=== PATIENT | female | born 1980 | race Hispanic/Latino ===

== ENCOUNTER 2021-09-05 14:09 | Emergency (ER) | payer OTHER ==
[2021-09-05] MEDS ORDERED: dexAMETHasone 10 MG/ML VIAL ONE (15:22)
[2021-09-05] MEDS ORDERED: METOCLOPRAMIDE 10 MG/2mL INJ ONE (15:22)
[2021-09-05] MEDS ORDERED: MEPERIDINE HCL 25 MG/ML SYR ONE (15:23)
[2021-09-05] MEDS ORDERED: NA CHLORIDE 0.9% 1,000 ML ONE (15:23)
[2021-09-05 15:30] LABS: Absolute Lymphocytes (CBC) 1.7 K/uL (0.7-4.9); Hematocrit 38.1 % (36.0-45.0); MPV 9.4 fL (7.6-11.3); RBC Red Blood Cell Count 4.62 M/uL (3.86-4.86)
[2021-09-05 15:52] LABS: Potassium 4.1 mmol/L (3.5-5.1)
--- NOTE | 2021-09-05 15:54 | RAD REPORT ---
EXAM DESCRIPTION: CT - Head Brain Wo Cont - 09/05/2021 3:45 pm CLINICAL HISTORY: HEADACHE Headache, drowsiness COMPARISON: Head angio dated 09/05/2021 TECHNIQUE: All CT scans are performed using dose optimization technique as appropriate and may inclu de automated exposure control or mA/KV adjustment according to patient size. FINDINGS: No intracranial hemorrhage, hydrocephalus or extra-axial fluid collection.No areas of brai n edema or evidence of midline shift. The paranasal sinuses and mastoids are clear. The calvarium is intact. IMPRESSION: No acute intracranial abnormality.
--- NOTE | 2021-09-05 15:55 | RAD REPORT ---
EXAM DESCRIPTION: CT - Head angio - 09/05/2021 3:45 pm CLINICAL HISTORY: HEADACHE Headache, drowsiness COMPARISON: No comparisons TECHNIQUE: CT angiography of the head was performed with MIPs. All CT scans are performed using dose optimization technique as appropriate and may include automated exposure control or mA/KV adjustment according to patient size. FINDINGS: No evidence of aneurysm is detected. No flow-limiting stenosis or vascular malformation id entified. Antegrade flow is seen in the vertebral arteries. The vertebral arteries are codominant. The visualized dural venous sinuses are patent. IMPRESSION: No significant flow abnormality is detected.
--- NOTE | 2021-09-05 16:35 | ER ---
Nurse's Notes [facility] Name: Ele Mckeon Age: 41 yrs Sex: Female : 1980 Arrival Date: 09/05/2021 Time: 14:11 Bed 15 Private MD: Diagnosis: Migraine, unspecified, not intractable, without status migrainosus;Essential (primary) hypertension Presentation: 09/05 14:15 Chief complaint: Patient states: Last night I began feeling a tight pressure headache. ld1 I took "Advil dual action" went to sleep. Woke up this morning feeling okay, still had a slight headache. I ate lunch and now my head is hurting really bad, intense headache. Coronavirus screen: At this time, the client does not indicate any symptoms associated with coronavirus-19. Ebola Screen: No symptoms or risks identified at this time. Initial Sepsis Screen: Does the patient meet any 2 criteria? No. Patient's initial sepsis screen is negative. Does the patient have a suspected source of infection? No. Patient's initial sepsis screen is negative. Risk Assessment: Do you want to hurt yourself or someone else? Patient reports no desire to harm self or others. Onset of symptoms was September 05, 2021. 14:15 Method Of Arrival: Ambulatory ld1 14:15 Acuity: LETICIA 3 ld1 Triage Assessment: 14:17 Headache History: The patient has had previous headaches and this one is similar to ld1 previous episodes. General: Appears in no apparent distress. comfortable, Behavior is cooperative, appropriate for age, anxious. Pain: Complains of pain in face Pain does not radiate. Pain currently is 8 out of 10 on a pain scale. Pain began gradually, Also complains of no other associated symptoms. Neuro: Level of Consciousness is awake, alert, obeys commands, Oriented to person, place, time, situation, Reports seeing spots. Cardiovascular: Capillary refill < 3 seconds Patient's skin is warm and dry. Respiratory: Airway is patent Respiratory effort is even, unlabored. 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 - Social history:: Smoking status: Patient denies any tobacco usage or history of. Patient/guardian denies using alcohol. - Family history:: not pertinent. - Hospitalizations: : No recent hospitalization is reported. Screenin:58 Abuse screen: Denies threats or abuse. Denies injuries from another. Nutritional cb5 screening: No deficits noted. Tuberculosis screening: No symptoms or risk factors identified. Fall Risk None identified. Assessment: 15:15 General: Appears in no apparent distress. comfortable, Behavior is calm, cooperative, cb5 appropriate for age. Pain: Complains of pain in top of head and face Pain currently is 4 out of 10 on a pain scale. Neuro: No deficits noted. Cardiovascular: Denies. Respiratory: Denies. GI: Patient currently denies. : Denies. EENT: Denies. Derm: Denies. Musculoskeletal: Denies. 15:20 Pain: Denies pain. cb5 16:53 Pain: Aske dpain if she needed more pain medication. patient stated "No, I am good, I cb5 don't have ant pain.". Vital Signs: 14:15 BP 157 / 99; Pulse 97; Resp 18; Temp 97.8(O); Pulse Ox 100% on R/A; Weight 97.98 kg; ld1 Height 4 ft. 11 in. (149.86 cm); Pain 8/10; 18:27 BP 132 / 86; Pulse 79; Resp 18; Pulse Ox 100% ; Pain 3/10; jh6 14:15 Body Mass Index 43.63 (97.98 kg, 149.86 cm) ld1 Esau Coma Score: 16:30 Eye Response: spontaneous(4). Verbal Response: oriented(5). Motor Response: obeys rn commands(6). Total: 15. ED Course: 14:11 Patient arrived in ED. as 14:17 Triage completed. ld1 14:17 Arm band placed on left wrist. ld1 14:38 Star Peres MD is Attending Physician. rn 14:46 Elizabeth Hutchinson RN is Primary Nurse. cb5 15:18 Basic Metabolic Panel Sent. cb5 15:18 CBC with Diff Sent. cb5 15:44 CT Head Brain wo Cont In Process Unspecified. EDMS 15:45 CT Head Angio In Process Unspecified. EDMS 15:58 Patient has correct armband on for positive identification. Call light in reach. Side cb5 rails up X 1. 18:26 IV discontinued, intact, bleeding controlled, No redness/swelling at site. Pressure jh6 dressing applied. 18:26 No provider procedures requiring assistance completed. 6 Administered Medications: 15:22 Drug: Decadron - Dexamethasone 10 mg Route: IVP; Site: left antecubital; cb5 15:22 Drug: Demerol (meperidine) 25 mg Route: IVP; Site: left antecubital; cb5 15:22 Drug: NS 0.9% 1000 ml Route: IV; Rate: 1000 ml; Site: left antecubital; cb5 15:22 Drug: Reglan (metoCLOPramide) 10 mg Route: IVP; Site: left antecubital; cb5 Outcome: 16:34 Discharge ordered by . rn 18:26 Discharged to home ambulatory. [facility] 18:26 Condition: stable 18:26 Discharge instructions given to patient, family, Instructed on discharge instructions, follow up and referral plans. Demonstrated understanding of instructions, follow-up care. 18:27 Patient left the ED. 6 Signatures: Dispatcher [employer] Danielle Mcneal Roman, MD MD rn Dibbern, Lauren RN RN ld1 Stephanie Bhat RN RN jh6 Elizabeth Hutchinson RN RN cb5
--- NOTE | 2021-09-05 16:35 | EDPHYS ---
Physician Documentation [facility] Name: Ele Mckeon Age: 41 yrs Sex: Female : 1980 Arrival Date: 09/05/2021 Time: 14:11 Bed 15 Private MD: ED Physician Star Peres HPI: 09/05 14:56 This 41 yrs old Female presents to ER via Ambulatory with complaints of rn Headache. 14:56 The patient complains of pain to the top of head. The patient describes the headache as rn aching. Onset: The symptoms/episode began/occurred yesterday. Associated signs and symptoms: Pertinent negatives: altered mental status, fever, neck stiffness, rash, vision changes, vision loss, vomiting, weakness, vertigo. Severity of symptoms: At its worst the pain was moderate, "similar to past headaches", in the emergency department the pain is unchanged. The symptoms are alleviated by nothing. the symptoms are aggravated by nothing. The patient has experienced similar episodes in the past. The patient has not recently seen a physician. Patient reports headache that began yesterday, after headache began checked blood pressure and was 180s over 110s. Is noncompliant with her blood pressure medication. Has had complicated migraines in the past that leave her with slurred speech and unilateral weakness. Has seen a neurologist for this with MRIs and multiple imaging studies. No clear etiology other than complicated migraines. states that she has been having slow slurred speech since it began yesterday similar to previous migraines.. 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 - Social history:: Smoking status: Patient denies any tobacco usage or history of. Patient/guardian denies using alcohol. - Family history:: not pertinent. - Hospitalizations: : No recent hospitalization is reported. ROS: 14:56 Constitutional: Negative for fever, chills, and weight loss, Eyes: Negative for injury, rn pain, redness, and discharge, Neck: Negative for injury, pain, and swelling, Cardiovascular: Negative for chest pain, palpitations, and edema, Respiratory: Negative for shortness of breath, cough, wheezing, and pleuritic chest pain, Abdomen/GI: Negative for abdominal pain, nausea, vomiting, diarrhea, and constipation, Back: Negative for injury and pain, : Negative for injury, bleeding, discharge, and swelling, MS/Extremity: Negative for injury and deformity, Skin: Negative for injury, rash, and discoloration, Neuro: Negative for weakness, numbness, tingling, and seizure. Exam: 14:56 Constitutional: This is a well developed, well nourished patient who is awake, alert, rn and in no acute distress. Head/Face: Normocephalic, atraumatic. Eyes: Pupils equal round and reactive to light, extra-ocular motions intact. Periorbital areas with no swelling, redness, or edema. Neck: Trachea midline, no thyromegaly or masses palpated, and no cervical lymphadenopathy. Supple, full range of motion without nuchal rigidity, or vertebral point tenderness. No Meningismus. Cardiovascular: Regular rate and rhythm. No pulse deficits. Respiratory: No increased work of breathing, no retractions or nasal flaring. Abdomen/GI: Soft, non-tender Skin: Warm, dry MS/ Extremity: Pulses equal, no cyanosis. Neurovascular intact. Full, normal range of motion. Equal circumference. Neuro: Awake and alert, GCS 15, oriented to person, place, time, and situation. Cranial nerves II-XII grossly intact. Motor strength 5/5 in all extremities. Sensory grossly intact. Cerebellar exam normal. Normal gait. Slow speech, almost as if she was intoxicated. Vital Signs: 14:15 BP 157 / 99; Pulse 97; Resp 18; Temp 97.8(O); Pulse Ox 100% on R/A; Weight 97.98 kg; ld1 Height 4 ft. 11 in. (149.86 cm); Pain 8/10; 18:27 BP 132 / 86; Pulse 79; Resp 18; Pulse Ox 100% ; Pain 3/10; jh6 14:15 Body Mass Index 43.63 (97.98 kg, 149.86 cm) ld1 Esau Coma Score: 16:30 Eye Response: spontaneous(4). Verbal Response: oriented(5). Motor Response: obeys rn commands(6). Total: 15. MDM: 14:38 Patient medically screened. rn 16:30 Differential diagnosis: hypertensive headache, intracerebral hemorrhage, migraine, rn neoplasm, tension headache, vasomotor headache. Data reviewed: vital signs, nurses notes, lab test result(s), radiologic studies, CT scan, and as a result, I will discharge patient. Counseling: I had a detailed discussion with the patient and/or guardian regarding: the historical points, exam findings, and any diagnostic results supporting the discharge/admit diagnosis, lab results, radiology results, the need for outpatient follow up, to return to the emergency department if symptoms worsen or persist or if there are any questions or concerns that arise at home. Response to treatment: the patient's symptoms have markedly improved after treatment, and as a result, I will discharge patient. Special discussion: I discussed with the patient/guardian in detail that at this point there is no indication for admission to the hospital. It is understood, however, that if the symptoms persist or worsen the patient needs to return immediately for re-evaluation. Based on the history and exam findings, there is no indication for further emergent testing or inpatient evaluation. I discussed with the patient/guardian the need to see the neurologist for further evaluation of the symptoms. 09/05 14:54 Order name: CBC with Diff; Complete Time: 16:04 rn 09/05 14:54 Order name: Basic Metabolic Panel; Complete Time: 16:04 rn 09/05 14:53 Order name: CT Head Brain wo Cont; Complete Time: 16:04 rn 09/05 14:53 Order name: CT Head Angio; Complete Time: 16:04 rn 09/05 14:54 Order name: IV Start; Complete Time: 15:30 rn Administered Medications: 15:22 Drug: Decadron - Dexamethasone 10 mg Route: IVP; Site: left antecubital; cb5 15:22 Drug: Demerol (meperidine) 25 mg Route: IVP; Site: left antecubital; cb5 15:22 Drug: NS 0.9% 1000 ml Route: IV; Rate: 1000 ml; Site: left antecubital; cb5 15:22 Drug: Reglan (metoCLOPramide) 10 mg Route: IVP; Site: left antecubital; cb5 Disposition Summary: 09/05/21 16:34 Discharge Ordered Location: Home rn Problem: new rn Symptoms: have improved rn Condition: Stable rn Diagnosis - Migraine, unspecified, not intractable, without status migrainosus rn - Essential (primary) hypertension rn Followup: rn - With: Private Physician - When: As needed - Reason: Recheck today's complaints, Re-evaluation by your physician Discharge Instructions: - Discharge Summary Sheet rn - Migraine Headache rn - Hypertension, Adult rn Forms: - Medication Reconciliation Form rn - Thank You Letter rn - Antibiotic rn palliative care - Prescription Opioid Use rn Signatures: Dispatcher [employer] EDMS Star Peres MD MD rn Dibbern, Lauren, RN RN ld1 Elizabeth Hutchinson, RN RN cb5
[2021-09-05 18:42] VITALS: TEMP 97.8; O2SAT 100
[2021-09-05 18:44] VITALS: BP 132/86
== END 2021-09-05 18:27 | disposition home or self-care (01) ==
LOC: ER 14:09
DX: G43.909 Migraine, unspecified, not intractable, without status migrainosus (principal); I10 Essential (primary) hypertension
CPT/HCPCS: 85025; 80048; 36415; 70450; 70496; 96375; 96374; 99283; Q9967; J2765; J1100; J2175; J7030

== ENCOUNTER 2022-03-16 08:12 | Emergency (ER) | payer BC, OTHER ==
[2022-03-16] MEDS ORDERED: KETOROLAC 30 MG/ML INJ ONE (08:49)
[2022-03-16 08:55] LABS: Absolute Lymphocytes (CBC) 2.3 K/uL (0.7-4.9); Hematocrit 37.7 % (36.0-45.0); Lymphocytes % 31.9 % (15.3-44.8); MCV 86.3 fL (80-100); MPV 9.5 fL (7.6-11.3); RBC Red Blood Cell Count 4.37 M/uL (3.86-4.86)
[2022-03-16 09:18] LABS: Potassium 3.1 mmol/L (3.5-5.1); Troponin High Sensitivity 4.8 pg/mL (<58.9)
--- NOTE | 2022-03-16 09:27 | RAD REPORT ---
EXAM DESCRIPTION: RAD - Chest Single View - 03/16/2022 9:17 am CLINICAL HISTORY: CHEST PAIN Chest pain. COMPARISON: No comparisons FINDINGS: Portable technique limits examination quality. The lungs are grossly clear. The heart is normal in size. No displaced fractures. IMPRESSION: No acute intrathoracic process suspected.
[2022-03-16] MEDS ORDERED: MORPHINE 4 MG/ML SYR ONE (11:04)
--- NOTE | 2022-03-16 11:53 | EDPHYS ---
Physician Documentation [facility] Name: Ele Mckeon Age: 41 yrs Sex: Female : 1980 Arrival Date: 03/16/2022 Time: 08:15 Bed 4 Private MD: ED Physician Galen Cline HPI: 03/16 11:52 This 41 yrs old Female presents to ER via EMS with complaints of Chest Pain. ms3 11:52 The patient or guardian reports chest pain that is located primarily in the substernal ms3 area. Onset: 1 hour(s) ago. The pain does not radiate. Associated signs and symptoms: Pertinent positives: None. Pertinent negatives: cough, diaphoresis, nausea, vomiting. The chest pain is described as a pressure, sharp. Duration: The patient or guardian reports a single episode, that is still ongoing. Modifying factors: The symptoms are alleviated by nothing. the symptoms are aggravated by breathing, deep breath. Severity of pain: At its worst the pain was severe in the emergency department the pain is unchanged. 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 - Social history:: Smoking status: Patient denies any tobacco usage or history of. ROS: 11:52 Constitutional: Negative for fever, and chills. Neck: Negative for injury, pain, and ms3 swelling, Respiratory: Negative for shortness of breath, cough, wheezing, and pleuritic chest pain, Abdomen/GI: Negative for abdominal pain, nausea, vomiting, diarrhea, and constipation, MS/Extremity: Negative for injury and deformity, Skin: Negative for injury, rash, and discoloration. 11:52 Cardiovascular: Positive for chest pain. 11:52 All other systems are negative. Exam: 08:14 ECG was reviewed by the Attending Physician. ms3 11:52 Constitutional: This is a well developed, well nourished patient who is awake, alert, ms3 and in no acute distress. Neck: Trachea midline, no cervical lymphadenopathy. Supple, full range of motion without nuchal rigidity, or vertebral point tenderness. No Meningismus. Chest/axilla: Normal chest wall appearance and motion. Nontender with no deformity. Cardiovascular: Regular rate and rhythm with a normal S1 and S2. No gallops, murmurs, or rubs. Normal PMI, no JVD. No pulse deficits. Respiratory: Lungs have equal breath sounds bilaterally, clear to auscultation and percussion. No rales, rhonchi or wheezes noted. No increased work of breathing, no retractions or nasal flaring. Abdomen/GI: Soft, non-tender, with normal bowel sounds. No distension or tympany. No guarding or rebound. No evidence of tenderness throughout. Skin: Warm, dry with normal turgor. Normal color with no rashes, no lesions, and no evidence of cellulitis. MS/ Extremity: Pulses equal, no cyanosis. Neurovascular intact. Full, normal range of motion. Psych: Awake, alert, with orientation to person, place and time. Behavior, mood, and affect are within normal limits. Vital Signs: 08:18 BP 126 / 87; Pulse 73; Resp 16; Pulse Ox 100% on R/A; iw 09:38 BP 143 / 81; Pulse 65; Resp 16; Pulse Ox 100% ; bp 11:36 BP 128 / 78; Pulse 74; Resp 13; Pulse Ox 99% on R/A; eh3 12:30 BP 135 / 85; Pulse 76; Resp 18; Pulse Ox 99% on R/A; Pain 5/10; eh3 MDM: 08:22 Patient medically screened. ms3 11:52 HEART Score: History: Slightly Suspicious (0), ECG: Normal (0), Age: < or = 45 years ms3 (0), Risk Factors: 1 or 2 risk factors (1), Troponin: < or = 1 x Normal Limit (0), Total Score = 1. Data reviewed: vital signs, nurses notes, lab test result(s), EKG, radiologic studies, and as a result, I will discharge patient. Counseling: I had a detailed discussion with the patient and/or guardian regarding: the historical points, exam findings, and any diagnostic results supporting the discharge/admit diagnosis, lab results, radiology results, the need for outpatient follow up, to return to the emergency department if symptoms worsen or persist or if there are any questions or concerns that arise at home. Special discussion: I discussed with the patient/guardian in detail that at this point there is no indication for admission to the hospital. It is understood, however, that if the symptoms persist or worsen the patient needs to return immediately for re-evaluation. ED course: Repeat troponin unchanged. PERC score 0.. 03/16 08:27 Order name: Basic Metabolic Panel; Complete Time: 09:36 ms3 03/16 08:27 Order name: CBC with Diff; Complete Time: 09:36 ms3 03/16 08:27 Order name: Troponin HS; Complete Time: 09:36 ms3 03/16 08:27 Order name: XRAY Chest (1 view); Complete Time: 09:36 ms3 03/16 10:20 Order name: Troponin High Sensitivity; Complete Time: 11:41 ms3 03/16 08:27 Order name: EKG; Complete Time: 08:29 ms3 03/16 08:27 Order name: Cardiac monitoring; Complete Time: 08:36 ms3 03/16 08:27 Order name: EKG - Nurse/Tech; Complete Time: 08:35 ms3 03/16 08:27 Order name: IV Saline Lock; Complete Time: 08:36 ms3 03/16 08:27 Order name: Labs collected and sent; Complete Time: 08:36 ms3 03/16 08:27 Order name: O2 Per Protocol; Complete Time: 08:36 ms3 03/16 08:27 Order name: O2 Sat Monitoring; Complete Time: 08:36 ms3 EC:14 Rate is 73 beats/min. Rhythm is regular. QRS [place] is Normal. [place] interval is normal. QRS ms3 interval is normal. Clinical impression: NSR w/ Non-specific ST/T Changes. Interpreted by me. Reviewed by me. Administered Medications: 08:57 Drug: Ketorolac 10 mg Route: IVP; Site: left antecubital; bp 09:39 Follow up: Response: No adverse reaction bp 12:10 Follow up: Response: Marked relief of symptoms eh3 08:58 CANCELLED (Other Intervention Used): Aspirin Chewable Tablet 324 mg PO once; 81 mg bp tablets x 4 11:04 Not Given (Patient Refused): morphine 4 mg IVP once over 4 mins eh3 12:09 Drug: Potassium Chloride 40 mEq Route: PO; eh3 12:09 Follow up: Response: No adverse reaction eh3 12:48 Follow up: Response: No adverse reaction eh3 Disposition Summary: 03/16/22 11:52 Discharge Ordered Location: Home ms3 Condition: Stable ms3 Diagnosis - Chest pain, unspecified ms3 - Hypokalemia ms3 Followup: ms3 - With: Private Physician - When: 1 - 2 days - Reason: Recheck today's complaints Discharge Instructions: - Discharge Summary Sheet ms3 - Nonspecific Chest Pain, Adult ms3 Forms: - Medication Reconciliation Form ms3 - Thank You Letter ms3 - Antibiotic Education ms3 - Prescription Opioid Use ms3 Prescriptions: - Ibuprofen 600 mg Oral Tablet - take 1 tablet by ORAL route every 6 hours As needed take with food; 30 tablet; ms3 Refills: 0, Product Selection Permitted Signatures: Dispatcher [employer] Gilda Martinez RN RN Andrew An RN RN bp Galen Cline DO DO ms3 Janett Rust RN RN 3 Corrections: (The following items were deleted from the chart) 08:58 08:27 Aspirin Chewable Tablet 324 mg PO once; 81 mg tablets x 4 ordered. ms3 bp
--- NOTE | 2022-03-16 11:53 | ER ---
Nurse's Notes [facility] Name: Ele Mckeon Age: 41 yrs Sex: Female : 1980 Arrival Date: 03/16/2022 Time: 08:15 Bed 4 Private MD: Diagnosis: Chest pain, unspecified;Hypokalemia Presentation: 03/16 08:15 Chief complaint: EMS states: pt woke up with midsternal chest pain, sharp pressure, iw hurts more when she takes a deep breath , EMS gave ASA 324 and 1 spray of Nitro. Coronavirus screen: At this time, the client does not indicate any symptoms associated with coronavirus-19. Ebola Screen: Patient negative for fever greater than or equal to 101.5 degrees Fahrenheit, and additional compatible Ebola Virus Disease symptoms Patient denies exposure to infectious person. Patient denies travel to an Ebola-affected area in the 21 days before illness onset. No symptoms or risks identified at this time. Initial Sepsis Screen: Does the patient meet any 2 criteria? No. Patient's initial sepsis screen is negative. Does the patient have a suspected source of infection? No. Patient's initial sepsis screen is negative. Risk Assessment: Do you want to hurt yourself or someone else? Patient reports no desire to harm self or others. Onset of symptoms was March 16, 2022. 08:15 Method Of Arrival: Ambulatory iw 08:15 Method Of Arrival: EMS: [facility] iw 08:15 Acuity: LETICIA 3 iw Triage Assessment: 08:33 General: Appears in no apparent distress. uncomfortable, well groomed, well developed, bp Behavior is calm, cooperative, appropriate for age. Pain: Complains of pain in chest. Neuro: Level of Consciousness is awake, alert, obeys commands, Oriented to person, place, time, situation, Appropriate for age Belt Cleaner are equal bilaterally Speech is normal. Cardiovascular: Reports chest pain. TIP PUNCHER: 12:47 LMP N/A - Hysterectomy eh3 Historical: - Allergies: 08:17 No Known Allergies; iw - PMHx: 08:17 Anxiety; depressive disorder; Hypertensive disorder; iw - PSHx: 08:17 section; Cholecystectomy; hysterectomy; iw - Immunization history:: Adult Immunizations up to date. - Social history:: Smoking status: Patient denies any tobacco usage or history of. Screenin:24 Abuse screen: Denies threats or abuse. Denies injuries from another. Nutritional bp screening: No deficits noted. Tuberculosis screening: No symptoms or risk factors identified. Fall Risk None identified. Assessment: 08:35 Pain: Pain radiates to midsternal chest. bp 09:39 Reassessment: No changes from previously documented assessment. Patient and/or family bp updated on plan of care and expected duration. Pain level reassessed. 11:56 Pain: Pain began suddenly. eh3 Vital Signs: 08:18 BP 126 / 87; Pulse 73; Resp 16; Pulse Ox 100% on R/A; iw 09:38 BP 143 / 81; Pulse 65; Resp 16; Pulse Ox 100% ; bp 11:36 BP 128 / 78; Pulse 74; Resp 13; Pulse Ox 99% on R/A; eh3 12:30 BP 135 / 85; Pulse 76; Resp 18; Pulse Ox 99% on R/A; Pain 5/10; eh3 ED Course: 08:15 Patient arrived in ED. iw 08:15 Galen Cline DO is Attending Physician. ms3 08:17 Triage completed. iw 08:17 Arm band placed on. iw 08:20 Initial lab(s) drawn, by ok, sent to lab. dh3 08:24 Andrew An, RN is Primary Nurse. bp 08:24 Patient has correct armband on for positive identification. Bed in low position. Call bp light in reach. Side rails up X2. Client placed on continuous cardiac and pulse oximetry monitoring. NIBP monitoring applied. belt builder helper on. 08:24 No provider procedures requiring assistance completed. Maintain EMS IV. Dressing bp intact. Good blood return noted. Site clean \T\ dry. Gauge \T\ site: 20g left AC. Patient maintains SpO2 saturation greater than 95% on room air. 09:18 XRAY Chest (1 view) In Process Unspecified. EDMS 09:55 Primary Nurse role handed off by Andrew An, RN jh5 09:55 Subah Emerson, RINA is Primary Nurse. jh5 11:04 Troponin High Sensitivity Sent. eh3 12:48 IV discontinued, intact, bleeding controlled, No redness/swelling at site. Pressure eh3 dressing applied. Administered Medications: 08:57 Drug: Ketorolac 10 mg Route: IVP; Site: left antecubital; bp 09:39 Follow up: Response: No adverse reaction bp 12:10 Follow up: Response: Marked relief of symptoms eh3 08:58 CANCELLED (Other Intervention Used): Aspirin Chewable Tablet 324 mg PO once; 81 mg bp tablets x 4 11:04 Not Given (Patient Refused): morphine 4 mg IVP once over 4 mins eh3 12:09 Drug: Potassium Chloride 40 mEq Route: PO; eh3 12:09 Follow up: Response: No adverse reaction eh3 12:48 Follow up: Response: No adverse reaction eh3 Medication: 11:55 VIS not applicable for this client. eh3 Outcome: 11:52 Discharge ordered by MD. ms3 12:48 Discharged to home ambulatory, with family. eh3 12:48 Condition: stable 12:48 Discharge instructions given to patient, Instructed on discharge instructions, follow up and referral plans. medication usage, Demonstrated understanding of instructions, follow-up care, medications, Prescriptions given X 1. 12:48 Patient left the ED. 3 Signatures: Dispatcher [employer] EDGilda Bennett RN RN iw Herrera, Deanna 3 Andrew An RN RN Galen Garcia DO DO ms3 Subha Emerson RN RN 5 Janett Rust RN RN 3 Corrections: (The following items were deleted from the chart) 09:38 08:35 Pain: Pain began bp bp 11:56 11:56 Pain: Pain began eh3 eh3
[2022-03-16] MEDS ORDERED: POTASSIUM CL SA 10 MEQ TAB PO ONE (12:15)
[2022-03-16 13:29] VITALS: BP 128/78; O2SAT 99
--- NOTE | 2022-03-17 07:55 | EKG ---
Test Date: 2022-03-16 Test Time: 08:14:48 Lockstitch Tunnel Elastic Operator: KENYETTA MEASUREMENT RESULTS: Intervals: Rate: 73 AL: 130 QRSD: 98 QT: 390 QTc: 429 Eclectic: P: 38 AL: 130 QRS: 69 T: 48 INTERPRETIVE STATEMENTS: Normal sinus rhythm Nonspecific T wave abnormality Abnormal ECG No previous ECG available for comparison Electronically Signed On 03-17-22 07:54:33 CDT by Andrea Wu
== END 2022-03-16 12:48 | disposition home or self-care (01) ==
LOC: ER 08:12
DX: R07.89 Other chest pain (principal); E87.6 Hypokalemia; I10 Essential (primary) hypertension
CPT/HCPCS: 36415; 71045; 80048; 84484; 85025; 93005

== ENCOUNTER 2022-12-30 18:50 | Emergency (ER) | payer BC, OTHER ==
--- OUTSIDE RECORDS SUMMARY | 2022-12-30 19:09 | XMS REPORT | Continuity of Care Document ---
:1980 Author Organization [facility] t Address [address] [facility] [address] [place] [address] Care Team Providers Name Role Phone Vadim Billsdeandre Primary Care Physician Unavailable KRISTY BARBOSA Attending Clinician Unavailable MARCI KO Attending Clinician Unavailable CURT JADE Attending Clinician Unavailable CURT JADE Attending Clinician Unavailable Nurse, Damaris Pedmadan Attending Clinician Unavailable Marci Gonzales Attending Clinician PAMELA COX Attending Clinician Unavailable Lab, Ang - Db Attending Clinician Unavailable Draw, Clc-Bls Lab Attending Clinician Unavailable Kristy Barbosa MD Attending Clinician CHIO GARCIA Attending Clinician Unavailable Chio Rosa Attending Clinician [phone] TREVA ACOSTA Attending Clinician Unavailable TREVA ACOSTA Attending Clinician Unavailable Gustavo Jasso MD Attending Clinician GUSTAVO JASSO Attending Clinician Unavailable BRANDEE NANCE Attending Clinician Unavailable Brandee Nance MD Attending Clinician Unknown, Attending Attending Clinician Unavailable Only, Ang Db Test Attending Clinician Unavailable ELIAS WHITMAN Attending Clinician Unavailable DAMARIS SEBASTIAN Attending Clinician Unavailable Damaris Gastelum Attending Clinician Karen COTE, Haley Leigh. Attending Clinician HALEY JONES Attending Clinician Unavailable Doctor Unassigned, [place] Attending Clinician Unavailable Elias Santoro Attending Clinician Delonte COTE, Naresh Attending Clinician NARESH MARTEL Attending Clinician Unavailable Only, Adc Pob2 Test Attending Clinician Unavailable Carlos Eduardo OWEN, Zenia Attending Clinician ZENIA THIBODEAUX Attending Clinician Unavailable Debora Wetzel RN Attending Clinician Unavailable HILARIO CIFUENTES Attending Clinician Unavailable JESSEE BILLS Attending Clinician Unavailable Sanju COTE, Jessee Quintanilla Attending Clinician Karla COTE, Treva Le Attending Clinician MARTIN EDWARD Attending Clinician Unavailable Nurse, Adc Pob Immunization Attending Clinician Unavailable Martin Edward DO Attending Clinician Therapy, Clc Covid Infusion Attending Clinician Unavailable Alan COTE, Gurpreet Pete Attending Clinician GURPREET PHILLIPS Attending Clinician Unavailable Provider, Ang Db Urgent [facility] Attending Clinician Unavailable Nurse, Clc [facility] Ob[facility] Attending Clinician Unavailable Lois FLYNN, Danielle Bond Attending Clinician DAFNE PETERSON Attending Clinician Unavailable Lab, Clc - Attending Clinician Unavailable Kenneth Alberto MD Attending Clinician KENNETH ALBERTO Attending Clinician Unavailable KENNETH ALBERTO Attending Clinician Unavailable Jordan FLYNN, Stacey Atkinson Attending Clinician Unavailable TAMARA LAURA Attending Clinician Unavailable Valentín Lunsford MD Attending Clinician Shola Anthony MD Attending Clinician Tamara Laura MD Attending Clinician Lab, Adc Fam Pob I Attending Clinician Unavailable GHASSAN MARCELINO Attending Clinician Unavailable Provider, [facility] Attending Clinician Unavailable Only, Adc Test Attending Clinician Unavailable Chaim Bolton MD Attending Clinician CHAIM BOLTON Attending Clinician Unavailable Pob, Adc Lab Main Attending Clinician Unavailable Berenice Melgar Attending Clinician Sia Felipe Attending Clinician Unavailable Caio Jeff MD Attending Clinician CAIO JEFF Attending Clinician Unavailable Tech, [facility] Sleep Lab Attending Clinician Unavailable Dafne Peterson PA-C Attending Clinician 2, [facility] Adult Infusion Nurse Attending Clinician Unavailable Only, [facility] Test Attending Clinician Unavailable Yumiko COTE, Russell Chen Attending Clinician Chandu Fry MD Attending Clinician Quinn Norris MD Attending Clinician QUINN NORRIS Attending Clinician Unavailable 2, Adc Lab Attending Clinician Unavailable Annabel Santana RN Attending Clinician Unavailable Pob1, [facility] Attending Clinician Unavailable Brenna Brisoce Attending Clinician Jese Casarez MD Attending Clinician DANN NURSE Attending Clinician Unavailable KRISTY BARBOSA Admitting Clinician Unavailable HALEY JONES Admitting Clinician Unavailable Kristy Barbosa MD Admitting Clinician TAMARA LAURA Admitting Clinician Unavailable Tamara Laura MD Admitting Clinician Chandu Fry MD Admitting Clinician CHANDU FRY Admitting Clinician Unavailable Payers Payer Name Policy Type Policy Number Effective Date Expiration Date [facility] [id number] 2019 PPO 00:00:00 [facility] [id number] 2021 00:00:00 Problems Condition Condition Condition Status Onset Resolution Last Treating Co mments Source Name Details Category Date Date Treatment Clinician Date Nida' Nida' Disease Active 2022-0 U nivers s disease s disease 2-09 ity of 00:00: [place] [facility] Postoperat Postoperat Disease Active 2020-0 U nivers major state major state 7-20 ity of 00:00: [place] [facility] Left sided Left sided Disease Active U nivers numbness numbness 3-26 ity of 00:00: Medical Branch Left-sided Left-sided Disease Active 2020- U nivers weakness weakness 3-25 ity of 00:00: [place] [facility] Abnormal Abnormal Disease Active 2019-07 Overview: Un diony uterine uterine 1-18 Added ity of bleeding bleeding 00:00: automatic [place] as 00 ally from Medical request Branch for surgery [id number] RAD RAD Disease Active 2019-07 Univers (reactive (reactive 0-22 ity of airway airway 00:00: [place] disease) disease) 00 Medica l Branch Migraine Migraine Disease Active Unive rs 8-17 ity of 00:00: [place] [facility] CHARLES CHARLES Disease Active Univers (obstructi (obstructi 7-18 it y of ve sleep ve sleep 00:00: [place] apnea) apnea) 00 Medical Branch Essential Essential Disease Active Uni vers hypertensi hypertensi 6-09 it y of on on 00:00: [place] [facility] Morbid Morbid Disease Active 2019- Univers obesity obesity 6-04 it[place] of with body with body 00:[place] mass [place] mass index 00 Me dical of of Branch 40.0-49.9 40.0-49.9 Morbid Morbid Disease Active 2018- Univers obesity obesity 6-04 [place] of with body with body 00:[place] mass index 00 Me dical of of Branch 40.0-49.9 40.0-49.9 Hemiplegic Hemiplegic Disease Active 2019- U nivers migraine migraine 2-28 ity of 00:00: [place] [facility] Dysarthria Dysarthria Disease Active 2017- M ethodi 11-24 st 00:00: [facility] 00 l Depression Depression Disease Active 2018- U nivers 4-08 ity of 00:00: [place] [facility] Immunizati Immunizati Disease Active 2018- U nivers on on 10-24 ity of counseling counseling 00:[place] [facility] Immunizati Immunizati Disease Active 2018 U nivers on on 10-24 ity of counseling counseling 00:00: [place] [facility] Pain in Pain in Disease Active 2018- Univers both hands both hands 3-27 it y of 00:00: [place] [facility] Chronic Chronic Disease Active 2018- Univers pain of pain of 3-27 ity of both knees both knees 00:00: [place] [facility] Chronic Chronic Disease Active 2018 Univers pain of pain of 3-27 ity of both knees both knees 00:00: [place] [facility] Prediabete Prediabete Disease Active U nivers s s 3-10 ity of 00:00: [place] [facility] ESR raised ESR raised Disease Active U nivers 3-10 ity of 00:00: [place] [facility] Elevated Elevated Disease Active Unive rs C-reactive C-reactive 3-10 it y of protein protein 00:00: [place] (CRP) (CRP) 00 Medical Branch Polyarthra Polyarthra Disease Active U nivers lgia lgia 3-10 ity of 00:00: [place] [facility] Vitamin D Vitamin D Disease Active Uni vers deficiency deficiency 3-10 it y of 00:00: [place] [facility] Cervical Cervical Disease Active 2016-07 Unive rs lymphadeni lymphadeni 1-21 it y of tis tis 00:00: [place] [facility] Iron Iron Disease Active 2015-07 Univers deficiency deficiency 0-24 it y of anemia anemia 00:00: [place] [facility] B12 B12 Disease Active 2015-07 Univers deficiency deficiency 0-24 it y of 00:00: [place] [facility] Allergic Allergic Disease Active 2015-07 Unive rs rhinitis rhinitis 0-14 ity of 00:00: [place] 00 Medical Branch Migraines Migraines Disease Active 2015-07 Uni vers 0-14 ity of 00:00: [place] [facility] Allergies, Adverse Reactions, Alerts Allergy Allergy Status Severity Reaction(s) Onset Inactive Treating Comm ents Source Name Type Date Date Clinician Cinnamon Propensi Active Swelling Angioedem M ethodi ty to 4-[address] adverse 00:00: Hospita reaction 00 l s to drug Cinnamon Propensi Active Swelling Angioedem U nivers ty to 4-27 a ity of adverse 00:00: [place] reaction 00 Medical s Branch CINNAMON DRUG Active High Anaphylaxis 2018-0 Uni vers INGREDI 11-24 ity of 00:00: [place] 00 Medical Branch Social History Social Habit Start Date Stop Date Quantity Comments Source [facility] Exposure to 2022-11-29 2022-12-09 Not sure University of SARS-CoV-2 (event) 00:00:00 16:27:00 [place] [facility] History SDOH 2022-10-24 2022-10-24 2 University o f Alcohol Frequency 00:00:00 00:00:00 [place] M edical [facility] History SDOH 2022-10-24 2022-10-24 1 University o f Alcohol Std Drinks 00:00:00 00:00:00 [place] [facility] History SDOH 2022-10-24 2022-10-24 1 University o f Alcohol Binge 00:00:00 00:00:00 [place] [facility] al [facility] History SDOH 2022-10-24 2022-10-24 5 University o f Social Connections 00:00:00 00:00:00 [place] [facility] Phone Branch History SDOH 2022-10-24 2022-10-24 2 University o f Social Connections 00:00:00 00:00:00 [place] [facility] Get Together Branch History SDOH 2022-10-24 2022-10-24 3 University o f Social Connections 00:00:00 00:00:00 [place] [facility] Restoration Branch History SDOH 2022-10-24 2022-10-24 2 University o f Social Connections 00:00:00 00:00:00 [place] [facility] Membership Branch History SDOH 2022-10-24 2022-10-24 1 University o f Social Connections 00:00:00 00:00:00 [place] [facility] Meetings Branch History SDOH 2022-10-24 2022-10-24 3 University o f Social Connections 00:00:00 00:00:00 [place] [facility] Living [facility] History SDOH 2022-10-24 2022-10-24 5 University o f Physical Activity 00:00:00 00:00:00 [place] [facility] edical DPW Branch History SDOH 2022-10-24 2022-10-24 0 University o f Physical Activity 00:00:00 00:00:00 [place] [facility] edical MPS Branch History SDOH 2022-10-24 2022-10-24 3 University o f Stress 00:00:00 00:00:00 [place] [facility] History SDOH 2022-10-24 2022-10-24 4 University o f Financial 00:00:00 00:00:00 [place] [facility] History SDOH Food 2022-10-24 2022-10-24 1 Univers ity of Worry 00:00:00 00:00:00 [place] [facility] History SDOH Food 2022-10-24 2022-10-24 1 Univers ity of Scarcity 00:00:00 00:00:00 [place] [facility] History SDOH 2022-10-24 2022-10-24 2 University o f Housing Unable to 00:00:00 00:00:00 [place] [facility] Pay Branch History SDOH 2022-10-24 2022-10-24 1 University o f Housing Places 00:00:00 00:00:00 [place] [facility]i artis Lived Branch History SDCO 2022-10-24 2022-10-24 2 University o f Housing Homeless 00:00:00 00:00:00 [facility] dical Last Year Branch Tobacco use and 2022-03-16 2022-03-16 Smokeless tobacco Un iversity of exposure 00:00:00 00:00:00 non-user [place] [facility] Education 2020-10-22 2020-10-22 15 University of 00:00:00 00:00:00 [place] [facility] History SDOH 2020-03-16 2020-03-16 2 University o f Transport Med 00:00:00 00:00:00 [place] [facility] al [facility] History SDCO 2020-03-16 2020-03-16 2 University o f Transport Non-Med 00:00:00 00:00:00 [place] [facility] History of Social 2018-06-17 2018-06-[address] function 00:00:00 00:00:00 Hospital Alcohol intake 2017-11-24 2017-11-24 [facility] Alcohol Comment 2016-05-13 2016-05-13 Occasionally Univers ity of 00:00:00 00:00:00 [place] [facility] Sex Ass[birth year] At [birth year] [facility] 00:[facility] Smoking Status Start Date Stop Date Source Never smoker [facility] Medications Ordered Filled Start Stop Current Ordering Indication Dosage Frequency Signature Comments Components Source Medication Medication Date Date Medication? Clinician (SIG) Name Name mecobalamin 2022-0 Yes Take by Uni vers , vitamin 5-03 mouth. ity of B12, (B12 08:14: [place] ACTIVE) 27 Medical 1,000 mcg Branch Chew mecobalamin 3-0 Yes Take by Uni vers , vitamin 5-03 mouth. ity of B12, (B12 08:14: [place] ACTIVE) 27 Medical 1,000 mcg Branch Chew mecobalamin 3-0 Yes Take by Uni vers , vitamin 5-03 mouth. ity of B12, (B12 08:14: [place] ACTIVE) 27 Medical 1,000 mcg Branch Chew mecobalamin 3-0 Yes Take by Uni vers , vitamin 5-03 mouth. ity of B12, (B12 08:14: [place] ACTIVE) 27 Medical 1,000 mcg Branch Chew SERTraline 2022-0 Yes [id number] 25mg Take 1 Univers (ZOLOFT) 25 5-03 tablet by ity of mg tablet 00:00: [place] 00 the Medical morning. Branch SERTraline 3-0 Yes [id number] 25mg Take 1 Univers (ZOLOFT) 25 5-03 tablet by ity of mg tablet 00:00: [place] the Medical morning. Branch SERTraline 2022-0 Yes [id number] 25mg Take 1 Univers (ZOLOFT) 25 5-03 tablet by ity of mg tablet 00:00: [place] 00 the Medical morning. Branch SERTraline 2022-0 Yes [id number] 25mg Take 1 Univers (ZOLOFT) 25 5-03 tablet by ity of mg tablet 00:00: [place] 00 the Medical morning. Branch telmisartan 3-0 Yes [id number] 40mg Take 1 Univers 40 mg 4-07 tablet by ity of tablet 00:00: mouth in [place] 00 the Medical morning. Branch telmisartan 3-0 Yes [id number] 40mg Take 1 Univers 40 mg 4-07 tablet by ity of tablet 00:00: mouth in [place] 00 the Medical morning. Branch telmisartan 3-0 Yes [id number] 40mg Take 1 Univers 40 mg 4-07 tablet by ity of tablet 00:00: mouth in [place] the Medical morning. Branch telmisartan 0 Yes [id number] 40mg Take 1 Univers 40 mg 4-07 tablet by ity of tablet 00:00: mouth in [place] the morning. Branch telmisartan 2022-0 Yes [id number] 40mg Take 1 Univers 40 mg 4-07 tablet by ity of tablet 00:00: mouth in [place] the morning. Branch telmisartan 2022-0 Yes [id number] 40mg Take 1 Univers 40 mg 4-07 tablet by ity of tablet 00:00: mouth in [place] the morning. Branch telmisartan 2022-0 Yes [id number] 40mg Take 1 Univers 40 mg 4-07 tablet by ity of tablet 00:00: mouth in [place] the morning. Branch SERTraline Yes [id number] Take 1/2 Univers (ZOLOFT) 50 3-29 tab po ity of mg tablet 00:00: daily x 1 Nic as 00 week. Then Medical increase Branch to 1 tab po daily. Avoid abrupt cessation. SERTraline Yes [id number] Take 1/2 Univers (ZOLOFT) 50 3-29 tab po ity of mg tablet 00:00: daily x 1 Nic as 00 week. Then Medical increase Branch to 1 tab po daily. Avoid abrupt cessation. SERTraline Yes [id number] Take 1/2 Univers (ZOLOFT) 50 3-29 tab po ity of mg tablet 00:00: daily x 1 [place] as 00 week. Then Medical increase Branch to 1 tab po daily. Avoid abrupt cessation. SERTraline Yes [id number] Take 1/2 Univers (ZOLOFT) 50 3-29 tab po ity of mg tablet 00:00: daily x 1 [place] as 00 week. Then Medical increase Branch to 1 tab po daily. Avoid abrupt cessation. SERTraline 2022- No [id number] Take 1/2 Univers (ZOLOFT) 50 3-29 05-03 tab po ity o f mg tablet 00:00: 00:00 [place] x 1 [place] :[place] week. Then Medical increase Branch to 1 tab po daily. Avoid abrupt cessation. SERTraline 2022- No [id number] Take 1/2 Univers (ZOLOFT) 50 3- 05-03 tab po ity o f mg tablet 00:00: 00:00 [place] x 1 [place] :[place] week. Then Medical increase Branch to 1 tab po daily. Avoid abrupt cessation. SERTraline 2022- No [id number] Take 1/2 Univers (ZOLOFT) 50 3- 05-03 tab po ity o f mg tablet 00:00: 00:00 [place] x 1 [place] :00 week. Then Medical increase Branch to 1 tab po daily. Avoid abrupt cessation. SERTraline 2022- No [id number] Take 1/2 Univers (ZOLOFT) 50 3- 05-03 tab po ity o f mg tablet 00:00: 00:00 [place] x 1 [place] 00 :00 week. Then Medical increase Branch to 1 tab po daily. Avoid abrupt cessation. levothyroxi 2021-07 Yes [id number] 12.5ug Take 0.5 Univers ne 25 mcg 2-21 tablets by ity of tablet 00:00: mouth [place] 00 every Medical morning. Branch semaglutide 2021-07 Yes [id number] 1mg inject 1 Univers (OZEMPIC) 1 2-21 mg under ity of mg/dose (4 00:00: the skin Nic as mg/3 mL) 00 weekly. Medical PnIj Branch ergocalcife 2021-07 Yes [id number] Take 1 Univers rol, 2-21 capsule by ity of vitamin d2, 00:00: mouth [place] 1,250 mcg 00 weekly. Medical (50,000 Branch unit) capsule levothyroxi 2021-07 Yes [id number] 12.5ug Take 0.5 Univers ne 25 mcg 2-21 tablets by ity of tablet 00:00: mouth [place] 00 every Medical morning. Branch semaglutide 2021-07 Yes [id number] 1mg inject 1 Univers (OZEMPIC) 1 2-21 mg under ity of mg/dose (4 00:00: the skin Nic as mg/3 mL) 00 weekly. Medical PnIj Branch ergocalcife 2021-07 Yes [id number] Take 1 Univers rol, 2-21 capsule by ity of vitamin d2, 00:00: mouth [place] 1,250 mcg 00 weekly. Medical (50,000 Branch unit) capsule levothyroxi 2021-07 Yes [id number] 12.5ug Take 0.5 Univers ne 25 mcg 2-21 tablets by ity of tablet 00:00: mouth [place] 00 every Medical morning. Branch semaglutide 2021-07 Yes [id number] 1mg inject 1 Univers (OZEMPIC) 1 2-21 mg under ity of mg/dose (4 00:00: the skin Nic as mg/3 mL) 00 weekly. Medical PnIj Branch ergocalcife 2021-07 Yes [id number] Take 1 Univers rol, 2-21 capsule by ity of vitamin d2, 00:00: mouth [place] 1,250 mcg 00 weekly. Medical (50,000 Branch unit) capsule levothyroxi 2021-07 Yes [id number] 12.5ug Take 0.5 Univers ne 25 mcg 2-21 tablets by ity of tablet 00:00: mouth [place] 00 every Medical morning. Branch semaglutide 2021-07 Yes [id number] 1mg inject 1 Univers (OZEMPIC) 1 2-21 mg under ity of mg/dose (4 00:00: the skin Nic as mg/3 mL) 00 weekly. Medical PnIj [place] ergocalcife 2021-07 Yes [id number] Take 1 Univers rol, 2-21 capsule by ity of vitamin d2, 00:00: mouth [place] 1,250 mcg 00 weekly. Medical (50,000 Branch unit) capsule levothyroxi 2021-07 Yes [id number] 12.5ug Take 0.5 Univers ne 25 mcg 2-21 tablets by ity of tablet 00:00: mouth [place] 00 every Medical morning. Branch semaglutide 2021-07 Yes [id number] 1mg inject 1 Univers (OZEMPIC) 1 2-21 mg under ity of mg/dose (4 00:00: the skin Nic as mg/3 mL) 00 weekly. Medical PnIj [place] ergocalcife 2021-07 Yes [id number] Take 1 Univers rol, 2-21 capsule by ity of vitamin d2, 00:00: mouth [place] 1,250 mcg 00 weekly. Medical (50,000 Branch unit) capsule levothyroxi 2021-07 Yes [id number] 12.5ug Take 0.5 Univers ne 25 mcg 2-21 tablets by ity of tablet 00:00: mouth [place] 00 every Medical morning. Branch semaglutide 2021-07 Yes [id number] 1mg inject 1 Univers (OZEMPIC) 1 2-21 mg under ity of mg/dose (4 00:00: the skin Nic as mg/3 mL) 00 weekly. Medical PnIj [place] ergocalcife 2021-07 Yes [id number] Take 1 Univers rol, 2-21 capsule by ity of vitamin d2, 00:00: mouth [place] 1,250 mcg 00 weekly. Medical (50,000 Branch unit) capsule levothyroxi 2021-07 Yes [id number] 12.5ug Take 0.5 Univers ne 25 mcg 2-21 tablets by ity of tablet 00:00: mouth [place] 00 every Medical morning. [place] semaglutide 2021-07 Yes [id number] 1mg inject 1 Univers (OZEMPIC) 1 2-21 mg under ity of mg/dose (4 00:00: the skin Nic as mg/3 mL) 00 weekly. Medical PnIj [place] ergocalcife 2021-07 Yes [id number] Take 1 Univers rol, 2-21 capsule by ity of vitamin d2, 00:00: mouth [place] 1,250 mcg 00 weekly. Medical (50,000 Branch unit) capsule levothyroxi 2021-07 Yes [id number] 12.5ug Take 0.5 Univers ne 25 mcg 2-21 tablets by ity of tablet 00:00: mouth [place] 00 every Medical morning. [place] semaglutide 2021-07 Yes [id number] 1mg inject 1 Univers (OZEMPIC) 1 2-21 mg under ity of mg/dose (4 00:00: the skin Nic as mg/3 mL) 00 weekly. Medical PnIj [place] ergocalcife 2021-07 Yes [id number] Take 1 Univers rol, 2-21 capsule by ity of vitamin d2, 00:00: mouth [place] 1,250 mcg 00 weekly. Medical (50,000 Branch unit) capsule levothyroxi 2021-07 Yes [id number] 12.5ug Take 0.5 Univers ne 25 mcg 2-21 tablets by ity of tablet 00:00: mouth [place] 00 every Medical morning. [place] semaglutide 2021-07 Yes [id number] 1mg inject 1 Univers (OZEMPIC) 1 2-21 mg under ity of mg/dose (4 00:00: the skin Nic as mg/3 mL) 00 weekly. [facility] ergocalcife 2021-07 Yes [id number] Take 1 Univers rol, 2-21 capsule by ity of vitamin d2, 00:00: mouth [place] 1,250 mcg 00 weekly. Medical (50,000 Branch unit) capsule levothyroxi 2021-07 Yes [id number] 12.5ug Take 0.5 Univers ne 25 mcg 2-21 tablets by ity of tablet 00:00: mouth [place] 00 every Medical morning. [place] semaglutide 2021-07 Yes [id number] 1mg inject 1 Univers (OZEMPIC) 1 2-21 mg under ity of mg/dose (4 00:00: the skin Nic as mg/3 mL) 00 weekly. [facility] ergocalcife 2021-07 Yes [id number] Take 1 Univers rol, 2-21 capsule by ity of vitamin d2, 00:00: mouth [place] 1,250 mcg 00 weekly. Medical (50,000 Branch unit) capsule levothyroxi 2021-07 Yes [id number] 12.5ug Take 0.5 Univers ne 25 mcg 2-21 tablets by ity of tablet 00:00: mouth [place] 00 every Medical morning. [place] semaglutide 2021-07 Yes [id number] 1mg inject 1 Univers (OZEMPIC) 1 2-21 mg under ity of mg/dose (4 00:00: the skin Nic as mg/3 mL) 00 weekly. [facility] ergocalcife 2021-07 Yes [id number] Take 1 Univers rol, 2-21 capsule by ity of vitamin d2, 00:00: mouth [place] 1,250 mcg 00 weekly. Medical (50,000 Branch unit) capsule levothyroxi 2021-07 Yes [id number] 12.5ug Take 0.5 Univers ne 25 mcg 2-21 tablets by ity of tablet 00:00: mouth [place] 00 every Medical morning. [place] semaglutide 2021-07 Yes [id number] 1mg inject 1 Univers (OZEMPIC) 1 2-21 mg under ity of mg/dose (4 00:00: the skin Nic as mg/3 mL) 00 weekly. [facility] ergocalcife 2021-07 Yes [id number] Take 1 Univers rol, 2-21 capsule by ity of vitamin d2, 00:00: mouth [place] 1,250 mcg 00 weekly. Medical (50,000 Branch unit) capsule levothyroxi 2021-07 Yes [id number] 12.5ug Take 0.5 Univers ne 25 mcg 2-21 tablets by ity of tablet 00:00: mouth [place] 00 every Medical morning. [place] semaglutide 2021-07 Yes [id number] 1mg inject 1 Univers (OZEMPIC) 1 2-21 mg under ity of mg/dose (4 00:00: the skin Nic as mg/3 mL) 00 weekly. [facility] ergocalcife 2021-07 Yes [id number] Take 1 Univers rol, 2-21 capsule by ity of vitamin d2, 00:00: mouth [place] 1,250 mcg 00 weekly. Medical (50,000 Branch unit) capsule levothyroxi 2021-07 Yes [id number] 12.5ug Take 0.5 Univers ne 25 mcg 2-21 tablets by ity of tablet 00:00: mouth [place] 00 every Medical morning. [place] semaglutide 2021-07 Yes [id number] 1mg inject 1 Univers (OZEMPIC) 1 2-21 mg under ity of mg/dose (4 00:00: the skin Nic as mg/3 mL) 00 weekly. [facility] ergocalcife 2021-07 Yes [id number] Take 1 Univers rol, 2-21 capsule by ity of vitamin d2, 00:00: mouth [place] 1,250 mcg 00 weekly. Medical (50,000 Branch unit) capsule levothyroxi 2021-07 Yes [id number] 12.5ug Take 0.5 Univers ne 25 mcg 2-21 tablets by ity of tablet 00:00: mouth [place] 00 every Medical morning. [place] semaglutide 2021-07 Yes [id number] 1mg inject 1 Univers (OZEMPIC) 1 2-21 mg under ity of mg/dose (4 00:00: the skin Nic as mg/3 mL) 00 weekly. [facility] ergocalcife 2021-07 Yes [id number] Take 1 Univers rol, 2-21 capsule by ity of vitamin d2, 00:00: mouth [place] 1,250 mcg 00 weekly. Medical (50,000 Branch unit) capsule levothyroxi 2021-07 Yes [id number] 12.5ug Take 0.5 Univers ne 25 mcg 2-21 tablets by ity of tablet 00:00: mouth [place] 00 every Medical morning. Branch semaglutide 2021-07 Yes [id number] 1mg inject 1 Univers (OZEMPIC) 1 2-21 mg under ity of mg/dose (4 00:00: the skin Nic as mg/3 mL) 00 weekly. Medical PnIj Branch ergocalcife 2021-07 Yes [id number] Take 1 Univers rol, 2-21 capsule by ity of vitamin d2, 00:00: mouth [place] 1,250 mcg 00 weekly. Medical (50,000 Branch unit) capsule levothyroxi 2021-07 Yes [id number] 12.5ug Take 0.5 Univers ne 25 mcg 2-21 tablets by ity of tablet 00:00: mouth [place] 00 every Medical morning. Branch semaglutide 2021-07 Yes [id number] 1mg inject 1 Univers (OZEMPIC) 1 2-21 mg under ity of mg/dose (4 00:00: the skin Nic as mg/3 mL) 00 weekly. Medical PnIj [place] ergocalcife 2021-07 Yes [id number] Take 1 Univers rol, 2-21 capsule by ity of vitamin d2, 00:00: mouth [place] 1,250 mcg 00 weekly. Medical (50,000 Branch unit) capsule levothyroxi 2021-07 Yes [id number] 12.5ug Take 0.5 Univers ne 25 mcg 2-21 tablets by ity of tablet 00:00: mouth [place] 00 every Medical morning. Branch semaglutide 2021-07 Yes [id number] 1mg inject 1 [facility] (OZEMPIC) 1 2-21 mg under ity of mg/dose (4 00:00: the skin [place] mg/3 mL) 00 weekly. Medical PnIj [place] ergocalcife 2021-07 Yes [id number] Take 1 [facility] rol, 2-21 capsule by ity of vitamin d2, 00:00: mouth [place] 1,250 mcg 00 weekly. Medical (50,000 Branch unit) capsule levothyroxi 2021-07 Yes [id number] 12.5ug Take 0.5 [facility] ne 25 mcg 2-21 tablets by ity of tablet 00:00: mouth [place] 00 every Medical morning. Branch semaglutide 2021-07 Yes [id number] 1mg inject 1 [facility] (OZEMPIC) 1 2-21 mg under ity of mg/dose (4 00:00: the skin [place] mg/3 mL) 00 weekly. Medical PnIj Branch ergocalcife 2021-07 Yes [id number] Take 1 [facility] rol, 2-21 capsule by ity of vitamin d2, 00:00: mouth [place] 1,250 mcg 00 weekly. Medical (50,000 Branch unit) capsule cefUROXime 2021-07- No [id number] 250mg Take 1 [facility] 250 mg 2- 12-10 tablet by ity of tablet 00:00: 05:59 mouth in [place] 00 :00 [facility] and 1 tablet in the evening. Do all this for 7 days. cefUROXime 2021-07- No [id number] 250mg Take 1 [facility] 250 mg 2- 12-10 tablet by ity of tablet 00:00: 05:59 mouth in [place] 00 :00 [facility] and 1 tablet in the evening. Do all this for 7 days. cefUROXime 2021-07- No [id number] 250mg Take 1 [facility] 250 mg 2- 12-10 tablet by ity of tablet 00:00: 05:59 mouth in [place] 00 :00 [facility] and 1 tablet in the evening. Do all this for 7 days. cefUROXime 2021-07- No [id number] 250mg Take 1 [facility] 250 mg 2- 12-10 tablet by ity of tablet 00:00: 05:59 mouth in [place] 00 :00 [facility] and 1 tablet in the evening. Do all this for 7 days. cefUROXime 2021-07- No [id number] 250mg Take 1 [facility] 250 mg 2-02 12-10 tablet by ity of tablet 00:00: 05:59 mouth in [place] 00 :00 [facility] and 1 tablet in the evening. Do all this for 7 days. cefUROXime 2021-07- No [id number] 250mg Take 1 [facility] 250 mg 2-02 12-10 tablet by ity of tablet 00:00: 05:59 mouth in [place] 00 :00 the Medical morning Branch and 1 tablet in the evening. Do all this for 7 days. [facility] 2021-07 Yes 10mg Take 10 mg [facility] 10 mg 0-17 by mouth ity of tablet 17:56: daily. [address] 2021-07 Yes 10mg Take 10 mg [facility] 10 mg 0-17 by mouth ity of tablet 17:56: daily. [address] 2021-07 Yes 10mg Take 10 mg [facility] 10 mg 0-17 by mouth ity of tablet 17:56: daily. [address] 2021-07 Yes 10mg Take 10 mg [facility] 10 mg 0-17 by mouth ity of tablet 17:56: daily. [address] 2021-07 Yes 10mg Take 10 mg [facility] 10 mg 0-17 by mouth ity of tablet 17:56: daily. [address] 2021-07 Yes 10mg Take 10 mg [facility] 10 mg 0-17 by mouth ity of tablet 17:56: daily. [address] 2021-07 Yes 10mg Take 10 mg [facility] 10 mg 0-17 by mouth ity of tablet 17:56: daily. [address] 2021-07 Yes 10mg Take 10 mg [facility] 10 mg 0-17 by mouth ity of tablet 17:56: daily. [address] 2021-07 Yes 10mg Take 10 mg [facility] 10 mg 0-17 by mouth ity of tablet 17:56: daily. [address] 2021-07 Yes 10mg Take 10 mg [facility] 10 mg 0-17 by mouth ity of tablet 17:56: daily. [address] 2021-07 Yes 10mg Take 10 mg [facility] 10 mg 0-17 by mouth ity of tablet 17:56: daily. [address] 2021-07 Yes 10mg Take 10 mg [facility] 10 mg 0-17 by mouth ity of tablet 17:56: daily. [address] 2021-07 Yes 10mg Take 10 mg [facility] 10 mg 0-17 by mouth ity of tablet 17:56: daily. [address] 2021-07 Yes 10mg Take 10 mg [facility] 10 mg 0-17 by mouth ity of tablet 17:56: daily. [address] 2021-07 Yes 10mg Take 10 mg [facility] 10 mg 0-17 by mouth ity of tablet 17:56: daily. [address] 2021-07 Yes 10mg Take 10 mg [facility] 10 mg 0-17 by mouth ity of tablet 17:56: daily. [address] 2021-07 Yes 10mg Take 10 mg [facility] 10 mg 0-17 by mouth ity of tablet 17:56: daily. [address] 2021-07 Yes 10mg Take 10 mg [facility] 10 mg 0-17 by mouth ity of tablet 17:56: daily. [address] 2021-07 Yes 10mg Take 10 mg [facility] 10 mg 0-17 by mouth ity of tablet 17:56: daily. [address] 2021-07 Yes 10mg Take 10 mg [facility] 10 mg 0-17 by mouth ity of tablet 17:56: daily. [address] 2021-07 Yes 10mg Take 10 mg [facility] 10 mg 0-17 by mouth ity of tablet 17:56: daily. [address] 2021-07 Yes 10mg Take 10 mg [facility] 10 mg 0-17 by mouth ity of tablet 17:56: daily. [address] 2021-07 Yes 10mg Take 10 mg [facility] 10 mg 0-17 by mouth ity of tablet 17:56: daily. [address] 2021-07 Yes 10mg Take 10 mg [facility] 10 mg 0-17 by mouth ity of tablet 17:56: daily. [address] 2021-07 Yes 10mg Take 10 mg [facility] 10 mg 0-17 by mouth ity of tablet 17:56: daily. [address] 2021-07 Yes 10mg Take 10 mg [facility] 10 mg 0-17 by mouth ity of tablet 17:56: daily. [address] 2021-07 Yes 10mg Take 10 mg [facility] 10 mg 0-17 by mouth ity of tablet 17:56: daily. [address] 2021-07 Yes 10mg Take 10 mg [facility] 10 mg 0-17 by mouth ity of tablet 17:56: daily. [address] 2021-07 Yes 10mg Take 10 mg [facility] 10 mg 0-17 by mouth ity of tablet 17:56: daily. [address] 2021-07 Yes 10mg Take 10 mg [facility] 10 mg 0-17 by mouth ity of tablet 17:56: daily. [address] codeine-gua 2021-07 Yes 5mL Take 5 mL U nivers ifenesin 0-17 by mouth ity of 10-100 mg/5 00:00: every 6 [place] as mL oral 00 (six) Medical solution hours as Branch needed for Cough. Indication s: cough codeine-gua 2021-07 Yes 5mL Take 5 mL U nivers ifenesin 0-17 by mouth ity of 10-100 mg/5 00:00: every 6 [place] mL oral 00 (six) Medical solution hours as Branch needed for Cough. Indication s: cough codeine-gua 2021-07 Yes 5mL Take 5 mL U nivers ifenesin 0-17 by mouth ity of 10-100 mg/5 00:00: every 6 [place] mL oral 00 (six) Medical solution hours as Branch needed for Cough. Indication s: cough codeine-gua 2021-07 No 5mL Take 5 mL [facility] ifenesin 0-17 12-02 by mouth ity of 10-100 mg/5 00:00: 00:00 every 6 [place] mL oral 00 :00 (six) Medical solution hours as Branch needed for Cough. Indication s: cough codeine-gua 2021-07 No 5mL Take 5 mL [facility] ifenesin 0-17 12-02 by mouth ity of 10-100 mg/5 00:00: 00:00 every 6 [place] mL oral 00 :00 (six) Medical solution hours as Branch needed for Cough. Indication s: cough codeine-gua 2021-07- No 5mL Take 5 mL [facility] ifenesin 0-17 12-02 by mouth ity of 10-100 mg/5 00:00: 00:00 every 6 [place] mL oral 00 :00 (six) Medical solution hours as Branch needed for Cough. Indication s: cough semaglutide Yes [id number] 1mg inject [facility] (OZEMPIC) 1 6-20 0.75 mL ity o f mg/dose (4 00:00: under the [place] mg/3 mL) 00 skin Medical PnIj weekly. Branch levothyroxi 0 Yes [id number] 12.5ug Take 0.5 [facility] ne 25 mcg 6-20 tablets by ity of tablet 00:00: mouth [place] 00 every Medical morning. Branch semaglutide Yes [id number] 1mg inject [facility] (OZEMPIC) 1 6-20 0.75 mL ity o f mg/dose (4 00:00: under the [place] mg/3 mL) 00 skin Medical PnIj weekly. Branch levothyroxi Yes [id number] 12.5ug Take 0.5 [facility] ne 25 mcg 6-20 tablets by ity of tablet 00:00: mouth [place] 00 every Medical morning. Branch semaglutide Yes [id number] 1mg inject [facility] (OZEMPIC) 1 6-20 0.75 mL ity o f mg/dose (4 00:00: under the [place] mg/3 mL) 00 skin Medical PnIj weekly. Branch levothyroxi Yes [id number] 12.5ug Take 0.5 [facility] ne 25 mcg 6-20 tablets by ity of tablet 00:00: mouth [place] 00 every Medical morning. Branch semaglutide Yes [id number] 1mg inject [facility] (OZEMPIC) 1 6-20 0.75 mL ity o f mg/dose (4 00:00: under the [place] mg/3 mL) 00 skin Medical PnIj weekly. Branch levothyroxi Yes [id number] 12.5ug Take 0.5 [facility] ne 25 mcg 6-20 tablets by ity of tablet 00:00: mouth [place] 00 every Medical morning. Branch semaglutide Yes [id number] 1mg inject [facility] (OZEMPIC) 1 6-20 0.75 mL ity o f mg/dose (4 00:00: under the [place] mg/3 mL) 00 skin Medical PnIj weekly. Branch levothyroxi 2021-0 Yes [id number] 12.5ug Take 0.5 [facility] ne 25 mcg 6-20 tablets by ity of tablet 00:00: mouth [place] 00 every Medical morning. Branch semaglutide Yes [id number] 1mg inject [facility] (OZEMPIC) 1 6-20 0.75 mL ity o f mg/dose (4 00:00: under the [place] mg/3 mL) 00 skin Medical PnIj weekly. Branch levothyroxi Yes [id number] 12.5ug Take 0.5 [facility] ne 25 mcg 6-20 tablets by ity of tablet 00:00: mouth [place] 00 every Medical morning. Branch semaglutide Yes [id number] 1mg inject [facility] (OZEMPIC) 1 6-20 0.75 mL ity o f mg/dose (4 00:00: under the [place] mg/3 mL) 00 skin Medical PnIj weekly. Branch levothyroxi Yes [id number] 12.5ug Take 0.5 [facility] ne 25 mcg 6-20 tablets by ity of tablet 00:00: mouth [place] 00 every Medical morning. Branch semaglutide Yes [id number] 1mg inject [facility] (OZEMPIC) 1 6-20 0.75 mL ity o f mg/dose (4 00:00: under the [place] mg/3 mL) 00 skin Medical PnIj weekly. Branch levothyroxi 0 Yes [id number] 12.5ug Take 0.5 [facility] ne 25 mcg 6-20 tablets by ity of tablet 00:00: mouth [place] 00 every Medical morning. Branch semaglutide Yes [id number] 1mg inject [facility] (OZEMPIC) 1 6-20 0.75 mL ity o f mg/dose (4 00:00: under the [place] mg/3 mL) 00 skin Medical PnIj weekly. Branch levothyroxi 2021-0 Yes [id number] 12.5ug Take 0.5 [facility] ne 25 mcg 6-20 tablets by ity of tablet 00:00: mouth [place] 00 every Medical morning. Branch semaglutide Yes [id number] 1mg inject [facility] (OZEMPIC) 1 6-20 0.75 mL ity o f mg/dose (4 00:00: under the [place] mg/3 mL) 00 skin Medical PnIj weekly. Branch levothyroxi 2021-0 Yes [id number] 12.5ug Take 0.5 [facility] ne 25 mcg 6-20 tablets by ity of tablet 00:00: mouth [place] 00 every Medical morning. Branch semaglutide 2021-0 Yes [id number] 1mg inject [facility] (OZEMPIC) 1 6-20 0.75 mL ity o f mg/dose (4 00:00: under the [place] mg/3 mL) 00 skin Medical PnIj weekly. Branch levothyroxi 2021-0 Yes [id number] 12.5ug Take 0.5 [facility] ne 25 mcg 6-20 tablets by ity of tablet 00:00: mouth [place] 00 every Medical morning. Branch semaglutide 2021-0 Yes [id number] 1mg inject [facility] (OZEMPIC) 1 6-20 0.75 mL ity o f mg/dose (4 00:00: under the [place] mg/3 mL) 00 skin Medical PnIj weekly. Branch levothyroxi 2021-0 Yes [id number] 12.5ug Take 0.5 [facility] ne 25 mcg 6-20 tablets by ity of tablet 00:00: mouth [place] 00 every Medical morning. Branch semaglutide 2021-0 Yes [id number] 1mg inject [facility] (OZEMPIC) 1 6-20 0.75 mL ity o f mg/dose (4 00:00: under the [place] mg/3 mL) 00 skin Medical PnIj weekly. Branch levothyroxi 2021-0 Yes [id number] 12.5ug Take 0.5 [facility] ne 25 mcg 6-20 tablets by ity of tablet 00:00: mouth [place] 00 every Medical morning. Branch semaglutide 2021-0 Yes [id number] 1mg inject [facility] (OZEMPIC) 1 6-20 0.75 mL ity o f mg/dose (4 00:00: under the [place] mg/3 mL) 00 skin Medical PnIj weekly. Branch levothyroxi 2021-0 Yes [id number] 12.5ug Take 0.5 [facility] ne 25 mcg 6-20 tablets by ity of tablet 00:00: mouth [place] 00 every Medical morning. Branch semaglutide 2021-0 Yes [id number] 1mg inject [facility] (OZEMPIC) 1 6-20 0.75 mL ity o f mg/dose (4 00:00: under the [place] mg/3 mL) 00 skin Medical PnIj weekly. Branch levothyroxi Yes [id number] 12.5ug Take 0.5 [facility] ne 25 mcg 6-20 tablets by ity of tablet 00:00: mouth [place] 00 every Medical morning. Branch semaglutide Yes [id number] 1mg inject [facility] (OZEMPIC) 1 6-20 0.75 mL ity o f mg/dose (4 00:00: under the [place] mg/3 mL) 00 skin Medical PnIj weekly. Branch levothyroxi Yes [id number] 12.5ug Take 0.5 [facility] ne 25 mcg 6-20 tablets by ity of tablet 00:00: mouth [place] 00 every Medical morning. Branch semaglutide 2021- No [id number] 1mg inject [facility] (OZEMPIC) 1 6-20 12-21 0.75 mL ity of mg/dose (4 00:00: 00:00 under the [place] mg/3 mL) 00 :00 skin Medical PnIj weekly. Branch levothyroxi 2021- No [id number] 12.5ug Take 0.5 [facility] ne 25 mcg 6-20 12-21 tablets by ity of tablet 00:00: 00:00 mouth [place] 00 :00 every Medical morning. Branch semaglutide 2021- No [id number] 1mg inject [facility] (OZEMPIC) 1 6-20 12-21 0.75 mL ity of mg/dose (4 00:00: 00:00 under the [place] mg/3 mL) 00 :00 skin Medical PnIj weekly. Branch levothyroxi 2021- No [id number] 12.5ug Take 0.5 [facility] ne 25 mcg 6-20 12-21 tablets by ity of tablet 00:00: 00:00 mouth [place] 00 :00 every Medical morning. Branch fluticasone Yes [id number] 2{spray Use 2 [facility] propionate 6 } Sprays in ity of 50 00:00: each [place] mcg/actuati 00 nostril Medic al on nasal daily. Branch spray fluticasone Yes [id number] 2{spray Use 2 [facility] propionate 6-01 } Sprays in ity of 50 00:00: each [place] mcg/actuati 00 nostril Medic al on nasal daily. Branch spray fluticasone 0 Yes [id number] 2{spray Use 2 [facility] propionate 6-01 } Sprays in ity of 50 00:00: each [place] mcg/actuati 00 nostril Medic al on nasal daily. Branch spray fluticasone 0 Yes [id number] 2{spray Use 2 [facility] propionate 6-01 } Sprays in ity of 50 00:00: each [place] mcg/actuati 00 nostril Medic al on nasal daily. Branch spray fluticasone 0 Yes [id number] 2{spray Use 2 [facility] propionate 6-01 } Sprays in ity of 50 00:00: each [place] mcg/actuati 00 nostril Medic al on nasal daily. Branch spray fluticasone 0 Yes [id number] 2{spray Use 2 [facility] propionate 6-01 } Sprays in ity of 50 00:00: each [place] mcg/actuati 00 nostril Medic al on nasal daily. Branch spray fluticasone 0 Yes [id number] 2{spray Use 2 [facility] propionate 6-01 } Sprays in ity of 50 00:00: each [place] mcg/actuati 00 nostril Medic al on nasal daily. Branch spray fluticasone 0 Yes [id number] 2{spray Use 2 [facility] propionate 6-01 } Sprays in ity of 50 00:00: each [place] mcg/actuati 00 nostril Medic al on nasal daily. Branch spray fluticasone 0 Yes [id number] 2{spray Use 2 [facility] propionate 6-01 } Sprays in ity of 50 00:00: each [place] mcg/actuati 00 nostril Medic al on nasal daily. Branch spray fluticasone 2021-0 Yes [id number] 2{spray Use 2 [facility] propionate 6-01 } Sprays in ity of 50 00:00: each [place] mcg/actuati 00 nostril Medic al on nasal daily. Branch spray fluticasone 2021-0 Yes [id number] 2{spray Use 2 [facility] propionate 6-01 } Sprays in ity of 50 00:00: each [place] mcg/actuati 00 nostril Medic al on nasal daily. Branch spray fluticasone 2021-0 Yes [id number] 2{spray Use 2 [facility] propionate 6-01 } Sprays in ity of 50 00:00: each [place] mcg/actuati 00 nostril Medic al on nasal daily. Branch spray fluticasone 2021-0 Yes [id number] 2{spray Use 2 [facility] propionate 6-01 } Sprays in ity of 50 00:00: each [place] mcg/actuati 00 nostril Medic al on nasal daily. Branch spray fluticasone 2021-0 Yes [id number] 2{spray Use 2 [facility] propionate 6-01 } Sprays in ity of 50 00:00: each [place] mcg/actuati 00 nostril Medic al on nasal daily. Branch spray fluticasone 2021-0 Yes [id number] 2{spray Use 2 [facility] propionate 6-01 } Sprays in ity of 50 00:00: each [place] mcg/actuati 00 nostril Medic al on nasal daily. Branch spray fluticasone 2021-0 Yes [id number] 2{spray Use 2 [facility] propionate 6-01 } Sprays in ity of 50 00:00: each [place] mcg/actuati 00 nostril Medic al on nasal daily. Branch spray fluticasone 2021-0 Yes [id number] 2{spray Use 2 [facility] propionate 6-01 } Sprays in ity of 50 00:00: each [place] mcg/actuati 00 nostril Medic al on nasal daily. Branch spray fluticasone 2021-0 Yes [id number] 2{spray Use 2 [facility] propionate 6-01 } Sprays in ity of 50 00:00: each [place] mcg/actuati 00 nostril Medic al on nasal daily. Branch spray fluticasone 2021-0 Yes [id number] 2{spray Use 2 [facility] propionate 6-01 } Sprays in ity of 50 00:00: each [place] mcg/actuati 00 nostril Medic al on nasal daily. Branch spray fluticasone 2021-0 Yes [id number] 2{spray Use 2 [facility] propionate 6-01 } Sprays in ity of 50 00:00: each [place] mcg/actuati 00 nostril Medic al on nasal daily. Branch spray fluticasone 2022-0 Yes [id number] 2{spray Use 2 [facility] propionate 6-01 } Sprays in ity of 50 00:00: each [place] mcg/actuati 00 nostril Medic al on nasal daily. Branch spray fluticasone Yes [id number] 2{spray Use 2 [facility] propionate 6-01 } Sprays in ity of 50 00:00: each [place] mcg/actuati 00 nostril Medic al on nasal daily. Branch spray fluticasone 0 Yes [id number] 2{spray Use 2 [facility] propionate 6-01 } Sprays in ity of 50 00:00: each [place] mcg/actuati 00 nostril Medic al on nasal daily. Branch spray fluticasone 0 Yes [id number] 2{spray Use 2 [facility] propionate 6-01 } Sprays in ity of 50 00:00: each [place] mcg/actuati 00 nostril Medic al on nasal daily. Branch spray fluticasone 0 Yes [id number] 2{spray Use 2 [facility] propionate 6-01 } Sprays in ity of 50 00:00: each [place] mcg/actuati 00 nostril Medic al on nasal daily. Branch spray fluticasone 0 Yes [id number] 2{spray Use 2 [facility] propionate 6-01 } Sprays in ity of 50 00:00: each [place] mcg/actuati 00 nostril Medic al on nasal daily. Branch spray fluticasone 0 Yes [id number] 2{spray Use 2 [facility] propionate 6-01 } Sprays in ity of 50 00:00: each [place] mcg/actuati 00 nostril Medic al on nasal daily. Branch spray fluticasone 0 Yes [id number] 2{spray Use 2 [facility] propionate 6-01 } Sprays in ity of 50 00:00: each [place] mcg/actuati 00 nostril Medic al on nasal daily. Branch spray fluticasone 2021-0 Yes [id number] 2{spray Use 2 [facility] propionate 6-01 } Sprays in ity of 50 00:00: each [place] mcg/actuati 00 nostril Medic al on nasal daily. Branch spray fluticasone 2021-0 Yes [id number] 2{spray Use 2 [facility] propionate 6-01 } Sprays in ity of 50 00:00: each [place] mcg/actuati 00 nostril Medic al on nasal daily. Branch spray fluticasone 0 Yes [id number] 2{spray Use 2 [facility] propionate 6-01 } Sprays in ity of 50 00:00: each [place] mcg/actuati 00 nostril Medic al on nasal daily. Branch spray fluticasone 0 Yes [id number] 2{spray Use 2 [facility] propionate 6-01 } Sprays in ity of 50 00:00: each [place] mcg/actuati 00 nostril Medic al on nasal daily. Branch spray fluticasone 0 Yes [id number] 2{spray Use 2 [facility] propionate 6-01 } Sprays in ity of 50 00:00: each [place] mcg/actuati 00 nostril Medic al on nasal daily. Branch spray fluticasone 0 Yes [id number] 2{spray Use 2 [facility] propionate 6-01 } Sprays in ity of 50 00:00: each [place] mcg/actuati 00 nostril Medic al on nasal daily. Branch spray fluticasone Yes [id number] 2{spray Use 2 [facility] propionate 6-01 } Sprays in ity of 50 00:00: each [place] mcg/actuati 00 nostril Medic al on nasal daily. Branch spray telmisartan Yes [id number] 40mg Take 1 [facility] 40 mg 3-09 tablet by ity of tablet 00:00: mouth [place] 00 daily. Medical Branch telmisartan 0 Yes [id number] 40mg Take 1 [facility] 40 mg 3-09 tablet by ity of tablet 00:00: mouth [place] 00 daily. Medical Branch telmisartan 0 Yes [id number] 40mg Take 1 [facility] 40 mg 3-09 tablet by ity of tablet 00:00: mouth [place] 00 daily. Medical Branch telmisartan 0 Yes [id number] 40mg Take 1 [facility] 40 mg 3-09 tablet by ity of tablet 00:00: mouth [place] 00 daily. Medical Branch telmisartan 0 Yes [id number] 40mg Take 1 [facility] 40 mg 3-09 tablet by ity of tablet 00:00: mouth [place] 00 daily. Medical Branch telmisartan 2022-0 Yes [id number] 40mg Take 1 [facility] 40 mg 3-09 tablet by ity of tablet 00:00: mouth [place] 00 daily. Medical Branch telmisartan 2021-0 Yes [id number] 40mg Take 1 [facility] 40 mg 3-09 tablet by ity of tablet 00:00: mouth [place] 00 daily. Medical Branch telmisartan 2021-0 Yes [id number] 40mg Take 1 [facility] 40 mg 3-09 tablet by ity of tablet 00:00: mouth [place] 00 daily. Medical Branch telmisartan 2021-0 Yes [id number] 40mg Take 1 [facility] 40 mg 3-09 tablet by ity of tablet 00:00: mouth [place] 00 daily. Medical Branch telmisartan 2021-0 Yes [id number] 40mg Take 1 [facility] 40 mg 3-09 tablet by ity of tablet 00:00: mouth [place] 00 daily. [facility] Branch telmisartan 2021-0 Yes [id number] 40mg Take 1 [facility] 40 mg 3-09 tablet by ity of tablet 00:00: mouth [place] 00 daily. Medical Branch telmisartan 0 Yes [id number] 40mg Take 1 [facility] 40 mg 3-09 tablet by ity of tablet 00:00: mouth [place] 00 daily. Medical Branch telmisartan 2021-0 Yes [id number] 40mg Take 1 [facility] 40 mg 3-09 tablet by ity of tablet 00:00: mouth [place] 00 daily. Medical Branch telmisartan 2021-0 Yes [id number] 40mg Take 1 [facility] 40 mg 3-09 tablet by ity of tablet 00:00: mouth [place] 00 daily. Medical Branch telmisartan 2021-0 Yes [id number] 40mg Take 1 [facility] 40 mg 3-09 tablet by ity of tablet 00:00: mouth [place] 00 daily. Medical Branch telmisartan 2021-0 Yes [id number] 40mg Take 1 [facility] 40 mg 3-09 tablet by ity of tablet 00:00: mouth [place] 00 daily. [facility] Branch telmisartan 2021-0 Yes [id number] 40mg Take 1 [facility] 40 mg 3-09 tablet by ity of tablet 00:00: mouth [place] 00 daily. [facility] Branch telmisartan 2021-0 Yes [id number] 40mg Take 1 [facility] 40 mg 3-09 tablet by ity of tablet 00:00: mouth [place] 00 daily. Medical Branch telmisartan 2021-0 Yes [id number] 40mg Take 1 [facility] 40 mg 3-09 tablet by ity of tablet 00:00: mouth [place] 00 daily. Medical Branch telmisartan 2021-0 Yes [id number] 40mg Take 1 [facility] 40 mg 3-09 tablet by ity of tablet 00:00: mouth [place] 00 daily. Medical Branch telmisartan 2021-0 Yes [id number] 40mg Take 1 [facility] 40 mg 3-09 tablet by ity of tablet 00:00: mouth [place] 00 daily. Medical Branch telmisartan 2021-0 Yes [id number] 40mg Take 1 [facility] 40 mg 3-09 tablet by ity of tablet 00:00: mouth [place] 00 daily. Medical Branch telmisartan 0 Yes [id number] 40mg Take 1 [facility] 40 mg 3-09 tablet by ity of tablet 00:00: mouth [place] 00 daily. Medical Branch telmisartan 2021-0 Yes [id number] 40mg Take 1 [facility] 40 mg 3-09 tablet by ity of tablet 00:00: mouth [place] 00 daily. Medical Branch telmisartan 0 Yes [id number] 40mg Take 1 [facility] 40 mg 3-09 tablet by ity of tablet 00:00: mouth [place] 00 daily. Medical Branch telmisartan 0 Yes [id number] 40mg Take 1 [facility] 40 mg 3-09 tablet by ity of tablet 00:00: mouth [place] 00 daily. Medical Branch telmisartan 2021-0 Yes [id number] 40mg Take 1 [facility] 40 mg 3-09 tablet by ity of tablet 00:00: mouth [place] 00 daily. [facility] Branch telmisartan 0 Yes [id number] 40mg Take 1 [facility] 40 mg 3-09 tablet by ity of tablet 00:00: mouth [place] 00 daily. [facility] Branch telmisartan 2021-0 3- No [id number] 40mg Take 1 [facility] 40 mg 3-09 04-07 tablet by ity of tablet 00:00: 00:00 mouth [place] 00 :00 daily. [facility] Branch montelukast 2021-0 Yes 10mg Take 10 mg Univers (SINGULAIR) 3-02 by mouth ity of 10 mg 13:45: daily. [place] tablet 06 [facility] Branch montelukast 0 Yes 10mg Take 10 mg Univers (SINGULAIR) 3-02 by mouth ity of 10 mg 13:45: daily. [place] tablet 06 Medical Branch montelukast 0 Yes 10mg Take 10 mg Univers (SINGULAIR) 3-02 by mouth ity of 10 mg 13:45: daily. [place] tablet 06 Medical Branch montelukast 0 Yes 10mg Take 10 mg [facility] (SINGULAIR) 3-02 by mouth ity of 10 mg 13:45: daily. [place] tablet 06 [facility] montelukast 0 Yes 10mg Take 10 mg Univers (SINGULAIR) 3-02 by mouth ity of 10 mg 13:45: daily. [place] tablet 06 [facility] Branch nystatin 2020-07 Yes [id number] Apply to U nivers 100,000 0-14 area(s) 2 ity of unit/gram 00:00: (two) [place] powder 00 times Medical daily. Branch nystatin 2020-07 Yes [id number] Apply to U nivers 100,000 0-14 area(s) 2 ity of unit/gram 00:00: (two) [place] powder 00 times Medical daily. Branch nystatin 2020-07 Yes [id number] Apply to U nivers 100,000 0-14 area(s) 2 ity of unit/gram 00:00: (two) [place] powder 00 times Medical daily. Branch nystatin 2020-07 Yes [id number] Apply to U nivers 100,000 0-14 area(s) 2 ity of unit/gram 00:00: (two) [place] powder 00 times Medical daily. Branch nystatin 2020-07 Yes [id number] Apply to U nivers 100,000 0-14 area(s) 2 ity of unit/gram 00:00: (two) [place] powder 00 times Medical daily. Branch nystatin 2020-07 Yes [id number] Apply to U nivers 100,000 0-14 area(s) 2 ity of unit/gram 00:00: (two) [place] powder 00 times Medical daily. Branch nystatin 2020-07 Yes [id number] Apply to U nivers 100,000 0-14 area(s) 2 ity of unit/gram 00:00: (two) [place] powder 00 times Medical daily. Branch nystatin 2020- Yes [id number] Apply to U nivers 100,000 0-14 area(s) 2 ity of unit/gram 00:00: (two) [place] powder 00 times Medical daily. Branch nystatin 2020-07 Yes [id number] Apply to U nivers 100,000 0-14 area(s) 2 ity of unit/gram 00:00: (two) [place] powder 00 times Medical daily. Branch nystatin 2020-07 Yes [id number] Apply to U nivers 100,000 0-14 area(s) 2 ity of unit/gram 00:00: (two) [place] powder 00 times Medical daily. Branch nystatin 2020- Yes [id number] Apply to U nivers 100,000 0-14 area(s) 2 ity of unit/gram 00:00: (two) [place] powder 00 times Medical daily. Branch nystatin 2020-07 Yes [id number] Apply to U nivers 100,000 0-14 area(s) 2 ity of unit/gram 00:00: (two) [place] powder 00 times Medical daily. Branch nystatin 2020-07 Yes [id number] Apply to U nivers 100,000 0-14 area(s) 2 ity of unit/gram 00:00: (two) [place] powder 00 times Medical daily. Branch nystatin 2020-07 Yes [id number] Apply to U nivers 100,000 0-14 area(s) 2 ity of unit/gram 00:00: (two) [place] powder 00 times Medical daily. Branch nystatin 2020-07 Yes [id number] Apply to U nivers 100,000 0-14 area(s) 2 ity of unit/gram 00:00: (two) [place] powder 00 times Medical daily. Branch nystatin 2020-07 Yes [id number] Apply to U nivers 100,000 0-14 area(s) 2 ity of unit/gram 00:00: (two) [place] powder 00 times Medical daily. Branch nystatin 2020-1 Yes [id number] Apply to U nivers 100,000 0-14 area(s) 2 ity of unit/gram 00:00: (two) [place] powder 00 times Medical daily. Branch nystatin 2020- Yes [id number] Apply to U nivers 100,000 0-14 area(s) 2 ity of unit/gram 00:00: (two) [place] powder 00 times Medical daily. Branch nystatin 2020- Yes [id number] Apply to U nivers 100,000 0-14 area(s) 2 ity of unit/gram 00:00: (two) [place] powder 00 times Medical daily. Branch nystatin 2020-1 Yes [id number] Apply to U nivers 100,000 0-14 area(s) 2 ity of unit/gram 00:00: (two) [place] powder 00 times Medical daily. Branch nystatin 2020-1 Yes [id number] Apply to U nivers 100,000 0-14 area(s) 2 ity of unit/gram 00:00: (two) [place] powder 00 times Medical daily. Branch nystatin 2020-1 Yes [id number] Apply to U nivers 100,000 0-14 area(s) 2 ity of unit/gram 00:00: (two) [place] powder 00 times Medical daily. Branch nystatin 2020- Yes [id number] Apply to U nivers 100,000 0-14 area(s) 2 ity of unit/gram 00:00: (two) [place] powder 00 times Medical daily. Branch nystatin 2020-07 Yes [id number] Apply to U nivers 100,000 0-14 area(s) 2 ity of unit/gram 00:00: (two) [place] powder 00 times Medical daily. Branch nystatin 2020- Yes [id number] Apply to [facility] nivers 100,000 0-14 area(s) 2 ity of unit/gram 00:00: (two) [place] powder 00 times Medical daily. Branch nystatin 2020-1 Yes [id number] Apply to U nivers 100,000 0-14 area(s) 2 ity of unit/gram 00:00: (two) [place] powder 00 times Medical daily. Branch nystatin 2020-1 Yes [id number] Apply to U nivers 100,000 0-14 area(s) 2 ity of unit/gram 00:00: (two) [place] powder 00 times Medical daily. Branch nystatin 2020-1 Yes [id number] Apply to U nivers 100,000 0-14 area(s) 2 ity of unit/gram 00:00: (two) [place] powder 00 times Medical daily. Branch nystatin 2020-1 Yes [id number] Apply to U nivers 100,000 0-14 area(s) 2 ity of unit/gram 00:00: (two) [place] powder 00 times Medical daily. Branch nystatin 2020-07 Yes [id number] Apply to U nivers 100,000 0-14 area(s) 2 ity of unit/gram 00:00: (two) [place] powder 00 times Medical daily. Branch nystatin 2020- Yes [id number] Apply to U nivers 100,000 0-14 area(s) 2 ity of unit/gram 00:00: (two) [place] powder 00 times Medical daily. Branch nystatin 2020-07 Yes [id number] Apply to U nivers 100,000 0-14 area(s) 2 ity of unit/gram 00:00: (two) [place] powder 00 times Medical daily. Branch nystatin 2020-07 Yes [id number] Apply to U nivers 100,000 0-14 area(s) 2 ity of unit/gram 00:00: (two) [place] powder 00 times Medical daily. Branch nystatin 2020-07 Yes [id number] Apply to U nivers 100,000 0-14 area(s) 2 ity of unit/gram 00:00: (two) [place] powder 00 times Medical daily. Branch nystatin 2020-07 Yes [id number] Apply to U nivers 100,000 0-14 area(s) 2 ity of unit/gram 00:00: (two) [place] powder 00 times Medical daily. Branch SERTRALINE Yes [id number] TAKE 2 [facility] 50 mg 3-18 TABLETS BY ity of tablet 00:00: MOUTH [place] 00 EVERY DAY Medical Branch benzonatate 2020-0 Yes [id number] 100mg Take 1 Univers (TESSALON 1-21 capsule by ity of PERLES) 100 00:00: mouth 3 [place] as mg capsule 00 (three) Medica l times Branch daily. benzonatate 2020-0 Yes [id number] 100mg Take 1 Univers (TESSALON 1-21 capsule by ity of PERLES) 100 00:00: mouth 3 [place] mg capsule 00 (three) Medica l times Branch daily. benzonatate 2020-0 Yes [id number] 100mg Take 1 Univers (TESSALON 1-21 capsule by ity of PERLES) 100 00:00: mouth 3 [place] mg capsule 00 (three) Medica l times Branch daily. benzonatate 1-0 Yes [id number] 100mg Take 1 Univers (TESSALON 1-21 capsule by ity of PERLES) 100 00:00: mouth 3 [place] mg capsule 00 (three) Medica l times Branch daily. benzonatate 2021-0 Yes [id number] 100mg Take 1 [facility] (TESSALON 1-21 capsule by ity of PERLES) 100 00:00: mouth 3 [place] mg capsule 00 (three) Medica l times Branch daily. benzonatate 2020-0 Yes [id number] 100mg Take 1 Univers (TESSALON 1-21 capsule by ity of PERLES) 100 00:00: mouth 3 [place] mg capsule 00 (three) Medica l times Branch daily. benzonatate 2020-0 Yes [id number] 100mg Take 1 Univers (TESSALON 1-21 capsule by ity of PERLES) 100 00:00: mouth 3 [place] mg capsule 00 (three) Medica l times Branch daily. benzonatate 2020-0 Yes [id number] 100mg Take 1 [facility] (TESSALON 1-21 capsule by ity of PERLES) 100 00:00: mouth 3 [place] mg capsule 00 (three) Medica l times Branch daily. benzonatate 2020-0 Yes [id number] 100mg Take 1 Univers (TESSALON 1-21 capsule by ity of PERLES) 100 00:00: mouth 3 [place] mg capsule 00 (three) Medica l times Branch daily. benzonatate 2020-0 Yes [id number] 100mg Take 1 Univers (TESSALON 1-21 capsule by ity of PERLES) 100 00:00: mouth 3 [place] mg capsule 00 (three) Medica l times Branch daily. montelukast 2019-07 Yes 10mg Take 10 mg Univers (SINGULAIR) 2-28 by mouth ity of 10 mg 19:36: daily. [place] [address] Medical Branch CETIRIZINE 2019-07 Yes Take by [facility] ers HCL (ZYRTEC 2-28 mouth. ity of ORAL) 19:36: [address] Branch montelukast 2019- Yes 10mg Take 10 mg Univers (SINGULAIR) 2-28 by mouth ity of 10 mg 19:36: daily. [place] tablet 18 Medical Branch CETIRIZINE 2019-07 Yes Take by Univ ers HCL (ZYRTEC 2-28 mouth. ity of ORAL) 19:36: [place] [address] Medical [place] montekast 2019-07 Yes 10mg Take 10 mg Univers (SINGULAIR) 2-28 by mouth ity of 10 mg 19:36: daily. [place] tablet 18 Medical [place] CETIRIZINE 2019-07 Yes Take by Univ ers HCL (ZYRTEC 2-28 mouth. ity of ORAL) 19:36: [place] [address] Medical [place] montelukast 2019-07 Yes 10mg Take 10 mg Univers (SINGULAIR) 2-28 by mouth ity of 10 mg 19:36: daily. [place] tablet 18 Medical [place] CETIRIZINE 2019-07 Yes Take by Univ ers HCL (ZYRTEC 2-28 mouth. ity of ORAL) 19:36: [address] 2019-07 Yes 10mg Take 10 mg Univers (SINGULAIR) 2-28 by mouth ity of 10 mg 19:36: daily. [place] tablet 18 Medical [place] CETIRIZINE 2019-07 Yes Take by Univ ers HCL (ZYRTEC 2-28 mouth. ity of ORAL) 19:36: [address] 2019-07 Yes 10mg Take 10 mg Univers (SINGULAIR) 2-28 by mouth ity of 10 mg 19:36: daily. [place] tablet 18 Medical [place] CETIRIZINE 2019-07 Yes Take by Univ ers HCL (ZYRTEC 2-28 mouth. ity of ORAL) 19:36: [address] 2019-07 Yes 10mg Take 10 mg Univers (SINGULAIR) 2-28 by mouth ity of 10 mg 19:36: daily. [place] tablet 18 Medical [place] CETIRIZINE 2019-07 Yes Take by Univ ers HCL (ZYRTEC 2-28 mouth. ity of ORAL) 19:36: [place] [address] Medical [place] montekast 2019-07 Yes 10mg Take 10 mg Univers (SINGULAIR) 2-28 by mouth ity of 10 mg 19:36: daily. [place] [facility] 18 [facility] CETIRIZINE 2019-07 Yes Take by Univ ers HCL (ZYRTEC 2-28 mouth. ity of ORAL) 19:36: [address] 2019-07 Yes 10mg Take 10 mg Univers (SINGULAIR) 2-28 by mouth ity of 10 mg 19:36: daily. [place] tablet 18 Medical [place] CETIRIZINE 2019-07 Yes Take by Univ ers HCL (ZYRTEC 2-28 mouth. ity of ORAL) 19:36: [place] [address] Medical [facility] 2019-07 Yes 10mg Take 10 mg Univers (SINGULAIR) 2-28 by mouth ity of 10 mg 19:36: daily. [place] tablet 18 Medical [place] CETIRIZINE 2019-07 Yes Take by Univ ers HCL (ZYRTEC 2-28 mouth. ity of ORAL) 19:36: [place] [address] Medical [facility] 2019-07 Yes 10mg Take 10 mg Univers (SINGULAIR) 2-28 by mouth ity of 10 mg 19:36: daily. [place] tablet 18 Medical [place] CETIRIZINE 2019-07 Yes Take by Univ ers HCL (ZYRTEC 2-28 mouth. ity of ORAL) 19:36: [address] 2019-07 Yes 10mg Take 10 mg Univers (SINGULAIR) 2-28 by mouth ity of 10 mg 19:36: daily. [place] tablet 18 Medical [place] CETIRIZINE 2019-07 Yes Take by Univ ers HCL (ZYRTEC 2-28 mouth. ity of ORAL) 19:36: [address] 2019-07 Yes 10mg Take 10 mg Univers (SINGULAIR) 2-28 by mouth ity of 10 mg 19:36: daily. [place] tablet 18 Medical [place] CETIRIZINE 2019-07 Yes Take by Univ ers HCL (ZYRTEC 2-28 mouth. ity of ORAL) 19:36: [address] 2019-07 Yes 10mg Take 10 mg Univers (SINGULAIR) 2-28 by mouth ity of 10 mg 19:36: daily. [place] tablet 18 Medical [place] CETIRIZINE 2019-07 Yes Take by Univ ers HCL (ZYRTEC 2-28 mouth. ity of ORAL) 19:36: [address] 2019-07 Yes 10mg Take 10 mg Univers (SINGULAIR) 2-28 by mouth ity of 10 mg 19:36: daily. [place] tablet 18 Medical [place] CETIRIZINE 2019-07 Yes Take by Univ ers HCL (ZYRTEC 2-28 mouth. ity of ORAL) 19:36: [place] 18 Medical Branch montelukast 2019-07 Yes 10mg Take 10 mg Univers (SINGULAIR) 2-22 by mouth ity of 10 mg 23:38: daily. [place] tablet 30 Medical Branch CETIRIZINE 2019-07 Yes Take by Univ ers HCL (ZYRTEC 2-22 mouth. ity of ORAL) 23:38: [place] 30 [facility] montelukast 2019-07 Yes 10mg Take 10 mg Univers (SINGULAIR) 2-22 by mouth ity of 10 mg 23:38: daily. [place] tablet 30 [facility] Branch CETIRIZINE 2019-07 Yes Take by Univ ers HCL (ZYRTEC 2-22 mouth. ity of ORAL) 23:38: [place] 30 [facility] HYDROcodone 2019-07 Yes 1{tbl} 1 tablet, Univers -acetaminop 2-22 Oral, PRN, it y of hen (NORCO) 22:12: 1 dose, [place] 10-325 mg 02 Starting Medica l tablet 1 [facility] Branch tablet 07/21/20 at 1612, Until Discontinu ed, Routine, Pain (scale 7-10), [facility] HYDROcodone 2019-07 Yes 1{tbl} 1 tablet, Univers -acetaminop 2-22 Oral, PRN, it y of hen (NORCO 22:12: 1 [place], [place]) 5-325 mg 02 Starting Medi artis tablet 1 Branch tablet 07/21/20 at 1612, Until Discontinu ed, Routine, Pain (scale 4-6), [facility] ibuprofen 2019-07 Yes 800mg 800 mg, Univ ers (IBU) 2-22 Oral, PRN, ity of tablet 800 22:12: 1 dose, [place] mg 02 Starting Medical Tue Branch 07/21/20 at 1612, Until Discontinu ed, Routine, Pain (scale 1-3), [facility] Recovery lactated 2019-07 Yes 1000mL at 75 Univer s ringers IV 2-22 mL/hr, ity of infusion 22:00: 1,000 mL, [place] 1,000 mL 00 IV Medical Infusion, Branch CONTINUOUS , Starting 07/21/20 at 1600, Until Discontinu ed, Routine, PACU HYDROcodone 2019-07 2020- No 1{tbl} 1 tablet, Univers -acetaminop 2-07-21 Oral, ity of hen (NORCO 22:00: 22:50 ONCE, 1 [place] 5) 5-325 mg 00 :00 dose, Mon Med ical tablet 1 07/21/20 Branch tablet at 1600, Routine, PACU silver 2019-07 Yes PRN, Univers nitrate 2-22 Starting ity of applicator 21:50: 07/21/20 Medical at 1550, Branch Until Discontinu ed, Routine, Intra-op HYDROmorpho 2019-07 Yes .2mg 0.2 mg, Uni vers ne 2-22 Slow IV ity of (DILAUDID) 21:46: Push, [place] injection 44 Q5MIN PRN, Medi artis 0.2 mg 10 doses, Branch Starting Mon07/21/20 at 1546, Until Discontinu ed, Routine, Pain (scale 7-10), PACU
Us e approved by (Faculty): PACU USE -ANESTHESI A SERVICE-HY DROMORPHON E INJECTIONS FENTanyl PF 2019-07 Yes 25ug 25 mcg, Uni vers (SUBLIMAZE 2-22 Slow IV ity of (PF)) 21:46: Push, [place] injection 44 Q5MIN PRN, Medi artis 25 mcg 4 doses, Branch Starting Mon07/21/20 at 1546, Until Discontinu ed, Routine, Pain (scale 4-6), PACU ibuprofen 2019-07 Yes [id number] 600mg Take 1 [facility] 600 mg 2-22 100 tablet by ity of tablet 00:00: mouth [place] 00 every 6 Medical (six) Branch hours as needed for Pain (scale 4-6). ibuprofen 2019-07 Yes [id number] 600mg Take 1 [facility] 600 mg 2-22 100 tablet by ity of tablet 00:00: mouth [place] 00 every 6 Medical (six) Branch hours as needed for Pain (scale 4-6). ibuprofen 2019-07 Yes [id number] 600mg Take 1 [facility] 600 mg 2-22 100 tablet by ity of tablet 00:00: mouth [place] 00 every 6 Medical (six) Branch hours as needed for Pain (scale 4-6). ibuprofen 2019-07 Yes [id number] 600mg Take 1 [facility] 600 mg 2-22 100 tablet by ity of tablet 00:00: mouth [place] 00 every 6 Medical (six) Branch hours as needed for Pain (scale 4-6). ibuprofen 2020-1 Yes [id number] 600mg Take 1 [facility] 600 mg 2-22 100 tablet by ity of tablet 00:00: mouth [place] 00 every 6 Medical (six) Branch hours as needed for Pain (scale 4-6). ibuprofen 2020-1 Yes [id number] 600mg Take 1 [facility] 600 mg 2-22 100 tablet by ity of tablet 00:00: mouth [place] 00 every 6 Medical (six) Branch hours as needed for Pain (scale 4-6). ibuprofen 2020-1 Yes [id number] 600mg Take 1 [facility] 600 mg 2-22 100 tablet by ity of tablet 00:00: mouth [place] 00 every 6 Medical (six) Branch hours as needed for Pain (scale 4-6). ibuprofen 2020-1 Yes [id number] 600mg Take 1 [facility] 600 mg 2-22 100 tablet by ity of tablet 00:00: mouth [place] 00 every 6 Medical (six) Branch hours as needed for Pain (scale 4-6). ibuprofen 2020-1 Yes [id number] 600mg Take 1 [facility] 600 mg 2-22 100 tablet by ity of tablet 00:00: mouth [place] 00 every 6 Medical (six) Branch hours as needed for Pain (scale 4-6). ibuprofen 2020-1 Yes [id number] 600mg Take 1 [facility] 600 mg 2-22 100 tablet by ity of tablet 00:00: mouth [place] 00 every 6 Medical (six) Branch hours as needed for Pain (scale 4-6). ibuprofen 2020-1 Yes [id number] 600mg Take 1 [facility] 600 mg 2-22 100 tablet by ity of tablet 00:00: mouth [place] 00 every 6 Medical (six) Branch hours as needed for Pain (scale 4-6). ibuprofen 2020-1 Yes [id number] 600mg Take 1 [facility] 600 mg 2-22 100 tablet by ity of tablet 00:00: mouth [place] 00 every 6 Medical (six) Branch hours as needed for Pain (scale 4-6). ibuprofen 2020-1 Yes [id number] 600mg Take 1 [facility] 600 mg 2-22 100 tablet by ity of tablet 00:00: mouth [place] 00 every 6 Medical (six) Branch hours as needed for Pain (scale 4-6). ibuprofen 2020-1 Yes [id number] 600mg Take 1 [facility] 600 mg 2-22 100 tablet by ity of tablet 00:00: mouth [place] 00 every 6 Medical (six) Branch hours as needed for Pain (scale 4-6). ibuprofen 2019-1 Yes [id number] 600mg Take 1 [facility] 600 mg 2-22 100 tablet by ity of tablet 00:00: mouth [place] 00 every 6 Medical (six) Branch hours as needed for Pain (scale 4-6). ibuprofen 2019-1 Yes [id number] 600mg Take 1 [facility] 600 mg 2-22 100 tablet by ity of tablet 00:00: mouth [place] 00 every 6 Medical (six) Branch hours as needed for Pain (scale 4-6). ibuprofen 2019-1 Yes [id number] 600mg Take 1 [facility] 600 mg 2-22 100 tablet by ity of tablet 00:00: mouth [place] 00 every 6 Medical (six) Branch hours as needed for Pain (scale 4-6). ZONISAMIDE 2019- Yes [id number] 200mg TAKE 2 [facility] 100 mg 2-17 CAPSULES ity of capsule 00:00: BY MOUTH 2 [place] 00 (TWO) Medical TIMES Branch DAILY. ZONISAMIDE 2019- Yes [id number] 200mg TAKE 2 [facility] 100 mg 2-17 CAPSULES ity of capsule 00:00: [place] MOUTH 2 [place] 00 (TWO) Medical TIMES Branch DAILY. ZONISAMIDE 2019-1 Yes [id number] 200mg TAKE 2 [facility] 100 mg 2-17 CAPSULES ity of capsule 00:00: BY MOUTH 2 [place] 00 (TWO) Medical TIMES Branch DAILY. ZONISAMIDE 2019- Yes [id number] 200mg TAKE 2 [facility] 100 mg 2-17 CAPSULES ity of capsule 00:00: BY MOUTH 2 [place] 00 (TWO) Medical TIMES Branch DAILY. ZONISAMIDE 2019- Yes [id number] 200mg TAKE 2 [facility] 100 mg 2-17 CAPSULES ity of capsule 00:00: BY MOUTH 2 [place] 00 (TWO) Medical TIMES Branch DAILY. ZONISAMIDE 2019-1 Yes [id number] 200mg TAKE 2 [facility] 100 mg 2-17 CAPSULES ity of capsule 00:00: BY MOUTH 2 [place] 00 (TWO) Medical TIMES Branch DAILY. ZONISAMIDE 2019- Yes [id number] 200mg TAKE 2 [facility] 100 mg 2-17 CAPSULES ity of capsule 00:00: BY MOUTH 2 [place] 00 (TWO) Medical TIMES Branch DAILY. ZONISAMIDE 2020-1 Yes [id number] 200mg TAKE 2 [facility] 100 mg 2-17 CAPSULES ity of capsule 00:00: BY MOUTH 2 [place] 00 (TWO) Medical TIMES Branch DAILY. ZONISAMIDE 2020-1 Yes [id number] 200mg TAKE 2 [facility] 100 mg 2-17 CAPSULES ity of capsule 00:00: BY MOUTH 2 [place] 00 (TWO) Medical TIMES Branch DAILY. ZONISAMIDE 2020-1 Yes [id number] 200mg TAKE 2 [facility] 100 mg 2-17 CAPSULES ity of capsule 00:00: BY MOUTH 2 [place] 00 (TWO) Medical TIMES Branch DAILY. ZONISAMIDE 2020-1 Yes [id number] 200mg TAKE 2 [facility] 100 mg 2-17 CAPSULES ity of capsule 00:00: BY MOUTH 2 [place] 00 (TWO) Medical TIMES Branch DAILY. ZONISAMIDE 2020-1 Yes [id number] 200mg TAKE 2 [facility] 100 mg 2-17 CAPSULES ity of capsule 00:00: BY MOUTH 2 [place] 00 (TWO) Medical TIMES Branch DAILY. ZONISAMIDE 2020-1 Yes [id number] 200mg TAKE 2 [facility] 100 mg 2-17 CAPSULES ity of capsule 00:00: BY MOUTH 2 [place] 00 (TWO) Medical TIMES Branch DAILY. ZONISAMIDE 2020-1 Yes [id number] 200mg TAKE 2 [facility] 100 mg 2-17 CAPSULES ity of capsule 00:00: BY MOUTH 2 [place] 00 (TWO) Medical TIMES Branch DAILY. ZONISAMIDE 2020-1 Yes [id number] 200mg TAKE 2 [facility] 100 mg 2-17 CAPSULES ity of capsule 00:00: BY MOUTH 2 [place] 00 (TWO) Medical TIMES Branch DAILY. ZONISAMIDE 2020-1 Yes [id number] 200mg TAKE 2 [facility] 100 mg 2-17 CAPSULES ity of capsule 00:00: BY MOUTH 2 [place] 00 (TWO) Medical TIMES Branch DAILY. ZONISAMIDE 2020-1 Yes [id number] 200mg TAKE 2 [facility] 100 mg 2-17 CAPSULES ity of capsule 00:00: BY MOUTH 2 [place] 00 (TWO) Medical TIMES Branch DAILY. ZONISAMIDE 2020-1 Yes [id number] 200mg TAKE 2 [facility] 100 mg 2-17 CAPSULES ity of capsule 00:00: BY MOUTH 2 [place] 00 (TWO) Medical TIMES Branch DAILY. ZONISAMIDE 2019- Yes [id number] 200mg TAKE 2 [facility] 100 mg 2-17 CAPSULES ity of capsule 00:00: BY MOUTH 2 [place] 00 (TWO) Medical TIMES Branch DAILY. montelukast 2019- Yes 10mg Take 10 mg Univers (SINGULAIR) 2-16 by mouth ity of 10 mg 19:15: daily. [address] CETIRIZINE 2019-07 Yes Take by Univ ers HCL (ZYRTEC 2-16 mouth. ity of ORAL) 19:15: [address] montelukast 2019- Yes 10mg Take 10 mg Univers (SINGULAIR) 2-16 by mouth ity of 10 mg 19:15: daily. [address] CETIRIZINE 2019-07 Yes Take by Univ ers HCL (ZYRTEC 2-16 mouth. ity of ORAL) 19:15: [address] montelukast 2019- Yes 10mg Take 10 mg Univers (SINGULAIR) 2-16 by mouth ity of 10 mg 19:15: daily. [address] CETIRIZINE 2019-07 Yes Take by Univ ers HCL (ZYRTEC 2-16 mouth. ity of ORAL) 19:15: [address] miSOPROStoL 2019- Yes [id number] Take one [facility] 200 mcg 0-23 100 tablet by ity of tablet 00:00: mouth the [place] 00 p.m. Medical before the Branch procedure, and one tablet by mouth the a.m. of the procedure miSOPROStoL 2019- Yes [id number] Take one Univers 200 mcg 0-23 100 tablet by ity of tablet 00:00: mouth the [place] 00 p.m. Medical before the Branch procedure, and one tablet by mouth the a.m. of the procedure miSOPROStoL 2020- Yes [id number] Take one [facility] 200 mcg 0-23 100 tablet by ity of tablet 00:00: mouth the [place] 00 p.m. Medical before the Branch procedure, and one tablet by mouth the a.m. of the procedure miSOPROStoL 2019- Yes [id number] Take one [facility] 200 mcg 0-23 100 tablet by ity of tablet 00:00: mouth the [place] 00 p.m. Medical before the Branch procedure, and one tablet by mouth the a.m. of the procedure miSOPROStoL 2020- Yes [id number] Take one [facility] 200 mcg 0-23 100 tablet by ity of tablet 00:00: mouth the [place] 00 p.m. Medical before the Branch procedure, and one tablet by mouth the a.m. of the procedure miSOPROStoL 2019- Yes [id number] Take one [facility] 200 mcg 0-23 100 tablet by ity of tablet 00:00: mouth the [place] 00 p.m. Medical before the Branch procedure, and one tablet by mouth the a.m. of the procedure miSOPROStoL 2019-07 Yes [id number] Take one [facility] 200 mcg 0-23 100 tablet by ity of tablet 00:00: mouth the [place] 00 p.m. Medical before the Branch procedure, and one tablet by mouth the a.m. of the procedure miSOPROStoL 2019-07 Yes [id number] Take one [facility] 200 mcg 0-23 100 tablet by ity of tablet 00:00: mouth the [place] 00 p.m. Medical before the Branch procedure, and one tablet by mouth the a.m. of the procedure miSOPROStoL 2019-07 Yes [id number] Take one [facility] 200 mcg 0-23 100 tablet by ity of tablet 00:00: mouth the [place] 00 p.m. Medical before the Branch procedure, and one tablet by mouth the a.m. of the procedure miSOPROStoL 2019-07 Yes [id number] Take one [facility] 200 mcg 0-23 100 tablet by ity of tablet 00:00: mouth the [place] 00 p.m. Medical before the Branch procedure, and one tablet by mouth the a.m. of the procedure miSOPROStoL 2019- Yes [id number] Take one [facility] 200 mcg 0-23 100 tablet by ity of tablet 00:00: mouth the [place] 00 p.m. Medical before the Branch procedure, and one tablet by mouth the a.m. of the procedure miSOPROStoL 2019- Yes [id number] Take one [facility] 200 mcg 0-23 100 tablet by ity of tablet 00:00: mouth the [place] 00 p.m. Medical before the Branch procedure, and one tablet by mouth the a.m. of the procedure miSOPROStoL 2020- Yes [id number] Take one [facility] 200 mcg 0-23 100 tablet by ity of tablet 00:00: mouth the [place] 00 p.m. Medical before the Branch procedure, and one tablet by mouth the a.m. of the procedure miSOPROStoL 2019-07 Yes [id number] Take one [facility] 200 mcg 0-23 100 tablet by ity of tablet 00:00: mouth the [place] 00 p.m. Medical before the Branch procedure, and one tablet by mouth the a.m. of the procedure miSOPROStoL 2019-07 Yes [id number] Take one [facility] 200 mcg 0-23 100 tablet by ity of tablet 00:00: mouth the [place] 00 p.m. Medical before the Branch procedure, and one tablet by mouth the a.m. of the procedure miSOPROStoL 2019-07 Yes [id number] Take one [facility] 200 mcg 0-23 100 tablet by ity of tablet 00:00: mouth the [place] 00 p.m. Medical before the Branch procedure, and one tablet by mouth the a.m. of the procedure miSOPROStoL 2019-07 Yes [id number] Take one [facility] 200 mcg 0-23 100 tablet by ity of tablet 00:00: mouth the [place] 00 p.m. Medical before the Branch procedure, and one tablet by mouth the a.m. of the procedure miSOPROStoL 2019-07 Yes [id number] Take one [facility] 200 mcg 0-23 100 tablet by ity of tablet 00:00: mouth the [place] 00 p.m. Medical before the Branch procedure, and one tablet by mouth the a.m. of the procedure miSOPROStoL 2019-07 Yes [id number] Take one [facility] 200 mcg 0-23 100 tablet by ity of tablet 00:00: mouth the [place] 00 p.m. Medical before the Branch procedure, and one tablet by mouth the a.m. of the procedure miSOPROStoL 2019-07 2020- No [id number] Take one [facility] 200 mcg 0-23 12-22 100 tablet by ity of tablet 00:00: 00:00 mouth the [place] 00 :00 p.m. Medical before the Branch procedure, and one tablet by mouth the a.m. of the procedure montelukast 2019-07 Yes 10mg Take 10 mg Univers (SINGULAIR) 0-22 by mouth ity of 10 mg 19:31: daily. [place] tablet 18 Medical Branch CETIRIZINE 2019-07 Yes Take by [facility] ers HCL (ZYRTEC 0-22 mouth. ity of ORAL) 19:31: [place] [address] Medical [place] montekast 2019-07 Yes 10mg Take 10 mg Univers (SINGULAIR) 0-22 by mouth ity of 10 mg 19:31: daily. [place] tablet 18 Medical [place] CETIRIZINE 2019-07 Yes Take by Univ ers HCL (ZYRTEC 0-22 mouth. ity of ORAL) 19:31: [place] [address] Medical [place] montekast 2019-07 Yes 10mg Take 10 mg Univers (SINGULAIR) 0-22 by mouth ity of 10 mg 19:31: daily. [place] tablet 18 Medical [place] CETIRIZINE 2019-07 Yes Take by Univ ers HCL (ZYRTEC 0-22 mouth. ity of ORAL) 19:31: [place] [address] [facility] Take 10 mg Univers (SINGULAIR) 0-22 by mouth ity of 10 mg 19:31: daily. [place] tablet 18 Medical [place] CETIRIZINE 2019-07 Yes Take by Univ ers HCL (ZYRTEC 0-22 mouth. ity of ORAL) 19:31: [address] 2019-07 Yes 10mg Take 10 mg Univers (SINGULAIR) 0-22 by mouth ity of 10 mg 19:31: daily. [place] tablet 18 Medical [place] CETIRIZINE 2019-07 Yes Take by Univ ers HCL (ZYRTEC 0-22 mouth. ity of ORAL) 19:31: [address] 2019-07 Yes 10mg Take 10 mg Univers (SINGULAIR) 0-22 by mouth ity of 10 mg 19:31: daily. [place] tablet 18 Medical [place] CETIRIZINE 2019-07 Yes Take by Univ ers HCL (ZYRTEC 0-22 mouth. ity of ORAL) 19:31: [place] [address] Medical [place] montekast 2019-07 Yes 10mg Take 10 mg Univers (SINGULAIR) 0-22 by mouth ity of 10 mg 19:31: daily. [place] tablet 18 Medical [place] CETIRIZINE 2019-07 Yes Take by Univ ers HCL (ZYRTEC 0-22 mouth. ity of ORAL) 19:31: [address] 2019-07 Yes 10mg Take 10 mg [facility] (SINGULAIR) 0-22 by mouth ity of 10 mg 19:31: daily. [place] tablet 18 [facility] [place] CETIRIZINE 2019-07 Yes Take by Univ ers HCL (ZYRTEC 0-22 mouth. ity of ORAL) 19:31: [place] [address] [facility] [place] montelukast 2019-07 Yes 10mg Take 10 mg [facility] (SINGULAIR) 0-22 by mouth ity of 10 mg 19:31: daily. [place] tablet 18 [facility] CETIRIZINE 2019-07 Yes Take by Univ ers HCL (ZYRTEC 0-22 mouth. ity of ORAL) 19:31: [place] [address] [facility] [place] montelukast 2019-07 Yes 10mg Take 10 mg [facility] (SINGULAIR) 0-22 by mouth ity of 10 mg 19:31: daily. [place] tablet 18 [facility] CETIRIZINE 2019-07 Yes Take by Univ ers HCL (ZYRTEC 0-22 mouth. ity of ORAL) 19:31: [address] montekast 2019-07 Yes 10mg Take 10 mg [facility] (SINGULAIR) 0-22 by mouth ity of 10 mg 19:31: daily. [place] tablet 18 [facility] [place] CETIRIZINE 2019-07 Yes Take by Univ ers HCL (ZYRTEC 0-22 mouth. ity of ORAL) 19:31: [place] [address] [facility] [place] montelukast 2019-07 Yes 10mg Take 10 mg [facility] (SINGULAIR) 0-22 by mouth ity of 10 mg 19:31: daily. [place] tablet 18 [facility] [place] CETIRIZINE 2019-07 Yes Take by Univ ers HCL (ZYRTEC 0-22 mouth. ity of ORAL) 19:31: [address] montelukast 2019-07 Yes 10mg Take 10 mg [facility] (SINGULAIR) 0-22 by mouth ity of 10 mg 19:31: daily. [place] tablet 18 [facility] [place] CETIRIZINE 2019-07 Yes Take by Univ ers HCL (ZYRTEC 0-22 mouth. ity of ORAL) 19:31: [address] montelukast 2019-07 Yes 10mg Take 10 mg [facility] (SINGULAIR) 0-22 by mouth ity of 10 mg 19:31: daily. [place] tablet 18 [facility] [place] CETIRIZINE 2019-07 Yes Take by Univ ers HCL (ZYRTEC 0-22 mouth. ity of ORAL) 19:31: [address] montelukast 2019-07 Yes 10mg Take 10 mg [facility] (SINGULAIR) 0-22 by mouth ity of 10 mg 19:31: daily. [place] tablet 18 [facility] [place] CETIRIZINE 2019-07 Yes Take by Univ ers HCL (ZYRTEC 0-22 mouth. ity of ORAL) 19:31: [place] [address] [facility] [place] montelukast 2019-07 Yes 10mg Take 10 mg [facility] (SINGULAIR) 0-22 by mouth ity of 10 mg 19:31: daily. [place] tablet 18 [facility] [place] CETIRIZINE 2019-07 Yes Take by [facility] ers HCL (ZYRTEC 0-22 mouth. ity of ORAL) 19:31: [place] [address] [facility] [place] montelukast 2019-07 Yes 10mg Take 10 mg [facility] (SINGULAIR) 0-22 by mouth ity of 10 mg 19:31: daily. [place] tablet 18 [facility] [place] CETIRIZINE 2019-07 Yes Take by Univ ers HCL (ZYRTEC 0-22 mouth. ity of ORAL) 19:31: [address] montelukast 2019-07 Yes 10mg Take 10 mg [facility] (SINGULAIR) 0-22 by mouth ity of 10 mg 19:31: daily. [place] tablet 18 [facility] [place] CETIRIZINE 2019-07 Yes Take by Univ ers HCL (ZYRTEC 0-22 mouth. ity of ORAL) 19:31: [address] montelukast 2019-07 Yes 10mg Take 10 mg [facility] (SINGULAIR) 0-22 by mouth ity of 10 mg 19:31: daily. [place] tablet 18 [facility] [place] CETIRIZINE 2019-07 Yes Take by Univ ers HCL (ZYRTEC 0-22 mouth. ity of ORAL) 19:31: [address] montelukast 2019-07 Yes 10mg Take 10 mg [facility] (SINGULAIR) 0-22 by mouth ity of 10 mg 19:31: daily. [place] tablet 18 [facility] [place] CETIRIZINE 2019-07 Yes Take by Univ ers HCL (ZYRTEC 0-22 mouth. ity of ORAL) 19:31: [address] montelukast 2019-07 Yes 10mg Take 10 mg [facility] (SINGULAIR) 0-22 by mouth ity of 10 mg 19:31: daily. [address] CETIRIZINE 2019-07 Yes Take by Univ ers HCL (ZYRTEC 0-22 mouth. ity of ORAL) 19:31: [place] 18 [facility] montelukast 2019-07 Yes 10mg Take 10 mg [facility] (SINGULAIR) 0-09 by mouth ity of 10 mg 20:16: daily. [place] tablet 50 [facility] montelukast 2019-07 Yes 10mg Take 10 mg [facility] (SINGULAIR) 0-09 by mouth ity of 10 mg 20:16: daily. [place] tablet 50 [facility] montelukast 2019-07 Yes 10mg Take 10 mg [facility] (SINGULAIR) 0-09 by mouth ity of 10 mg 20:16: daily. [place] tablet 50 [facility] montelukast 2019-07 Yes 10mg Take 10 mg [facility] (SINGULAIR) 0-09 by mouth ity of 10 mg 20:16: daily. [place] tablet 50 [facility] montelukast 2019-07 Yes 10mg Take 10 mg [facility] (SINGULAIR) 0-09 by mouth ity of 10 mg 20:16: daily. [place] tablet 50 [facility] montelukast 2019-07 Yes 10mg Take 10 mg [facility] (SINGULAIR) 0-09 by mouth ity of 10 mg 20:16: daily. [place] tablet 50 [facility] montelukast 2019-07 Yes 10mg Take 10 mg [facility] (SINGULAIR) 0-07 by mouth ity of 10 mg 14:32: daily. [place] tablet 24 [facility] montelukast 2019-07 Yes 10mg Take 10 mg [facility] (SINGULAIR) 0-07 by mouth ity of 10 mg 14:32: daily. [place] tablet 24 [facility] montelukast 2019-07 Yes 10mg Take 10 mg [facility] (SINGULAIR) 0-07 by mouth ity of 10 mg 14:32: daily. [place] tablet 24 [facility] Branch ERGOCALCIFE 2019-0 Yes [id number] TAKE 1 [facility] ROL, 9-29 CAPSULE BY ity of VITAMIN D2, 00:00: MOUTH [place] 1,250 mcg 00 WEEKLY. Medical (50,000 TAKE WITH Branch unit) FOOD. capsule ERGOCALCIFE 2019-0 Yes [id number] TAKE 1 [facility] ROL, 9-29 CAPSULE BY ity of VITAMIN D2, 00:00: MOUTH [place] 1,250 mcg 00 WEEKLY. Medical (50,000 TAKE WITH Branch unit) FOOD. capsule ERGOCALCIFE 2020-0 Yes [id number] TAKE 1 [facility] ROL, 9-29 CAPSULE BY ity of VITAMIN D2, 00:00: MOUTH [place] 1,250 mcg 00 WEEKLY. Medical (50,000 TAKE WITH Branch unit) FOOD. capsule ERGOCALCIFE 2020-0 Yes [id number] TAKE 1 [facility] ROL, 9-29 CAPSULE BY ity of VITAMIN D2, 00:00: MOUTH [place] 1,250 mcg 00 WEEKLY. Medical (50,000 TAKE WITH Branch unit) FOOD. capsule ERGOCALCIFE 2020-0 Yes [id number] TAKE 1 [facility] ROL, 9-29 CAPSULE BY ity of VITAMIN D2, 00:00: MOUTH [place] 1,250 mcg 00 WEEKLY. Medical (50,000 TAKE WITH Branch unit) FOOD. capsule ERGOCALCIFE 2020-0 Yes [id number] TAKE 1 [facility] ROL, 9-29 CAPSULE BY ity of VITAMIN D2, 00:00: MOUTH [place] 1,250 mcg 00 WEEKLY. Medical (50,000 TAKE WITH Branch unit) FOOD. capsule ERGOCALCIFE 2020-0 Yes [id number] TAKE 1 [facility] ROL, 9-29 CAPSULE BY ity of VITAMIN D2, 00:00: MOUTH [place] 1,250 mcg 00 WEEKLY. Medical (50,000 TAKE WITH Branch unit) FOOD. capsule ERGOCALCIFE 2020-0 Yes [id number] TAKE 1 [facility] ROL, 9-29 CAPSULE BY ity of VITAMIN D2, 00:00: MOUTH [place] 1,250 mcg 00 WEEKLY. Medical (50,000 TAKE WITH Branch unit) FOOD. capsule ERGOCALCIFE 2020-0 Yes [id number] TAKE 1 [facility] ROL, 9-29 CAPSULE BY ity of VITAMIN D2, 00:00: MOUTH [place] 1,250 mcg 00 WEEKLY. Medical (50,000 TAKE WITH Branch unit) FOOD. capsule ERGOCALCIFE 2020-0 Yes [id number] TAKE 1 [facility] ROL, 9-29 CAPSULE BY ity of VITAMIN D2, 00:00: MOUTH [place] 1,250 mcg 00 WEEKLY. Medical (50,000 TAKE WITH Branch unit) FOOD. capsule ERGOCALCIFE 2020-0 Yes [id number] TAKE 1 [facility] ROL, 9-29 CAPSULE BY ity of VITAMIN D2, 00:00: MOUTH [place] 1,250 mcg 00 WEEKLY. Medical (50,000 TAKE WITH Branch unit) FOOD. capsule ERGOCALCIFE 2020-0 Yes [id number] TAKE 1 [facility] ROL, 9-29 CAPSULE BY ity of VITAMIN D2, 00:00: MOUTH [place] 1,250 mcg 00 WEEKLY. Medical (50,000 TAKE WITH Branch unit) FOOD. capsule ERGOCALCIFE 2020-0 Yes [id number] TAKE 1 [facility] ROL, 9-29 CAPSULE BY ity of VITAMIN D2, 00:00: MOUTH [place] 1,250 mcg 00 WEEKLY. Medical (50,000 TAKE WITH Branch unit) FOOD. capsule ERGOCALCIFE 2020-0 Yes [id number] TAKE 1 [facility] ROL, 9-29 CAPSULE BY ity of VITAMIN D2, 00:00: MOUTH [place] 1,250 mcg 00 WEEKLY. Medical (50,000 TAKE WITH Branch unit) FOOD. capsule ERGOCALCIFE 2020-0 Yes [id number] TAKE 1 [facility] ROL, 9-29 CAPSULE BY ity of VITAMIN D2, 00:00: MOUTH [place] 1,250 mcg 00 WEEKLY. Medical (50,000 TAKE WITH Branch unit) FOOD. capsule ERGOCALCIFE 2020-0 Yes [id number] TAKE 1 [facility] ROL, 9-29 CAPSULE BY ity of VITAMIN D2, 00:00: MOUTH [place] 1,250 mcg 00 WEEKLY. Medical (50,000 TAKE WITH Branch unit) FOOD. capsule ERGOCALCIFE 2020-0 Yes [id number] TAKE 1 [facility] ROL, 9-29 CAPSULE BY ity of VITAMIN D2, 00:00: MOUTH [place] 1,250 mcg 00 WEEKLY. Medical (50,000 TAKE WITH Branch unit) FOOD. capsule ERGOCALCIFE 2020-0 Yes [id number] TAKE 1 [facility] ROL, 9-29 CAPSULE BY ity of VITAMIN D2, 00:00: MOUTH [place] 1,250 mcg 00 WEEKLY. Medical (50,000 TAKE WITH Branch unit) FOOD. capsule ERGOCALCIFE 2020-0 Yes [id number] TAKE 1 [facility] ROL, 9-29 CAPSULE BY ity of VITAMIN D2, 00:00: MOUTH [place] 1,250 mcg 00 WEEKLY. Medical (50,000 TAKE WITH Branch unit) FOOD. capsule ERGOCALCIFE 2020-0 Yes [id number] TAKE 1 [facility] ROL, 9-29 CAPSULE BY ity of VITAMIN D2, 00:00: MOUTH [place] 1,250 mcg 00 WEEKLY. Medical (50,000 TAKE WITH Branch unit) FOOD. capsule ERGOCALCIFE 2020-0 Yes [id number] TAKE 1 [facility] ROL, 9-29 CAPSULE BY ity of VITAMIN D2, 00:00: MOUTH [place] 1,250 mcg 00 WEEKLY. Medical (50,000 TAKE WITH Branch unit) FOOD. capsule ERGOCALCIFE 2020-0 Yes [id number] TAKE 1 [facility] ROL, 9-29 CAPSULE BY ity of VITAMIN D2, 00:00: MOUTH [place] 1,250 mcg 00 WEEKLY. Medical (50,000 TAKE WITH Branch unit) FOOD. capsule ERGOCALCIFE 2020-0 Yes [id number] TAKE 1 [facility] ROL, 9-29 CAPSULE BY ity of VITAMIN D2, 00:00: MOUTH [place] 1,250 mcg 00 WEEKLY. Medical (50,000 TAKE WITH Branch unit) FOOD. capsule ERGOCALCIFE 2020-0 Yes [id number] TAKE 1 [facility] ROL, 9-29 CAPSULE BY ity of VITAMIN D2, 00:00: MOUTH [place] 1,250 mcg 00 WEEKLY. Medical (50,000 TAKE WITH Branch unit) FOOD. capsule ERGOCALCIFE 2020-0 Yes [id number] TAKE 1 [facility] ROL, 9-29 CAPSULE BY ity of VITAMIN D2, 00:00: MOUTH [place] 1,250 mcg 00 WEEKLY. Medical (50,000 TAKE WITH Branch unit) FOOD. capsule ERGOCALCIFE 2020-0 Yes [id number] TAKE 1 [facility] ROL, 9-29 CAPSULE BY ity of VITAMIN D2, 00:00: MOUTH [place] 1,250 mcg 00 WEEKLY. Medical (50,000 TAKE WITH Branch unit) FOOD. capsule ERGOCALCIFE 2020-0 Yes [id number] TAKE 1 [facility] ROL, 9-29 CAPSULE BY ity of VITAMIN D2, 00:00: MOUTH [place] 1,250 mcg 00 WEEKLY. Medical (50,000 TAKE WITH Branch unit) FOOD. capsule ERGOCALCIFE 2020-0 Yes [id number] TAKE 1 [facility] ROL, 9-29 CAPSULE BY ity of VITAMIN D2, 00:00: MOUTH [place] 1,250 mcg 00 WEEKLY. Medical (50,000 TAKE WITH Branch unit) FOOD. capsule ERGOCALCIFE 2020-0 Yes [id number] TAKE 1 [facility] ROL, 9-29 CAPSULE BY ity of VITAMIN D2, 00:00: MOUTH [place] 1,250 mcg 00 WEEKLY. Medical (50,000 TAKE WITH Branch unit) FOOD. capsule ERGOCALCIFE 2020-0 Yes [id number] TAKE 1 [facility] ROL, 9-29 CAPSULE BY ity of VITAMIN D2, 00:00: MOUTH [place] 1,250 mcg 00 WEEKLY. Medical (50,000 TAKE WITH Branch unit) FOOD. capsule ERGOCALCIFE 2020-0 Yes [id number] TAKE 1 [facility] ROL, 9-29 CAPSULE BY ity of VITAMIN D2, 00:00: MOUTH [place] 1,250 mcg 00 WEEKLY. Medical (50,000 TAKE WITH Branch unit) FOOD. capsule ERGOCALCIFE 2020-0 Yes [id number] TAKE 1 [facility] ROL, 9-29 CAPSULE BY ity of VITAMIN D2, 00:00: MOUTH [place] 1,250 mcg 00 WEEKLY. Medical (50,000 TAKE WITH Branch unit) FOOD. capsule ERGOCALCIFE 2020-0 Yes [id number] TAKE 1 [facility] ROL, 9-29 CAPSULE BY ity of VITAMIN D2, 00:00: MOUTH [place] 1,250 mcg 00 WEEKLY. Medical (50,000 TAKE WITH Branch unit) FOOD. capsule ERGOCALCIFE 2020-0 Yes [id number] TAKE 1 [facility] ROL, 9-29 CAPSULE BY ity of VITAMIN D2, 00:00: MOUTH [place] 1,250 mcg 00 WEEKLY. Medical (50,000 TAKE WITH Branch unit) FOOD. capsule ERGOCALCIFE 2020-0 Yes [id number] TAKE 1 [facility] ROL, 9-29 CAPSULE BY ity of VITAMIN D2, 00:00: MOUTH [place] 1,250 mcg 00 WEEKLY. Medical (50,000 TAKE WITH Branch unit) FOOD. capsule ERGOCALCIFE 2020-0 Yes [id number] TAKE 1 [facility] ROL, 9-29 CAPSULE BY ity of VITAMIN D2, 00:00: MOUTH [place] 1,250 mcg 00 WEEKLY. Medical (50,000 TAKE WITH Branch unit) FOOD. capsule ERGOCALCIFE 2020-0 Yes [id number] TAKE 1 [facility] ROL, 9-29 CAPSULE BY ity of VITAMIN D2, 00:00: MOUTH [place] 1,250 mcg 00 WEEKLY. Medical (50,000 TAKE WITH Branch unit) FOOD. capsule ERGOCALCIFE 2020-0 Yes [id number] TAKE 1 [facility] ROL, 9-29 CAPSULE BY ity of VITAMIN D2, 00:00: MOUTH [place] 1,250 mcg 00 WEEKLY. Medical (50,000 TAKE WITH Branch unit) FOOD. capsule ERGOCALCIFE 2020-0 Yes [id number] TAKE 1 [facility] ROL, 9-29 CAPSULE BY ity of VITAMIN D2, 00:00: MOUTH [place] 1,250 mcg 00 WEEKLY. Medical (50,000 TAKE WITH Branch unit) FOOD. capsule ERGOCALCIFE 2020-0 Yes [id number] TAKE 1 [facility] ROL, 9-29 CAPSULE BY ity of VITAMIN D2, 00:00: MOUTH [place] 1,250 mcg 00 WEEKLY. Medical (50,000 TAKE WITH Branch unit) FOOD. capsule ERGOCALCIFE 2020-0 Yes [id number] TAKE 1 [facility] ROL, 9-29 CAPSULE BY ity of VITAMIN D2, 00:00: MOUTH [place] 1,250 mcg 00 WEEKLY. Medical (50,000 TAKE WITH Branch unit) FOOD. capsule ERGOCALCIFE 2020-0 Yes [id number] TAKE 1 [facility] ROL, 9-29 CAPSULE BY ity of VITAMIN D2, 00:00: MOUTH [place] 1,250 mcg 00 WEEKLY. Medical (50,000 TAKE WITH Branch unit) FOOD. capsule ERGOCALCIFE 2020-0 Yes [id number] TAKE 1 [facility] ROL, 9-29 CAPSULE BY ity of VITAMIN D2, 00:00: MOUTH [place] 1,250 mcg 00 WEEKLY. Medical (50,000 TAKE WITH Branch unit) FOOD. capsule ERGOCALCIFE 2020-0 Yes [id number] TAKE 1 [facility] ROL, 9-29 CAPSULE BY ity of VITAMIN D2, 00:00: MOUTH [place] 1,250 mcg 00 WEEKLY. Medical (50,000 TAKE WITH Branch unit) FOOD. capsule ERGOCALCIFE 2020-0 Yes [id number] TAKE 1 [facility] ROL, 9-29 CAPSULE BY ity of VITAMIN D2, 00:00: MOUTH [place] 1,250 mcg 00 WEEKLY. Medical (50,000 TAKE WITH Branch unit) FOOD. capsule ERGOCALCIFE 2020-0 Yes [id number] TAKE 1 [facility] ROL, 9-29 CAPSULE BY ity of VITAMIN D2, 00:00: MOUTH [place] 1,250 mcg 00 WEEKLY. Medical (50,000 TAKE WITH Branch unit) FOOD. capsule ERGOCALCIFE 2020-0 Yes [id number] TAKE 1 [facility] ROL, 9-29 CAPSULE BY ity of VITAMIN D2, 00:00: MOUTH [place] 1,250 mcg 00 WEEKLY. Medical (50,000 TAKE WITH Branch unit) FOOD. capsule ERGOCALCIFE 2020-0 Yes [id number] TAKE 1 [facility] ROL, 9-29 CAPSULE BY ity of VITAMIN D2, 00:00: MOUTH [place] 1,250 mcg 00 WEEKLY. Medical (50,000 TAKE WITH Branch unit) FOOD. capsule ERGOCALCIFE 2020-0 Yes [id number] TAKE 1 [facility] ROL, 9-29 CAPSULE BY ity of VITAMIN D2, 00:00: MOUTH [place] 1,250 mcg 00 WEEKLY. Medical (50,000 TAKE WITH Branch unit) FOOD. capsule ERGOCALCIFE 2020-0 Yes [id number] TAKE 1 [facility] ROL, 9-29 CAPSULE BY ity of VITAMIN D2, 00:00: MOUTH [place] 1,250 mcg 00 WEEKLY. Medical (50,000 TAKE WITH Branch unit) FOOD. capsule ERGOCALCIFE 2020-0 Yes [id number] TAKE 1 [facility] ROL, 9-29 CAPSULE BY ity of VITAMIN D2, 00:00: MOUTH [place] 1,250 mcg 00 WEEKLY. Medical (50,000 TAKE WITH Branch unit) FOOD. capsule montelukast 2020-0 Yes 10mg Take 10 mg [facility] (SINGULAIR) 9-25 by mouth ity of 10 mg 15:29: daily. [place] tablet 01 [facility] montelukast 2020-0 Yes 10mg Take 10 mg [facility] (SINGULAIR) 9-25 by mouth ity of 10 mg 15:29: daily. [place] tablet [facility] montelukast 2020-0 Yes 10mg Take 10 mg [facility] (SINGULAIR) 9-25 by mouth ity of 10 mg 15:29: daily. [place] tablet [facility] montelukast 2020-0 Yes 10mg Take 10 mg [facility] (SINGULAIR) 9-25 by mouth ity of 10 mg 15:29: daily. [place] tablet [facility] montelukast 2020-0 Yes 10mg Take 10 mg [facility] (SINGULAIR) 9-25 by mouth ity of 10 mg 15:29: daily. [place] tablet 01 [facility] montelukast 2020-0 Yes 10mg Take 10 mg [facility] (SINGULAIR) 9-25 by mouth ity of 10 mg 15:29: daily. [place] tablet [facility] montelukast 2020-0 Yes 10mg Take 10 mg [facility] (SINGULAIR) 9-25 by mouth ity of 10 mg 15:29: daily. [facility] [place] montelukast 2020-0 Yes 10mg Take 10 mg Univers (SINGULAIR) 9-25 by mouth ity of 10 mg 15:29: daily. [facility] Medical Branch miSOPROStoL 2020-0 Yes [id number] Take one [facility] 200 mcg 9-25 100 by mouth ity of tablet 00:00: the 00 evening Medical before the Branch procedure and one by mouth the a.m. prior to the procedure. miSOPROStoL 2020-0 Yes [id number] Take one [facility] 200 mcg 9-25 100 by mouth ity of tablet 00:00: the 00 evening Medical before the Branch procedure and one by mouth the a.m. prior to the procedure. miSOPROStoL 2020-0 Yes [id number] Take one [facility] 200 mcg 9-25 100 by mouth ity of tablet 00:00: the 00 evening Medical before the Branch procedure and one by mouth the a.m. prior to the procedure. miSOPROStoL 2020-0 Yes [id number] Take one [facility] 200 mcg 9-25 100 by mouth ity of tablet 00:00: the 00 evening Medical before the Branch procedure and one by mouth the a.m. prior to the procedure. miSOPROStoL 2020-0 Yes [id number] Take one [facility] 200 mcg 9-25 100 by mouth ity of tablet 00:00: the 00 evening Medical before the Branch procedure and one by mouth the a.m. prior to the procedure. miSOPROStoL 2020-0 Yes [id number] Take one [facility] 200 mcg 9-25 100 by mouth ity of tablet 00:00: the 00 evening Medical before the Branch procedure and one by mouth the a.m. prior to the procedure. miSOPROStoL 2020-0 Yes [id number] Take one [facility] 200 mcg 9-25 100 by mouth ity of tablet 00:00: the 00 evening Medical before the Branch procedure and one by mouth the a.m. prior to the procedure. miSOPROStoL 2020-0 Yes [id number] Take one [facility] 200 mcg 9-25 100 by mouth ity of tablet 00:00: the 00 evening Medical before the Branch procedure and one by mouth the a.m. prior to the procedure. miSOPROStoL 2020-0 Yes [id number] Take one [facility] 200 mcg 9-25 100 by mouth ity of tablet 00:00: the [place] 00 evening Medical before the Branch procedure and one by mouth the a.m. prior to the procedure. miSOPROStoL 2020-0 Yes [id number] Take one [facility] 200 mcg 9-25 100 by mouth ity of tablet 00:00: the [place] 00 evening Medical before the Branch procedure and one by mouth the a.m. prior to the procedure. miSOPROStoL 2020-0 Yes [id number] Take one [facility] 200 mcg 9-25 100 by mouth ity of tablet 00:00: the [place] 00 evening Medical before the Branch procedure and one by mouth the a.m. prior to the procedure. miSOPROStoL 2020-0 Yes [id number] Take one [facility] 200 mcg 9-25 100 by mouth ity of tablet 00:00: the 00 evening Medical before the Branch procedure and one by mouth the a.m. prior to the procedure. miSOPROStoL 2020-0 Yes [id number] Take one [facility] 200 mcg 9-25 100 by mouth ity of tablet 00:00: the 00 evening Medical before the Branch procedure and one by mouth the a.m. prior to the procedure. miSOPROStoL 2020-0 Yes [id number] Take one [facility] 200 mcg 9-25 100 by mouth ity of tablet 00:00: the 00 evening Medical before the Branch procedure and one by mouth the a.m. prior to the procedure. miSOPROStoL 2020-0 Yes [id number] Take one [facility] 200 mcg 9-25 100 by mouth ity of tablet 00:00: the 00 evening Medical before the Branch procedure and one by mouth the a.m. prior to the procedure. miSOPROStoL 2020-0 Yes [id number] Take one [facility] 200 mcg 9-25 100 by mouth ity of tablet 00:00: the [place] 00 evening Medical before the Branch procedure and one by mouth the a.m. prior to the procedure. miSOPROStoL 2020-0 2020- No [id number] Take one [facility] 200 mcg 9-25 10-23 100 by mouth ity of tablet 00:00: 00:00 the [place] 00 :00 evening Medical before the Branch procedure and one by mouth the a.m. prior to the procedure. miSOPROStoL 2020-0 2020- No [id number] Take one [facility] 200 mcg 9-25 10-23 100 by mouth ity of tablet 00:00: 00:00 the [place] 00 :00 evening Medical before the Branch procedure and one by mouth the a.m. prior to the procedure. miSOPROStoL 2020-0 2020- No [id number] Take one [facility] 200 mcg 9-25 10-23 100 by mouth ity of tablet 00:00: 00:00 [facility] 00 :00 evening Medical before the Branch procedure and one by mouth the a.m. prior to the procedure. miSOPROStoL 2019-0 2020- No [id number] Take one [facility] 200 mcg 9-25 10-23 100 by mouth ity of tablet 00:00: 00:00 [facility] 00 :00 evening Medical before the Branch procedure and one by mouth the a.m. prior to the procedure. cyanocobala 2019-0 2020- No [id number] 1000ug 1,000 mcg, Univers min 04-23 Intramuscu ity of (VITAMIN 16:00: 16:22 [place], [place] B12[place] 00 :00 1 dose, Medical injection [facility] 1,000 mcg 04/23/20 at 1100, Routine iron 2019-0 2020- No [id number] 1000mg 1,000 mg, [facility] dextran 04-23 IV ity of (INFED) 16:00: 17:55 [place] 1[place] mg in 00 :00 ONCE, 1 Medic al NaCl 0.9% dose, Lisa Branc h (NS) 500 mL 04/23/20 at IV infusion 1100, 500 mL CETIRIZINE 2019-0 Yes Take by Univ ers HCL (ZYRTEC 04-20 mouth. ity of ORAL) 14:21: [address] CETIRIZINE 2020-0 Yes Take by Univ ers HCL (ZYRTEC - mouth. ity of ORAL) 14:21: [address] CETIRIZINE 2020-0 Yes Take by Univ ers HCL (ZYRTEC - mouth. ity of ORAL) 14:21: [address] CETIRIZINE 2020-0 Yes Take by Univ ers HCL (ZYRTEC 04-20 mouth. ity of ORAL) 14:21: [address] CETIRIZINE 2020-0 Yes Take by Univ ers HCL (ZYRTEC 04-20 mouth. ity of ORAL) 14:21: [address] CETIRIZINE 2020-0 Yes Take by Univ ers HCL (ZYRTEC 9-21 mouth. ity of ORAL) 14:21: [address] CETIRIZINE 2020-0 Yes Take by Univ ers HCL (ZYRTEC 9-21 mouth. ity of ORAL) 14:21: [address] CETIRIZINE 2019-0 Yes Take by Univ ers HCL (ZYRTEC 9-21 mouth. ity of ORAL) 14:21: [address] CETIRIZINE 2020-0 Yes Take by Univ ers HCL (ZYRTEC 9-21 mouth. ity of ORAL) 14:21: [address] CETIRIZINE 2019-0 Yes Take by Univ ers HCL (ZYRTEC 9-21 mouth. ity of ORAL) 14:21: [address] CETIRIZINE 2020-0 Yes Take by Univ ers HCL (ZYRTEC 9-21 mouth. ity of ORAL) 14:21: [address] CETIRIZINE 2020-0 Yes Take by Univ ers HCL (ZYRTEC 9-21 mouth. ity of ORAL) 14:21: [address] CETIRIZINE 2020-0 Yes Take by Univ ers HCL (ZYRTEC 9-21 mouth. ity of ORAL) 14:21: [address] CETIRIZINE 2020-0 Yes Take by Univ ers HCL (ZYRTEC 9-21 mouth. ity of ORAL) 14:21: [address] CETIRIZINE 2020-0 Yes Take by Univ ers HCL (ZYRTEC 9-21 mouth. ity of ORAL) 14:21: [address] CETIRIZINE 2020-0 Yes Take by Univ ers HCL (ZYRTEC 9-21 mouth. ity of ORAL) 14:21: [address] CETIRIZINE 2020-0 Yes Take by Univ ers HCL (ZYRTEC 9-21 mouth. ity of ORAL) 14:21: [address] CETIRIZINE 2020-0 Yes Take by Univ ers HCL (ZYRTEC 9-21 mouth. ity of ORAL) 14:21: [address] CETIRIZINE 2020-0 Yes Take by Univ ers HCL (ZYRTEC 9-21 mouth. ity of ORAL) 14:21: Medical Branch CETIRIZINE 2020-0 Yes Take by Univ ers HCL (ZYRTEC 9-21 mouth. ity of ORAL) 14:: Medical Branch CETIRIZINE 2020-0 Yes Take by Univ ers HCL (ZYRTEC 9-21 mouth. ity of ORAL) 14:21: Medical Branch CETIRIZINE 2020-0 Yes Take by Univ ers HCL (ZYRTEC 9-21 mouth. ity of ORAL) 14:21: Medical Branch zonisamide 2020-0 Yes [id number] 200mg Take 2 [facility] 100 mg 9-21 capsules ity of capsule 00:00: [place] mouth 2 [place] (two) Medical times Branch daily. SERTraline 2020-0 Yes [id number] 75mg Take 1.5 [facility] 50 mg 9-21 tablets by ity of tablet 00:00: mouth [place] 00 daily. Medical Branch zonisamide 2020-0 Yes [id number] 200mg Take 2 [facility] 100 mg 9-21 capsules ity of capsule 00:00: [place] mouth 2 [place] (two) Medical times Branch daily. SERTraline 2020-0 Yes [id number] 75mg Take 1.5 [facility] 50 mg 9-21 tablets by ity of tablet 00:00: mouth [place] 00 daily. Medical Branch zonisamide 2020-0 Yes [id number] 200mg Take 2 [facility] 100 mg 9-21 capsules [facility] capsule 00:00: [place] (two) [facility] daily. SERTraline 2020-0 Yes [id number] 75mg Take 1.5 [facility] 50 mg 9-21 tablets by [facility] tablet 00:00: mouth [place] 00 daily. [facility] zonisamide 2020-0 Yes [id number] 200mg Take 2 [facility] 100 mg 9-21 capsules [facility] capsule 00:00: [place] mouth [place] (two) [facility] daily. SERTraline 2020-0 Yes [id number] 75mg Take 1.5 [facility] 50 mg 9-21 tablets by [facility] of tablet 00:00: mouth [place] 00 daily. [facility] zonisamide 2020-0 Yes [id number] 200mg Take 2 [facility] 100 mg 9-21 capsules [facility] capsule 00:00: by mouth [place] (two) [facility] daily. SERTraline 2020-0 Yes [id number] 75mg Take 1.5 [facility] 50 mg 9-21 tablets by [facility] of tablet 00:00: mouth [place] 00 daily. [facility] zonisamide 2020-0 Yes [id number] 200mg Take 2 [facility] 100 mg 9-21 capsules [facility] capsule 00:00: by mouth [place] 00 (two) [facility] daily. SERTraline 2020-0 Yes [id number] 75mg Take 1.5 [facility] 50 mg 9-21 tablets by [facility] of tablet 00:00: mouth [place] 00 daily. [facility] zonisamide 2020-0 Yes [id number] 200mg Take 2 [facility] 100 mg 9-21 capsules [facility] capsule 00:00: by mouth [place] 00 (two) [facility] times [facility] daily. SERTraline 2020-0 Yes [id number] 75mg Take 1.5 [facility] 50 mg 9-21 tablets by ity of tablet 00:00: mouth [place] 00 daily. [facility] zonisamide 2020-0 Yes [id number] 200mg Take 2 [facility] 100 mg 9-21 capsules [facility] capsule 00:00: [place] (two) Medical times Branch daily. SERTraline 2020-0 Yes [id number] 75mg Take 1.5 [facility] 50 mg 9-21 tablets by ity of tablet 00:00: mouth [place] 00 daily. [facility] zonisamide 2020-0 Yes [id number] 200mg Take 2 [facility] 100 mg 9-21 capsules [facility] capsule 00:00: [place] mouth [place] (two) Medical times [facility] daily. SERTraline 2020-0 Yes [id number] 75mg Take 1.5 [facility] 50 mg 9-21 tablets by ity of tablet 00:00: mouth [place] 00 daily. [facility] zonisamide 2020-0 Yes [id number] 200mg Take 2 [facility] 100 mg 9-21 capsules [facility] capsule 00:00: [place] mouth [place] (two) Medical times Branch daily. SERTraline 2020-0 Yes [id number] 75mg Take 1.5 [facility] 50 mg 9-21 tablets by ity of tablet 00:00: mouth [place] 00 daily. [facility] zonisamide 2020-0 Yes [id number] 200mg Take 2 [facility] 100 mg 9-21 capsules [facility] of capsule 00:00: [place] mouth [place] (two) Medical times Branch daily. SERTraline 2020-0 Yes [id number] 75mg Take 1.5 [facility] 50 mg 9-21 tablets by ity of tablet 00:00: mouth [place] 00 daily. [facility] zonisamide 2020-0 Yes [id number] 200mg Take 2 [facility] 100 mg 9-21 capsules [facility] of capsule 00:00: [place] mouth [place] (two) Medical times Branch daily. SERTraline 2020-0 Yes [id number] 75mg Take 1.5 [facility] 50 mg 9-21 tablets by ity of tablet 00:00: mouth [place] 00 daily. [facility] zonisamide 2020-0 Yes [id number] 200mg Take 2 [facility] 100 mg 9-21 capsules [facility] of capsule 00:00: [place] mouth [place] (two) Medical times Branch daily. SERTraline 2020-0 Yes [id number] 75mg Take 1.5 [facility] 50 mg 9-21 tablets by ity of tablet 00:00: mouth [place] 00 daily. [facility] zonisamide 2020-0 Yes [id number] 200mg Take 2 [facility] 100 mg 9-21 capsules [facility] of capsule 00:00: by mouth 2 [place] (two) Medical times Branch daily. SERTraline 2020-0 Yes [id number] 75mg Take 1.5 [facility] 50 mg 9-21 tablets by ity of tablet 00:00: mouth [place] 00 daily. [facility] zonisamide 2020-0 Yes [id number] 200mg Take 2 [facility] 100 mg 9-21 capsules [facility] of capsule 00:00: by mouth 2 [place] (two) Medical times Branch daily. SERTraline 2020-0 Yes [id number] 75mg Take 1.5 [facility] 50 mg 9-21 tablets by ity of tablet 00:00: mouth [place] 00 daily. Medical [facility] SERTraline 2020-0 Yes [id number] 75mg Take 1.5 [facility] 50 mg 9-21 tablets by ity of tablet 00:00: mouth [place] 00 daily. Medical [facility] SERTraline 2020-0 Yes [id number] 75mg Take 1.5 [facility] 50 mg 9-21 tablets by ity of tablet 00:00: mouth [place] 00 daily. Medical [facility] SERTraline 2020-0 Yes [id number] 75mg Take 1.5 [facility] 50 mg 9-21 tablets by ity of tablet 00:00: mouth [place] 00 daily. [facility] Branch SERTraline 2020-0 Yes [id number] 75mg Take 1.5 [facility] 50 mg 9-21 tablets by ity of tablet 00:00: mouth [place] 00 daily. [facility] Branch SERTraline 2020-0 Yes [id number] 75mg Take 1.5 [facility] 50 mg 9-21 tablets by ity of tablet 00:00: mouth [place] 00 daily. [facility] Branch SERTraline 2020-0 Yes [id number] 75mg Take 1.5 [facility] 50 mg 9-21 tablets by ity of tablet 00:00: mouth [place] 00 daily. [facility] Branch SERTraline 2020-0 Yes [id number] 75mg Take 1.5 [facility] 50 mg 9-21 tablets by ity of tablet 00:00: mouth [place] 00 daily. [facility] Branch SERTraline 2020-0 Yes [id number] 75mg Take 1.5 [facility] 50 mg 9-21 tablets by ity of tablet 00:00: mouth [place] 00 daily. [facility] Branch SERTraline 2020-0 Yes [id number] 75mg Take 1.5 [facility] 50 mg 9-21 tablets by ity of tablet 00:00: mouth [place] 00 daily. [facility] SERTraline 2020-0 Yes [id number] 75mg Take 1.5 [facility] 50 mg 9-21 tablets by ity of tablet 00:00: mouth [place] 00 daily. [facility] SERTraline 2020-0 Yes [id number] 75mg Take 1.5 [facility] 50 mg 9-21 tablets by ity of tablet 00:00: mouth [place] 00 daily. [facility] Branch SERTraline 2020-0 Yes [id number] 75mg Take 1.5 [facility] 50 mg 9-21 tablets by ity of tablet 00:00: mouth [place] 00 daily. [facility] SERTraline 2020-0 Yes [id number] 75mg Take 1.5 [facility] 50 mg 9-21 tablets by ity of tablet 00:00: mouth [place] 00 daily. [facility] SERTraline 2020-0 Yes [id number] 75mg Take 1.5 [facility] 50 mg 9-21 tablets by ity of tablet 00:00: mouth [place] 00 daily. [facility] SERTraline 2020-0 Yes [id number] 75mg Take 1.5 [facility] 50 mg 9-21 tablets by ity of tablet 00:00: mouth [place] 00 daily. Medical Branch SERTraline 2020-0 Yes [id number] 75mg Take 1.5 [facility] 50 mg 9-21 tablets by ity of tablet 00:00: mouth [place] 00 daily. [facility] SERTraline 2020-0 Yes [id number] 75mg Take 1.5 [facility] 50 mg 9-21 tablets by ity of tablet 00:00: mouth [place] 00 daily. [facility] SERTraline 2020-0 Yes [id number] 75mg Take 1.5 [facility] 50 mg 9-21 tablets by ity of tablet 00:00: mouth [place] 00 daily. [facility] SERTraline 2020-0 Yes [id number] 75mg Take 1.5 [facility] 50 mg 9-21 tablets by ity of tablet 00:00: mouth [place] 00 daily. [facility] zonisamide 2020-0 Yes [id number] 200mg Take 2 [facility] 100 mg 9-21 capsules [facility] of capsule 00:00: by mouth 2 [place] (two) Medical times Branch daily. SERTraline 2020-0 Yes [id number] 75mg Take 1.5 [facility] 50 mg 9-21 tablets by ity of tablet 00:00: mouth [place] 00 daily. [facility] zonisamide 2020-0 Yes [id number] 200mg Take 2 [facility] 100 mg 9-21 capsules [facility] of capsule 00:00: by mouth 2 [place] (two) Medical times Branch daily. SERTraline 2020-0 Yes [id number] 75mg Take 1.5 [facility] 50 mg 9-21 tablets by ity of tablet 00:00: mouth [place] 00 daily. [facility] zonisamide 2020-0 Yes [id number] 200mg Take 2 [facility] 100 mg 9-21 capsules [facility]y of capsule 00:00: by mouth 2 [place] 00 (two) Medical times Branch daily. zonisamide 2020-0 Yes [id number] 200mg Take 2 [facility] 100 mg 9-21 capsules [facility]y of capsule 00:00: by mouth 2 [place] 00 (two) Medical times Branch daily. zonisamide 2020-0 Yes [id number] 200mg Take 2 [facility] 100 mg 9-21 capsules [facility]y of capsule 00:00: by mouth 2 [place] 00 (two) Medical times Branch daily. SERTraline 2020-0 Yes [id number] 75mg Take 1.5 [facility] 50 mg 9-21 tablets by ity of tablet 00:00: mouth [place] 00 daily. [facility] zonisamide 2020-0 Yes [id number] 200mg Take 2 [facility] 100 mg 9-21 capsules ity of capsule 00:00: by mouth 2 [place] 00 (two) Medical times Branch daily. SERTraline 2020-0 Yes [id number] 75mg Take 1.5 [facility] 50 mg 9-21 tablets by ity of tablet 00:00: mouth [place] 00 daily. [facility] zonisamide 2020-0 Yes [id number] 200mg Take 2 [facility] 100 mg 9-21 capsules [facility]y of capsule 00:00: by mouth 2 [place] 00 (two) Medical times Branch daily. SERTraline 2020-0 Yes [id number] 75mg Take 1.5 [facility] 50 mg 9-21 tablets by ity of tablet 00:00: mouth [place] 00 daily. [facility] zonisamide 2020-0 Yes [id number] 200mg Take 2 [facility] 100 mg 9-21 capsules ity of capsule 00:00: by mouth 2 [place] 00 (two) Medical times Branch daily. SERTraline 2020-0 Yes [id number] 75mg Take 1.5 [facility] 50 mg 9-21 tablets by ity of tablet 00:00: mouth [place] 00 daily. [facility] zonisamide 2020-0 Yes [id number] 200mg Take 2 [facility] 100 mg 9-21 capsules ity of capsule 00:00: by mouth 2 [place] 00 (two) Medical times Branch daily. SERTraline 2020-0 Yes [id number] 75mg Take 1.5 [facility] 50 mg 9-21 tablets by ity of tablet 00:00: mouth [place] 00 daily. [facility] zonisamide 2020-0 Yes [id number] 200mg Take 2 [facility] 100 mg 9-21 capsules ity of capsule 00:00: by mouth 2 [place] 00 (two) Medical times Branch daily. SERTraline 2020-0 Yes [id number] 75mg Take 1.5 [facility] 50 mg 9-21 tablets by ity of tablet 00:00: mouth [place] 00 daily. [facility] zonisamide 2020-0 Yes [id number] 200mg Take 2 [facility] 100 mg 9-21 capsules ity of capsule 00:00: by mouth 2 [place] 00 (two) Medical times Branch daily. SERTraline 2020-0 Yes [id number] 75mg Take 1.5 [facility] 50 mg 9-21 tablets by ity of tablet 00:00: mouth [place] 00 daily. [facility] zonisamide 2020-0 Yes [id number] 200mg Take 2 [facility] 100 mg 9-21 capsules ity of capsule 00:00: by mouth 2 [place] 00 (two) Medical times Branch daily. SERTraline 2020-0 Yes [id number] 75mg Take 1.5 [facility] 50 mg 9-21 tablets by ity of tablet 00:00: mouth [place] 00 daily. [facility] zonisamide 2020-0 Yes [id number] 200mg Take 2 [facility] 100 mg 9-21 capsules ity of capsule 00:00: by mouth 2 [place] 00 (two) Medical times Branch daily. SERTraline 2020-0 Yes [id number] 75mg Take 1.5 [facility] 50 mg 9-21 tablets by ity of tablet 00:00: mouth [place] 00 daily. [facility] zonisamide 2020-0 Yes [id number] 200mg Take 2 [facility] 100 mg 9-21 capsules ity of capsule 00:00: by mouth 2 [place] 00 (two) Medical times Branch daily. SERTraline 2020-0 Yes [id number] 75mg Take 1.5 [facility] 50 mg 9-21 tablets by ity of tablet 00:00: mouth [place] 00 daily. [facility] zonisamide 2020-0 Yes [id number] 200mg Take 2 [facility] 100 mg 9-21 capsules ity of capsule 00:00: by mouth 2 [place] 00 (two) Medical times Branch daily. SERTraline 2020-0 Yes [id number] 75mg Take 1.5 [facility] 50 mg 9-21 tablets by ity of tablet 00:00: mouth [place] 00 daily. [facility] zonisamide 2020-0 Yes [id number] 200mg Take 2 [facility] 100 mg 9-21 capsules ity of capsule 00:00: by mouth 2 [place] 00 (two) Medical times Branch daily. SERTraline 2020-0 Yes [id number] 75mg Take 1.5 [facility] 50 mg 9-21 tablets by ity of tablet 00:00: mouth [place] 00 daily. [facility] zonisamide 2020-0 Yes [id number] 200mg Take 2 [facility] 100 mg 9-21 capsules ity of capsule 00:00: by mouth 2 [place] 00 (two) Medical times Branch daily. SERTraline 2020-0 Yes [id number] 75mg Take 1.5 [facility] 50 mg 9-21 tablets by ity of tablet 00:00: mouth [place] 00 daily. [facility] zonisamide 2020-0 Yes [id number] 200mg Take 2 [facility] 100 mg 9-21 capsules ity of capsule 00:00: by mouth 2 [place] 00 (two) Medical times Branch daily. SERTraline 2020-0 Yes [id number] 75mg Take 1.5 [facility] 50 mg 9-21 tablets by ity of tablet 00:00: mouth [place] 00 daily. [facility] zonisamide 2020-0 Yes [id number] 200mg Take 2 [facility] 100 mg 9-21 capsules ity of capsule 00:00: by mouth 2 [place] 00 (two) Medical times Branch daily. SERTraline 2020-0 Yes [id number] 75mg Take 1.5 [facility] 50 mg 9-21 tablets by ity of tablet 00:00: mouth [place] 00 daily. [facility] zonisamide 2020-0 Yes [id number] 200mg Take 2 [facility] 100 mg 9-21 capsules ity of capsule 00:00: by mouth 2 [place] 00 (two) Medical times Branch daily. SERTraline 2020-0 Yes [id number] 75mg Take 1.5 [facility] 50 mg 9-21 tablets by ity of tablet 00:00: mouth [place] 00 daily. [facility] zonisamide 2020-0 Yes [id number] 200mg Take 2 [facility] 100 mg 9-21 capsules ity of capsule 00:00: by mouth 2 [place] 00 (two) Medical times Branch daily. SERTraline 2020-0 Yes [id number] 75mg Take 1.5 [facility] 50 mg 9-21 tablets by ity of tablet 00:00: mouth [place] 00 daily. [facility] zonisamide 2020-0 Yes [id number] 200mg Take 2 [facility] 100 mg 9-21 capsules ity of capsule 00:00: by mouth 2 [place] 00 (two) Medical times Branch daily. SERTraline 2020-0 Yes [id number] 75mg Take 1.5 [facility] 50 mg 9-21 tablets by ity of tablet 00:00: mouth [place] 00 daily. [facility] zonisamide 2020-0 Yes [id number] 200mg Take 2 [facility] 100 mg 9-21 capsules ity of capsule 00:00: by mouth 2 [place] 00 (two) Medical times Branch daily. SERTraline 2020-0 Yes [id number] 75mg Take 1.5 [facility] 50 mg 9-21 tablets by ity of tablet 00:00: mouth [place] 00 daily. [facility] zonisamide 2020-0 Yes [id number] 200mg Take 2 [facility] 100 mg 9-21 capsules ity of capsule 00:00: by mouth 2 [place] 00 (two) Medical times Branch daily. SERTraline 2020-0 Yes [id number] 75mg Take 1.5 [facility] 50 mg 9-21 tablets by ity of tablet 00:00: mouth [place] 00 daily. [facility] zonisamide 2020-0 Yes [id number] 200mg Take 2 [facility] 100 mg 9-21 capsules ity of capsule 00:00: by mouth 2 [place] 00 (two) Medical times Branch daily. SERTraline 2020-0 Yes [id number] 75mg Take 1.5 [facility] 50 mg 9-21 tablets by ity of tablet 00:00: mouth [place] 00 daily. Medical [facility] SERTraline 2019-0 2021- No [id number] 75mg Take 1.5 [facility] 50 mg 9-21 03-18 tablets by ity of tablet 00:00: 00:00 mouth [place] 00 :00 daily. Medical [facility] zonisamide 2019-0 2020- No [id number] 200mg Take 2 [facility] 100 mg 9-21 12-17 capsules ity of capsule 00:00: 00:00 by mouth 2 [place] :00 (two) Medical times Branch daily. zonisamide 2019-0 2020- No [id number] 200mg Take 2 [facility] 100 mg 9-21 12-17 capsules ity of capsule 00:00: 00:00 by mouth 2 [place] 00 :00 (two) Medical times Branch daily. montelukast 2020-0 Yes 10mg Take 10 mg [facility] (SINGULAIR) 9-08 by mouth ity of 10 mg 16:14: daily. [place] tablet 40 [facility] montelukast 2020-0 Yes 10mg Take 10 mg [facility] (SINGULAIR) 9-08 by mouth ity of 10 mg 16:14: daily. [place] tablet 40 [facility] Branch montelukast 2020-0 Yes 10mg Take 10 mg [facility] (SINGULAIR) 9-08 by mouth ity of 10 mg 16:14: daily. [place] tablet 40 [facility] Branch montelukast 2020-0 Yes 10mg Take 10 mg [facility] (SINGULAIR) 9-08 by mouth ity of 10 mg 16:14: daily. [place] tablet 40 Medical [facility] montelukast 2020-0 Yes 10mg Take 10 mg [facility] (SINGULAIR) 9-08 by mouth ity of 10 mg 16:14: daily. [place] tablet 40 [facility] Branch montelukast 2020-0 Yes 10mg Take 10 mg [facility] (SINGULAIR) 8-24 by mouth ity of 10 mg 19:58: daily. [place] tablet 51 [facility] Branch montelukast 2020-0 Yes 10mg Take 10 mg [facility] (SINGULAIR) 8-24 by mouth ity of 10 mg 19:58: daily. [place] tablet 51 [facility] Branch montelukast 2020-0 Yes 10mg Take 10 mg [facility] (SINGULAIR) 8-24 by mouth ity of 10 mg 19:58: daily. [place] tablet 51 [facility] Branch aspirin 325 2020-0 Yes [id number] 325mg Take 1 [facility] mg tablet 8-20 tablet by ity o f 00:00: mouth [place] 00 daily. Medical Branch aspirin 325 2020-0 Yes [id number] 325mg Take 1 [facility] mg tablet 8-20 tablet by ity o f 00:00: mouth [place] 00 daily. [facility] Branch aspirin 325 2020-0 Yes [id number] 325mg Take 1 [facility] mg tablet 8-20 tablet by ity o f 00:00: mouth [place] 00 daily. [facility] Branch aspirin 325 2020-0 Yes [id number] 325mg Take 1 [facility] mg tablet 8-20 tablet by ity o f 00:00: mouth [place] 00 daily. [facility] Branch aspirin 325 2020-0 Yes [id number] 325mg Take 1 [facility] mg tablet 8-20 tablet by ity o f 00:00: mouth [place] 00 daily. [facility] Branch aspirin 325 2020-0 Yes [id number] 325mg Take 1 [facility] mg tablet 8-20 tablet by ity o f 00:00: mouth [place] 00 daily. [facility] Branch aspirin 325 2020-0 Yes [id number] 325mg Take 1 [facility] mg tablet 8-20 tablet by ity o f 00:00: mouth [place] 00 daily. [facility] Branch aspirin 325 2020-0 Yes [id number] 325mg Take 1 [facility] mg tablet 8-20 tablet by ity o f 00:00: mouth [place] 00 daily. Medical Branch aspirin 325 2020-0 Yes [id number] 325mg Take 1 [facility] mg tablet 8-20 tablet by ity o f 00:00: mouth [place] 00 daily. Medical Branch aspirin 325 2020-0 Yes [id number] 325mg Take 1 [facility] mg tablet 8-20 tablet by ity o f 00:00: mouth [place] 00 daily. Medical [facility] aspirin 325 2020-0 Yes [id number] 325mg Take 1 [facility] mg tablet 8-20 tablet by ity o f 00:00: mouth [place] 00 daily. Medical [facility] aspirin 325 2020-0 Yes [id number] 325mg Take 1 [facility] mg tablet 8-20 tablet by ity o f 00:00: mouth [place] 00 daily. Medical [facility] aspirin 325 2020-0 Yes [id number] 325mg Take 1 [facility] mg tablet 8-20 tablet by ity o f 00:00: mouth [place] 00 daily. Medical [facility] aspirin 325 2020-0 Yes [id number] 325mg Take 1 [facility] mg tablet 8-20 tablet by ity o f 00:00: mouth [place] 00 daily. Medical [facility] aspirin 325 2020-0 Yes [id number] 325mg Take 1 [facility] mg tablet 8-20 tablet by ity o f 00:00: mouth [place] 00 daily. Medical [facility] aspirin 325 2020-0 Yes [id number] 325mg Take 1 [facility] mg tablet 8-20 tablet by ity o f 00:00: mouth [place] 00 daily. Medical [facility] aspirin 325 2020-0 Yes [id number] 325mg Take 1 [facility] mg tablet 8-20 tablet by ity o f 00:00: mouth [place] 00 daily. Medical [facility] aspirin 325 2020-0 Yes [id number] 325mg Take 1 [facility] mg tablet 8-20 tablet by ity o f 00:00: mouth [place] 00 daily. Medical [facility] aspirin 325 2020-0 Yes [id number] 325mg Take 1 [facility] mg tablet 8-20 tablet by ity o f 00:00: mouth [place] 00 daily. Medical [facility] aspirin 325 2020-0 Yes [id number] 325mg Take 1 [facility] mg tablet 8-20 tablet by ity o f 00:00: mouth [place] 00 daily. Medical [facility] aspirin 325 2020-0 Yes [id number] 325mg Take 1 [facility] mg tablet 8-20 tablet by ity o f 00:00: mouth [place] 00 daily. Medical [facility] aspirin 325 2020-0 Yes [id number] 325mg Take 1 [facility] mg tablet 8-20 tablet by ity o f 00:00: mouth [place] 00 daily. Medical [facility] aspirin 325 2020-0 Yes [id number] 325mg Take 1 [facility] mg tablet 8-20 tablet by ity o f 00:00: mouth [place] 00 daily. Medical [facility] aspirin 325 2020-0 Yes [id number] 325mg Take 1 [facility] mg tablet 8-20 tablet by ity o f 00:00: mouth [place] 00 daily. Medical [facility] aspirin 325 2020-0 Yes [id number] 325mg Take 1 [facility] mg tablet 8-20 tablet by ity o f 00:00: mouth [place] 00 daily. Medical [facility] aspirin 325 2020-0 Yes [id number] 325mg Take 1 [facility] mg tablet 8-20 tablet by ity o f 00:00: mouth [place] 00 daily. Medical [facility] aspirin 325 2020-0 2020- No [id number] 325mg Take 1 [facility] mg tablet 8-20 10-22 tablet by ity of 00:00: 00:00 mouth [place] 00 :00 daily. Medical Branch aspirin 325 2020-0 2020- No [id number] 325mg Take 1 [facility] mg tablet 8-20 10-22 tablet by ity of 00:00: 00:00 mouth [place] 00 :00 daily. Medical Branch aspirin 325 2020-0 2020- No [id number] 325mg Take 1 [facility] mg tablet 8-20 10-22 tablet by ity of 00:00: 00:00 mouth [place] 00 :00 daily. Medical [facility] aspirin 325 2020-0 2020- No [id number] 325mg Take 1 [facility] mg tablet 8-20 10-22 tablet by ity of 00:00: 00:00 mouth [place] 00 :00 daily. Medical Branch aspirin 325 2020-0 2020- No [id number] 325mg Take 1 [facility] mg tablet 8-20 10-22 tablet by ity of 00:00: 00:00 mouth [place] 00 :00 daily. Medical Branch aspirin 325 2020-0 2020- No [id number] 325mg Take 1 [facility] mg tablet 8-20 10-22 tablet by ity of 00:00: 00:00 mouth [place] 00 :00 daily. Medical Branch montelukast 2019-0 Yes 10mg Take 10 mg [facility] (SINGULAIR) 8-19 by mouth ity of 10 mg 20:37: daily. [place] tablet 46 Medical Branch CETIRIZINE 2019-0 Yes Take by Univ ers HCL (ZYRTEC 8-19 mouth. ity of ORAL) 20:37: [address] CETIRIZINE 2020-0 Yes Take by [facility] ers HCL (ZYRTEC 8-19 mouth. ity of ORAL) 20:37: [address] CETIRIZINE 2020-0 Yes Take by [facility] ers HCL (ZYRTEC 8-19 mouth. ity of ORAL) 20:37: [address] CETIRIZINE 2020-0 Yes Take by [facility] ers HCL (ZYRTEC 8-19 mouth. ity of ORAL) 20:37: [address] LORazepam 2020-0 Yes 1mg 1 mg, Slow Un diony (ATIVAN) 8 IV Push, ity of injection 1 11:21: Q6HPRN, [place] mg 33 Starting Medical [facility] 03/17/20 at 0621, Until Discontinu ed, Routine, Anxiety ondansetron 2019-0 Yes 4mg 4 mg, Slow Univers (ZOFRAN 03-17 IV Push, ity of (PF)) 11:01: Q6HPRN, [place] injection 4 53 Starting Medi artis mg [facility] 03/17/20 at 0601, Until Discontinu ed, Routine, Nausea and Vomiting (N/V) NaCl 0.9% 2020-0 2020- No 1000mL at 50 [facility] ers (NS) IV 03-16 mL/hr, IV ity of infusion 21:15: 03:33 Infusion, [place] 1,000 mL 00 :39 CONTINUOUS Medic al , Starting Branch [facility] 03/16/20 at 1615, Until Mon03/17/20 at 2233, Routine butalbital- 2020-0 Yes 1{tbl} 1 tablet, Univers acetaminoph 03-16 Oral, ity of en-caff 20:23: Q6HPRN, [place] (ESGIC) 45 Starting Medical 50-325-40 Mon Branch mg tablet 1 03/16/20 at tablet 1523, Until Discontinu ed, Routine, headache sulfur 2020-0 2020- No 5mL 5 mL, [facility] hexafluorid 03-16 Intravenou i ty of e microsphr 16:00: 13:30 s, ONCE, 1 [place] (LUMASON) 00 :00 dose, Mon Medic al injection 5 03/16/20 at Br anch mL 1100, Routine
tribal council member approving Restricted medication : DUNG BERKOWITZ valsartan 2020-0 Yes 40mg 40 mg, Univer s (DIOVAN) 8-17 Oral, ity of tablet 40 14:00: DAILY, [place] mg 00 First dose Medical on [facility] 03/16/20 at 0900, Until Discontinu ed SERTraline 2020-0 Yes 100mg 100 mg, Uni vers (ZOLOFT) 8- Oral, ity of tablet 100 14:00: DAILY, [place] mg 00 First dose Medical on [facility] 03/16/20 at 0900, Until Discontinu ed, Routine montelukast 2020-0 Yes 10mg 10 mg, Univ ers (SINGULAIR) 8 Oral, ity of tablet 10 14:00: DAILY, [place] mg 00 First dose Medical on [facility] 03/16/20 at 0900, Until Discontinu ed, Routine ferrous 2020-0 Yes 325mg 325 mg, Univer s sulfate 8 Oral, ity of tablet 325 14:00: DAILY, [place] mg 00 First dose Medical on [facility] 03/16/20 at 0900, Until Discontinu ed cetirizine 2020-0 Yes 10mg 10 mg, Unive rs (ZYRTEC) 8 Oral, ity of tablet 10 14:00: DAILY, [place] mg 00 First dose Medical on [facility] 03/16/20 at 0900, Until Discontinu ed aspirin 2020-0 Yes 325mg 325 mg, Univer s tablet 325 8 Oral, ity of mg 14:00: DAILY, [place] 00 First dose Medical on [facility] 03/16/20 at 0900, Until Discontinu ed, Routine zonisamide 2020-0 Yes 100mg 100 mg, Uni vers (ZONEGRAN) 8 Oral, BID, ity of capsule 100 13:00: First dose [place] mg 00 on [facility] 03/16/20 at Branch 0800, Until Discontinu ed, Routine hydralAZINE 2020-0 Yes 10mg 10 mg, Univ ers (APRESOLINE 8 Intravenou it y of ) injection 05:13: s, Q6HPRN, [place] 10 mg 52 Starting Medical [facility] 03/16/20 at 0013, Until Discontinu ed, Routine, Hypertensi on, SBP > 140 mmHg albuterol 2020-0 Yes 2.5mg 2.5 mg, Univ ers (PROVENTIL) 03-16 Inhalation it y of 2.5 mg /3 04:55: , Q4HPRN, [place] mL (0.083 34 Starting Medica l %) [facility] nebulizer 03/15/20 at solution 2355, 2.5 mg Until Discontinu ed, Routine, Wheezing, Shortness of Breath aspirin 2019-0 2020- No 300mg 300 mg, Unive rs suppository 03-15 Rectal, ity of 300 mg 22:45: 21:39 ONCE, 1 [place] 00 :00 dose, [place] [facility] 03/15/20 at Branch 1745, STEVE ondansetron 2020- No 4mg 4 mg, Slow Univers (ZOFRAN 03-15 IV Push, ity of (PF)) 20:00: 18:59 ONCE, 1 [place] injection 4 00 :00 dose, [place] [facility] mg 03/15/20 at Branch 1500, STEVE dexamethaso 2019- No 10mg 10 mg, IV Univers ne 03-15 Push, ity of (DECADRON 20:00: 19:00 ONCE, 1 [place] PHOSPHATE[place] 00 :00 dose, [place] [facility] artis injection 03/15/20 at Bran ch 10 mg 1500, STAT ketorolac 2019-0 2019- No 30mg 30 mg, Unive rs (TORADOL) 03-15 Slow IV ity of injection 20:00: 18:59 Push, [place] 30 mg 00 :00 ONCE, 1 Medical dose, [facility] 03/15/20 at 1500, STEVE
Fa culty member approving Restricted medication : RUSSELL CALDERON NaCl 0.9% 2020-0 2020- No 1000mL at 999 Uni vers (NS) bolus 03-15 mL/hr, ity of infusion 19:00: 20:02 1,000 mL, [place] 1,000 mL 00 :00 IV Medical Infusion, [place] ONCE, 1 dose, [place] 03/15/20 at 1400, STEVE NaCl 0.9% 2020-0 Yes 5mL 5 mL, Slow Un diony (NS) 03-15 IV Push, ity of injection 5 17:11: PRN - [place] mL 37 [employer] Medical , Branch Starting [place] 03/15/20 at 1211, Until Discontinu ed, 10 mL ergocalcife 2020-0 Yes [id number] Take 1 [facility] rol, 7-09 capsule by ity of vitamin d2, 00:00: mouth [place] 1,250 mcg 00 weekly. Medical (50,000 Take with Branch unit) food. capsule ergocalcife 2020-0 Yes [id number] Take 1 [facility] rol, 7-09 capsule by ity of vitamin d2, 00:00: mouth [place] 1,250 mcg 00 weekly. Medical (50,000 Take with Branch unit) food. capsule ergocalcife 2020-0 Yes [id number] Take 1 [facility] rol, 7-09 capsule by ity of vitamin d2, 00:00: mouth [place] 1,250 mcg 00 weekly. Medical (50,000 Take with Branch unit) food. capsule ergocalcife 2020-0 Yes [id number] Take 1 [facility] rol, 7-09 capsule by ity of vitamin d2, 00:00: mouth [place] 1,250 mcg 00 weekly. Medical (50,000 Take with Branch unit) food. capsule ergocalcife 2020-0 Yes [id number] Take 1 [facility] rol, 7-09 capsule by ity of vitamin d2, 00:00: mouth [place] 1,250 mcg 00 weekly. Medical (50,000 Take with Branch unit) food. capsule ergocalcife 2020-0 Yes [id number] Take 1 [facility], 7-09 capsule by [facility] of vitamin d2, 00:00: mouth [place] 1,250 mcg 00 weekly. Medical (50,000 Take with Branch unit) food. capsule ergocalcife 2020-0 Yes [id number] Take 1 [facility] ro[facility], 7-09 capsule by [facility] of vitamin d2, 00:00: mouth [place] 1,250 mcg 00 weekly. Medical (50,000 Take with Branch unit) food. capsule ergocalcife 2020-0 Yes [id number] Take 1 [facility] rol, 7-09 capsule by [facility] of vitamin d2, 00:00: mouth [place] 1,250 mcg 00 weekly. Medical (50,000 Take with Branch unit) food. capsule ergocalcife 2020-0 Yes [id number] Take 1 [facility] rol, 7-09 capsule by [facility] of vitamin d2, 00:00: mouth [place] 1,250 mcg 00 weekly. Medical (50,000 Take with Branch unit) food. capsule ergocalcife 2020-0 Yes [id number] Take 1 [facility] rol, 7-09 capsule by [facility] of vitamin d2, 00:00: mouth [place] 1,250 mcg 00 weekly. Medical (50,000 Take with Branch unit) food. capsule ergocalcife 2020-0 Yes [id number] Take 1 [facility] rol, 7-09 capsule by [facility] of vitamin d2, 00:00: mouth [place] 1,250 mcg 00 weekly. Medical (50,000 Take with Branch unit) food. capsule ergocalcife 2020-0 Yes [id number] Take 1 [facility] rol, 7-09 capsule by [facility] of vitamin d2, 00:00: mouth [place] 1,250 mcg 00 weekly. Medical (50,000 Take with Branch unit) food. capsule ergocalcife 2020-0 Yes [id number] Take 1 [facility] rol, 7-09 capsule by [facility] of vitamin d2, 00:00: mouth [place] 1,250 mcg 00 weekly. Medical (50,000 Take with Branch unit) food. capsule ergocalcife 2020-0 Yes [id number] Take 1 [facility] rol, 7-09 capsule by [facility] of vitamin d2, 00:00: mouth [place] 1,250 mcg 00 weekly. Medical (50,000 Take with Branch unit) food. capsule ergocalcife 2020-0 Yes [id number] Take 1 [facility] rol, 7-09 capsule by [facility] of vitamin d2, 00:00: mouth [place] 1,250 mcg 00 weekly. Medical (50,000 Take with Branch unit) food. capsule ergocalcife 2020-0 2020- No [id number] Take 1 [facility] rol, 7-09 09-29 capsule by [facility] of vitamin d2, 00:00: 00:[place] 1,250 mcg 00 :00 weekly. Medical (50,000 Take with Branch unit) food. capsule ergocalcife 2020-0 2020- No [id number] Take 1 [facility] rol, 7-09 09-29 capsule by [facility] of vitamin d2, 00:00: 00:[place] 1,250 mcg 00 :00 weekly. [facility] (50,000 Take with [facility] unit) food. capsule ergocalcife 2020-0 2020- No [id number] Take 1 [facility] rol, 02-05 09- capsule by [facility] of vitamin d2, 00:00: 00:00 [facility] [place] 1,250 mcg 00 :00 weekly. Medical (50,000 Take with Branch unit) food. capsule telmisartan 2019-0 Yes [id number] 40mg Take 1 [facility] 40 mg 7-02 tablet by [facility] of tablet 00:00: mouth [place] 00 daily. [facility] Ferrous 2019-0 Yes [id number] 1{tbl} Take 1 [facility] Fumarate 7-02 tablet by [facility] of 324 mg (106 00:00: mouth 2 [facility] mg iron) 00 (two) Medical Tab times Branch daily. telmisartan 2019-0 Yes [id number] 40mg Take 1 [facility] 40 mg 7-02 tablet by [facility] of tablet 00:00: mouth [place] 00 daily. [facility] Ferrous 2019-0 Yes [id number] 1{tbl} Take 1 [facility] Fumarate 7-02 tablet by [facility] of 324 mg (106 00:00: mouth 2 [facility] mg iron) 00 (two) Medical Tab times Branch daily. telmisartan 2019-0 Yes [id number] 40mg Take 1 [facility] 40 mg 7-02 tablet by [facility] of tablet 00:00: mouth [place] 00 daily. [facility] Ferrous 2019-0 Yes [id number] 1{tbl} Take 1 [facility] Fumarate 7-02 tablet by [facility] of 324 mg (106 00:00: mouth 2 [facility] mg iron) 00 (two) Medical Tab times Branch daily. telmisartan 2019-0 Yes [id number] 40mg Take 1 [facility] 40 mg 7-02 tablet by [facility] of tablet 00:00: mouth [place] 00 daily. [facility] Ferrous 2019-0 Yes [id number] 1{tbl} Take 1 [facility] Fumarate 7-02 tablet by [facility] of 324 mg (106 00:00: mouth 2 [facility] mg iron) 00 (two) Medical Tab times Branch daily. telmisartan 2019-0 Yes [id number] 40mg Take 1 [facility] 40 mg 7-02 tablet by [facility] of tablet 00:00: mouth [place] 00 daily. [facility] Ferrous 2019-0 Yes [id number] 1{tbl} Take 1 [facility] Fumarate 7-02 tablet by [facility] of 324 mg (106 00:00: mouth 2 [facility] mg iron) 00 (two) Medical Tab times Branch daily. telmisartan 2020-0 Yes [id number] 40mg Take 1 [facility] 40 mg 7-02 tablet by [facility] of tablet 00:00: mouth [place] 00 daily. [facility] Ferrous 2020-0 Yes [id number] 1{tbl} Take 1 [facility] Fumarate 7-02 tablet by [facility] of 324 mg (106 00:00: mouth 2 [facility] mg iron) 00 (two) Medical Tab times Branch daily. telmisartan 2020-0 Yes [id number] 40mg Take 1 [facility] 40 mg 7-02 tablet by [facility] of tablet 00:00: mouth [place] 00 daily. [facility] Ferrous 2020-0 Yes [id number] 1{tbl} Take 1 [facility] Fumarate 7-02 tablet by [facility] of 324 mg (106 00:00: mouth 2 [facility] mg iron) 00 (two) Medical Tab times Branch daily. telmisartan 2020-0 Yes [id number] 40mg Take 1 [facility] 40 mg 7-02 tablet by [facility] of tablet 00:00: mouth [place] 00 daily. [facility] Ferrous 2020-0 Yes [id number] 1{tbl} Take 1 [facility] Fumarate 7-02 tablet by [facility] of 324 mg (106 00:00: mouth 2 [facility] mg iron) 00 (two) Medical Tab times Branch daily. telmisartan 2020-0 Yes [id number] 40mg Take 1 [facility] 40 mg 7-02 tablet by [facility] of tablet 00:00: mouth [place] 00 daily. [facility] Ferrous 2020-0 Yes [id number] 1{tbl} Take 1 [facility] Fumarate 7-02 tablet by [facility] of 324 mg (106 00:00: mouth 2 [facility] mg iron) 00 (two) Medical Tab times Branch daily. telmisartan 2020-0 Yes [id number] 40mg Take 1 [facility] 40 mg 7-02 tablet by [facility] of tablet 00:00: mouth [place] 00 daily. [facility] Ferrous 2020-0 Yes [id number] 1{tbl} Take 1 [facility] Fumarate 7-02 tablet by [facility] of 324 mg (106 00:00: mouth 2 [facility] mg iron) 00 (two) Medical Tab times Branch daily. telmisartan 2020-0 Yes [id number] 40mg Take 1 [facility] 40 mg 7-02 tablet by [facility] of tablet 00:00: mouth [place] 00 daily. [facility] Ferrous 2020-0 Yes [id number] 1{tbl} Take 1 [facility] Fumarate 7-02 tablet by [facility] of 324 mg (106 00:00: mouth 2 [facility] mg iron) 00 (two) Medical Tab times Branch daily. telmisartan 2020-0 Yes [id number] 40mg Take 1 [facility] 40 mg 7-02 tablet by [facility] of tablet 00:00: mouth [place] 00 daily. [facility] Ferrous 2020-0 Yes [id number] 1{tbl} Take 1 [facility] Fumarate 7-02 tablet by [facility] of 324 mg (106 00:00: mouth 2 [facility] mg iron) 00 (two) Medical Tab times Branch daily. telmisartan 2020-0 Yes [id number] 40mg Take 1 [facility] 40 mg 7-02 tablet by [facility] of tablet 00:00: mouth [place] 00 daily. [facility] Ferrous 2020-0 Yes [id number] 1{tbl} Take 1 [facility] Fumarate 7-02 tablet by [facility] of 324 mg (106 00:00: mouth 2 [facility] mg iron) 00 (two) Medical Tab times Branch daily. telmisartan 2020-0 Yes [id number] 40mg Take 1 [facility] 40 mg 7-02 tablet by [facility] of tablet 00:00: mouth [place] 00 daily. [facility] Ferrous 2020-0 Yes [id number] 1{tbl} Take 1 [facility] Fumarate 7-02 tablet by [facility] of 324 mg (106 00:00: mouth 2 [facility] mg iron) 00 (two) Medical Tab times Branch daily. telmisartan 2020-0 Yes [id number] 40mg Take 1 [facility] 40 mg 7-02 tablet by [facility] of tablet 00:00: mouth [place] 00 daily. [facility] Ferrous 2020-0 Yes [id number] 1{tbl} Take 1 [facility] Fumarate 7-02 tablet by [facility] of 324 mg (106 00:00: mouth 2 [facility] mg iron) 00 (two) Medical Tab times Branch daily. telmisartan 2020-0 Yes [id number] 40mg Take 1 [facility] 40 mg 7-02 tablet by [facility] of tablet 00:00: mouth [place] 00 daily. [facility] Ferrous 2020-0 Yes [id number] 1{tbl} Take 1 [facility] Fumarate 7-02 tablet by [facility] of 324 mg (106 00:00: mouth 2 [facility] mg iron) 00 (two) Medical Tab times Branch daily. telmisartan 2020-0 Yes [id number] 40mg Take 1 [facility] 40 mg 7-02 tablet by [facility] of tablet 00:00: mouth [place] 00 daily. [facility] Ferrous 2020-0 Yes [id number] 1{tbl} Take 1 [facility] Fumarate 7-02 tablet by [facility] of 324 mg (106 00:00: mouth 2 [facility] mg iron) 00 (two) Medical Tab times Branch daily. telmisartan 2020-0 Yes [id number] 40mg Take 1 [facility] 40 mg 7-02 tablet by [facility] of tablet 00:00: mouth [place] 00 daily. [facility] Ferrous 2020-0 Yes [id number] 1{tbl} Take 1 [facility] Fumarate 7-02 tablet by [facility] of 324 mg (106 00:00: mouth 2 [facility] mg iron) 00 (two) Medical Tab times Branch daily. telmisartan 2020-0 Yes [id number] 40mg Take 1 [facility] 40 mg 7-02 tablet by [facility] of tablet 00:00: mouth [place] 00 daily. [facility] Ferrous 2020-0 Yes [id number] 1{tbl} Take 1 [facility] Fumarate 7-02 tablet by [facility] of 324 mg (106 00:00: mouth 2 [facility] mg iron) 00 (two) Medical Tab times Branch daily. telmisartan 2020-0 Yes [id number] 40mg Take 1 [facility] 40 mg 7-02 tablet by [facility] of tablet 00:00: mouth [place] 00 daily. [facility] Ferrous 2020-0 Yes [id number] 1{tbl} Take 1 [facility] Fumarate 7-02 tablet by [facility] of 324 mg (106 00:00: mouth 2 [facility] mg iron) 00 (two) Medical Tab times Branch daily. telmisartan 2020-0 Yes [id number] 40mg Take 1 [facility] 40 mg 7-02 tablet by [facility] of tablet 00:00: mouth [place] 00 daily. [facility] Ferrous 2020-0 Yes [id number] 1{tbl} Take 1 [facility] Fumarate 7-02 tablet by [facility] of 324 mg (106 00:00: mouth 2 [facility] mg iron) 00 (two) Medical Tab times Branch daily. telmisartan 2020-0 Yes [id number] 40mg Take 1 [facility] 40 mg 7-02 tablet by [facility] of tablet 00:00: mouth [place] 00 daily. [facility] Ferrous 2020-0 Yes [id number] 1{tbl} Take 1 [facility] Fumarate 7-02 tablet by [facility] of 324 mg (106 00:00: mouth 2 [facility] mg iron) 00 (two) Medical Tab times Branch daily. telmisartan 2020-0 Yes [id number] 40mg Take 1 [facility] 40 mg 7-02 tablet by [facility] of tablet 00:00: mouth [place] 00 daily. [facility] Ferrous 2020-0 Yes [id number] 1{tbl} Take 1 [facility] Fumarate 7-02 tablet by [facility] of 324 mg (106 00:00: mouth 2 [facility] mg iron) 00 (two) Medical Tab times Branch daily. telmisartan 2020-0 Yes [id number] 40mg Take 1 [facility] 40 mg 7-02 tablet by [facility] of tablet 00:00: mouth [place] 00 daily. [facility] Ferrous 2020-0 Yes [id number] 1{tbl} Take 1 [facility] Fumarate 7-02 tablet by [facility] of 324 mg (106 00:00: mouth 2 [facility] mg iron) 00 (two) Medical Tab times Branch daily. telmisartan 2020-0 Yes [id number] 40mg Take 1 [facility] 40 mg 7-02 tablet by [facility] of tablet 00:00: mouth [place] 00 daily. [facility] Ferrous 2020-0 Yes [id number] 1{tbl} Take 1 [facility] Fumarate 7-02 tablet by [facility] of 324 mg (106 00:00: mouth 2 [facility] mg iron) 00 (two) Medical Tab times Branch daily. telmisartan 2020-0 Yes [id number] 40mg Take 1 [facility] 40 mg 7-02 tablet by [facility] of tablet 00:00: mouth [place] 00 daily. [facility] Ferrous 2020-0 Yes [id number] 1{tbl} Take 1 [facility] Fumarate 7-02 tablet by [facility] of 324 mg (106 00:00: mouth 2 [facility] mg iron) 00 (two) Medical Tab times Branch daily. telmisartan 2020-0 Yes [id number] 40mg Take 1 [facility] 40 mg 7-02 tablet by [facility] of tablet 00:00: mouth [place] 00 daily. [facility] Ferrous 2020-0 Yes [id number] 1{tbl} Take 1 [facility] Fumarate 7-02 tablet by [facility] of 324 mg (106 00:00: mouth 2 [facility] mg iron) 00 (two) Medical Tab times Branch daily. telmisartan 2020-0 Yes [id number] 40mg Take 1 [facility] 40 mg 7-02 tablet by [facility] of tablet 00:00: mouth [place] 00 daily. [facility] Ferrous 2020-0 Yes [id number] 1{tbl} Take 1 [facility] Fumarate 7-02 tablet by [facility] of 324 mg (106 00:00: mouth 2 [facility] mg iron) 00 (two) Medical Tab times Branch daily. telmisartan 2020-0 Yes [id number] 40mg Take 1 [facility] 40 mg 7-02 tablet by [facility] of tablet 00:00: mouth [place] 00 daily. [facility] Ferrous 2020-0 Yes [id number] 1{tbl} Take 1 [facility] Fumarate 7-02 tablet by [facility] of 324 mg (106 00:00: mouth 2 [facility] mg iron) 00 (two) Medical Tab times Branch daily. telmisartan 2020-0 Yes [id number] 40mg Take 1 [facility] 40 mg 7-02 tablet by [facility] of tablet 00:00: mouth [place] 00 daily. [facility] Ferrous 2020-0 Yes [id number] 1{tbl} Take 1 [facility] Fumarate 7-02 tablet by [facility] of 324 mg (106 00:00: mouth 2 [facility] mg iron) 00 (two) Medical Tab times Branch daily. telmisartan 2020-0 Yes [id number] 40mg Take 1 [facility] 40 mg 7-02 tablet by [facility] of tablet 00:00: mouth [place] 00 daily. [facility] Ferrous 2020-0 Yes [id number] 1{tbl} Take 1 [facility] Fumarate 7-02 tablet by [facility] of 324 mg (106 00:00: mouth 2 [facility] mg iron) 00 (two) Medical Tab times Branch daily. telmisartan 2020-0 Yes [id number] 40mg Take 1 [facility] 40 mg 7-02 tablet by [facility] of tablet 00:00: mouth [place] 00 daily. [facility] Ferrous 2020-0 Yes [id number] 1{tbl} Take 1 [facility] Fumarate 7-02 tablet by [facility] of 324 mg (106 00:00: mouth 2 [facility] mg iron) 00 (two) Medical Tab times Branch daily. telmisartan 2020-0 Yes [id number] 40mg Take 1 [facility] 40 mg 7-02 tablet by [facility] of tablet 00:00: mouth [place] 00 daily. [facility] Ferrous 2020-0 Yes [id number] 1{tbl} Take 1 [facility] Fumarate 7-02 tablet by [facility] of 324 mg (106 00:00: mouth 2 [facility] mg iron) 00 (two) Medical Tab times Branch daily. telmisartan 2020-0 Yes [id number] 40mg Take 1 [facility] 40 mg 7-02 tablet by [facility] of tablet 00:00: mouth [place] 00 daily. [facility] Ferrous 2020-0 Yes [id number] 1{tbl} Take 1 [facility] Fumarate 7-02 tablet by [facility] of 324 mg (106 00:00: mouth 2 [facility] mg iron) 00 (two) Medical Tab times Branch daily. telmisartan 2020-0 Yes [id number] 40mg Take 1 [facility] 40 mg 7-02 tablet by [facility] of tablet 00:00: mouth [place] 00 daily. [facility] Ferrous 2020-0 Yes [id number] 1{tbl} Take 1 [facility] Fumarate 7-02 tablet by [facility] of 324 mg (106 00:00: mouth 2 [facility] mg iron) 00 (two) Medical Tab times Branch daily. SERTraline 2020-0 Yes [id number] 100mg Take 2 [facility] 50 mg 7-02 tablets by [facility] of tablet 00:00: mouth [place] 00 daily. [facility] Branch telmisartan 2020-0 Yes [id number] 40mg Take 1 [facility] 40 mg 7-02 tablet by [facility] of tablet 00:00: mouth [place] 00 daily. [facility] Ferrous 2020-0 Yes [id number] 1{tbl} Take 1 [facility] Fumarate 7-02 tablet by [facility] of 324 mg (106 00:00: mouth 2 [facility] mg iron) 00 (two) Medical Tab times Branch daily. SERTraline 2020-0 Yes [id number] 100mg Take 2 [facility] 50 mg 7-02 tablets by [facility] of tablet 00:00: mouth [place] 00 daily. [facility] Branch telmisartan 2020-0 Yes [id number] 40mg Take 1 [facility] 40 mg 7-02 tablet by [facility] of tablet 00:00: mouth [place] 00 daily. [facility] Ferrous 2020-0 Yes [id number] 1{tbl} Take 1 [facility] Fumarate 7-02 tablet by [facility] of 324 mg (106 00:00: mouth 2 [facility] mg iron) 00 (two) Medical Tab times Branch daily. SERTraline 2020-0 Yes [id number] 100mg Take 2 [facility] 50 mg 7-02 tablets by [facility] of tablet 00:00: mouth [place] 00 daily. [facility] Branch telmisartan 2020-0 Yes [id number] 40mg Take 1 [facility] 40 mg 7-02 tablet by [facility] of tablet 00:00: mouth [place] 00 daily. [facility] Ferrous 2020-0 Yes [id number] 1{tbl} Take 1 [facility] Fumarate 7-02 tablet by [facility] of 324 mg (106 00:00: mouth 2 [facility] as mg iron) 00 (two) Medical Tab times Branch daily. SERTraline 2020-0 Yes [id number] 100mg Take 2 [facility] 50 mg 7-02 tablets by [facility] of tablet 00:00: mouth [place] 00 daily. [facility] Branch telmisartan 2020-0 Yes [id number] 40mg Take 1 [facility] 40 mg 7-02 tablet by [facility] of tablet 00:00: mouth [place] 00 daily. [facility] Ferrous 2020-0 Yes [id number] 1{tbl} Take 1 [facility] Fumarate 7-02 tablet by [facility] of 324 mg (106 00:00: mouth 2 [facility] mg iron) 00 (two) Medical Tab times Branch daily. SERTraline 2020-0 Yes [id number] 100mg Take 2 [facility] 50 mg 7-02 tablets by [facility] of tablet 00:00: mouth [place] 00 daily. [facility] telmisartan 2020-0 Yes [id number] 40mg Take 1 [facility] 40 mg 7-02 tablet by [facility] of tablet 00:00: mouth [place] 00 daily. [facility] Ferrous 2020-0 Yes [id number] 1{tbl} Take 1 [facility] Fumarate 7-02 tablet by [facility] of 324 mg (106 00:00: mouth 2 [facility] mg iron) 00 (two) Medical Tab times Branch daily. SERTraline 2020-0 Yes [id number] 100mg Take 2 [facility] 50 mg 7-02 tablets by [facility] of tablet 00:00: mouth [place] 00 daily. [facility] telmisartan 2020-0 Yes [id number] 40mg Take 1 [facility] 40 mg 7-02 tablet by [facility] of tablet 00:00: mouth [place] 00 daily. [facility] Ferrous 2020-0 Yes [id number] 1{tbl} Take 1 [facility] Fumarate 7-02 tablet by [facility] of 324 mg (106 00:00: mouth 2 [facility] mg iron) 00 (two) Medical Tab times Branch daily. SERTraline 2020-0 Yes [id number] 100mg Take 2 [facility] 50 mg 7-02 tablets by [facility] of tablet 00:00: mouth [place] 00 daily. [facility] telmisartan 2020-0 Yes [id number] 40mg Take 1 [facility] 40 mg 7-02 tablet by [facility] of tablet 00:00: mouth [place] 00 daily. [facility] Ferrous 2020-0 Yes [id number] 1{tbl} Take 1 [facility] Fumarate 7-02 tablet by [facility] of 324 mg (106 00:00: mouth 2 [facility] as mg iron) 00 (two) Medical Tab times Branch daily. SERTraline 2020-0 Yes [id number] 100mg Take 2 [facility] 50 mg 7-02 tablets by [facility] of tablet 00:00: mouth [place] 00 daily. [facility] telmisartan 2020-0 Yes [id number] 40mg Take 1 [facility] 40 mg 7-02 tablet by [facility] of tablet 00:00: mouth [place] 00 daily. [facility] Ferrous 2020-0 Yes [id number] 1{tbl} Take 1 [facility] Fumarate 7-02 tablet by [facility] of 324 mg (106 00:00: mouth 2 [facility] as mg iron) 00 (two) Medical Tab times Branch daily. SERTraline 2020-0 Yes [id number] 100mg Take 2 [facility] 50 mg 7-02 tablets by [facility] of tablet 00:00: mouth [place] 00 daily. [facility] telmisartan 2020-0 Yes [id number] 40mg Take 1 [facility] 40 mg 7-02 tablet by [facility] of tablet 00:00: mouth [place] 00 daily. [facility] Ferrous 2020-0 Yes [id number] 1{tbl} Take 1 [facility] Fumarate 7-02 tablet by [facility] of 324 mg (106 00:00: mouth 2 [facility] as mg iron) 00 (two) Medical Tab times Branch daily. telmisartan 2020-0 Yes [id number] 40mg Take 1 [facility] 40 mg 7-02 tablet by [facility] of tablet 00:00: mouth [place] 00 daily. [facility] Ferrous 2020-0 Yes [id number] 1{tbl} Take 1 [facility] Fumarate 7-02 tablet by [facility] of 324 mg (106 00:00: mouth 2 [facility] mg iron) 00 (two) Medical Tab times Branch daily. telmisartan 2020-0 Yes [id number] 40mg Take 1 [facility] 40 mg 7-02 tablet by [facility] of tablet 00:00: mouth [place] 00 daily. [facility] Ferrous 2020-0 Yes [id number] 1{tbl} Take 1 [facility] Fumarate 7-02 tablet by [facility] of 324 mg (106 00:00: mouth 2 [facility] mg iron) 00 (two) Medical Tab times Branch daily. telmisartan 2020-0 Yes [id number] 40mg Take 1 [facility] 40 mg 7-02 tablet by [facility] of tablet 00:00: mouth [place] 00 daily. [facility] Ferrous 2020-0 Yes [id number] 1{tbl} Take 1 [facility] Fumarate 7-02 tablet by [facility] of 324 mg (106 00:00: mouth 2 [facility] mg iron) 00 (two) Medical Tab times Branch daily. telmisartan 2020-0 Yes [id number] 40mg Take 1 [facility] 40 mg 7-02 tablet by [facility] of tablet 00:00: mouth [place] 00 daily. [facility] Ferrous 2020-0 Yes [id number] 1{tbl} Take 1 [facility] Fumarate 7-02 tablet by [facility] of 324 mg (106 00:00: mouth 2 [facility] mg iron) 00 (two) Medical Tab times Branch daily. telmisartan 2020-0 Yes [id number] 40mg Take 1 [facility] 40 mg 7-02 tablet by [facility] of tablet 00:00: mouth [place] 00 daily. [facility] Ferrous 2020-0 Yes [id number] 1{tbl} Take 1 [facility] Fumarate 7-02 tablet by [facility] of 324 mg (106 00:00: mouth 2 [facility] mg iron) 00 (two) Medical Tab times Branch daily. telmisartan 2020-0 Yes [id number] 40mg Take 1 [facility] 40 mg 7-02 tablet by [facility] of tablet 00:00: mouth [place] 00 daily. [facility] Ferrous 2020-0 Yes [id number] 1{tbl} Take 1 [facility] Fumarate 7-02 tablet by [facility] of 324 mg (106 00:00: mouth 2 [facility] mg iron) 00 (two) Medical Tab times Branch daily. telmisartan 2020-0 Yes [id number] 40mg Take 1 [facility] 40 mg 7-02 tablet by [facility] of tablet 00:00: mouth [place] 00 daily. [facility] Ferrous 2020-0 Yes [id number] 1{tbl} Take 1 [facility] Fumarate 7-02 tablet by [facility] of 324 mg (106 00:00: mouth 2 [facility] mg iron) 00 (two) Medical Tab times Branch daily. telmisartan 2020-0 Yes [id number] 40mg Take 1 [facility] 40 mg 7-02 tablet by [facility] of tablet 00:00: mouth [place] 00 daily. [facility] Ferrous 2020-0 Yes [id number] 1{tbl} Take 1 [facility] Fumarate 7-02 tablet by [facility] of 324 mg (106 00:00: mouth 2 [facility] mg iron) 00 (two) Medical Tab times Branch daily. telmisartan 2020-0 Yes [id number] 40mg Take 1 [facility] 40 mg 7-02 tablet by [facility] of tablet 00:00: mouth [place] 00 daily. [facility] Ferrous 2020-0 Yes [id number] 1{tbl} Take 1 [facility] Fumarate 7-02 tablet by [facility] of 324 mg (106 00:00: mouth 2 [facility] mg iron) 00 (two) Medical Tab times Branch daily. telmisartan 2020-0 Yes [id number] 40mg Take 1 [facility] 40 mg 7-02 tablet by [facility] of tablet 00:00: mouth [place] 00 daily. [facility] Ferrous 2020-0 Yes [id number] 1{tbl} Take 1 [facility] Fumarate 7-02 tablet by [facility] of 324 mg (106 00:00: mouth 2 [facility] mg iron) 00 (two) Medical Tab times Branch daily. telmisartan 2020-0 Yes [id number] 40mg Take 1 [facility] 40 mg 7-02 tablet by [facility] of tablet 00:00: mouth [place] 00 daily. [facility] Ferrous 2020-0 Yes [id number] 1{tbl} Take 1 [facility] Fumarate 7-02 tablet by [facility] of 324 mg (106 00:00: mouth 2 [facility] mg iron) 00 (two) Medical Tab times Branch daily. telmisartan 2020-0 Yes [id number] 40mg Take 1 [facility] 40 mg 7-02 tablet by [facility] of tablet 00:00: mouth [place] 00 daily. [facility] Ferrous 2020-0 Yes [id number] 1{tbl} Take 1 [facility] Fumarate 7-02 tablet by [facility] of 324 mg (106 00:00: mouth 2 [facility] mg iron) 00 (two) Medical Tab times Branch daily. telmisartan 2020-0 Yes [id number] 40mg Take 1 [facility] 40 mg 7-02 tablet by [facility] of tablet 00:00: mouth [place] 00 daily. [facility] Ferrous 2020-0 Yes [id number] 1{tbl} Take 1 [facility] Fumarate 7-02 tablet by [facility] of 324 mg (106 00:00: mouth 2 [facility] mg iron) 00 (two) Medical Tab times Branch daily. telmisartan 2020-0 Yes [id number] 40mg Take 1 [facility] 40 mg 7-02 tablet by [facility] of tablet 00:00: mouth [place] 00 daily. [facility] Ferrous 2020-0 Yes [id number] 1{tbl} Take 1 [facility] Fumarate 7-02 tablet by [facility] of 324 mg (106 00:00: mouth 2 [facility] mg iron) 00 (two) Medical Tab times Branch daily. telmisartan 2020-0 Yes [id number] 40mg Take 1 [facility] 40 mg 7-02 tablet by [facility] of tablet 00:00: mouth [place] 00 daily. [facility] Ferrous 2020-0 Yes [id number] 1{tbl} Take 1 [facility] Fumarate 7-02 tablet by [facility] of 324 mg (106 00:00: mouth 2 [facility] mg iron) 00 (two) Medical Tab times Branch daily. telmisartan 2020-0 Yes [id number] 40mg Take 1 [facility] 40 mg 7-02 tablet by [facility] of tablet 00:00: mouth [place] 00 daily. [facility] Ferrous 2020-0 Yes [id number] 1{tbl} Take 1 [facility] Fumarate 7-02 tablet by [facility] of 324 mg (106 00:00: mouth 2 [facility] as mg iron) 00 (two) Medical Tab times Branch daily. telmisartan 2020-0 Yes [id number] 40mg Take 1 [facility] 40 mg 7-02 tablet by [facility] of tablet 00:00: mouth [place] 00 daily. [facility] Ferrous 2020-0 Yes [id number] 1{tbl} Take 1 [facility] Fumarate 7-02 tablet by [facility] of 324 mg (106 00:00: mouth 2 [facility] as mg iron) 00 (two) Medical Tab times Branch daily. telmisartan 2020-0 Yes [id number] 40mg Take 1 [facility] 40 mg 7-02 tablet by [facility] of tablet 00:00: mouth [place] 00 daily. [facility] Ferrous 2020-0 Yes [id number] 1{tbl} Take 1 [facility] Fumarate 7-02 tablet by [facility] of 324 mg (106 00:00: mouth 2 [facility] as mg iron) 00 (two) Medical Tab times Branch daily. telmisartan 2020-0 Yes [id number] 40mg Take 1 [facility] 40 mg 7-02 tablet by [facility] of tablet 00:00: mouth [place] 00 daily. [facility] Ferrous 2020-0 Yes [id number] 1{tbl} Take 1 [facility] Fumarate 7-02 tablet by [facility] of 324 mg (106 00:00: mouth 2 [facility] as mg iron) 00 (two) Medical Tab times Branch daily. telmisartan 2020-0 Yes [id number] 40mg Take 1 [facility] 40 mg 7-02 tablet by [facility] of tablet 00:00: mouth [place] 00 daily. [facility] Ferrous 2020-0 Yes [id number] 1{tbl} Take 1 [facility] Fumarate 7-02 tablet by [facility] of 324 mg (106 00:00: mouth 2 [facility] as mg iron) 00 (two) Medical Tab times Branch daily. telmisartan 2020-0 Yes [id number] 40mg Take 1 [facility] 40 mg 7-02 tablet by [facility] of tablet 00:00: mouth [place] 00 daily. [facility] Ferrous 2020-0 Yes [id number] 1{tbl} Take 1 [facility] Fumarate 7-02 tablet by [facility] of 324 mg (106 00:00: mouth 2 [facility] as mg iron) 00 (two) Medical Tab times Branch daily. telmisartan 2020-0 Yes [id number] 40mg Take 1 [facility] 40 mg 7-02 tablet by [facility] of tablet 00:00: mouth [place] 00 daily. [facility] Ferrous 2020-0 Yes [id number] 1{tbl} Take 1 [facility] Fumarate 7-02 tablet by [facility] of 324 mg (106 00:00: mouth 2 [facility] as mg iron) 00 (two) Medical Tab times Branch daily. telmisartan 2020-0 Yes [id number] 40mg Take 1 [facility] 40 mg 7-02 tablet by [facility] of tablet 00:00: mouth [place] 00 daily. [facility] Ferrous 2020-0 Yes [id number] 1{tbl} Take 1 [facility] Fumarate 7-02 tablet by [facility] of 324 mg (106 00:00: mouth 2 [facility] as mg iron) 00 (two) Medical Tab times Branch daily. telmisartan 2020-0 Yes [id number] 40mg Take 1 [facility] 40 mg 7-02 tablet by [facility] of tablet 00:00: mouth [place] 00 daily. [facility] Ferrous 2020-0 Yes [id number] 1{tbl} Take 1 [facility] Fumarate 7-02 tablet by [facility] of 324 mg (106 00:00: mouth 2 [facility] as mg iron) 00 (two) Medical Tab times Branch daily. telmisartan 2020-0 Yes [id number] 40mg Take 1 [facility] 40 mg 7-02 tablet by ity of tablet 00:00: mouth [place] 00 daily. [facility] Ferrous 2020-0 Yes [id number] 1{tbl} Take 1 [facility] n[facility] Fumarate 7-02 tablet by ity of 324 mg (106 00:00: mouth 2 [facility] as mg iron) 00 (two) Medical Tab times Branch daily. telmisartan 2020-0 Yes [id number] 40mg Take 1 [facility] 40 mg 7-02 tablet by ity of tablet 00:00: mouth [place] 00 daily. Medical [facility] Ferrous 2020-0 Yes [id number] 1{tbl} Take 1 U nivers Fumarate 7-02 tablet by ity of 324 mg (106 00:00: mouth 2 [facility] as mg iron) 00 (two) Medical Tab times Branch daily. telmisartan 2020-0 Yes [id number] 40mg Take 1 [facility] 40 mg 7-02 tablet by ity of tablet 00:00: mouth [place] 00 daily. Medical [facility] Ferrous 2020-0 Yes [id number] 1{tbl} Take 1 U nivers Fumarate 7-02 tablet by ity of 324 mg (106 00:00: mouth 2 [facility] as mg iron) 00 (two) Medical Tab times Branch daily. telmisartan 2020-0 Yes [id number] 40mg Take 1 [facility] 40 mg 7-02 tablet by ity of tablet 00:00: mouth [place] 00 daily. Medical [facility] Ferrous 2020-0 Yes [id number] 1{tbl} Take 1 U nivers Fumarate 7-02 tablet by ity of 324 mg (106 00:00: mouth 2 [facility] as mg iron) 00 (two) Medical Tab times Branch daily. SERTraline 2020-0 2020- No [id number] 100mg Take 2 [facility] 50 mg -09 08-21 tablets by ity of tablet 00:00: 00:00 mouth [place] 00 :00 daily. Medical [facility] SERTraline 2019-0 2020- No [id number] 100mg Take 2 [facility] 50 mg 01-29-21 tablets by ity of tablet 00:00: 00:00 mouth [place] 00 :00 daily. Medical [facility] SERTraline 2019-0 2020- No [id number] 100mg Take 2 [facility] 50 mg 01-29 tablets by ity of tablet 00:00: 00:00 mouth [place] 00 :00 daily. [facility] SERTraline 2019-0 2020- No [id number] 100mg Take 2 [facility] 50 mg 01-29 tablets by ity of tablet 00:00: 00:00 mouth [place] 00 :00 daily. [facility] SERTraline 2019-0 2020- No [id number] 100mg Take 2 [facility] 50 mg 01-29- tablets by ity of tablet 00:00: 00:00 mouth [place] 00 :00 daily. Medical [facility] SERTraline 2019-0 2020- No [id number] 100mg Take 2 [facility] 50 mg 01-29-21 tablets by ity of tablet 00:00: 00:00 mouth [place] 00 :00 daily. Medical Branch montelukast 2020-0 Yes 10mg Take 10 mg [facility] (SINGULAIR) 6-08 by mouth ity of 10 mg 17:02: daily. [facility] 49 Medical Branch CETIRIZINE 2020-0 Yes Take by Univ ers HCL (ZYRTEC 6-08 mouth. ity of ORAL) 17:02: [place] [address] Medical Branch montelukast 2020-0 Yes 10mg Take 10 mg [facility] (SINGULAIR) 6-08 by mouth ity of 10 mg 17:02: daily. [facility] 49 Medical Branch CETIRIZINE 2020-0 Yes Take by Univ ers HCL (ZYRTEC 6-08 mouth. ity of ORAL) 17:02: [place] [address] Medical Branch montelukast 2020-0 Yes 10mg Take 10 mg [facility] (SINGULAIR) 6-08 by mouth ity of 10 mg 17:02: daily. [facility] 49 Medical Branch CETIRIZINE 2020-0 Yes Take by Univ ers HCL (ZYRTEC 6-08 mouth. ity of ORAL) 17:02: [place] [address] Medical Branch montelukast 2020-0 Yes 10mg Take 10 mg [facility] (SINGULAIR) 6-08 by mouth ity of 10 mg 17:02: daily. [place] tablet 49 Medical Branch CETIRIZINE 2020-0 Yes Take by Univ ers HCL (ZYRTEC 6-08 mouth. ity of ORAL) 17:02: [place] [address] Medical Branch montelukast 2020-0 Yes 10mg Take 10 mg [facility] (SINGULAIR) 6-08 by mouth ity of 10 mg 17:02: daily. [place] tablet 49 Medical Branch CETIRIZINE 2019-0 Yes Take by Univ ers HCL (ZYRTEC 6-08 mouth. ity of ORAL) 17:02: [place] [address] Medical Branch montelukast 2020-0 Yes 10mg Take 10 mg [facility] (SINGULAIR) 6-08 by mouth ity of 10 mg 17:02: daily. [place] tablet 49 Medical Branch CETIRIZINE 2019-0 Yes Take by Univ ers HCL (ZYRTEC 6-08 mouth. ity of ORAL) 17:02: [place] [address] Medical Branch montelukast 2019-0 Yes 10mg Take 10 mg [facility] (SINGULAIR) 6-08 by mouth ity of 10 mg 17:02: daily. [place] tablet 49 Medical Branch CETIRIZINE 2019-0 Yes Take by Univ ers HCL (ZYRTEC 6-08 mouth. ity of ORAL) 17:02: [address] albuterol 2018-07 Yes [id number] 2.5mg Inhale 3 [facility] 2.5 mg /3 2-16 mL every 4 ity of mL (0.083 00:00: (four) [place] %) 00 hours as Medical nebulizer needed for Bran ch solution Wheezing or Shortness of Breath. albuterol 2018-07 Yes [id number] 2.5mg Inhale 3 [facility] 2.5 mg /3 2-16 mL every 4 ity of mL (0.083 00:00: (four) [place] %) 00 hours as Medical nebulizer needed for Bran ch solution Wheezing or Shortness of Breath. albuterol 2018-07 Yes [id number] 2.5mg Inhale 3 [facility] 2.5 mg /3 2-16 mL every 4 ity of mL (0.083 00:00: (four) [place] %) 00 hours as Medical nebulizer needed for Bran ch solution Wheezing or Shortness of Breath. albuterol 2018-07 Yes [id number] 2.5mg Inhale 3 [facility] 2.5 mg /3 2-16 mL every 4 ity of mL (0.083 00:00: (four) [place] %) 00 hours as Medical nebulizer needed for Bran ch solution Wheezing or Shortness of Breath. albuterol 2018-07 Yes [id number] 2.5mg Inhale 3 [facility] 2.5 mg /3 2-16 mL every 4 ity of mL (0.083 00:00: (four) [place] %) 00 hours as Medical nebulizer needed for Bran ch solution Wheezing or Shortness of Breath. albuterol 2018-07 Yes [id number] 2.5mg Inhale 3 [facility] 2.5 mg /3 2-16 mL every 4 ity of mL (0.083 00:00: (four) [place] %) 00 hours as Medical nebulizer needed for Bran ch solution Wheezing or Shortness of Breath. albuterol 2018-07 Yes [id number] 2.5mg Inhale 3 [facility] 2.5 mg /3 2-16 mL every 4 ity of mL (0.083 00:00: (four) [place] %) 00 hours as Medical nebulizer needed for Bran ch solution Wheezing or Shortness of Breath. albuterol 2018-07 Yes [id number] 2.5mg Inhale 3 [facility] 2.5 mg /3 2-16 mL every 4 ity of mL (0.083 00:00: (four) [place] %) 00 hours as Medical nebulizer needed for Bran ch solution Wheezing or Shortness of Breath. albuterol 2018-07 Yes [id number] 2.5mg Inhale 3 [facility] 2.5 mg /3 2-16 mL every 4 ity of mL (0.083 00:00: (four) [place] %) 00 hours as Medical nebulizer needed for Bran ch solution Wheezing or Shortness of Breath. albuterol 2018-07 Yes [id number] 2.5mg Inhale 3 Univers 2.5 mg /3 2-16 mL every 4 ity of mL (0.083 00:00: (four) [place] %) 00 hours as Medical nebulizer needed for Bran ch solution Wheezing or Shortness of Breath. albuterol 2018-07 Yes [id number] 2.5mg Inhale 3 [facility] 2.5 mg /3 2-16 mL every 4 ity of mL (0.083 00:00: (four) [place] %) 00 hours as Medical nebulizer needed for Bran ch solution Wheezing or Shortness of Breath. albuterol 2018-07 Yes [id number] 2.5mg Inhale 3 [facility] 2.5 mg /3 2-16 mL every 4 ity of mL (0.083 00:00: (four) [place] %) 00 hours as Medical nebulizer needed for Bran ch solution Wheezing or Shortness of Breath. albuterol 2018-07 Yes [id number] 2.5mg Inhale 3 [facility] 2.5 mg /3 2-16 mL every 4 ity of mL (0.083 00:00: (four) [place] %) 00 hours as Medical nebulizer needed for Bran ch solution Wheezing or Shortness of Breath. albuterol 2018-07 Yes [id number] 2.5mg Inhale 3 [facility] 2.5 mg /3 2-16 mL every 4 ity of mL (0.083 00:00: (four) [place] %) 00 hours as Medical nebulizer needed for Bran ch solution Wheezing or Shortness of Breath. albuterol 2018-07 Yes [id number] 2.5mg Inhale 3 [facility] 2.5 mg /3 2-16 mL every 4 ity of mL (0.083 00:00: (four) [place] %) 00 hours as Medical nebulizer needed for Bran ch solution Wheezing or Shortness of Breath. albuterol 2018-07 Yes [id number] 2.5mg Inhale 3 [facility] 2.5 mg /3 2-16 mL every 4 ity of mL (0.083 00:00: (four) [place] %) 00 hours as Medical nebulizer needed for Bran ch solution Wheezing or Shortness of Breath. albuterol 2018-07 Yes [id number] 2.5mg Inhale 3 [facility] 2.5 mg /3 2-16 mL every 4 ity of mL (0.083 00:00: (four) [place] %) 00 hours as Medical nebulizer needed for Bran ch solution Wheezing or Shortness of Breath. albuterol 2018-07 Yes [id number] 2.5mg Inhale 3 [facility] 2.5 mg /3 2-16 mL every 4 ity of mL (0.083 00:00: (four) [place] %) 00 hours as Medical nebulizer needed for Bran ch solution Wheezing or Shortness of Breath. albuterol 2018-07 Yes [id number] 2.5mg Inhale 3 [facility] 2.5 mg /3 2-16 mL every 4 ity of mL (0.083 00:00: (four) [place] %) 00 hours as Medical nebulizer needed for Bran ch solution Wheezing or Shortness of Breath. albuterol 2018-07 Yes [id number] 2.5mg Inhale 3 [facility] 2.5 mg /3 2-16 mL every 4 ity of mL (0.083 00:00: (four) [place] %) 00 hours as Medical nebulizer needed for Bran ch solution Wheezing or Shortness of Breath. albuterol 2018-07 Yes [id number] 2.5mg Inhale 3 [facility] 2.5 mg /3 2-16 mL every 4 ity of mL (0.083 00:00: (four) [place] %) 00 hours as Medical nebulizer needed for Bran ch solution Wheezing or Shortness of Breath. albuterol 2018-07 Yes [id number] 2.5mg Inhale 3 [facility] 2.5 mg /3 2-16 mL every 4 ity of mL (0.083 00:00: (four) [place] %) 00 hours as Medical nebulizer needed for Bran ch solution Wheezing or Shortness of Breath. albuterol 2018-07 Yes [id number] 2.5mg Inhale 3 [facility] 2.5 mg /3 2-16 mL every 4 ity of mL (0.083 00:00: (four) [place] %) 00 hours as Medical nebulizer needed for Bran ch solution Wheezing or Shortness of Breath. albuterol 2018-07 Yes [id number] 2.5mg Inhale 3 [facility] 2.5 mg /3 2-16 mL every 4 ity of mL (0.083 00:00: (four) [place] %) 00 hours as Medical nebulizer needed for Bran ch solution Wheezing or Shortness of Breath. albuterol 2018-07 Yes [id number] 2.5mg Inhale 3 [facility] 2.5 mg /3 2-16 mL every 4 ity of mL (0.083 00:00: (four) [place] %) 00 hours as Medical nebulizer needed for Bran ch solution Wheezing or Shortness of Breath. albuterol 2018-07 Yes [id number] 2.5mg Inhale 3 [facility] 2.5 mg /3 2-16 mL every 4 ity of mL (0.083 00:00: (four) [place] %) 00 hours as Medical nebulizer needed for Bran ch solution Wheezing or Shortness of Breath. albuterol 2018-07 Yes [id number] 2.5mg Inhale 3 Univers 2.5 mg /3 2-16 mL every 4 ity of mL (0.083 00:00: (four) [place] %) 00 hours as Medical nebulizer needed for Bran ch solution Wheezing or Shortness of Breath. albuterol 2018-07 Yes [id number] 2.5mg Inhale 3 [facility] 2.5 mg /3 2-16 mL every 4 ity of mL (0.083 00:00: (four) [place] %) 00 hours as Medical nebulizer needed for Bran ch solution Wheezing or Shortness of Breath. albuterol 2018-07 Yes [id number] 2.5mg Inhale 3 [facility] 2.5 mg /3 2-16 mL every 4 ity of mL (0.083 00:00: (four) [place] %) 00 hours as Medical nebulizer needed for Bran ch solution Wheezing or Shortness of Breath. albuterol 2018-07 Yes [id number] 2.5mg Inhale 3 [facility] 2.5 mg /3 2-16 mL every 4 ity of mL (0.083 00:00: (four) [place] %) 00 hours as Medical nebulizer needed for Bran ch solution Wheezing or Shortness of Breath. albuterol 2018-07 Yes [id number] 2.5mg Inhale 3 [facility] 2.5 mg /3 2-16 mL every 4 ity of mL (0.083 00:00: (four) [place] %) 00 hours as Medical nebulizer needed for Bran ch solution Wheezing or Shortness of Breath. albuterol 2018-07 Yes [id number] 2.5mg Inhale 3 [facility] 2.5 mg /3 2-16 mL every 4 ity of mL (0.083 00:00: (four) [place] %) 00 hours as Medical nebulizer needed for Bran ch solution Wheezing or Shortness of Breath. albuterol 2018-07 Yes [id number] 2.5mg Inhale 3 [facility] 2.5 mg /3 2-16 mL every 4 ity of mL (0.083 00:00: (four) [place] %) 00 hours as Medical nebulizer needed for Bran ch solution Wheezing or Shortness of Breath. albuterol 2018-07 Yes [id number] 2.5mg Inhale 3 [facility] 2.5 mg /3 2-16 mL every 4 ity of mL (0.083 00:00: (four) [place] %) 00 hours as Medical nebulizer needed for Bran ch solution Wheezing or Shortness of Breath. albuterol 2018-07 Yes [id number] 2.5mg Inhale 3 Univers 2.5 mg /3 2-16 mL every 4 ity of mL (0.083 00:00: (four) [place] %) 00 hours as Medical nebulizer needed for Bran ch solution Wheezing or Shortness of Breath. albuterol 2018-07 Yes [id number] 2.5mg Inhale 3 Univers 2.5 mg /3 2-16 mL every 4 ity of mL (0.083 00:00: (four) [place] %) 00 hours as Medical nebulizer needed for Bran ch solution Wheezing or Shortness of Breath. albuterol 2018-07 Yes [id number] 2.5mg Inhale 3 [facility] 2.5 mg /3 2-16 mL every 4 ity of mL (0.083 00:00: (four) [place] %) 00 hours as Medical nebulizer needed for Bran ch solution Wheezing or Shortness of Breath. albuterol 2018-07 Yes [id number] 2.5mg Inhale 3 Univers 2.5 mg /3 2-16 mL every 4 ity of mL (0.083 00:00: (four) [place] %) 00 hours as Medical nebulizer needed for Bran ch solution Wheezing or Shortness of Breath. albuterol 2018-07 Yes [id number] 2.5mg Inhale 3 Univers 2.5 mg /3 2-16 mL every 4 ity of mL (0.083 00:00: (four) [place] %) 00 hours as Medical nebulizer needed for Bran ch solution Wheezing or Shortness of Breath. albuterol 2018-07 Yes [id number] 2.5mg Inhale 3 Univers 2.5 mg /3 2-16 mL every 4 ity of mL (0.083 00:00: (four) [place] %) 00 hours as Medical nebulizer needed for Bran ch solution Wheezing or Shortness of Breath. albuterol 2018-07 Yes [id number] 2.5mg Inhale 3 [facility] 2.5 mg /3 2-16 mL every 4 ity of mL (0.083 00:00: (four) [place] %) 00 hours as Medical nebulizer needed for Bran ch solution Wheezing or Shortness of Breath. albuterol 2018-07 Yes [id number] 2.5mg Inhale 3 Univers 2.5 mg /3 2-16 mL every 4 ity of mL (0.083 00:00: (four) [place] %) 00 hours as Medical nebulizer needed for Bran ch solution Wheezing or Shortness of Breath. albuterol 2018-07 Yes [id number] 2.5mg Inhale 3 Univers 2.5 mg /3 2-16 mL every 4 ity of mL (0.083 00:00: (four) [place] %) 00 hours as Medical nebulizer needed for Bran ch solution Wheezing or Shortness of Breath. albuterol 2018-07 Yes [id number] 2.5mg Inhale 3 Univers 2.5 mg /3 2-16 mL every 4 ity of mL (0.083 00:00: (four) [place] %) 00 hours as Medical nebulizer needed for Bran ch solution Wheezing or Shortness of Breath. albuterol 2018-07 Yes [id number] 2.5mg Inhale 3 Univers 2.5 mg /3 2-16 mL every 4 ity of mL (0.083 00:00: (four) [place] %) 00 hours as Medical nebulizer needed for Bran ch solution Wheezing or Shortness of Breath. albuterol 2018-07 Yes [id number] 2.5mg Inhale 3 Univers 2.5 mg /3 2-16 mL every 4 ity of mL (0.083 00:00: (four) [place] %) 00 hours as Medical nebulizer needed for Bran ch solution Wheezing or Shortness of Breath. albuterol 2018-07 Yes [id number] 2.5mg Inhale 3 Univers 2.5 mg /3 2-16 mL every 4 ity of mL (0.083 00:00: (four) [place] %) 00 hours as Medical nebulizer needed for Bran ch solution Wheezing or Shortness of Breath. albuterol 2018-07 Yes [id number] 2.5mg Inhale 3 Univers 2.5 mg /3 2-16 mL every 4 ity of mL (0.083 00:00: (four) [place] %) 00 hours as Medical nebulizer needed for Bran ch solution Wheezing or Shortness of Breath. albuterol 2018-07 Yes [id number] 2.5mg Inhale 3 Univers 2.5 mg /3 2-16 mL every 4 ity of mL (0.083 00:00: (four) [place] %) 00 hours as Medical nebulizer needed for Bran ch solution Wheezing or Shortness of Breath. albuterol 2018-07 Yes [id number] 2.5mg Inhale 3 Univers 2.5 mg /3 2-16 mL every 4 ity of mL (0.083 00:00: (four) [place] %) 00 hours as Medical nebulizer needed for Bran ch solution Wheezing or Shortness of Breath. albuterol 2018-07 Yes [id number] 2.5mg Inhale 3 Univers 2.5 mg /3 2-16 mL every 4 ity of mL (0.083 00:00: (four) [place] %) 00 hours as Medical nebulizer needed for Bran ch solution Wheezing or Shortness of Breath. albuterol 2018-07 Yes [id number] 2.5mg Inhale 3 Univers 2.5 mg /3 2-16 mL every 4 ity of mL (0.083 00:00: (four) [place] %) 00 hours as Medical nebulizer needed for Bran ch solution Wheezing or Shortness of Breath. albuterol 2018-07 Yes [id number] 2.5mg Inhale 3 [facility] 2.5 mg /3 2-16 mL every 4 ity of mL (0.083 00:00: (four) [place] %) 00 hours as Medical nebulizer needed for Bran ch solution Wheezing or Shortness of Breath. albuterol 2018-07 Yes [id number] 2.5mg Inhale 3 [facility] 2.5 mg /3 2-16 mL every 4 ity of mL (0.083 00:00: (four) [place] %) 00 hours as Medical nebulizer needed for Bran ch solution Wheezing or Shortness of Breath. albuterol 2018-07 Yes [id number] 2.5mg Inhale 3 Univers 2.5 mg /3 2-16 mL every 4 ity of mL (0.083 00:00: (four) [place] %) 00 hours as Medical nebulizer needed for Bran ch solution Wheezing or Shortness of Breath. albuterol 2018-07 Yes [id number] 2.5mg Inhale 3 [facility] 2.5 mg /3 2-16 mL every 4 ity of mL (0.083 00:00: (four) [place] %) 00 hours as Medical nebulizer needed for Bran ch solution Wheezing or Shortness of Breath. albuterol 2018-07 Yes [id number] 2.5mg Inhale 3 Univers 2.5 mg /3 2-16 mL every 4 ity of mL (0.083 00:00: (four) [place] %) 00 hours as Medical nebulizer needed for Bran ch solution Wheezing or Shortness of Breath. albuterol 2018-07 Yes [id number] 2.5mg Inhale 3 Univers 2.5 mg /3 2-16 mL every 4 ity of mL (0.083 00:00: (four) [place] %) 00 hours as Medical nebulizer needed for Bran ch solution Wheezing or Shortness of Breath. albuterol 2018-07 Yes [id number] 2.5mg Inhale 3 Univers 2.5 mg /3 2-16 mL every 4 ity of mL (0.083 00:00: (four) [place] %) 00 hours as Medical nebulizer needed for Bran ch solution Wheezing or Shortness of Breath. albuterol 2018-07 Yes [id number] 2.5mg Inhale 3 Univers 2.5 mg /3 2-16 mL every 4 ity of mL (0.083 00:00: (four) [place] %) 00 hours as Medical nebulizer needed for Bran ch solution Wheezing or Shortness of Breath. albuterol 2018-07 Yes [id number] 2.5mg Inhale 3 Univers 2.5 mg /3 2-16 mL every 4 ity of mL (0.083 00:00: (four) [place] %) 00 hours as Medical nebulizer needed for Bran ch solution Wheezing or Shortness of Breath. albuterol 2019-1 Yes [id number] 2.5mg Inhale 3 Univers 2.5 mg /3 2-16 mL every 4 ity of mL (0.083 00:00: (four) [place] %) 00 hours as Medical nebulizer needed for Bran ch solution Wheezing or Shortness of Breath. albuterol 2018-07 Yes [id number] 2.5mg Inhale 3 Univers 2.5 mg /3 2-16 mL every 4 ity of mL (0.083 00:00: (four) [place] %) 00 hours as Medical nebulizer needed for Bran ch solution Wheezing or Shortness of Breath. albuterol 2018-07 Yes [id number] 2.5mg Inhale 3 Univers 2.5 mg /3 2-16 mL every 4 ity of mL (0.083 00:00: (four) [place] %) 00 hours as Medical nebulizer needed for Bran ch solution Wheezing or Shortness of Breath. albuterol 2018-07 Yes [id number] 2.5mg Inhale 3 Univers 2.5 mg /3 2-16 mL every 4 ity of mL (0.083 00:00: (four) [place] %) 00 hours as Medical nebulizer needed for Bran ch solution Wheezing or Shortness of Breath. albuterol 2018-07 Yes [id number] 2.5mg Inhale 3 [facility] 2.5 mg /3 2-16 mL every 4 ity of mL (0.083 00:00: (four) [place] %) 00 hours as Medical nebulizer needed for Bran ch solution Wheezing or Shortness of Breath. albuterol 2018-07 Yes [id number] 2.5mg Inhale 3 Univers 2.5 mg /3 2-16 mL every 4 ity of mL (0.083 00:00: (four) [place] %) 00 hours as Medical nebulizer needed for Bran ch solution Wheezing or Shortness of Breath. albuterol 2018-07 Yes [id number] 2.5mg Inhale 3 Univers 2.5 mg /3 2-16 mL every 4 ity of mL (0.083 00:00: (four) [place] %) 00 hours as Medical nebulizer needed for Bran ch solution Wheezing or Shortness of Breath. albuterol 2018-07 Yes [id number] 2.5mg Inhale 3 Univers 2.5 mg /3 2-16 mL every 4 ity of mL (0.083 00:00: (four) [place] %) 00 hours as Medical nebulizer needed for Bran ch solution Wheezing or Shortness of Breath. albuterol 2018-07 Yes [id number] 2.5mg Inhale 3 Univers 2.5 mg /3 2-16 mL every 4 ity of mL (0.083 00:00: (four) [place] %) 00 hours as Medical nebulizer needed for Bran ch solution Wheezing or Shortness of Breath. albuterol 2018-07 Yes [id number] 2.5mg Inhale 3 Univers 2.5 mg /3 2-16 mL every 4 ity of mL (0.083 00:00: (four) [place] %) 00 hours as Medical nebulizer needed for Bran ch solution Wheezing or Shortness of Breath. albuterol 2018-07 Yes [id number] 2.5mg Inhale 3 Univers 2.5 mg /3 2-16 mL every 4 ity of mL (0.083 00:00: (four) [place] %) 00 hours as Medical nebulizer needed for Bran ch solution Wheezing or Shortness of Breath. albuterol 2018-07 Yes [id number] 2.5mg Inhale 3 Univers 2.5 mg /3 2-16 mL every 4 ity of mL (0.083 00:00: (four) [place] %) 00 hours as Medical nebulizer needed for Bran ch solution Wheezing or Shortness of Breath. albuterol 2018-07 Yes [id number] 2.5mg Inhale 3 Univers 2.5 mg /3 2-16 mL every 4 ity of mL (0.083 00:00: (four) [place] %) 00 hours as Medical nebulizer needed for Bran ch solution Wheezing or Shortness of Breath. albuterol 2018-07 Yes [id number] 2.5mg Inhale 3 Univers 2.5 mg /3 2-16 mL every 4 ity of mL (0.083 00:00: (four) [place] %) 00 hours as Medical nebulizer needed for Bran ch solution Wheezing or Shortness of Breath. albuterol 2018-07 Yes [id number] 2.5mg Inhale 3 Univers 2.5 mg /3 2-16 mL every 4 ity of mL (0.083 00:00: (four) [place] %) 00 hours as Medical nebulizer needed for Bran ch solution Wheezing or Shortness of Breath. albuterol 2018-07 Yes [id number] 2.5mg Inhale 3 Univers 2.5 mg /3 2-16 mL every 4 ity of mL (0.083 00:00: (four) [place] %) 00 hours as Medical nebulizer needed for Bran ch solution Wheezing or Shortness of Breath. montelukast 2018-07 Yes 10mg Take 10 mg Univers (SINGULAIR) 1-06 by mouth ity of 10 mg 08:52: daily. [address] Branch CETIRIZINE 2018-07 Yes Take by Univ ers HCL (ZYRTEC 1-06 mouth. ity of ORAL) 08:52: [place] [address] Medical [place] montelukast 2018-07 Yes 10mg Take 10 mg Univers (SINGULAIR) 1-06 by mouth ity of 10 mg 08:52: daily. [place] [address] Medical Branch CETIRIZINE 2018-07 Yes Take by Univ ers HCL (ZYRTEC 1-06 mouth. ity of ORAL) 08:52: [address] montelukast 2018-07 Yes 10mg Take 10 mg Univers (SINGULAIR) 1-06 by mouth ity of 10 mg 08:52: daily. [place] [address] Medical Branch CETIRIZINE 2018-07 Yes Take by Univ ers HCL (ZYRTEC 1-06 mouth. ity of ORAL) 08:52: [address] SERTraline 2018-07 Yes [id number] 100mg Take 2 Univers 50 mg 0-03 tablets by ity of tablet 00:00: mouth [place] 00 daily. Medical Branch telmisartan 2018-07 Yes [id number] 40mg Take 1 [facility] 40 mg 0-03 tablet by ity of tablet 00:00: mouth [place] 00 daily. Medical Branch SERTraline 2018-07 Yes [id number] 100mg Take 2 [facility] 50 mg 0-03 tablets by ity of tablet 00:00: mouth [place] 00 daily. Medical Branch telmisartan 2018-07 Yes [id number] 40mg Take 1 [facility] 40 mg 0-03 tablet by ity of tablet 00:00: mouth [place] 00 daily. Medical Branch SERTraline 2018-07 Yes [id number] 100mg Take 2 [facility] 50 mg 0-03 tablets by ity of tablet 00:00: mouth [place] 00 daily. [facility] Branch telmisartan 2018-07 Yes [id number] 40mg Take 1 Univers 40 mg 0-03 tablet by ity of tablet 00:00: mouth [place] 00 daily. Medical Branch SERTraline 2018-07 Yes [id number] 100mg Take 2 [facility] 50 mg 0-03 tablets by ity of tablet 00:00: mouth [place] 00 daily. [facility] Branch telmisartan 2018-07 Yes [id number] 40mg Take 1 [facility] 40 mg 0-03 tablet by ity of tablet 00:00: mouth [place] 00 daily. [facility] Branch SERTraline 2018-07 Yes [id number] 100mg Take 2 [facility] 50 mg 0-03 tablets by ity of tablet 00:00: mouth [place] 00 daily. [facility] Branch telmisartan 2018-07 Yes [id number] 40mg Take 1 [facility] 40 mg 0-03 tablet by ity of tablet 00:00: mouth [place] 00 daily. [facility] Branch SERTraline 2018-07 2020- No [id number] 100mg Take 2 [facility] 50 mg 0-03 07-02 tablets by ity of tablet 00:00: 00:00 mouth [place] 00 :00 daily. [facility] Branch telmisartan 2018-07 2020- No [id number] 40mg Take 1 [facility] 40 mg 0-03 07-02 tablet by ity of tablet 00:00: 00:00 mouth [place] 00 :00 daily. [facility] Branch SERTraline 2018-07 2020- No [id number] 100mg Take 2 [facility] 50 mg 0-03 07-02 tablets by ity of tablet 00:00: 00:00 mouth [place] 00 :00 daily. [facility] Branch telmisartan 2018-07 2020- No [id number] 40mg Take 1 [facility] 40 mg 0-03 07-02 tablet by ity of tablet 00:00: 00:00 mouth [place] 00 :00 daily. Medical Branch Diclofenac Yes [id number] 50mg Take 50 mg [facility] Potassium 9-30 by mouth ity of (CAMBIA) 50 00:00: as needed [place] mg PwPk 00 for Pain Medical (scale Branch 7-10). Diclofenac Yes [id number] 50mg Take 50 mg [facility] Potassium 9-30 by mouth ity of ([place]) 50 00:00: as needed [place] mg PwPk 00 for Pain Medical (scale Branch 7-10). Diclofenac Yes [id number] 50mg Take 50 mg [facility] Potassium 9-30 by mouth ity of (CAM[place]) 50 00:00: as needed [place] mg PwPk 00 for Pain Medical (scale Branch 7-10). Diclofenac 2019-0 Yes [id number] 50mg Take 50 mg [facility] Potassium 9-30 by mouth ity of (CAM[place]) 50 00:00: as needed [place] mg PwPk 00 for Pain Medical (scale Branch 7-10). Diclofenac 20190 Yes [id number] 50mg Take 50 mg [facility] Potassium 9-30 by mouth ity of (CAMBIA) 50 00:00: as needed [place] mg PwPk 00 for Pain Medical (scale Branch 7-10). Diclofenac 20190 Yes [id number] 50mg Take 50 mg [facility] Potassium 9-30 by mouth ity of (CAMBIA) 50 00:00: as needed [place] mg PwPk 00 for Pain Medical (scale Branch 7-10). Diclofenac 0 Yes [id number] 50mg Take 50 mg [facility] Potassium 9-30 by mouth ity of (CAMBIA) 50 00:00: as needed [place] mg PwPk 00 for Pain Medical (scale Branch 7-10). Diclofenac 2019-0 Yes [id number] 50mg Take 50 mg [facility] Potassium 9-30 by mouth ity of (CAMBIA) 50 00:00: as needed [place] mg PwPk 00 for Pain Medical (scale Branch 7-10). Diclofenac 20190 Yes [id number] 50mg Take 50 mg [facility] Potassium 9-30 by mouth ity of (CAM[place]IA) 50 00:00: as needed [place] mg PwPk 00 for Pain Medical (scale Branch 7-10). Diclofenac 2019-0 Yes [id number] 50mg Take 50 mg [facility] Potassium 9-30 by mouth ity of (CAM[place]IA) 50 00:00: as needed [place] mg PwPk 00 for Pain Medical (scale Branch 7-10). Diclofenac 2019-0 Yes [id number] 50mg Take 50 mg [facility] Potassium 9-30 by mouth ity of (CAMBIA) 50 00:00: as needed [place] mg PwPk 00 for Pain Medical (scale Branch 7-10). Diclofenac 2019 2020- No [id number] 50mg Take 50 mg [facility] Potassium 9-30 08-24 by mouth ity o f (CAMBIA) 50 00:00: 00:00 as needed [place] mg PwPk 00 :00 for Pain Medical (scale Branch 7-10). Diclofenac 2020- No [id number] 50mg Take 50 mg [facility] Potassium 9-30 08-24 by mouth ity o f (CAMBIA) 50 00:00: 00:00 as needed [place] mg PwPk 00 :00 for Pain Medical (scale Branch 7-10). Diclofenac Yes [id number] 50mg Take 50 mg [facility] Potassium 9-20 by mouth ity of (CAMBIA) 50 00:00: as needed [place] mg PwPk 00 for Pain Medical (scale Branch 7-10). SERTRALINE Yes [id number] 50mg TAKE 1 U nivers 50 mg 8-29 TABLET BY ity of tablet 00:00: MOUTH DAILY Medical Branch SERTRALINE Yes [id number] 50mg TAKE 1 U nivers 50 mg 8-29 TABLET BY ity of tablet 00:00: MOUTH DAILY Medical Branch SERTRALINE Yes [id number] 50mg TAKE 1 U nivers 50 mg 8-29 TABLET BY ity of tablet 00:00: MOUTH DAILY Medical Branch montelukast Yes 10mg Take 10 mg Univers (SINGULAIR) 8-08 by mouth ity of 10 mg 16:41: daily. [place] tablet [facility] CETIRIZINE Yes Take by Univ ers HCL (ZYRTEC 8-08 mouth. ity of ORAL) 16:41: [facility] montelukast Yes 10mg Take 10 mg Univers (SINGULAIR) 8-08 by mouth ity of 10 mg 16:41: daily. [place] tablet Medical Branch CETIRIZINE Yes Take by Univ ers HCL (ZYRTEC 8-08 mouth. ity of ORAL) 16:41: [facility] montelukast Yes 10mg Take 10 mg Univers (SINGULAIR) 8-08 by mouth ity of 10 mg 16:41: daily. tablet Medical Branch CETIRIZINE Yes Take by Univ ers HCL (ZYRTEC 8-08 mouth. ity of ORAL) 16:41: [facility] montelukast 2019-0 Yes 10mg Take 10 mg Univers (SINGULAIR) 8-08 by mouth ity of 10 mg 16:41: daily. [place] tablet [facility] Branch CETIRIZINE 0 Yes Take by Univ ers HCL (ZYRTEC 8-08 mouth. ity of ORAL) 16:41: [facility] montelukast 0 Yes 10mg Take 10 mg Univers (SINGULAIR) 8-08 by mouth ity of 10 mg 16:41: daily. [place] tablet [facility] CETIRIZINE Yes Take by Univ ers HCL (ZYRTEC 8-08 mouth. ity of ORAL) 16:41: [facility] montelukast Yes 10mg Take 10 mg Univers (SINGULAIR) 8-08 by mouth ity of 10 mg 16:41: daily. [place] tablet [facility] CETIRIZINE Yes Take by Univ ers HCL (ZYRTEC 8-08 mouth. ity of ORAL) 16:41: [facility] montelukast Yes 10mg Take 10 mg Univers (SINGULAIR) 8-08 by mouth ity of 10 mg 16:41: daily. [place] tablet [facility] CETIRIZINE Yes Take by Univ ers HCL (ZYRTEC 8-08 mouth. ity of ORAL) 16:41: [address] metroNIDAZO 2018-0 2019- No [id number] 500mg Take 1 [facility] LE 500 mg 6-05 08-08 tablet by ity of tablet 00:00: 00:00 mouth [place] 00 :00 every 12 Medical (twelve) Branch hours. metroNIDAZO 2018- 2019- No [id number] 500mg Take 1 [facility] LE 500 mg 6-05 08-08 tablet by ity of tablet 00:00: 00:00 mouth [place] 00 :00 every 12 Medical (twelve) Branch hours. zonisamide 2018- Yes [id number] 100mg Take 1 [facility] 100 mg 6-04 capsule by ity of capsule 00:00: mouth 2 [place] (two) Medical times Branch daily. zonisamide 2018- Yes [id number] 100mg Take 1 [facility] 100 mg 6-04 capsule by ity of capsule 00:00: mouth 2 [place] [address] (two) Medical times Branch daily. zonisamide 2018-0 Yes [id number] 100mg Take 1 [facility] 100 mg 6-04 capsule by ity of capsule 00:00: mouth 2 00 (two) Medical times Branch daily. zonisamide 2018-0 Yes [id number] 100mg Take 1 [facility] 100 mg 6-04 capsule by ity of capsule 00:00: mouth 2 00 (two) Medical times Branch daily. zonisamide 2018-0 Yes [id number] 100mg Take 1 [facility] 100 mg 6-04 capsule by ity of capsule 00:00: mouth 2 00 (two) Medical times Branch daily. zonisamide 2018-0 Yes [id number] 100mg Take 1 [facility] 100 mg 6-04 capsule by ity of capsule 00:00: mouth 2 00 (two) Medical times Branch daily. zonisamide 2018-0 Yes [id number] 100mg Take 1 [facility] 100 mg 6-04 capsule by ity of capsule 00:00: mouth 2 (two) Medical times Branch daily. zonisamide 2018-0 Yes [id number] 100mg Take 1 [facility] 100 mg 6-04 capsule by ity of capsule 00:00: mouth 2 (two) Medical times Branch daily. zonisamide 2018-0 Yes [id number] 100mg Take 1 [facility] 100 mg 6-04 capsule by ity of capsule 00:00: mouth 2 (two) Medical times Branch daily. zonisamide 2018-0 Yes [id number] 100mg Take 1 [facility] 100 mg 6-04 capsule by ity of capsule 00:00: mouth 2 00 (two) Medical times Branch daily. zonisamide 2018-0 Yes [id number] 100mg Take 1 [facility] 100 mg 6-04 capsule by ity of capsule 00:00: mouth 2 00 (two) Medical times Branch daily. zonisamide 2018-0 Yes [id number] 100mg Take 1 [facility] 100 mg 6-04 capsule by ity of capsule 00:00: mouth 2 00 (two) Medical times Branch daily. zonisamide 2018-0 Yes [id number] 100mg Take 1 [facility] 100 mg 6-04 capsule by ity of capsule 00:00: mouth 2 00 (two) Medical times Branch daily. zonisamide 2018-0 Yes [id number] 100mg Take 1 [facility] 100 mg 6-04 capsule by ity of capsule 00:00: mouth 2 [place] 00 (two) Medical times Branch daily. zonisamide 2018-0 Yes [id number] 100mg Take 1 [facility] 100 mg 6-04 capsule by ity of capsule 00:00: mouth 2 [place] 00 (two) Medical times Branch daily. zonisamide 2018-0 Yes [id number] 100mg Take 1 [facility] 100 mg 6-04 capsule by ity of capsule 00:00: mouth 2 [place] 00 (two) Medical times Branch daily. zonisamide 2018-0 Yes [id number] 100mg Take 1 [facility] 100 mg 6-04 capsule by ity of capsule 00:00: mouth 2 [place] 00 (two) Medical times Branch daily. zonisamide 2018-0 Yes [id number] 100mg Take 1 [facility] 100 mg 6-04 capsule by ity of capsule 00:00: mouth 2 [place] 00 (two) Medical times Branch daily. zonisamide 2018- Yes [id number] 100mg Take 1 [facility] 100 mg 6-04 capsule by ity of capsule 00:00: mouth 2 [place] 00 (two) Medical times Branch daily. zonisamide Yes [id number] 100mg Take 1 [facility] 100 mg 6-04 capsule by ity of capsule 00:00: mouth 2 [place] 00 (two) Medical times Branch daily. zonisamide 0 Yes [id number] 100mg Take 1 [facility] 100 mg 6-04 capsule by ity of capsule 00:00: mouth 2 [place] 00 (two) Medical times Branch daily. zonisamide 2020- No [id number] 100mg Take 1 [facility] 100 mg 6-04 09-21 capsule by ity of capsule 00:00: 00:00 mouth 2 [place] 00 :00 (two) Medical times Branch daily. zonisamide 2018- 2020- No [id number] 100mg Take 1 [facility] 100 mg 6-04 09-21 capsule by ity of capsule 00:00: 00:00 mouth 2 [place] 00 :00 (two) Medical times Branch daily. zonisamide 2018-0 2020- No [id number] 100mg Take 1 [facility] 100 mg 6-04 09-21 capsule by ity of capsule 00:00: 00:00 mouth 2 [place] 00 :00 (two) Medical times Branch daily. zonisamide 2020- No [id number] 100mg Take 1 [facility] 100 mg 01-01 capsule by ity of capsule 00:00: 00:00 mouth 2 [place] 00 :00 (two) Medical times Branch daily. telmisartan Yes [id number] 40mg Take 1 [facility] 40 mg 5-31 tablet by ity of tablet 00:00: mouth [place] 00 daily. Medical Branch telmisartan Yes [id number] 40mg Take 1 [facility] 40 mg 5-31 tablet by ity of tablet 00:00: mouth [place] 00 daily. Medical Branch telmisartan Yes [id number] 40mg Take 1 [facility] 40 mg 5-31 tablet by ity of tablet 00:00: mouth [place] 00 daily. Medical Branch telmisartan Yes [id number] 40mg Take 1 [facility] 40 mg 5-31 tablet by ity of tablet 00:00: mouth [place] 00 daily. Medical Branch telmisartan Yes [id number] 40mg Take 1 [facility] 40 mg 5-31 tablet by ity of tablet 00:00: mouth [place] 00 daily. Medical Branch telmisartan Yes [id number] 40mg Take 1 [facility] 40 mg 5-31 tablet by ity of tablet 00:00: mouth [place] 00 daily. Medical Branch telmisartan Yes [id number] 40mg Take 1 [facility] 40 mg 5-31 tablet by ity of tablet 00:00: mouth [place] 00 daily. Medical Branch Ferrous 2018- Yes [id number] 1{tbl} Take 1 U nivers Fumarate 2-28 tablet by ity of 324 mg (106 00:00: mouth 2 [place] mg iron) 00 (two) Medical Tab times Branch daily. Ferrous Yes [id number] 1{tbl} Take 1 U nivers Fumarate 2-28 tablet by ity of 324 mg (106 00:00: mouth 2 [place] mg iron) 00 (two) Medical Tab times Branch daily. Ferrous 2018- Yes [id number] 1{tbl} Take 1 U nivers Fumarate 2-28 tablet by ity of 324 mg (106 00:00: mouth 2 [place] mg iron) 00 (two) Medical Tab times Branch daily. Ferrous 2018- Yes [id number] 1{tbl} Take 1 U nivers Fumarate 2-28 tablet by ity of 324 mg (106 00:00: mouth 2 [place] mg iron) 00 (two) Medical Tab times Branch daily. Ferrous 2018- Yes [id number] 1{tbl} Take 1 U nivers Fumarate 2-28 tablet by ity of 324 mg (106 00:00: mouth 2 [place] mg iron) 00 (two) Medical Tab times Branch daily. Ferrous 2018- Yes [id number] 1{tbl} Take 1 U nivers Fumarate 2-28 tablet by ity of 324 mg (106 00:00: mouth 2 [place] mg iron) 00 (two) Medical Tab times Branch daily. Ferrous Yes [id number] 1{tbl} Take 1 U nivers Fumarate 2-28 tablet by ity of 324 mg (106 00:00: mouth 2 [place] mg iron) 00 (two) Medical Tab times Branch daily. SERTraline 2018- Yes [id number] 50mg Take 1 U nivers 50 mg 2-28 tablet by ity of tablet 00:00: mouth [place] 00 daily. Medical Branch Ferrous Yes [id number] 1{tbl} Take 1 U nivers Fumarate 2-28 tablet by ity of 324 mg (106 00:00: mouth 2 [place] mg iron) 00 (two) Medical Tab times Branch daily. SERTraline 0 Yes [id number] 50mg Take 1 U nivers 50 mg 2-28 tablet by ity of tablet 00:00: mouth [place] 00 daily. Medical Branch Ferrous 2018- Yes [id number] 1{tbl} Take 1 U nivers Fumarate 2-28 tablet by ity of 324 mg (106 00:00: mouth 2 [place] mg iron) 00 (two) Medical Tab times Branch daily. SERTraline 2018-0 Yes [id number] 50mg Take 1 U nivers 50 mg 2-28 tablet by ity of tablet 00:00: mouth [place] 00 daily. Medical Branch Ferrous 2018-0 Yes [id number] 1{tbl} Take 1 U nivers Fumarate 2-28 tablet by ity of 324 mg (106 00:00: mouth 2 [place] mg iron) 00 (two) Medical Tab times Branch daily. Ferrous 2018- Yes [id number] 1{tbl} Take 1 U nivers Fumarate 2-28 tablet by ity of 324 mg (106 00:00: mouth 2 [place] mg iron) 00 (two) Medical Tab times Branch daily. Ferrous Yes [id number] 1{tbl} Take 1 U nivers Fumarate 2-28 tablet by ity of 324 mg (106 00:00: mouth 2 [place] mg iron) 00 (two) Medical Tab times Branch daily. Ferrous 2020- No [id number] 1{tbl} Take 1 [facility] Fumarate 2-28 -02 tablet by ity o f 324 mg (106 00:00: 00:00 mouth 2 [place] mg iron) 00 :00 (two) Medical Tab times Branch daily. Ferrous 2020- No [id number] 1{tbl} Take 1 [facility] Fumarate 2-28 - tablet by ity o f 324 mg (106 00:00: 00:00 mouth 2 [place] mg iron) 00 :00 (two) Medical Tab times Branch daily. SERTraline 2019- No [id number] 50mg Take 1 [facility] 50 mg 2-28 - tablet by ity of tablet 00:00: 00:00 mouth [place] 00 :00 daily. Medical Branch sertraline Yes 25mg QD Take 25 mg M ethodi (ZOLOFT) 25 4-[address] MG tablet 18:55: every [facility] 54 morning. l ergocalcife Yes [id number] Q.5W Take Meth heather rol 4-28 50,[address] (VITAMIN 18:55: Units by Hospi ta D2) 50,000 54 mouth 2 l unit (two) capsule times a week. (Monday & Monday) cyanocobala Yes 1{tbl} QD Take 1 Me thodi min, 4-[address] vitamin 18:55: mouth [facility]osp[facility] B-12, 2,500 54 daily. l mcg tablet ferrous Yes 1{tbl} Q.5D Take 1 Method i fumarate 4-[address] (FERROCITE) 18:55: mouth 2 [facility] 324 mg (106 54 (two) l mg iron) times a tablet day. ferrous Yes 1{tbl} Q.5D Take 1 Method i fumarate 4-[address] (FERROCITE) 18:55: mouth 2 [facility] 324 mg (106 54 (two) l mg iron) times a tablet day. sertraline Yes 25mg QD Take 25 mg M ethodi (ZOLOFT) 25 4-[address] MG tablet 18:55: every Hospita 54 morning. l ergocalcife Yes [id number] Q.5W Take Meth heather rol 4-28 50,000 st (VITAMIN 18:55: Units by Hospi ta D2) 50,000 54 mouth 2 l unit (two) capsule times a week. (Monday & Monday) cyanocobala Yes 1{tbl} QD Take 1 Me thodi min, [address] vitamin 18:55: mouth [facility]osp[facility] B-12, 2,500 54 daily. l mcg tablet Immunizations Ordered Immunization Filled Immunization Date Status Commen ts Source Name Name Hep B, Adol or Pedi 2022-07-13 Completed Unive rsity of Dosage 00:00:00 [facility] Hep B, Adol or Pedi 2022-07-13 Completed Unive rsity of Dosage 00:00:00 [facility] Branch Hep B, Adol or Pedi 2022-07-13 Completed Unive rsity of Dosage 00:00:00 [facility] Branch Hep B, Adol or Pedi 2022-07-13 Completed Unive rsity of Dosage 00:00:00 [facility] Branch Hep B, Adol or Pedi 2022-07-13 Completed Unive rsity of Dosage 00:00:00 [facility] Branch Hep B, Adol or Pedi 2022-07-13 Completed Unive rsity of Dosage 00:00:00 [facility] Branch Hep B, Adol or Pedi 2022-07-13 Completed Unive rsity of Dosage 00:00:00 [facility] Branch Hep B, Adol or Pedi 2022-07-13 Completed Unive rsity of Dosage 00:00:00 [facility] Branch Hep B, Adol or Pedi 2022-07-13 Completed Unive rsity of Dosage 00:00:00 [facility] Branch Hep B, Adol or Pedi 2022-07-13 Completed Unive rsity of Dosage 00:00:00 [facility] Branch Hep B, Adol or Pedi 2022-07-13 Completed Unive rsity of Dosage 00:00:00 [place] [facility] Hep B, Adol or Pedi 2022-07-13 Completed Unive rsity of Dosage 00:00:00 [facility] Branch Hep B, Adol or Pedi 2022-07-13 Completed Unive rsity of Dosage 00:00:00 [place] [facility] Branch Hep B, Adol or Pedi 2022-07-13 Completed Unive rsity of Dosage 00:00:00 [facility] Branch Hep B, Adol or Pedi 2022-07-13 Completed Unive rsity of Dosage 00:00:00 [place] [facility] Hep B, Adol or Pedi 2022-07-13 Completed Unive rsity of Dosage 00:00:00 [facility] Branch Hep B, Adol or Pedi 2022-07-13 Completed Unive rsity of Dosage 00:00:00 [facility] Branch Hep B, Adol or Pedi 2022-07-13 Completed Unive rsity of Dosage 00:00:00 [facility] Branch Hep B, Adol or Pedi 2022-07-13 Completed Unive rsity of Dosage 00:00:00 [facility] Branch Hep B, Adol or Pedi 2022-07-13 Completed Unive rsity of Dosage 00:00:00 [facility] Influenza Virus 2022-05-02 Completed Universit y of Vaccine 00:00:00 [facility] Influenza Virus 2022-05-02 Completed Universit y of Vaccine 00:00:00 [facility] Influenza Virus 2022-05-02 Completed Universit y of Vaccine 00:00:00 [facility] Influenza Virus 2022-05-02 Completed Universit y of Vaccine 00:00:00 [facility] Influenza Virus 2022-05-02 Completed Universit y of Vaccine 00:00:00 [facility] Influenza Virus 2022-05-02 Completed Universit y of Vaccine 00:00:00 [facility] Influenza Virus 2022-05-02 Completed Universit y of Vaccine 00:00:00 [facility] Influenza Virus 2022-05-02 Completed Universit y of Vaccine 00:00:00 [facility] Influenza Virus 2022-05-02 Completed Universit y of Vaccine 00:00:00 [facility] Influenza Virus 2022-05-02 Completed Universit y of Vaccine 00:00:00 [facility] Influenza Virus 2022-05-02 Completed Universit y of Vaccine 00:00:00 [facility] Influenza Virus 2022-05-02 Completed Universit y of Vaccine 00:00:00 [facility] Influenza Virus 2022-05-02 Completed Universit y of Vaccine 00:00:00 [facility] Influenza Virus 2022-05-02 Completed Universit y of Vaccine 00:00:00 [facility] Influenza Virus 2022-05-02 Completed Universit y of Vaccine 00:00:00 [facility] Influenza Virus 2022-05-02 Completed Universit y of Vaccine 00:00:00 [facility] Influenza Virus 2022-05-02 Completed Universit y of Vaccine 00:00:00 [facility] Influenza Virus 2022-05-02 Completed Universit y of Vaccine 00:00:00 [facility] Influenza Virus 2022-05-02 Completed Universit y of Vaccine 00:00:00 [facility] Influenza Virus 2022-05-02 Completed Universit y of Vaccine 00:00:00 [facility] Influenza Virus 2022-05-02 Completed Universit y of Vaccine 00:00:00 [facility] Influenza Virus 2022-05-02 Completed Universit y of Vaccine 00:00:00 [facility] Influenza Virus 2022-05-02 Completed Universit y of Vaccine 00:00:00 [facility] Influenza Virus 2022-05-02 Completed Universit y of Vaccine 00:00:00 [facility] SARS-COV-2 COVID-19 2021-08-05 Completed Unive rsity of MODERNA 0.25ML 00:00:00 [place] Medi artis BOOSTER VACCINE Branch SARS-COV-2 COVID-19 2021-08-05 Completed Unive rsity of MODERNA 0.25ML 00:00:00 [place] Medi artis BOOSTER VACCINE Branch SARS-COV-2 COVID-19 2021-08-05 Completed Unive rsity of MODERNA 0.25ML 00:00:00 [place] Medi artis BOOSTER VACCINE Branch SARS-COV-2 COVID-19 2021-08-05 Completed Unive rsity of MODERNA 0.25ML 00:00:00 [place] Medi artis BOOSTER VACCINE Branch SARS-COV-2 COVID-19 2021-08-05 Completed Unive rsity of MODERNA 0.25ML 00:00:00 [place] Medi artis BOOSTER VACCINE Branch SARS-COV-2 COVID-19 2021-08-05 Completed Unive rsity of MODERNA 0.25ML 00:00:00 [place] Medi artis BOOSTER VACCINE Branch SARS-COV-2 COVID-19 2021-08-05 Completed Unive rsity of MODERNA 0.25ML 00:00:00 [place] Medi artis BOOSTER VACCINE Branch SARS-COV-2 COVID-19 2021-08-05 Completed Unive rsity of MODERNA 0.25ML 00:00:00 [place] Medi artis BOOSTER VACCINE Branch SARS-COV-2 COVID-19 2021-08-05 Completed Unive rsity of MODERNA 0.25ML 00:00:00 [place] Medi artis BOOSTER VACCINE Branch SARS-COV-2 COVID-19 2021-08-05 Completed Unive rsity of MODERNA 0.25ML 00:00:00 [place] Medi artis BOOSTER VACCINE Branch SARS-COV-2 COVID-19 2021-08-05 Completed Unive rsity of MODERNA 0.25ML 00:00:00 [place] Medi artis BOOSTER VACCINE Branch SARS-COV-2 COVID-19 2021-08-05 Completed Unive rsity of MODERNA 0.25ML 00:00:00 [place] Medi artis BOOSTER VACCINE Branch SARS-COV-2 COVID-19 2021-08-05 Completed Unive rsity of MODERNA 0.25ML 00:00:00 [place] Medi artis BOOSTER VACCINE Branch SARS-COV-2 COVID-19 2021-08-05 Completed Unive rsity of MODERNA 0.25ML 00:00:00 [place] Medi artis BOOSTER VACCINE Branch SARS-COV-2 COVID-19 2021-08-05 Completed Unive rsity of MODERNA 0.25ML 00:00:00 [place] Medi artis BOOSTER VACCINE Branch SARS-COV-2 COVID-19 2021-08-05 Completed Unive rsity of MODERNA 0.25ML 00:00:00 [place] Medi artis BOOSTER VACCINE Branch SARS-COV-2 COVID-19 2021-08-05 Completed Unive rsity of MODERNA 0.25ML 00:00:00 [place] Medi artis BOOSTER VACCINE Branch SARS-COV-2 COVID-19 2021-08-05 Completed Unive rsity of MODERNA 0.25ML 00:00:00 [place] Medi artis BOOSTER VACCINE Branch SARS-COV-2 COVID-19 2021-08-05 Completed Unive rsity of MODERNA 0.25ML 00:00:00 [place] Medi artis BOOSTER VACCINE Branch SARS-COV-2 COVID-19 2021-08-05 Completed Unive rsity of MODERNA 0.25ML 00:00:00 [place] Medi artis BOOSTER VACCINE Branch SARS-COV-2 COVID-19 2021-08-05 Completed Unive rsity of MODERNA 0.25ML 00:00:00 [place] Medi artis BOOSTER VACCINE Branch SARS-COV-2 COVID-19 2021-08-05 Completed Unive rsity of MODERNA 0.25ML 00:00:00 [place] Medi artis BOOSTER VACCINE Branch SARS-COV-2 COVID-19 2021-08-05 Completed Unive rsity of MODERNA 0.25ML 00:00:00 [place] Medi artis BOOSTER VACCINE Branch SARS-COV-2 COVID-19 2021-08-05 Completed Unive rsity of MODERNA 0.25ML 00:00:00 [place] Medi artis BOOSTER VACCINE Branch SARS-COV-2 COVID-19 2021-08-05 Completed Unive rsity of MODERNA 0.25ML 00:00:00 [place] Medi artis BOOSTER VACCINE Branch SARS-COV-2 COVID-19 2021-08-05 Completed Unive rsity of MODERNA 0.25ML 00:00:00 [place] Medi artis BOOSTER VACCINE Branch SARS-COV-2 COVID-19 2021-08-05 Completed Unive rsity of MODERNA 0.25ML 00:00:00 [place] Medi artis BOOSTER VACCINE Branch SARS-COV-2 COVID-19 2021-08-05 Completed Unive rsity of MODERNA 0.25ML 00:00:00 [place] Medi artis BOOSTER VACCINE Branch SARS-COV-2 COVID-19 2021-08-05 Completed Unive rsity of MODERNA 0.25ML 00:00:00 [place] Medi artis BOOSTER VACCINE Branch SARS-COV-2 COVID-19 2021-08-05 Completed Unive rsity of MODERNA 0.25ML 00:00:00 [place] Medi artis BOOSTER VACCINE Branch SARS-COV-2 COVID-19 2021-08-05 Completed Unive rsity of MODERNA 0.25ML 00:00:00 [place] Medi artis BOOSTER VACCINE Branch SARS-COV-2 COVID-19 2021-08-05 Completed Unive rsity of MODERNA 0.25ML 00:00:00 [place] Medi artis BOOSTER VACCINE Branch SARS-COV-2 COVID-19 2021-08-05 Completed Unive rsity of MODERNA 0.25ML 00:00:00 [facility] artis BOOSTER VACCINE Branch SARS-COV-2 COVID-19 2021-08-05 Completed Unive rsity of MODERNA 0.25ML 00:00:00 [facility] artis BOOSTER VACCINE Branch SARS-COV-2 COVID-19 2021-08-05 Completed Unive rsity of MODERNA 0.25ML 00:00:00 [facility] artis BOOSTER VACCINE Branch Influenza Virus 2021-07-12 Completed Universit y of Vaccine 00:00:00 [facility] Influenza Virus 2021-07-12 Completed Universit y of Vaccine 00:00:00 [facility] Influenza Virus 2021-07-12 Completed Universit y of Vaccine 00:00:00 [facility] Influenza Virus 2021-07-12 Completed Universit y of Vaccine 00:00:00 [facility] Influenza Virus 2021-07-12 Completed Universit y of Vaccine 00:00:00 [facility] Influenza Virus 2021-07-12 Completed Universit y of Vaccine 00:00:00 [facility] Influenza Virus 2021-07-12 Completed Universit y of Vaccine 00:00:00 [facility] Influenza Virus 2021-07-12 Completed Universit y of Vaccine 00:00:00 [facility] Influenza Virus 2021-07-12 Completed Universit y of Vaccine 00:00:00 [facility] Influenza Virus 2021-07-12 Completed Universit y of Vaccine 00:00:00 [facility] Influenza Virus 2021-07-12 Completed Universit y of Vaccine 00:00:00 [facility] Influenza Virus 2021-07-12 Completed Universit y of Vaccine 00:00:00 [facility] Influenza Virus 2021-07-12 Completed Universit y of Vaccine 00:00:00 [facility] Influenza Virus 2021-07-12 Completed Universit y of Vaccine 00:00:00 [facility] Influenza Virus 2021-07-12 Completed Universit y of Vaccine 00:00:00 [facility] Influenza Virus 2021-07-12 Completed Universit y of Vaccine 00:00:00 [facility] Influenza Virus 2021-07-12 Completed Universit y of Vaccine 00:00:00 [facility] Influenza Virus 2021-07-12 Completed Universit y of Vaccine 00:00:00 [facility] Influenza Virus 2021-07-12 Completed Universit y of Vaccine 00:00:00 [facility] Influenza Virus 2021-07-12 Completed Universit y of Vaccine 00:00:00 [facility] Influenza Virus 2021-07-12 Completed Universit y of Vaccine 00:00:00 [facility] Influenza Virus 2021-07-12 Completed Universit y of Vaccine 00:00:00 [facility] Influenza Virus 2021-07-12 Completed Universit y of Vaccine 00:00:00 [facility] Influenza Virus 2021-07-12 Completed Universit y of Vaccine 00:00:00 [facility] Influenza Virus 2021-07-12 Completed Universit y of Vaccine 00:00:00 [facility] Influenza Virus 2021-07-12 Completed Universit y of Vaccine 00:00:00 [facility] Influenza Virus 2021-07-12 Completed Universit y of Vaccine 00:00:00 [facility] Influenza Virus 2021-07-12 Completed Universit y of Vaccine 00:00:00 [facility] Influenza Virus 2021-07-12 Completed Universit y of Vaccine 00:00:00 [facility] Influenza Virus 2021-07-12 Completed Universit y of Vaccine 00:00:00 [facility] [facility] 2021-07-12 Com[facility] Influenza Virus 2021-07-12 Completed [facility]00 [facility] Influenza Virus 2021-07-12 Completed [facility]00 [facility] Influenza Virus 2021-07-12 Completed [facility] 00:00[facility]00 [facility] Influenza Virus 2021-07-12 Completed [facility]00 [facility] SARS-COV-2 COVID-19 2020-09-02 Completed [facility] MODERNA VACCINE 00:00:00 [facility] SARS-COV-2 COVID-19 2020-09-02 Completed [facility]ERNA VACCINE 00:00:00 [facility] SARS-COV-2 COVID-19 2020-09-02 Completed [facility] MODERNA VACCINE 00:00:00 [facility] SARS-COV-2 COVID-19 2020-09-02 Completed [facility]NA VACCINE 00:00:00 [facility] SARS-COV-2 COVID-19 2020-09-02 Completed [facility]NA VACCINE 00:00:00 [facility] SARS-COV-2 COVID-19 2020-09-02 Completed [facility]NA VACCINE 00:00:00 [facility] SARS-COV-2 COVID-19 2020-09-02 Completed [facility]NA VACCINE 00:00:00 [facility] SARS-COV-2 COVID-19 2020-09-02 Completed [facility] MODERNA VACCINE 00:00:00 [facility] SARS-COV-2 COVID-19 2020-09-02 Completed [facility] MODERNA VACCINE 00:00:00 [facility] SARS-COV-2 COVID-19 2020-09-02 Completed [facility] MODERNA VACCINE 00:00:00 [facility] SARS-COV-2 COVID-19 2020-09-02 Completed [facility] MODERNA 12+ YRS 00:00:00 [facility] SARS-COV-2 COVID-19 2020-09-02 Completed [facility]ERNA 12+ YRS 00:00:00 [facility] SARS-COV-2 COVID-19 2020-09-02 Completed [facility]ERNA 12+ YRS 00:00:00 [facility] SARS-COV-2 COVID-19 2020-09-02 Completed [facility] MODERNA 12+ YRS 00:00:00 [facility] SARS-COV-2 COVID-19 2020-09-02 Completed [facility] MODERNA 12+ YRS 00:00:00 [facility] SARS-COV-2 COVID-19 2020-09-02 Completed [facility] MODERNA 12+ YRS 00:00:00 [facility] SARS-COV-2 COVID-19 2020-09-02 Completed [facility] MODERNA 12+ YRS 00:00:00 [facility] SARS-COV-2 COVID-19 2020-09-02 Completed [facility] MODERNA 12+ YRS 00:00:00 [facility] SARS-COV-2 COVID-19 2020-09-02 Completed [facility] MODERNA 12+ YRS 00:00:00 [facility] SARS-COV-2 COVID-19 2020-09-02 Completed [facility] MODERNA 12+ YRS 00:00:00 [facility] SARS-COV-2 COVID-19 2020-09-02 Completed [facility] MODERNA 12+ YRS 00:00:00 [facility] SARS-COV-2 COVID-19 2020-09-02 Completed [facility] MODERNA 12+ YRS 00:00:00 [facility] SARS-COV-2 COVID-19 2020-09-02 Completed [facility] MODERNA 12+ YRS 00:00:00 [facility] SARS-COV-2 COVID-19 2020-09-02 Completed [facility] MODERNA 12+ YRS 00:00:00 [facility] SARS-COV-2 COVID-19 2020-09-02 Completed [facility] MODERNA 12+ YRS 00:00:00 [facility] SARS-COV-2 COVID-19 2020-09-02 Completed [facility] MODERNA 12+ YRS 00:00:00 [facility] SARS-COV-2 COVID-19 2020-09-02 Completed [facility] MODERNA 12+ YRS 00:00:00 [facility] SARS-COV-2 COVID-19 2020-09-02 Completed [facility] MODERNA 12+ YRS 00:00:00 [facility] SARS-COV-2 COVID-19 2020-09-02 Completed [facility] MODERNA 12+ YRS 00:00:00 [facility] SARS-COV-2 COVID-19 2020-09-02 Completed [facility] MODERNA 12+ YRS 00:00:00 [facility] SARS-COV-2 COVID-19 2020-09-02 Completed [facility] MODERNA 12+ YRS 00:00:00 [facility] SARS-COV-2 COVID-19 2020-09-02 Completed [facility] MODERNA 12+ YRS 00:00:00 [facility] SARS-COV-2 COVID-19 2020-09-02 Completed [facility] MODERNA 12+ YRS 00:00:00 [facility] SARS-COV-2 COVID-19 2020-09-02 Completed [facility] MODERNA 12+ YRS 00:00:00 [facility] SARS-COV-2 COVID-19 2020-09-02 Completed [facility] MODERNA 12+ YRS 00:00:00 [facility] SARS-COV-2 COVID-19 2020-09-02 Completed [facility] MODERNA 12+ YRS 00:00:00 [facility] SARS-COV-2 COVID-19 2020-09-02 Completed [facility] MODERNA 12+ YRS 00:00:00 [facility] SARS-COV-2 COVID-19 2020-09-02 Completed [facility] MODERNA 12+ YRS 00:00:00 [facility] SARS-COV-2 COVID-19 2020-09-02 Completed [facility] MODERNA 12+ YRS 00:00:00 [facility] SARS-COV-2 COVID-19 2020-09-02 Completed [facility] MODERNA 12+ YRS 00:00:00 [facility] SARS-COV-2 COVID-19 2020-09-02 Completed [facility] MODERNA 12+ YRS 00:00:00 [facility] SARS-COV-2 COVID-19 2020-09-02 Completed [facility] MODERNA 12+ YRS 00:00:00 [facility] SARS-COV-2 COVID-19 2020-09-02 Completed [facility] MODERNA 12+ YRS 00:00:00 [facility] SARS-COV-2 COVID-19 2020-08-05 Completed [facility] MODERNA 12+ YRS 00:00:00 [facility] SARS-COV-2 COVID-19 2020-08-05 Completed [facility] MODERNA 12+ YRS 00:00:00 [facility] SARS-COV-2 COVID-19 2020-08-05 Completed [facility] MODERNA 12+ YRS 00:00:00 [facility] SARS-COV-2 COVID-19 2020-08-05 Completed [facility] MODERNA 12+ YRS 00:00:00 [facility] SARS-COV-2 COVID-19 2020-08-05 Completed [facility] MODERNA 12+ YRS 00:00:00 [facility] SARS-COV-2 COVID-19 2020-08-05 Completed [facility] MODERNA 12+ YRS 00:00:00 [facility] SARS-COV-2 COVID-19 2020-08-05 Completed [facility] MODERNA 12+ YRS 00:00:00 [facility] SARS-COV-2 COVID-19 2020-08-05 Completed [facility] MODERNA 12+ YRS 00:00:00 [facility] SARS-COV-2 COVID-19 2020-08-05 Completed [facility] MODERNA 12+ YRS 00:00:00 [facility] SARS-COV-2 COVID-19 2020-08-05 Completed [facility] MODERNA 12+ YRS 00:00:00 [facility] SARS-COV-2 COVID-19 2020-08-05 Completed [facility] MODERNA 12+ YRS 00:00:00 [facility] SARS-COV-2 COVID-19 2020-08-05 Completed [facility] MODERNA 12+ YRS 00:00:00 [facility] SARS-COV-2 COVID-19 2020-08-05 Completed [facility] MODERNA 12+ YRS 00:00:00 [facility] SARS-COV-2 COVID-19 2020-08-05 Completed [facility] MODERNA 12+ YRS 00:00:00 [facility] SARS-COV-2 COVID-19 2020-08-05 Completed [facility] MODERNA 12+ YRS 00:00:00 [facility] SARS-COV-2 COVID-19 2020-08-05 Completed [facility] MODERNA 12+ YRS 00:00:00 [facility] SARS-COV-2 COVID-19 2020-08-05 Completed [facility] MODERNA VACCINE 00:00:00 [facility] SARS-COV-2 COVID-19 2020-08-05 Completed [facility] MODERNA VACCINE 00:00:00 [facility] SARS-COV-2 COVID-19 2020-08-05 Completed [facility] MODERNA VACCINE 00:00:00 [facility] SARS-COV-2 COVID-19 2020-08-05 Completed [facility] MODERNA VACCINE 00:00:00 [facility] SARS-COV-2 COVID-19 2020-08-05 Completed [facility] MODERNA VACCINE 00:00:00 [facility] SARS-COV-2 COVID-19 2020-08-05 Completed [facility] MODERNA VACCINE 00:00:00 [facility] SARS-COV-2 COVID-19 2020-08-05 Completed [facility] MODERNA VACCINE 00:00:00 [facility] SARS-COV-2 COVID-19 2020-08-05 Completed [facility] MODERNA VACCINE 00:00:00 [facility] SARS-COV-2 COVID-19 2020-08-05 Completed [facility] MODERNA VACCINE 00:00:00 [facility] SARS-COV-2 COVID-19 2020-08-05 Completed [facility] MODERNA VACCINE 00:00:00 [facility] SARS-COV-2 COVID-19 2020-08-05 Completed [facility] MODERNA 12+ YRS 00:00:00 [facility] SARS-COV-2 COVID-19 2020-08-05 Completed [facility] MODERNA 12+ YRS 00:00:00 [facility] SARS-COV-2 COVID-19 2020-08-05 Completed [facility] MODERNA 12+ YRS 00:00:00 [facility] SARS-COV-2 COVID-19 2020-08-05 Completed [facility] MODERNA 12+ YRS 00:00:00 [facility] SARS-COV-2 COVID-19 2020-08-05 Completed [facility] MODERNA 12+ YRS 00:00:00 [facility] SARS-COV-2 COVID-19 2020-08-05 Completed [facility] MODERNA 12+ YRS 00:00:00 [facility] SARS-COV-2 COVID-19 2020-08-05 Completed [facility] MODERNA 12+ YRS 00:00:00 [facility] SARS-COV-2 COVID-19 2020-08-05 Completed [facility] MODERNA 12+ YRS 00:00:00 [facility] SARS-COV-2 COVID-19 2020-08-05 Completed [facility] MODERNA 12+ YRS 00:00:00 [facility] SARS-COV-2 COVID-19 2020-08-05 Completed [facility] MODERNA 12+ YRS 00:00:00 [facility] SARS-COV-2 COVID-19 2020-08-05 Completed [facility] MODERNA 12+ YRS 00:00:00 [facility] SARS-COV-2 COVID-19 2020-08-05 Completed [facility] MODERNA 12+ YRS 00:00:00 [facility] SARS-COV-2 COVID-19 2020-08-05 Completed [facility] MODERNA 12+ YRS 00:00:00 [facility] SARS-COV-2 COVID-19 2020-08-05 Completed [facility] MODERNA 12+ YRS 00:00:00 [facility] SARS-COV-2 COVID-19 2020-08-05 Completed [facility] MODERNA 12+ YRS 00:00:00 [facility] SARS-COV-2 COVID-19 2020-08-05 Completed [facility] MODERNA 12+ YRS 00:00:00 [facility] SARS-COV-2 COVID-19 2020-08-05 Completed [facility] MODERNA 12+ YRS 00:00:00 [facility] Pneumococcal 2020-05-21 Completed [facility] Polysaccharide, 00:00:00 [facility] PPSV23 (PNEUMOVAX) [facility] Pneumococcal 2020-05-21 Completed [facility] Polysaccharide, 00:00:00 [facility] PPSV23 (PNEUMOVAX) [facility] Pneumococcal 2020-05-21 Completed [facility] Polysaccharide, 00:00:00 [facility] PPSV23 (PNEUMOVAX) [facility] Pneumococcal 2020-05-21 Completed [facility] Polysaccharide, 00:00:00 [facility] PPSV23 (PNEUMOVAX) [facility] Pneumococcal 2020-05-21 Completed [facility] Polysaccharide, 00:00:00 [place] [facility] PPSV23 (PNEUMOVAX) [facility] Pneumococcal 2020-05-21 Completed [facility] Polysaccharide, 00:00:00 [place] [facility] PPSV23 (PNEUMOVAX) [facility] Pneumococcal 2020-05-21 Completed [facility] Polysaccharide, 00:00:00 [place] [facility] PPSV23 (PNEUMOVAX) [facility] Pneumococcal 2020-05-21 Completed [facility] Polysaccharide, 00:00:00 [place] [facility] PPSV23 (PNEUMOVAX) [facility] Pneumococcal 2020-05-21 Completed [facility] Polysaccharide, 00:00:00 [place] [facility] PPSV23 (PNEUMOVAX) [facility] Pneumococcal 2020-05-21 Completed [facility] Polysaccharide, 00:00:00 [place] [facility] PPSV23 (PNEUMOVAX) [facility] Pneumococcal 2020-05-21 Completed [facility] Polysaccharide, 00:00:00 [place] [facility] PPSV23 (PNEUMOVAX) [facility] Pneumococcal 2020-05-21 Completed [facility] Polysaccharide, 00:00:00 [place] [facility] PPSV23 (PNEUMOVAX) [facility] Pneumococcal 2020-05-21 Completed [facility] Polysaccharide, 00:00:00 [facility] PPSV23 (PNEUMOVAX) [facility] Pneumococcal 2020-05-21 Completed [facility] Polysaccharide, 00:00:00 [place] [facility] PPSV23 (PNEUMOVAX) [facility] Pneumococcal 2020-05-21 Completed [facility] Polysaccharide, 00:00:00 [place] [facility] PPSV23 (PNEUMOVAX) [facility] Pneumococcal 2020-05-21 Completed [facility] Polysaccharide, 00:00:00 [place] [facility] PPSV23 (PNEUMOVAX) [facility] Pneumococcal 2020-05-21 Completed [facility] Polysaccharide, 00:00:00 [place] [facility] PPSV23 (PNEUMOVAX) [facility] Pneumococcal 2020-05-21 Completed [facility] Polysaccharide, 00:00:00 [place] [facility] PPSV23 (PNEUMOVAX) [facility] Pneumococcal 2020-05-21 Completed [facility] Polysaccharide, 00:00:00 [place] [facility] PPSV23 (PNEUMOVAX) [facility] Pneumococcal 2020-05-21 Completed [facility] Polysaccharide, 00:00:00 [place] [facility] PPSV23 (PNEUMOVAX) [facility] Pneumococcal 2020-05-21 Completed [facility] Polysaccharide, 00:00:00 [place] [facility] PPSV23 (PNEUMOVAX) [facility] Pneumococcal 2020-05-21 Completed [facility] Polysaccharide, 00:00:00 [place] [facility] PPSV23 (PNEUMOVAX) [facility] Pneumococcal 2020-05-21 Completed [facility] Polysaccharide, 00:00:00 [place] [facility] PPSV23 (PNEUMOVAX) [facility] Pneumococcal 2020-05-21 Completed [facility] Polysaccharide, 00:00:00 [place] [facility] PPSV23 (PNEUMOVAX) [facility] Pneumococcal 2020-05-21 Completed [facility] Polysaccharide, 00:00:00 [place] [facility] PPSV23 (PNEUMOVAX) [facility] Pneumococcal 2020-05-21 Completed [facility] Polysaccharide, 00:00:00 [place] [facility] PPSV23 (PNEUMOVAX) Branch Pneumococcal 2020-05-21 Completed [facility] Polysaccharide, 00:00:00 [place] [facility] PPSV23 (PNEUMOVAX) Branch Pneumococcal 2020-05-21 Completed [facility] Polysaccharide, 00:00:00 [place] [facility] PPSV23 (PNEUMOVAX) Branch Pneumococcal 2020-05-21 Completed [facility] Polysaccharide, 00:00:00 [place] [facility] PPSV23 (PNEUMOVAX) Branch Pneumococcal 2020-05-21 Completed [facility] Polysaccharide, 00:00:00 [place] [facility] PPSV23 (PNEUMOVAX) Branch Pneumococcal 2020-05-21 Completed [facility] Polysaccharide, 00:00:00 [place] [facility] PPSV23 (PNEUMOVAX) Branch Pneumococcal 2020-05-21 Completed [facility] Polysaccharide, 00:00:00 [place] [facility] PPSV23 (PNEUMOVAX) Branch Pneumococcal 2020-05-21 Completed [facility] Polysaccharide, 00:00:00 [place] [facility] PPSV23 (PNEUMOVAX) Branch Pneumococcal 2020-05-21 Completed [facility] Polysaccharide, 00:00:00 [place] [facility] PPSV23 (PNEUMOVAX) Branch Pneumococcal 2020-05-21 Completed [facility] Polysaccharide, 00:00:00 [place] [facility] PPSV23 (PNEUMOVAX) Branch Pneumococcal 2020-05-21 Completed [facility] Polysaccharide, 00:00:00 [place] [facility] PPSV23 (PNEUMOVAX) Branch Pneumococcal 2020-05-21 Completed [facility] Polysaccharide, 00:00:00 [place] [facility] PPSV23 (PNEUMOVAX) Branch Pneumococcal 2020-05-21 Completed [facility] Polysaccharide, 00:00:00 [place] [facility] PPSV23 (PNEUMOVAX) Branch Pneumococcal 2020-05-21 Completed [facility] Polysaccharide, 00:00:00 [place] [facility] PPSV23 (PNEUMOVAX) Branch Pneumococcal 2020-05-21 Completed [facility] Polysaccharide, 00:00:00 [place] [facility] PPSV23 (PNEUMOVAX) Branch Pneumococcal 2020-05-21 Completed [facility] Polysaccharide, 00:00:00 [place] [facility] PPSV23 (PNEUMOVAX) Branch Pneumococcal 2020-05-21 Completed [facility] Polysaccharide, 00:00:00 [place] [facility] PPSV23 (PNEUMOVAX) Branch Pneumococcal 2020-05-21 Completed [facility] Polysaccharide, 00:00:00 [place] [facility] PPSV23 (PNEUMOVAX) Branch Pneumococcal 2020-05-21 Completed [facility] Polysaccharide, 00:00:00 [place] [facility] PPSV23 (PNEUMOVAX) Branch Pneumococcal 2020-05-21 Completed [facility] Polysaccharide, 00:00:00 [place] [facility] PPSV23 (PNEUMOVAX) Branch Pneumococcal 2020-05-21 Completed [facility] Polysaccharide, 00:00:00 [place] [facility] PPSV23 (PNEUMOVAX) Branch Pneumococcal 2020-05-21 Completed [facility] Polysaccharide, 00:00:00 [place] [facility] PPSV23 (PNEUMOVAX) Branch Pneumococcal 2020-05-21 Completed [facility] Polysaccharide, 00:00:00 [place] [facility] PPSV23 (PNEUMOVAX) Branch Pneumococcal 2020-05-21 Completed [facility] Polysaccharide, 00:00:00 [place] [facility] PPSV23 (PNEUMOVAX) Branch Pneumococcal 2020-05-21 Completed [facility] Polysaccharide, 00:00:00 [place] [facility] PPSV23 (PNEUMOVAX) Branch Pneumococcal 2020-05-21 Completed [facility] Polysaccharide, 00:00:00 [place] [facility] PPSV23 (PNEUMOVAX) Branch Pneumococcal 2020-05-21 Completed [facility] Polysaccharide, 00:00:00 [place] [facility] PPSV23 (PNEUMOVAX) Branch Pneumococcal 2020-05-21 Completed [facility] Polysaccharide, 00:00:00 [place] [facility] PPSV23 (PNEUMOVAX) Branch Pneumococcal 2020-05-21 Completed [facility] Polysaccharide, 00:00:00 [place] [facility] PPSV23 (PNEUMOVAX) Branch Pneumococcal 2020-05-21 Completed [facility] Polysaccharide, 00:00:00 [place] [facility] PPSV23 (PNEUMOVAX) Branch Pneumococcal 2020-05-21 Completed [facility] Polysaccharide, 00:00:00 [place] [facility] PPSV23 (PNEUMOVAX) Branch Pneumococcal 2020-05-21 Completed [facility] Polysaccharide, 00:00:00 [place] [facility] PPSV23 (PNEUMOVAX) Branch Pneumococcal 2020-05-21 Completed [facility] Polysaccharide, 00:00:00 [place] [facility] PPSV23 (PNEUMOVAX) Branch Pneumococcal 2020-05-21 Completed [facility] Polysaccharide, 00:00:00 [place] [facility] PPSV23 (PNEUMOVAX) Branch Pneumococcal 2020-05-21 Completed [facility] Polysaccharide, 00:00:00 [place] [facility] PPSV23 (PNEUMOVAX) Branch Pneumococcal 2020-05-21 Completed [facility] Polysaccharide, 00:00:00 [place] [facility] PPSV23 (PNEUMOVAX) Branch Pneumococcal 2020-05-21 Completed [facility] Polysaccharide, 00:00:00 [place] [facility] PPSV23 (PNEUMOVAX) Branch Pneumococcal 2020-05-21 Completed [facility] Polysaccharide, 00:00:00 [place] [facility] PPSV23 (PNEUMOVAX) Branch Pneumococcal 2020-05-21 Completed [facility] Polysaccharide, 00:00:00 [place] [facility] PPSV23 (PNEUMOVAX) Branch Pneumococcal 2020-05-21 Completed [facility] Polysaccharide, 00:00:00 [place] [facility] PPSV23 (PNEUMOVAX) Branch Pneumococcal 2020-05-21 Completed [facility] Polysaccharide, 00:00:00 [place] [facility] PPSV23 (PNEUMOVAX) Branch Pneumococcal 2020-05-21 Completed [facility] Polysaccharide, 00:00:00 [place] [facility] PPSV23 (PNEUMOVAX) Branch Pneumococcal 2020-05-21 Completed [facility] Polysaccharide, 00:00:00 [place] [facility] PPSV23 (PNEUMOVAX) Branch Pneumococcal 2020-05-21 Completed [facility] Polysaccharide, 00:00:00 [place] [facility] PPSV23 (PNEUMOVAX) Branch Pneumococcal 2020-05-21 Completed [facility] Polysaccharide, 00:00:00 [place] [facility] PPSV23 (PNEUMOVAX) Branch Pneumococcal 2020-05-21 Completed [facility] Polysaccharide, 00:00:00 [place] [facility] PPSV23 (PNEUMOVAX) Branch Pneumococcal 2020-05-21 Completed [facility] Polysaccharide, 00:00:00 [place] [facility] PPSV23 (PNEUMOVAX) Branch Pneumococcal 2020-05-21 Completed [facility] Polysaccharide, 00:00:00 [place] [facility] PPSV23 (PNEUMOVAX) [facility] Influenza Virus 2020-04-29 Completed [facility]00 [facility] Influenza Virus 2020-04-29 Completed [facility] Vaccine 00:00:00 [facility] Influenza Virus 2020-04-29 Completed [facility] Vaccine 00:00:00 [facility] Influenza Virus 2020-04-29 Completed [facility] Vaccine 00:00:00 [facility] Influenza Virus 2020-04-29 Completed [facility] Vaccine 00:00:00 [facility] Influenza Virus 2020-04-29 Completed [facility] Vaccine 00:00:00 [facility] Influenza Virus 2020-04-29 Completed [facility] Vaccine 00:00:00 [facility] Influenza Virus 2020-04-29 Completed [facility] Vaccine 00:00:00 [facility] Influenza Virus 2020-04-29 Completed [facility] Vaccine 00:00:00 [facility] Influenza Virus 2020-04-29 Completed [facility] Vaccine 00:00:00 [facility] Influenza Virus 2020-04-29 Completed [facility] Vaccine 00:00:00 [facility] Influenza Virus 2020-04-29 Completed [facility] Vaccine 00:00:00 [facility] Influenza Virus 2020-04-29 Completed [facility]ine 00:00:00 [facility] Influenza Virus 2020-04-29 Completed [facility] Vaccine 00:00:00 [facility] Influenza Virus 2020-04-29 Completed [facility] Vaccine 00:00:00 [facility] Influenza Virus 2020-04-29 Completed [facility]ine 00:00:00 [facility] Influenza Virus 2020-04-29 Completed [facility] Vaccine 00:00:00 [facility] Influenza Virus 2020-04-29 Completed [facility] Vaccine 00:00:00 [facility] Influenza Virus 2020-04-29 Completed [facility] Vaccine 00:00:00 [facility] Influenza Virus 2020-04-29 Completed [facility] Vaccine 00:00:00 [facility] Influenza Virus 2020-04-29 Completed [facility] Vaccine 00:00:00 [facility] Influenza Virus 2020-04-29 Completed [facility] Vaccine 00:00:00 [facility] Influenza Virus 2020-04-29 Completed [facility] Vaccine 00:00:00 [facility] Influenza Virus 2020-04-29 Completed [facility]ine 00:00:00 [facility] Influenza Virus 2020-04-29 Completed [facility] Vaccine 00:00:00 [facility] Influenza Virus 2020-04-29 Completed [facility] Vaccine 00:00:00 [facility] Influenza Virus 2020-04-29 Completed [facility] Vaccine 00:00:00 [facility] Influenza Virus 2020-04-29 Completed [facility] Vaccine 00:00:00 [facility] Influenza Virus 2020-04-29 Completed [facility] Vaccine 00:00:00 [facility] Influenza Virus 2020-04-29 Completed [facility] Vaccine 00:00:00 [facility] Influenza Virus 2020-04-29 Completed [facility] Vaccine 00:00:00 [facility] Influenza Virus 2020-04-29 Completed [facility] Vaccine 00:00:00 [facility] Influenza Virus 2020-04-29 Completed [facility] Vaccine 00:00:00 [facility] Influenza Virus 2020-04-29 Completed [facility] Vaccine 00:00:00 [facility] Influenza Virus 2020-04-29 Completed [facility] Vaccine 00:00:00 [facility] Influenza Virus 2020-04-29 Completed [facility]ine 00:00:00 [facility] Influenza Virus 2020-04-29 Completed [facility]ine 00:00:00 [facility] Influenza Virus 2020-04-29 Completed [facility]ine 00:00:00 [facility] Influenza Virus 2020-04-29 Completed [facility]ine 00:00:00 [facility] Influenza Virus 2020-04-29 Completed [facility]ine 00:00:00 [facility] Influenza Virus 2020-04-29 Completed [facility]ine 00:00:00 [facility] Influenza Virus 2020-04-29 Completed [facility]ine 00:00:00 [facility] Influenza Virus 2020-04-29 Completed [facility]ine 00:00:00 [facility] Influenza Virus 2020-04-29 Completed [facility]ine 00:00:00 [facility] Influenza Virus 2020-04-29 Completed [facility]ine 00:00:00 [facility] Influenza Virus 2020-04-29 Completed [facility]ine 00:00:00 [facility] Influenza Virus 2020-04-29 Completed [facility]ine 00:00:00 [facility] Influenza Virus 2020-04-29 Completed [facility]ine 00:00:00 [facility] Influenza Virus 2020-04-29 Completed [facility]ine 00:00:00 [facility] Influenza Virus 2020-04-29 Completed [facility]ine 00:00:00 [facility] Influenza Virus 2020-04-29 Completed [facility]ine 00:00:00 [facility] Influenza Virus 2020-04-29 Completed [facility]ine 00:00:00 [facility] Influenza Virus 2020-04-29 Completed [facility]ine 00:00:00 [facility] Influenza Virus 2020-04-29 Completed [facility]ine 00:00:00 [facility] Influenza Virus 2020-04-29 Completed [facility]ine 00:00:00 [facility] Influenza Virus 2020-04-29 Completed [facility]ine 00:00:00 [facility] Influenza Virus 2020-04-29 Completed [facility]ine 00:00:00 [facility] Influenza Virus 2020-04-29 Completed [facility]ine 00:00:00 [facility] Influenza Virus 2020-04-29 Completed [facility] 00:00:00 [facility] Influenza Virus 2020-04-29 Completed [facility] 00:00:00 [facility] Influenza Virus 2020-04-29 [facility] Influenza Virus 2020-04-29 Completed [facility]00[facility]00 [facility] Influenza Virus 2020-04-29 Completed [facility] 00[facility]00:00 [facility] Influenza Virus 2020-04-29 Completed [facility] 00:00:00 [facility] Influenza Virus 2020-04-29 Completed [facility] 00:00:00 [facility] Influenza Virus 2020-04-29 Completed [facility] 00:00:00 [facility] Influenza Virus 2020-04-29 Completed [facility] 00:00:00 [facility] Influenza Virus 2020-04-29 Completed [facility] 00:00:00 [facility] Influenza Virus 2020-04-29 Completed [facility] 00[facility]00:00 [facility] Influenza Virus 2020-04-29 Completed [facility] 00:00:00 [facility] Influenza Virus 2019-04-30 Completed [facility] Vaccine Quad .5 mL 00:00:00 [facility] 6[facility] Influenza Virus 2019-04-30 Completed [facility] Vaccine Quad .5 mL 00:00:00 [facility] IM 6+ [facility] Influenza Virus 2019-04-30 Completed [facility] Vaccine Quad .5 mL 00:00:00 [facility] IM 6+ [facility] Influenza Virus 2019-04-30 Completed [facility] Vaccine Quad .5 mL 00:00:00 [facility] IM 6+ [facility] Influenza Virus 2019-04-30 Completed [facility] Vaccine Quad .5 mL 00:00:00 [facility] [place] 6+ MO [facility] Influenza Virus 2019-04-30 Completed [facility] Vaccine Quad .5 mL 00:00:00 [facility] Influenza Virus 2019-04-30 Completed [facility] Vaccine Quad .5 mL 00:00:00 [facility] Influenza Virus 2019-04-30 Completed [facility] Vaccine Quad .5 mL 00:00:00 [facility] Influenza Virus 2019-04-30 Completed [facility] Vaccine Quad .5 mL 00:00:00 [facility] Influenza Virus 2019-04-30 Completed [facility] Vaccine Quad .5 mL 00:00:00 [facility] Influenza Virus 2019-04-30 Completed [facility] Vaccine Quad .5 mL 00:00:00 [facility] Influenza Virus 2019-04-30 Completed [facility] Quad .5 mL 00:00:00 [facility] Influenza Virus 2019-04-30 Completed [facility] Vaccine Quad .5 mL 00:00:00 [facility] Influenza Virus 2019-04-30 Completed [facility] Vaccine Quad .5 mL 00:00:00 [facility] Influenza Virus 2019-04-30 Completed [facility] Quad .5 mL 00:00:00 [facility] Influenza Virus 2019-04-30 Completed [facility] Vaccine Quad .5 mL 00:00:00 [facility] Influenza Virus 2019-04-30 Completed [facility] Quad .5 mL 00:00:00 [facility] Influenza Virus 2019-04-30 Completed [facility] Quad .5 mL 00:00:00 [facility] Influenza Virus 2019-04-30 Completed [facility]ine Quad .5 mL 00:00:00 [facility] Influenza Virus 2019-04-30 Completed [facility] Vaccine Quad .5 mL 00:00:00 [facility] Influenza Virus 2019-04-30 Completed [facility]ine Quad .5 mL 00:00:00 [facility] Influenza Virus 2019-04-30 Completed [facility] Vaccine Quad .5 mL 00:00:00 [facility] Influenza Virus 2019-04-30 Completed [facility] Vaccine Quad .5 mL 00:00:00 [facility] Influenza Virus 2019-04-30 Completed [facility] Vaccine Quad .5 mL 00:00:00 [facility] Influenza Virus 2019-04-30 Completed [facility] Vaccine Quad .5 mL 00:00:00 [facility] Influenza Virus 2019-04-30 Completed [facility] Vacc[facility] Quad .5 mL 00:00:00 [facility] Influenza Virus 2019-04-30 Completed [facility]ine Quad .5 mL 00:00:00 [facility] Influenza Virus 2019-04-30 Completed [facility] Vaccine Quad .5 mL 00:00:00 [facility] Influenza Virus 2019-04-30 Completed [facility]ine Quad .5 mL 00:00:00 [facility] Influenza Virus 2019-04-30 Completed [facility]ine Quad .5 mL 00:00:00 [facility] Influenza Virus 2019-04-30 Completed [facility] Vaccine Quad .5 mL 00:00:00 [facility] Influenza Virus 2019-04-30 Completed [facility] Vaccine Quad .5 mL 00:00:00 [facility] Influenza Virus 2019-04-30 Completed [facility]ine Quad .5 mL 00:00:00 [facility] Influenza Virus 2019-04-30 Completed [facility]ine Quad .5 mL 00:00:00 [facility] Influenza Virus 2019-04-30 Completed [facility] Vaccine Quad .5 mL 00:00:00 [facility] 6[facility] Influenza Virus 2019-04-30 Completed [facility] Vaccine Quad .5 mL 00:00:00 [facility] 6[facility] Influenza Virus 2019-04-30 Completed [facility] Vaccine Quad .5 mL 00:00:00 [facility] 6[facility] Influenza Virus 2019-04-30 Completed [facility] Vaccine Quad .5 mL 00:00:00 [facility] Influenza Virus 2019-04-30 Completed [facility] Vaccine Quad .5 mL 00:00:00 [facility] 6[facility] Influenza Virus 2019-04-30 Completed [facility] Vaccine Quad .5 mL 00:00:00 [facility] Influenza Virus 2019-04-30 Completed [facility] Vaccine Quad .5 mL 00:00:00 [facility] Influenza Virus 2019-04-30 Completed [facility] Vaccine Quad .5 mL 00:00:00 [facility] Influenza Virus 2019-04-30 Completed [facility] Vaccine Quad .5 mL 00:00:00 [facility] Influenza Virus 2019-04-30 Completed [facility] Vaccine Quad .5 mL 00:00:00 [facility] 6[facility] Influenza Virus 2019-04-30 Completed [facility] Vaccine Quad .5 mL 00:00:00 [facility] Influenza Virus 2019-04-30 Completed [facility] Vaccine Quad .5 mL 00:00:00 [facility] Influenza Virus 2019-04-30 Completed [facility] Vaccine Quad .5 mL 00:00:00 [facility] Influenza Virus 2019-04-30 Completed [facility] Vaccine Quad .5 mL 00:00:00 [facility] Influenza Virus 2019-04-30 Completed [facility]ine Quad .5 mL 00:00:00 [facility] Influenza Virus 2019-04-30 Completed [facility]ine Quad .5 mL 00:00:00 [facility] Influenza Virus 2019-04-30 Completed [facility] Vaccine Quad .5 mL 00:00:00 [facility] Influenza Virus 2019-04-30 Completed [facility] Vaccine Quad .5 mL 00:00:00 [facility] Influenza Virus 2019-04-30 Completed [facility] Vaccine Quad .5 mL 00:00:00 [facility] Influenza Virus 2019-04-30 Completed [facility] Vaccine Quad .5 mL 00:00:00 [facility] Influenza Virus 2019-04-30 Completed [facility] Vaccine Quad .5 mL 00:00:00 [facility] Influenza Virus 2019-04-30 Completed [facility] Vaccine Quad .5 mL 00:00:00 [facility] Influenza Virus 2019-04-30 Completed [facility] Vaccine Quad .5 mL 00:00:00 [facility] Influenza Virus 2019-04-30 Completed [facility] Vaccine Quad .5 mL 00:00:00 [facility] Influenza Virus 2019-04-30 Completed [facility] Vaccine Quad .5 mL 00:00:00 [facility] Influenza Virus 2019-04-30 Completed [facility] Vaccine Quad .5 mL 00:00:00 [facility] Influenza Virus 2019-04-30 Completed [facility] Vaccine Quad .5 mL 00:00:00 [facility] Influenza Virus 2019-04-30 Completed [facility] Vaccine Quad .5 mL 00:00:00 [facility] Influenza Virus 2019-04-30 Completed [facility] Vaccine Quad .5 mL 00:00:00 [facility] Influenza Virus 2019-04-30 Completed [facility] Vaccine Quad .5 mL 00:00:00 [facility] Influenza Virus 2019-04-30 Completed [facility] Vaccine Quad .5 mL 00:00:00 [facility] Influenza Virus 2019-04-30 Completed [facility] Vaccine Quad .5 mL 00:00:00 [facility] Influenza Virus 2019-04-30 Completed [facility] Vaccine Quad .5 mL 00:00:00 [facility] Influenza Virus 2019-04-30 Completed [facility] Vaccine Quad .5 mL 00:00:00 [facility] Influenza Virus 2019-04-30 Completed [facility]ine Quad .5 mL 00:00:00 [facility] Influenza Virus 2019-04-30 Completed [facility]ine Quad .5 mL 00:00:00 [facility] Influenza Virus 2019-04-30 Completed [facility] Vaccine Quad .5 mL 00:00:00 [facility] Influenza Virus 2019-04-30 Completed [facility] Vaccine Quad .5 mL 00:00:00 [facility] Influenza Virus 2019-04-30 Completed [facility] Vaccine Quad .5 mL 00:00:00 [facility] Influenza Virus 2019-04-30 Completed [facility] Vaccine Quad .5 mL 00:00:00 [facility] Influenza Virus 2019-04-30 Completed [facility] Vaccine Quad .5 mL 00:00:00 [facility] Influenza Virus 2019-04-30 Completed [facility] Vaccine Quad .5 mL 00:00:00 [facility] Influenza Virus 2019-04-30 Completed [facility] Vaccine Quad .5 mL 00:00:00 [facility] Influenza Virus 2019-04-30 Completed [facility] Vaccine Quad .5 mL 00:00:00 [facility] Influenza Virus 2019-04-30 Completed [facility] Vaccine Quad .5 mL 00:00:00 [facility] Influenza Virus 2019-04-30 Completed [facility] Vaccine Quad .5 mL 00:00:00 [facility] Influenza Virus 2019-04-30 Completed [facility] Vaccine Quad .5 mL 00:00:00 [facility] Influenza Virus 2019-04-30 Completed [facility] Vaccine Quad .5 mL 00:00:00 [facility] Influenza Virus 2019-04-30 Completed [facility] Vaccine Quad .5 mL 00:00:00 [facility] Influenza Virus 2019-04-30 Completed [facility] Vaccine Quad .5 mL 00:00:00 [facility] Influenza Virus 2019-04-30 Completed [facility] Vaccine Quad .5 mL 00:00:00 [facility] Influenza Virus 2019-04-30 Completed [facility] Vaccine Quad .5 mL 00:00:00 [facility] Influenza Virus 2019-04-30 Completed [facility] Vaccine Quad .5 mL 00:00:00 [facility] Influenza Virus 2019-04-30 Completed [facility] Vaccine Quad .5 mL 00:00:00 [facility] Influenza Virus 2019-04-30 Completed [facility] Vaccine Quad .5 mL 00:00:00 [facility] Influenza Virus 2019-04-30 Completed [facility] Vaccine Quad .5 mL 00:00:00 [facility] Influenza Virus 2019-04-30 Completed [facility] Vaccine Quad .5 mL 00:00:00 [facility] Influenza Virus 2019-04-30 Completed [facility] Vaccine Quad .5 mL 00:00:00 [facility] Influenza Virus 2019-04-30 Completed [facility] Vaccine Quad .5 mL 00:00:00 [facility] Influenza Virus 2019-04-30 Completed [facility] Vaccine Quad .5 mL 00:00:00 [facility] Influenza Virus 2019-04-30 Completed [facility] Vaccine Quad .5 mL 00:00:00 [facility] Influenza Virus 2019-04-30 Completed [facility] Vaccine Quad .5 mL 00:00:00 [facility] Influenza Virus 2019-04-30 Completed [facility] Vaccine Quad .5 mL 00:00:00 [facility] Influenza Virus 2019-04-30 Completed [facility] Vaccine Quad .5 mL 00:00:00 [facility] Influenza Virus 2019-04-30 Completed [facility] Vaccine Quad .5 mL 00:00:00 [facility] Influenza Virus 2019-04-30 Completed [facility] Vaccine Quad .5 mL 00:00:00 [facility] Influenza Virus 2019-04-30 Completed [facility] Quad .5 mL 00:00:00 [facility] Influenza Virus 2019-04-30 Completed [facility]ine Quad .5 mL 00:00:00 [facility] Influenza Virus 2019-04-30 Completed [facility] Vaccine Quad .5 mL 00:00:00 [facility] 6[facility] Influenza Virus 2019-04-30 Completed [facility] Quad .5 mL 00:00:00 [facility] 6[facility] MO [facility] Influenza Virus 2019-04-30 Completed [facility] Vaccine Quad .5 mL 00:00:00 [facility] 6[facility] MO [facility] Influenza Virus 2019-04-30 Completed [facility] Vaccine Quad .5 mL 00:00:00 [facility] 6+ [facility] Influenza Virus 2019-04-30 Completed [facility] Vaccine Quad .5 mL 00:00:00 [facility] 6[facility] Influenza Virus 2019-04-30 Completed [facility] Vacc[facility] Quad .5 mL 00:00:00 [facility] 6[facility] Influenza Virus 2019-04-30 Completed [facility] Quad .5 mL 00:00:00 [facility] 6+ MO [facility] Influenza Virus 2019-04-30 Completed [facility] Vaccine Quad .5 mL 00:00:00 [facility] 6[facility] MO [facility] Influenza Virus 2019-04-30 Completed [facility] Vaccine Quad .5 mL 00:00:00 [facility] 6[facility] Influenza Virus 2019-04-30 Completed [facility] Vaccine Quad .5 mL 00:00:00 [facility] 6+ MO [facility] Influenza Virus 2018-07-20 Completed [facility] 00:00:00 [facility] Influenza Virus 2018-07-20 Completed [facility] 00:00:00 [facility] Influenza Virus 2018-07-20 Completed [facility] 00:00:00 [facility] Influenza Virus 2018-07-20 Completed [facility] 00:00:00 [facility] Influenza Virus 2018-07-20 Completed [facility] 00:00:00 [facility] Influenza Virus 2018-07-20 Completed [facility] 00:00:00 [facility] Influenza Virus 2018-07-20 Completed [facility] 00:00:00 [facility] Influenza Virus 2018-07-20 Completed [facility] 00:00:00 [facility] Influenza Virus 2018-07-20 Completed [facility] 00:00:00 [facility] Influenza Virus 2018-07-20 Completed [facility] 00:00:00 [facility] Influenza Virus 2018-07-20 Completed [facility] 00:00:00 [facility] Influenza Virus 2018-07-20 Completed [facility] 00:00:00 [facility] Influenza Virus 2018-07-20 Completed [facility] 00:00:00 [facility] Influenza Virus 2018-07-20 Completed [facility] 00:00:00 [facility] Influenza Virus 2018-07-20 Completed [facility] 00:00:00 [facility] Influenza Virus 2018-07-20 Completed [facility] 00:00:00 [facility] Influenza Virus 2018-07-20 Completed [facility] 00:00:00 [facility] Influenza Virus 2018-07-20 Completed [facility] 00:00:00 [facility] Influenza Virus 2018-07-20 Completed [facility] 00:00:00 [facility] Influenza Virus 2018-07-20 Completed [facility] 00:00:00 [facility] Influenza Virus 2018-07-20 Completed [facility] 00:00:00 [facility] Influenza Virus 2018-07-20 Completed [facility] 00:00:00 [facility] Influenza Virus 2018-07-20 Completed [facility] 00:00:00 [facility] Influenza Virus 2018-07-20 Completed [facility] 00:00:00 [facility] Influenza Virus 2018-07-20 Completed [facility] 00:00:00 [facility] Influenza Virus 2018-07-20 Completed [facility] 00:00:00 [facility] Influenza Virus 2018-07-20 Completed [facility] 00:00:00 [facility] Influenza Virus 2018-07-20 Completed [facility] 00:00:00 [facility] Influenza Virus 2018-07-20 Completed [facility] 00:00:00 [facility] Influenza Virus 2018-07-20 Completed [facility] 00:00:00 [facility] Influenza Virus 2018-07-20 Completed [facility] 00:00:00 [facility] Influenza Virus 2018-07-20 Completed [facility] 00:00:00 [facility] Influenza Virus 2018-07-20 Completed [facility] 00:00:00 [facility] Influenza Virus 2018-07-20 Completed [facility] 00:00:00 [facility] Influenza Virus 2018-07-20 Completed [facility] 00:00:00 [facility] Influenza Virus 2018-07-20 Completed [facility] 00:00:00 [facility] Influenza Virus 2018-07-20 Completed [facility] 00:00:00 [facility] Influenza Virus 2018-07-20 Completed [facility] 00:00:00 [facility] Influenza Virus 2018-07-20 Completed [facility] 00:00:00 [facility] Influenza Virus 2018-07-20 Completed [facility] 00:00:00 [facility] Influenza Virus 2018-07-20 Completed [facility] 00:00:00 [facility] Influenza Virus 2018-07-20 Completed [facility] 00:00:00 [facility] Influenza Virus 2018-07-20 Completed [facility] 00:00:00 [facility] Influenza Virus 2018-07-20 Completed [facility] 00:00:00 [facility] Influenza Virus 2018-07-20 Completed [facility] 00:00:00 [facility] Influenza Virus 2018-07-20 Completed [facility] 00:00:00 [facility] Influenza Virus 2018-07-20 Completed [facility] 00:00:00 [facility] Influenza Virus 2018-07-20 Completed [facility] 00:00:00 [facility] Influenza Virus 2018-07-20 Completed [facility] 00:00:00 [facility] Influenza Virus 2018-07-20 Completed [facility] 00:00:00 [facility] Influenza Virus 2018-07-20 Completed [facility] 00:00:00 [facility] Influenza Virus 2018-07-20 Completed [facility] 00:00:00 [facility] Influenza Virus 2018-07-20 Completed [facility] 00:00:00 [facility] Influenza Virus 2018-07-20 Completed [facility] 00:00:00 [facility] Influenza Virus 2018-07-20 Completed [facility] 00:00:00 [facility] Influenza Virus 2018-07-20 Completed [facility] 00:00:00 [facility] Influenza Virus 2018-07-20 Completed [facility] 00:00:00 [facility] Influenza Virus 2018-07-20 Completed [facility] 00:00:00 [facility] Influenza Virus 2018-07-20 Completed [facility] 00:00:00 [facility] Influenza Virus 2018-07-20 Completed [facility] 00:00:00 [facility] Influenza Virus 2018-07-20 Completed [facility] 00:00:00 [facility] Influenza Virus 2018-07-20 Completed [facility] 00:00:00 [facility] Influenza Virus 2018-07-20 Completed [facility] 00:00:00 [facility] Influenza Virus 2018-07-20 Completed [facility] 00:00:00 [facility] Influenza Virus 2018-07-20 Completed [facility] 00:00:00 [facility] Influenza Virus 2018-07-20 Completed [facility] 00:00:00 [facility] Influenza Virus 2018-07-20 Completed [facility] 00:00:00 [facility] Influenza Virus 2018-07-20 Completed [facility] 00:00:00 [facility] Influenza Virus 2018-07-20 Completed [facility] 00:00:00 [facility] Influenza Virus 2018-07-20 Completed [facility] 00:00:00 [facility] Fluzone Quadrivalent 2018-04-25 Completed [facility] 0.5 ML Intramuscular 09:10:00 [facility] Influenza Virus 2017-03-31 Completed [facility] 00:00:00 [facility] Influenza Virus 2017-03-31 Completed [facility] 00:00:00 [facility] Influenza Virus 2017-03-31 Completed [facility] 00:00:00 [facility] Influenza Virus 2017-03-31 Completed [facility] 00:00:00 [facility] Influenza Virus 2017-03-31 Completed [facility] 00:00:00 [facility] Influenza Virus 2017-03-31 Completed [facility] 00:00:00 [facility] Influenza Virus 2017-03-31 Completed [facility] 00:00:00 [facility] Influenza Virus 2017-03-31 Completed [facility] 00:00:00 [facility] Influenza Virus 2017-03-31 Completed [facility] 00:00:00 [facility] Influenza Virus 2017-03-31 Completed [facility] 00:00:00 [facility] Influenza Virus 2017-03-31 Completed [facility] 00:00:00 [facility] Influenza Virus 2017-03-31 Completed [facility] 00:00:00 [facility] Influenza Virus 2017-03-31 Completed [facility] 00:00:00 [facility] Influenza Virus 2017-03-31 Completed [facility] 00:00:00 [facility] Influenza Virus 2017-03-31 Completed [facility] 00:00:00 [facility] Influenza Virus 2017-03-31 Completed [facility] 00:00:00 [facility] Influenza Virus 2017-03-31 Completed [facility] 00:00:00 [facility] Influenza Virus 2017-03-31 Completed [facility] 00:00:00 [facility] Influenza Virus 2017-03-31 Completed [facility] 00:00:00 [facility] Influenza Virus 2017-03-31 Completed [facility] 00:00:00 [facility] Influenza Virus 2017-03-31 Completed [facility] 00:00:00 [facility] Influenza Virus 2017-03-31 Completed [facility] 00:00:00 [facility] Influenza Virus 2017-03-31 Completed [facility] 00:00:00 [facility] Influenza Virus 2017-03-31 Completed [facility] 00:00:00 [facility] Influenza Virus 2017-03-31 Completed [facility] 00:00:00 [facility] Influenza Virus 2017-03-31 Completed [facility] 00:00:00 [facility] Influenza Virus 2017-03-31 Completed [facility] 00:00:00 [facility] Influenza Virus 2017-03-31 Completed [facility] 00:00:00 [facility] Influenza Virus 2017-03-31 Completed [facility] 00:00:00 [facility] Influenza Virus 2017-03-31 Completed [facility] 00:00:00 [facility] Influenza Virus 2017-03-31 Completed [facility] 00:00:00 [facility] Influenza Virus 2017-03-31 Completed [facility] 00:00:00 [facility] Influenza Virus 2017-03-31 Completed [facility] 00:00:00 [facility] Influenza Virus 2017-03-31 Completed [facility] 00:00:00 [facility] Influenza Virus 2017-03-31 Completed [facility] 00:00:00 [facility] Influenza Virus 2017-03-31 Completed [facility] 00:00:00 [facility] Influenza Virus 2017-03-31 Completed [facility] 00:00:00 [facility] Influenza Virus 2017-03-31 Completed [facility] 00:00:00 [facility] Influenza Virus 2017-03-31 Completed [facility] 00:00:00 [facility] Influenza Virus 2017-03-31 Completed [facility] 00:00:00 [facility] Influenza Virus 2017-03-31 Completed [facility] 00:[facility]00 [facility] Influenza Virus 2017-03-31 Completed [facility] 00[facility]00[facility]00 [facility] Influenza Virus 2017-03-31 Completed [facility] 00:00:00 [facility] Influenza Virus 2017-03-31 Completed [facility] 00:00:00 [facility] Influenza Virus 2017-03-31 Completed [facility]ine 00:00:00 [facility] Influenza Virus 2017-03-31 Completed [facility] Vaccine 00:00:00 [facility] Influenza Virus 2017-03-31 Completed [facility] Vaccine 00:00:00 [facility] Influenza Virus 2017-03-31 Completed [facility] Vaccine 00:00:00 [facility] Influenza Virus 2017-03-31 Completed [facility]ine 00:00:00 [facility] Influenza Virus 2017-03-31 Completed [facility]ine 00:00:00 [facility] Influenza Virus 2017-03-31 Completed [facility] Vaccine 00:00:00 [facility] Influenza Virus 2017-03-31 Completed [facility]ine 00:00:00 [facility] Influenza Virus 2017-03-31 Completed [facility]ine 00:00:00 [facility] Influenza Virus 2017-03-31 Completed [facility]ine 00:00:00 [facility] Influenza Virus 2017-03-31 Completed [facility]ine 00:00:00 [facility] Influenza Virus 2017-03-31 Completed [facility] Vaccine 00:00:00 [facility] Influenza Virus 2017-03-31 Completed [facility] Vaccine 00:00:00 [facility] Influenza Virus 2017-03-31 Completed [facility]ine 00:00:00 [facility] Influenza Virus 2017-03-31 Completed [facility]ine 00:00:00 [facility] Influenza Virus 2017-03-31 Completed [facility]ine 00:00:00 [facility] Influenza Virus 2017-03-31 Completed [facility] Vaccine 00:00:00 [facility] Influenza Virus 2017-03-31 Completed [facility] Vaccine 00:00:00 [facility] Influenza Virus 2017-03-31 Completed [facility] Vaccine 00:00:00 [facility] Influenza Virus 2017-03-31 Completed [facility] Vaccine 00:00:00 [facility] Influenza Virus 2017-03-31 Completed [facility] Vaccine 00:00:00 [facility] Influenza Virus 2017-03-31 Completed [facility] Vaccine 00:00:00 [facility] Influenza Virus 2017-03-31 Completed [facility] Vaccine 00:00:00 [facility] Influenza Virus 2017-03-31 Completed [facility] Vaccine 00:00:00 [facility] Influenza Virus 2017-03-31 Completed [facility] Vaccine 00:00:00 [facility] Influenza Virus 2017-03-31 Completed [facility]ine 00:00:00 [facility] Influenza Virus 2017-03-31 Completed [facility] Vaccine 00:00:00 [facility] Influenza Virus 2017-03-31 Completed [facility] Vaccine 00:00:00 [facility] Influenza Virus 2017-03-31 Completed [facility]ine 00:00:00 [facility] Influenza Virus 2017-03-31 Completed [facility]ine 00:00:00 [facility] Influenza Virus 2017-03-31 Completed [facility]ine 00:00:00 [facility] Influenza Virus 2017-03-31 Completed [facility] Vaccine 00:00:00 [facility] Influenza Virus 2017-03-31 Completed [facility] Vaccine 00:00:00 [facility] Influenza Virus 2017-03-31 Completed [facility] Vaccine 00:00:00 [facility] Influenza Virus 2017-03-31 Completed [facility] Vaccine 00:00:00 [facility] Influenza Virus 2017-03-31 Completed [facility] Vaccine 00:00:00 [facility] Influenza Virus 2017-03-31 Completed [facility] Vaccine 00:00:00 [facility] Influenza Virus 2017-03-31 Completed [facility] Vaccine 00:00:00 [facility] Influenza Virus 2017-03-31 Completed [facility] Vaccine 00:00:00 [facility] Influenza Virus 2017-03-31 Completed [facility] Vaccine 00:00:00 [facility] Influenza Virus 2017-03-31 Completed [facility] Vaccine 00:00:00 [facility] Influenza Virus 2017-03-31 Completed [facility] Vaccine 00:00:00 [facility] Influenza Virus 2017-03-31 Completed [facility] Vaccine 00:00:00 [facility] Influenza Virus 2017-03-31 Completed [facility] Vaccine 00:00:00 [facility] Influenza Virus 2017-03-31 Completed [facility] Vaccine 00:00:00 [facility] Influenza Virus 2017-03-31 Completed [facility] Vaccine 00:00:00 [facility] Influenza Virus 2017-03-31 Completed [facility] Vaccine 00:00:00 [facility] Influenza Virus 2017-03-31 Completed [facility] Vaccine 00:00:00 [facility] Influenza Virus 2017-03-31 Completed [facility] Vaccine 00:00:00 [facility] Influenza Virus 2017-03-31 Completed [facility] Vaccine 00:00:00 [facility] Influenza Virus 2017-03-31 Completed [facility] Vaccine 00:00:00 [facility] Influenza Virus 2017-03-31 Completed [facility] Vaccine 00:00:00 [facility] Influenza Virus 2017-03-31 Completed [facility] Vaccine 00:00:00 [facility] Influenza Virus 2017-03-31 Completed [facility] Vaccine 00:00:00 [facility] Influenza Virus 2017-03-31 Completed [facility] Vaccine 00:00:00 [facility] Influenza Virus 2017-03-31 Completed [facility] Vaccine 00:00:00 [facility] Influenza Virus 2017-03-31 Completed [facility] Vaccine 00:00:00 [facility] Influenza Virus 2017-03-31 Completed [facility] Vaccine 00:00:00 [facility] Influenza Virus 2017-03-31 Completed [facility] Vaccine 00:00:00 [facility] Influenza Virus 2017-03-31 Completed [facility] Vaccine 00:00:00 [facility] Influenza Virus 2017-03-31 Completed [facility]ine 00:00:00 [facility] Influenza Virus 2017-03-31 Completed [facility] Vaccine 00:00:00 [facility] Influenza Virus 2017-03-31 Completed [facility] Vaccine 00:00:00 [facility] Influenza Virus 2017-03-31 Completed [facility] Vaccine 00:00:00 [facility] Influenza Virus 2017-03-31 Completed [facility] Vaccine 00:00:00 [facility] Influenza Virus 2017-03-31 Completed [facility] Vaccine 00:00:00 [facility] Influenza Virus 2017-03-31 Completed [facility] Vaccine 00:00:00 [facility] Influenza Virus 2017-03-31 Completed [facility] Vaccine 00:00:00 [facility] Influenza Virus 2017-03-31 Completed [facility] Vaccine 00:00:00 [facility] Influenza Virus 2017-03-31 Completed [facility] Vaccine 00:00:00 [facility] Influenza Virus 2017-03-31 Completed [facility] Vaccine 00:00:00 [facility] Influenza Virus 2017-03-31 Completed [facility] Vaccine 00:00:00 [facility] Influenza Virus 2017-03-31 Completed [facility] Vaccine 00:00:00 [facility] Influenza Virus 2017-03-31 Completed [facility] Vaccine 00:00:00 [facility] Influenza Virus 2017-03-31 Completed [facility] Vaccine 00:00:00 [facility] TDAP 2012-07-31 Completed [facility] 00:00:00 [facility] TDAP 2012-07-31 Completed [facility] 00:00:00 [facility] TDAP 2012-07-31 Completed [facility] 00:00:00 [facility] TDAP 2012-07-31 Completed [facility] 00:00:00 [facility] TDAP 2012-07-31 Completed [facility] 00:00:00 [facility] TDAP 2012-07-31 Completed [facility] 00:00:00 [facility] TDAP 2012-07-31 Completed [facility] 00:00:00 [facility] TDAP 2012-07-31 Completed [facility] 00:00:00 [facility] TDAP 2012-07-31 Completed [facility] 00:00:00 [facility] TDAP 2012-07-31 Completed [facility] 00:00:00 [facility] TDAP 2012-07-31 Completed [facility] 00:00:00 [facility] TDAP 2012-07-31 Completed [facility] 00:00:00 [facility] TDAP 2012-07-31 Completed [facility] 00:00:00 [facility] TDAP 2012-07-31 Completed [facility] 00:00:00 [facility] TDAP 2012-07-31 Completed [facility] 00:00:00 [facility] TDAP 2012-07-31 Completed [facility] 00:00:00 [facility] TDAP 2012-07-31 Completed [facility] 00:00:00 [facility] TDAP 2012-07-31 Completed [facility] 00:00:00 [facility] TDAP 2012-07-31 Completed [facility] 00:00:00 [facility] TDAP 2012-07-31 Completed [facility] 00:00:00 [facility] TDAP 2012-07-31 Completed [facility] 00:00:00 [facility] TDAP 2012-07-31 Completed [facility] 00:00:00 [facility] TDAP 2012-07-31 Completed [facility] 00:00:00 [facility] TDAP 2012-07-31 Completed [facility] 00:00:00 [facility] TDAP 2012-07-31 Completed [facility] 00:00:00 [facility] TDAP 2012-07-31 Completed [facility] 00:00:00 [facility] TDAP 2012-07-31 Completed [facility] 00:00:00 [facility] TDAP 2012-07-31 Completed [facility] 00:00:00 [facility] TDAP 2012-07-31 Completed [facility] 00:00:00 [facility] TDAP 2012-07-31 Completed [facility] 00:00:00 [facility] TDAP 2012-07-31 Completed [facility] 00:00:00 [facility] TDAP 2012-07-31 Completed [facility] 00:00:00 [facility] TDAP 2012-07-31 Completed [facility] 00:00:00 [facility] TDAP 2012-07-31 Completed [facility] 00:00:00 [facility] TDAP 2012-07-31 Completed [facility] 00:00:00 [facility] Tdap 2012-07-31 Completed [facility] 00:00:00 [facility] TDAP 2012-07-31 Completed [facility] 00:00:00 [facility] TDAP 2012-07-31 Completed [facility] 00:00:00 [facility] TDAP 2012-07-31 Completed [facility] 00:00:00 [facility] TDAP 2012-07-31 Completed [facility] 00:00:00 [facility] TDAP 2012-07-31 Completed [facility] 00:00:00 [facility] TDAP 2012-07-31 Completed [facility] 00:00:00 [facility] Tdap 2012-07-31 Completed [facility] 00:00:00 [facility] TDAP 2012-07-31 Completed [facility] 00:00:00 [facility] TDAP 2012-07-31 Completed [facility] 00:00:00 [facility] TDAP 2012-07-31 Completed [facility] 00:00:00 [facility] TDAP 2012-07-31 Completed [facility] 00:00:00 [facility] TDAP 2012-07-31 Completed [facility] 00:00:00 [facility] TDAP 2012-07-31 Completed [facility] 00:00:00 [facility] Tdap 2012-07-31 Completed [facility] 00:00:00 [facility] TDAP 2012-07-31 Completed [facility] 00:00:00 [facility] TDAP 2012-07-31 Completed [facility] 00:00:00 [facility] TDAP 2012-07-31 Completed [facility] 00:00:00 [facility] TDAP 2012-07-31 Completed [facility] 00:00:00 [facility] TDAP 2012-07-31 Completed [facility] 00:00:00 [facility] TDAP 2012-07-31 Completed [facility] 00:00:00 [facility] TDAP 2012-07-31 Completed [facility] 00:00:00 [facility] Tdap 2012-07-31 Completed [facility] 00:00:00 [facility] TDAP 2012-07-31 Completed [facility] 00:00:00 [facility] TDAP 2012-07-31 Completed [facility] 00:00:00 [facility] TDAP 2012-07-31 Completed [facility] 00:00:00 [facility] TDAP 2012-07-31 Completed [facility] 00:00:00 [facility] TDAP 2012-07-31 Completed [facility] 00:00:00 [facility] Tdap 2012-07-31 Completed [facility] 00:00:00 [facility] TDAP 2012-07-31 Completed [facility] 00:00:00 [facility] TDAP 2012-07-31 Completed [facility] 00:00:00 [facility] TDAP 2012-07-31 Completed [facility] 00:00:00 [facility] TDAP 2012-07-31 Completed [facility] 00:00:00 [facility] TDAP 2012-07-31 Completed [facility] 00:00:00 [facility] TDAP 2012-07-31 Completed [facility] 00:00:00 [facility] TDAP 2012-07-31 Completed [facility] 00:00:00 [facility] TDAP 2012-07-31 Completed [facility] 00:00:00 [facility] TDAP 2012-07-31 Completed [facility] 00:00:00 [facility] TDAP 2012-07-31 Completed [facility] 00:00:00 [facility] Tdap 2012-07-31 Completed [facility] 00:00:00 [facility] TDAP 2012-07-31 Completed [facility] 00:00:00 [facility] TDAP 2012-07-31 Completed [facility] 00:00:00 [facility] Tdap 2012-07-31 Completed [facility] 00:00:00 [facility] Tdap 2012-07-31 Completed [facility] 00:00:00 [facility] TDAP 2012-07-31 Completed [facility] 00:00:00 [facility] TDAP 2012-07-31 Completed [facility] 00:00:00 [facility] TDAP 2012-07-31 Completed [facility] 00:00:00 [facility] TDAP 2012-07-31 Completed [facility] 00:00:00 [facility] TDAP 2012-07-31 Completed [facility] 00:00:00 [facility] TDAP 2012-07-31 Completed [facility] 00:00:00 [facility] TDAP 2012-07-31 Completed [facility] 00:00:00 [facility] TDAP 2012-07-31 Completed [facility] 00:00:00 [facility] TDAP 2012-07-31 Completed [facility] 00:00:00 [facility] TDAP 2012-07-31 Completed [facility] 00:00:00 [facility] Tdap 2012-07-31 Completed [facility] 00:00:00 [facility] TDAP 2012-07-31 Completed [facility] 00:00:00 [facility] TDAP 2012-07-31 Completed [facility] 00:00:00 [facility] TDAP 2012-07-31 Completed [facility] 00:00:00 [facility] TDAP 2012-07-31 Completed [facility] 00:00:00 [facility] TDAP 2012-07-31 Completed [facility] 00:00:00 [facility] TDAP 2012-07-31 Completed [facility] 00:00:00 [facility] TDAP 2012-07-31 Completed [facility] 00:00:00 [facility] TDAP 2012-07-31 Completed [facility] 00:00:00 [facility] TDAP 2012-07-31 Completed [facility] 00:00:00 [facility] Tdap 2012-07-31 Completed [facility] 00:00:00 [facility] TDAP 2012-07-31 Completed [facility] 00:00:00 [facility] TDAP 2012-07-31 Completed [facility] 00:00:00 [facility] TDAP 2012-07-31 Completed [facility] 00:00:00 [facility] TDAP 2012-07-31 Completed [facility] 00:00:00 [facility] TDAP 2012-07-31 Completed [facility] 00:00:00 [facility] TDAP 2012-07-31 Completed [facility] 00:00:00 [facility] Tdap 2012-07-31 Completed [facility] 00:00:00 [facility] TDAP 2012-07-31 Completed [facility] 00:00:00 [facility] TDAP 2012-07-31 Completed [facility] 00:00:00 [facility] TDAP 2012-07-31 Completed [facility] 00:00:00 [facility] TDAP 2012-07-31 Completed [facility] 00:00:00 [facility] TDAP 2012-07-31 Completed [facility] 00:00:00 [facility] TDAP 2012-07-31 Completed [facility] 00:00:00 [facility] TDAP 2012-07-31 Completed [facility] 00:00:00 [facility] Tdap 2012-07-31 Completed [facility] 00:00:00 [facility] TDAP 2012-07-31 Completed [facility] 00:00:00 [facility] TDAP 2012-07-31 Completed [facility] 00:00:00 [facility] TDAP 2012-07-31 Completed [facility] 00:00:00 [facility] TDAP 2012-07-31 Completed [facility] 00:00:00 [facility] Vital Signs Vital Name Observation Time Observation Value Comments Source Systolic blood 2022-11-30 12:32:00 123 mm[Hg] [facility] Diastolic blood 2022-11-30 12:32:00 78 mm[Hg] [facility] pressure [facility] Heart rate 2022-11-30 12:32:00 73 /min [facility] Body height 2022-11-30 12:32:00 149.9 cm [facility] Body weight 2022-11-30 12:32:00 84.324 kg [facility] BMI 2022-11-30 12:32:00 37.55 kg/m2 [facility] Oxygen saturation in 2022-11-30 12:32:00 99 /min [facility] Arterial blood by [facility] Pulse oximetry Branch Systolic blood 2022-11-16 13:48:00 121 mm[Hg] [facility] pressure [facility] Diastolic blood 2022-11-16 13:48:00 83 mm[Hg] [facility] pressure [facility] Heart rate 2022-11-16 13:48:00 72 /min [facility] Body height 2022-11-16 13:48:00 149.9 cm [facility] Body weight 2022-11-16 13:48:00 83.915 kg [facility] BMI 2022-11-16 13:48:00 37.37 kg/m2 [facility] Oxygen saturation in 2022-11-16 13:48:00 99 /min [facility] Arterial blood by [facility] Pulse oximetry [facility] Systolic blood 2022-10-26 12:26:00 129 mm[Hg] [facility] pressure [facility] Diastolic blood 2022-10-26 12:26:00 86 mm[Hg] [facility] pressure [facility] Heart rate 2022-10-26 12:25:00 76 /min [facility] Body height 2022-10-26 12:25:00 149.9 cm [facility] Body weight 2022-10-26 12:25:00 85.276 kg [facility] BMI 2022-10-26 12:25:00 37.97 kg/m2 [facility] Oxygen saturation in 2022-10-26 12:25:00 98 /min [facility] Arterial blood by [place] [facility] [facility] P[facility] oxim[facility] Systolic blood 2022-10-13 18:25:00 139 mm[Hg] [facility] pressure [facility] Diastolic blood 2022-10-13 18:25:00 85 mm[Hg] [facility] pressure [facility] Heart rate 2022-10-13 18:25:00 79 /min [facility] Body height 2022-10-13 18:25:00 149.9 cm [facility] Body weight 2022-10-13 18:25:00 85.276 kg [facility] BMI 2022-10-13 18:25:00 37.97 kg/m2 [facility] Systolic blood 2022-07-20 14:25:00 123 mm[Hg] [facility] Diastolic blood 2022-07-20 14:25:00 71 mm[Hg] [facility] pressure [facility] Heart rate 2022-07-20 14:25:00 79 /min [facility] Body height 2022-07-20 14:25:00 149.9 cm [facility] Body weight 2022-07-20 14:25:00 88.905 kg [facility] BMI 2022-07-20 14:25:00 39.59 kg/m2 [facility] Oxygen saturation in 2022-07-20 14:25:00 99 /min [facility] Arterial blood by [facility] Pulse oximetry [facility] Systolic blood 2022-07-08 20:30:00 127 mm[Hg] [facility] pressure [facility] Diastolic blood 2022-07-08 20:30:00 87 mm[Hg] [facility] pressure [facility] Heart rate 2022-07-08 20:30:00 73 /min [facility] Body height 2022-07-08 20:30:00 149.9 cm [facility] Body weight 2022-07-08 20:30:00 88.315 kg [facility] BMI 2022-07-08 20:30:00 39.32 kg/m2 [facility] Oxygen saturation in 2022-07-08 20:30:00 100 /min [facility] blood by [facility] art[facility] Pulse oximetry [facility] Systolic blood 2022-07-01 13:38:00 110 mm[Hg] [facility] pressure [facility] Diastolic blood 2022-07-01 13:38:00 74 mm[Hg] [facility] pressure [facility] Heart rate 2022-07-01 13:38:00 89 /min [facility] Body temperature 2022-07-01 13:38:00 36.83 [facility] Body height 2022-07-01 13:38:00 149.9 cm [facility] Body weight 2022-07-01 13:38:00 88.361 kg [facility] BMI 2022-07-01 13:38:00 39.34 kg/m2 [facility] Oxygen saturation in 2022-07-01 13:38:00 98 /min [facility] Arterial blood by [facility] Pulse oximetry Branch Systolic blood 2022-05-16 22:56:00 137 mm[Hg] [facility] pressure [facility] Diastolic blood 2022-05-16 22:56:00 83 mm[Hg] [facility] pressure [facility] Heart rate 2022-05-16 22:56:00 87 /min [facility] Body temperature 2022-05-16 22:56:00 37.06 [facility] Body height 2022-05-16 22:56:00 149.9 cm [facility] Body weight 2022-05-16 22:56:00 88.497 kg [facility] BMI 2022-05-16 22:56:00 39.41 kg/m2 [facility] Oxygen saturation in 2022-05-16 22:56:00 98 /min [facility] blood by [facility] artis Pulse oximetry [facility] Systolic blood 2020-09-11 14:22:00 119 mm[Hg] [facility] pressure [facility] Diastolic blood 2020-09-11 14:22:00 81 mm[Hg] [facility] pressure [facility] Heart rate 2020-09-11 14:22:00 76 /min [facility] Body temperature 2020-09-11 14:22:00 36.56 [facility] Body height 2020-09-11 14:22:00 149.9 cm [facility] Body weight 2020-09-11 14:22:00 102.059 kg [facility] BMI 2020-09-11 14:22:00 45.44 kg/m2 [facility] Systolic blood 2020-08-20 16:17:00 113 mm[Hg] [facility] pressure [facility] Diastolic blood 2020-08-20 16:17:00 64 mm[Hg] [facility] pressure [facility] Heart rate 2020-08-20 16:17:00 70 /min [facility] [place] [facility] Body temperature 2020-08-20 16:17:00 37 Clarisa [facility] Respiratory rate 2020-08-20 16:17:00 16 /min [facility] Body height 2020-08-20 16:17:00 149.9 cm [facility] Body weight 2020-08-20 16:17:00 97.523 kg [facility] BMI 2020-08-20 16:17:00 43.42 kg/m2 [facility] Oxygen saturation in 2020-08-20 16:17:00 96 /min [facility] Arterial blood by [facility] Pulse oximetry Branch Systolic blood 2020-08-06 19:05:00 128 mm[Hg] [facility] Diastolic blood 2020-08-06 19:05:00 71 mm[Hg] [facility] Heart rate 2020-08-06 19:05:00 74 /min [facility] Body weight 2020-08-06 19:05:00 99.156 kg [facility] BMI 2020-08-06 19:05:00 44.15 kg/m2 [facility] Systolic blood 2020-07-27 19:34:00 120 mm[Hg] [facility] Diastolic blood 2020-07-27 19:34:00 75 mm[Hg] [facility] Heart rate 2020-07-27 19:34:00 94 /min [facility] Body height 2020-07-27 19:34:00 149.9 cm [facility] Body weight 2020-07-27 19:34:00 98.385 kg [facility] BMI 2020-07-27 19:34:00 43.81 kg/m2 [facility] Oxygen saturation in 2020-07-27 19:34:00 98 /min [facility]ial blood by [facility] Pulse oximetry Branch Systolic blood 2020-07-21 22:45:00 126 mm[Hg] [facility] Diastolic blood 2020-07-21 22:45:00 38 mm[Hg] [facility] Heart rate 2020-07-21 22:45:00 72 /min [facility] Respiratory rate 2020-07-21 22:45:00 11 /min [facility] Oxygen saturation in 2020-07-21 22:45:00 100 /min [facility] Arterial blood by [facility] Pulse oximetry Branch Body temperature 2020-07-21 22:07:00 36.72 Clarisa [facility] Body height 2020-07-21 19:47:00 149.9 cm [facility] Body weight 2020-07-21 19:47:00 97.7 kg [facility] BMI 2020-07-21 19:47:00 43.50 kg/m2 [facility] Systolic blood 2020-07-07 17:05:00 130 mm[Hg] [facility] Diastolic blood 2020-07-07 17:05:00 80 mm[Hg] [facility] Heart rate 2020-07-07 17:05:00 82 /min [facility] Body temperature 2020-07-07 17:05:00 35.72 Clarisa [facility] Respiratory rate 2020-07-07 17:05:00 17 /min [facility] Body height 2020-07-07 17:05:00 149.9 cm [facility] Body weight 2020-07-07 17:05:00 98.249 kg [facility] BMI 2020-07-07 17:05:00 43.75 kg/m2 [facility] Oxygen saturation in 2020-07-07 17:05:00 97 /min [facility]ial blood by [facility] Pulse oximetry Branch Systolic blood 2020-05-21 19:11:00 110 mm[Hg] [facility] Diastolic blood 2020-05-21 19:11:00 70 mm[Hg] [facility] Heart rate 2020-05-21 19:11:00 77 /min [facility] Body temperature 2020-05-21 19:11:00 36.72 Clarisa [facility] Body height 2020-05-21 19:11:00 149.9 cm [facility] Body weight 2020-05-21 19:11:00 95.709 kg [facility] BMI 2020-05-21 19:11:00 42.62 kg/m2 [facility] Systolic blood 2020-05-21 16:05:00 131 mm[Hg] [facility] Diastolic blood 2020-05-21 16:05:00 87 mm[Hg] [facility] Heart rate 2020-05-21 16:05:00 78 /min [facility] Body height 2020-05-21 16:05:00 149.9 cm [facility] Body weight 2020-05-21 16:05:00 96.208 kg [facility] BMI 2020-05-21 16:05:00 42.84 kg/m2 [facility] Systolic blood 2020-05-20 18:21:00 119 mm[Hg] [facility] Diastolic blood 2020-05-20 18:21:00 75 mm[Hg] [facility] Body temperature 2020-05-20 18:21:00 37.06 Clarisa [facility] Body weight 2020-05-20 18:21:00 96.707 kg [facility] BMI 2020-05-20 18:21:00 43.06 kg/m2 [facility] Systolic blood 2020-05-08 20:15:00 110 mm[Hg] [facility] Diastolic blood 2020-05-08 20:15:00 80 mm[Hg] [facility] Heart rate 2020-05-08 20:15:00 91 /min [facility] Respiratory rate 2020-05-08 20:15:00 20 /min [facility] Body height 2020-05-08 20:15:00 149.9 cm [facility] Body weight 2020-05-08 20:15:00 95.437 kg [facility] BMI 2020-05-08 20:15:00 42.50 kg/m2 [facility] Systolic blood 2020-05-06 14:38:00 118 mm[Hg] [facility] Diastolic blood 2020-05-06 14:38:00 81 mm[Hg] [facility] Heart rate 2020-05-06 14:38:00 75 /min [facility] Respiratory rate 2020-05-06 14:38:00 19 /min [facility] Body height 2020-05-06 14:38:00 149.9 cm [facility] Body weight 2020-05-06 14:38:00 94.303 kg [facility] BMI 2020-05-06 14:38:00 41.99 kg/m2 [facility] Oxygen saturation in 2020-05-06 14:38:00 100 /min [facility]ial blood by [facility] Pulse oximetry Branch Systolic blood 2020-04-24 15:27:00 128 mm[Hg] [facility] Diastolic blood 2020-04-24 15:27:00 87 mm[Hg] [facility] Heart rate 2020-04-24 15:27:00 71 /min [facility] Body height 2020-04-24 15:27:00 149.9 cm [facility] Body weight 2020-04-24 15:27:00 94.892 kg [facility] BMI 2020-04-24 15:27:00 42.25 kg/m2 [facility] Systolic blood 2020-04-23 15:46:00 131 mm[Hg] [facility] Diastolic blood 2020-04-23 15:46:00 84 mm[Hg] [facility] Heart rate 2020-04-23 15:46:00 78 /min [facility] Body temperature 2020-04-23 15:46:00 36.5 Clarisa [facility] Respiratory rate 2020-04-23 15:46:00 16 /min [facility] Body weight 2020-04-23 15:46:00 95.6 kg [facility] BMI 2020-04-23 15:46:00 42.57 kg/m2 [facility] Oxygen saturation in 2020-04-23 15:46:00 98 /min [facility] blood by [facility] Pulse oximetry Branch Systolic blood 2020-04-20 18:20:00 112 mm[Hg] [facility] Diastolic blood 2020-04-20 18:20:00 68 mm[Hg] [facility] Heart rate 2020-04-20 18:20:00 94 /min [facility] Body temperature 2020-04-20 18:20:00 36.44 Clarisa [facility] Body height 2020-04-20 18:20:00 149.9 cm [facility] Body weight 2020-04-20 18:20:00 95.255 kg [facility] BMI 2020-04-20 18:20:00 42.41 kg/m2 [facility] Systolic blood 2020-04-20 14:16:00 117 mm[Hg] [facility] Diastolic blood 2020-04-20 14:16:00 75 mm[Hg] [facility] Heart rate 2020-04-20 14:16:00 76 /min [facility] Body temperature 2020-04-20 14:16:00 36.89 Clarisa [facility] Respiratory rate 2020-04-20 14:16:00 18 /min [facility] Body height 2020-04-20 14:16:00 149.9 cm [facility] Body weight 2020-04-20 14:16:00 94.802 kg [facility] BMI 2020-04-20 14:16:00 42.21 kg/m2 [facility] Oxygen saturation in 2020-04-20 14:16:00 98 /min [facility] [place] [facility] [facility] Pulse oximetry Branch Systolic blood 2020-04-07 16:13:00 132 mm[Hg] [facility] Diastolic blood 2020-04-07 16:13:00 88 mm[Hg] [facility] Heart rate 2020-04-07 16:13:00 82 /min [facility] Body temperature 2020-04-07 16:13:00 36.17 Clarisa [facility] Respiratory rate 2020-04-07 16:13:00 16 /min [facility] Body height 2020-04-07 16:13:00 149.9 cm [facility] Body weight 2020-04-07 16:13:00 96.752 kg [facility] BMI 2020-04-07 16:13:00 43.08 kg/m2 [facility] Oxygen saturation in 2020-04-07 16:13:00 98 /min [facility] by [facility] artis Pulse oximetry Branch Systolic blood 2020-03-23 19:59:00 118 mm[Hg] [facility] Diastolic blood 2020-03-23 19:59:00 81 mm[Hg] [facility] Heart rate 2020-03-23 19:59:00 90 /min [facility] Respiratory rate 2020-03-23 19:59:00 19 /min [facility] Body height 2020-03-23 19:59:00 149.9 cm [facility] Body weight 2020-03-23 19:59:00 94.62 kg [facility] BMI 2020-03-23 19:59:00 42.13 kg/m2 [facility] Oxygen saturation in 2020-03-23 19:59:00 98 /min [facility] blood by [facility] Pulse oximetry Branch Systolic blood 2020-03-18 16:22:00 125 mm[Hg] [facility] Diastolic blood 2020-03-18 16:22:00 75 mm[Hg] [facility] Heart rate 2020-03-18 16:22:00 77 /min [facility] Body temperature 2020-03-18 16:22:00 36.44 Clarisa [facility] Respiratory rate 2020-03-18 16:22:00 18 /min [facility] Oxygen saturation in 2020-03-18 16:22:00 95 /min [facility] blood by [facility] Pulse oximetry Branch Body height 2020-03-16 01:17:00 150 cm [facility] Body weight 2020-03-16 01:17:00 96.163 kg [facility] BMI 2020-03-16 01:17:00 42.74 kg/m2 [facility] Systolic blood 2020-01-30 19:41:00 137 mm[Hg] [facility] Diastolic blood 2020-01-30 19:41:00 84 mm[Hg] [facility] Heart rate 2020-01-30 19:41:00 62 /min [facility] Body height 2020-01-30 19:41:00 149.9 cm [facility] Body weight 2020-01-30 19:41:00 96.163 kg [facility] BMI 2020-01-30 19:41:00 42.82 kg/m2 [facility] Systolic blood 2020-01-06 17:04:00 147 mm[Hg] [facility] Diastolic blood 2020-01-06 17:04:00 93 mm[Hg] [facility] Heart rate 2020-01-06 16:59:00 84 /min [facility] [place] [facility] [place] Body temperature 2020-01-06 16:59:00 37.33 Clarisa [facility] Respiratory rate 2020-01-06 16:59:00 17 /min [facility] Body height 2020-01-06 16:59:00 149.9 cm [facility] [place] Body weight 2020-01-06 16:59:00 97.523 kg [facility] BMI 2020-01-06 16:59:00 43.42 kg/m2 [facility] Oxygen saturation in 2020-01-06 16:59:00 99 /min [facility]ial blood by [facility] Pulse oximetry Branch Systolic blood 2020-01-02 14:50:00 138 mm[Hg] [facility] [place] [facility] [place] Diastolic blood 2020-01-02 14:50:00 90 mm[Hg] [facility] Heart rate 2020-01-02 14:50:00 79 /min [facility] Body temperature 2020-01-02 14:50:00 36.72 Clarisa [facility] Respiratory rate 2020-01-02 14:50:00 18 /min [facility] Body height 2020-01-02 14:50:00 149.9 cm [facility] [place] [facility] [place] Body weight 2020-01-02 14:50:00 97.523 kg [facility] BMI 2020-01-02 14:50:00 43.42 kg/m2 [facility] Systolic blood 2019-03-07 16:43:00 107 mm[Hg] [facility] Diastolic blood 2019-03-07 16:43:00 74 mm[Hg] [facility] Heart rate 2019-03-07 16:43:00 92 /min [facility] Respiratory rate 2019-03-07 16:43:00 20 /min [facility] Body height 2019-03-07 16:43:00 149.9 cm [facility] [place] Body weight 2019-03-07 16:43:00 96.072 kg [facility] BMI 2019-03-07 16:43:00 42.78 kg/m2 [facility] Procedures Procedure Date / Time Performing Clinician Source Performed PATIENT FINANCIAL 2022-10-13 05:01:00 Doctor Meza [facility] RESPONSIBILITY - ALL [place] [facility] FORMS HEP B VACCINE,PED/ADOL,IM 2022-07-13 16:34:53 Tabitha Garcia [facility] POCT URINALYSIS 2022-07-01 13:59:[address] [facility] XR CHEST 2 VW 2022-05-16 23:20:00 Goyo [facility] POCT SARS-COV-2 ANTIGEN 2022-05-13 14:32:00 Goyo [facility] (BINAX NOW) [facility] POCT GRP A STREP 2020-08-20 16:35:00 Marci Ko [facility] (MOLECULAR) [facility] DME/SUPPLY JUSTIFICATION 2020-08-19 06:01:00 Doctor Meza [facility] [place] [facility] [place] CONSENT/REFUSAL FOR 2020-07-27 19:17:32 Doctor Meza [facility] DIAGNOSIS AND TREATMENT [facility] COMP. METABOLIC PANEL 2020-07-21 19:40:00 [facility] ([id number]) [facility] CBC WITH DIFF 2020-07-21 19:40:00 [facility] HB ABO GROUPING 2020-07-21 19:35:00 [facility] ASSIGNMENT OF BENEFITS 2020-07-17 20:46:51 Doctor Derrick, [facility] Name [facility] [place] CBC WITH DIFF 2020-07-07 14:17:00 Hoang brandon [facility] PROTHROMBIN TIME / INR 2020-07-07 14:17:00 Hoang [facility] RETICULOCYTES AUTOMATED 2020-07-07 14:17:00 Hoang [facility] DISCLOSURE AND CONSENT, 2020-06-17 06:01:00 Doctor Meza [facility] MEDICAL AND SURGICAL [place] [facility] PROCEDURES DME/SUPPLY JUSTIFICATION 2020-06-15 06:01:00 Doctor Derrick, [facility] [place] [facility] DME/SUPPLY JUSTIFICATION 2020-05-27 05:01:00 Doctor Derrick, [facility] [place] [facility] PNEUMOCOCCAL VACCINE, 2020-05-21 19:34:21 Jessee Bills [facility] 23-VALENT (PNEUMOVAX) Medical Br anch DSU PRE-OP 2020-05-21 05:01:00 Doctor Derrick, [facility] [place] [facility] COVID-19 (ID NOW RAPID 2020-05-08 13:47:00 Dafne Peterson [facility] TESTING) [facility] AUTHORIZATION FOR RELEASE 2020-05-07 05:01:00 Doctor Derrick, [facility] [place] [facility] US PELVIS COMPLETE WITH 2020-04-30 22:43:07 Kristy Barbosa [facility] TRANSVAGINAL [facility] DISCLOSURE AND CONSENT, 2020-04-24 05:01:00 Doctor Derrick, [facility] MEDICAL AND SURGICAL [place] [facility] PROCEDURES POCT TEST 2020-04-24 00:00:00 Kristy Barbosa [facility] PATIENT QUESTIONNAIRE 2020-04-07 05:01:[address] [facility] Name [facility] [place] BASIC METABOLIC PANEL 2020-03-18 14:13:00 [facility] (NA, K, CL, CO2, GLUCOSE, Medica l Branch BUN, CREATININE, CA) CBC WITH DIFF 2020-03-18 14:13:00 Javier Ruma [facility] [place] MODIFIED BARIUM 2020-03-17 19:42:38 [facility] SWALLOW [facility] [place] ECHO ROUTINE W/DOPPLER 2020-03-16 13:29:47 Nicolette Diego [facility] COLOR [facility] ACTIVATED PARTIAL 2020-03-16 07:56:00 Nicolette Diego [facility] THRMPLAS WOO [facility] TROPONIN I 2020-03-16 07:55[facility]00 [facility] 2020-03-16 07:55:00 Nicolette Diego [facility] HORMONE Medical Branch LIPID PANEL ([id number])(TOTAL 2020-03-16 07:55:00 Nicolette Diego [facility] CHOLESTEROL, [facility] TRIGLYCERIDES, HDL) EXTRA TUBE LAV 2020-03-16 07:55:00 Ang [facility] EXTRA TUBE LT. GREEN 2020-03-16 07:55:00 Ang Chandu [facility] MAGNESIUM 2020-03-16 03:43:00 Johnathon [facility] BASIC METABOLIC PANEL 2020-03-16 03:43:00 [facility] (NA, K, CL, CO2, GLUCOSE, Medica l Branch BUN, CREATININE, CA) CBC WITH DIFF 2020-03-16 03:43:00 Johnathon [facility] PROTHROMBIN TIME / INR 2020-03-16 03:43:00 Nicolette Diego [facility] CT HEAD WO CONTRAST 2020-03-16 03:30:57 [facility] 2020-03-16 02:57:21 Doctor Unassigned, [facility] [place] [facility] CT STROKE ANGIOGRAM HEAD 2020-03-15 17:53:21 Russell Calderon [facility] CT STROKE ANGIOGRAM NECK 2020-03-15 17:53:21 Russell Calderon [facility] COVID-19 (ID NOW RAPID 2020-03-15 17:48:00 Russell Calderon [facility] TESTING) [facility] CT STROKE HEAD WO 2020-03-15 17:39:11 Russell Calderon [facility] SALICYLATE 2020-03-15 17:20:[address] [facility] ETHANOL 2020-03-15 17:20:[address] [facility] URINALYSIS 2020-03-15 17:20:[address] [facility] ADC / LCC - DRUG SCREEN 2020-03-15 17:20:00 Russell Calderon [facility] POCT TEST 2020-03-15 17:19:00 Russell Calderon [facility] TROPONIN I 2020-03-15 17:17:[address] [facility] BASIC METABOLIC PANEL 2020-03-15 17:17:00 Russell Calderon [facility] (NA, K, CL, CO2, GLUCOSE, Medica l Branch BUN, CREATININE, CA) CBC WITHOUT DIFF 2020-03-15 17:17:00 Russell Calderon [facility] PROTHROMBIN TIME / INR 2020-03-15 17:17:00 Russell Calderon [facility]IV[facility] PARTIAL 2020-03-15 17:17:00 Russell Calderon [facility] POCT GLUCOSE (AUTOMATED) 2020-03-15 17:17:00 Russell Calderon [facility] EKG-12 LEAD 2020-03-15 17:13:[address] [facility] EKG-12 LEAD 2020-03-15 17:12:[address] [facility] EMERGENCY DEPARTMENT 2020-03-15 05:01:00 Doctor Unassigned, [facility] DOCUMENTS [facility] [facility] EXTERNAL PROVIDER - ADC 2019-03-07 05:01:00 Doctor Unassigned, [facility] CARDIOLOGY [place] [facility] Plan of Care Planned Activity Planned Date Details Comments Source Future Scheduled 2022-12-30 [facility]:15:23 (#1) [code = COVID-19 VACCINE (#1)] Future Scheduled 2022-12-30 Screening for [facility] Test 18:15:23 malignant neoplasm of cervix (procedure) [code = 332511430] Future Scheduled 2022-12-30 BREAST CANCER [facility] Test 18:15:23 SCREENING [code = BREAST CANCER SCREENING] Future Scheduled 2022-12-30 INFLUENZA VACCINE [facility] 18:15:23 [code = INFLUENZA VACCINE] Future Scheduled 2021-08-30 COVID-19 VACCINE [facility] Test 06:49:31 (1) [code = COVID-19 VACCINE (1)] Future Scheduled 2021-08-30 Screening for [facility] Test 06:49:31 malignant neoplasm of cervix (procedure) [code = 215269934] Future Scheduled 2021-08-30 INFLUENZA VACCINE [facility] 06:49:31 [code = INFLUENZA VACCINE] Encounters Start End Encounter Admission Attending Care Care Encounter Source Date/Time Date/Time Type Type Clinicians Facility Department ID 2021-05-31 Inpatient [facility] 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 [id number] Univers 04:31:43 KRISTY beasley [facility] 2021-05-29 Outpatient FAMILIA [facility] [id number] Univers 07:41:49 KRISTY beasley [facility] 2021-05-28 Emergency [facility] [id number] Univers 12:42:26 ity [facility] 2023-06-02 2023-06-02 Outpatient R MAIKEL [facility] [id number] Univers 07:30:00 07:30:00 MARCI beasley [facility] 2023-04-19 2023-04-19 Outpatient R KALIECURT [facility] [id number] Univers 08:30:00 08:30:00 [facility] 2022-12-09 2022-12-09 Outpatient R MAIKEL [facility] [id number] Univers 16:20:00 16:50:24 MARCI beasley [facility] 2022-12-09 2022-12-09 Nurse Nurse, Damaris Kaufman [facility] [id number]. [id number] Univers 16:20:00 16:40:00 Visit Marci Ko [id number] [facility] [id number] [facility] [id number] [facility] 225 Branch 2022-12-09 2022-12-09 Patient KalieCurt paniagua [facility] [id number] Univers 00:00:00 00:00:00 Secure Msg PRIMARY [id number] ity of CARE [id number] Severino GALLARDO [id number] [place] 220 Branch 2022-11-30 2022-11-30 Outpatient R MAIKEL [facility] [id number] Univers 07:30:00 08:19:09 MARCI beasley [facility] 2022-11-30 2022-11-30 Office Maikel [facility] [id number] Univers 07:30:00 08:19:09 Visit Marci Quintanilla HEALTH [id number] i ty of [place] [id number] Nic as RAFAEL?BLEA [id number] [facility] 044 [facility] OFFICE [facility] 2022-11-18 2022-11-18 [facility] [id number] Univers 08:30:00 08:30:00 MARCI beasley [facility] 2022-11-16 2022-11-16 Outpatient R CURT JADE [facility] [id number] Univers 08:30:00 09:04:57 KALIECURT P[place]agua [facility] 2022-11-16 2022-11-16 Office Kalie [facility] [id number] Univers 08:30:00 09:04:57 Visit HEALTH [id number] it y of [place] [id number] Nic as RAFAEL?BLEA [id number] [facility] 220 [facility] OFFICE [facility] 2022-11-15 2022-11-15 Outpatient R KENNY [facility] [id number] Univers 12:00:00 12:00:00 WENTSTEVEN nery [facility] 2022-11-04 2022-11-04 [facility] [id number] Univers 00:00:00 00:00:00 Marci Quintanilla HEALTH 350.1.13.10 i ty of [place] 4.2.7.2.686 Nic as RAFAEL?BLEA [id number] [address] OFFICE [facility] 2022-10-26 2022-10-26 [facility] [id number] Univers 08:00:00 08:01:45 MARCI beasley Formerly [facility] 2022-10-26 2022-10-26 Nursing Education Specialist Lab, Ang - [facility] 1.2.840.1 14 [id number] Univers 08:00:00 08:01:45 Visit Marci Ko HEALTH 350.1.13.10 ity of [place] 4.2.7.2.686 Nic as RAFAEL?BLEA [id number] [facility] 353 [facility] OFFICE BUILDING 2022-10-26 2022-10-26 Office [facility] 1.2.840.114 [id number] Univers 07:30:00 07:56:39 Visit Marci Quintanilla HEALTH 350.1.13.10 i ty of [place] 4.2.7.2.686 Nic as RAFAEL?BLEA [id number] [facility] 044 [facility] OFFICE BUILDING 2022-10-21 2022-10-21 [facility] 1.2.840.114 [id number] Univers 00:00:00 00:00:00 Secure Msg Marci Quintanilla HEALTH 350.1.13.10 ity of [place] 4.2.7.2.686 Nic as RAFAEL?BLEA [id number] [address] OFFICE [facility] 2022-10-13 2022-10-13 Nursing Education Specialist Draw, Clc-Bls Lab [facility] 1.2.8 40.114 [id number] Univers 14:30:00 14:45:00 Visit BarbosaKristy [facility] 350.1.13.10 ity of [place] [phone] [address] OFFICE BUILDING 2022-10-13 2022-10-13 Outpatient R [facility] [id number] Univers 14:30:00 14:30:00 KRISTY ity Formerly [facility] 2022-10-13 2022-10-13 Office [facility] 1.2.840.114 [id number] Univers 13:40:00 14:20:00 Visit [facility] 350.1.13.10 it y of [place] [id number] [facility] [place] [address] OFFICE BUILDING 2022-10-11 2022-10-11 Out[facility] [id number] Univers 07:50:00 23:59:00 wally TERRELL [facility] 2022-10-11 2022-10-11 [facility] 1.2.840.114 [id number] Univers 07:50:00 23:59:00 Encounter nidhi, PRIMARY 350.1.13.10 ity of [facility] 4.2.7.2.686 [place] [id number] [address] 2022-09-07 2022-09-07 Out[facility] [id number] Univers 13:00:00 13:00:00 [facility] 2022-09-07 2022-09-07 Outpatient R KARLA [facility] [id number] Univers 10:00:00 10:00:00 [facility] 2022-09-07 2022-09-07 Outpatient R ROYCECHAD [facility] [id number] Univers 10:00:00 10:00:00 [facility] 2022-09-07 2022-09-07 Outpatient R KARLA [facility] [id number] Univers 10:00:00 10:00:00 [facility] 2022-09-07 2022-09-07 Outpatient R KARLA [facility] [id number] Univers 10:00:00 10:00:00 [facility] 2022-07-20 2022-07-20 Outpatient R CURT JADE [facility] [id number] Univers 08:30:00 09:28:15 CURT JADE [facility] 2022-07-20 2022-07-20 Office Curt Jade [facility] 1.2.840.114 [id number] Univers 08:30:00 09:28:15 Visit HEALTH 350.1.13.10 it y of [place] 4.2.7.2.686 Nic as RAFAEL?BLEA [id number] [address] MEDICAL OFFICE BUILDING 2022-07-13 2022-07-13 Nurse Nurse, Damaris Kaufman [facility] 1.2.840. 114 [id number] Univers 13:40:00 14:00:00 Visit Gustavo Jasso 350.1.13.10 ity of PEDIATRIC 4.2.7.2.686 Te s [facility] [id number] [address] 2022-07-13 2022-07-13 Outpatient R GUSTAVO JASSO [facility] [id number] Univers 13:40:00 13:40:00 ity of [facility] 2022-07-12 2022-07-12 Outpatient [facility] [id number] Univers 11:45:00 23:59:00 NIDHI, ity of [facility] 2022-07-12 2022-07-12 [facility] 1.2.840.114 [id number] Univers 11:45:00 23:59:00 Encounter nidhi [facility] 350.1.13.10 ity of [facility] 4.2.7.2.686 [place] [facility] [id number] Ny regine [address] 2022-07-08 2022-07-08 Nursing Education Specialist Lab, Ang - [facility] 1.2.840.1 14 [id number] Univers 15:00:00 15:15:00 Visit Marci Ko HEALTH 350.1.13.10 ity of [place] 4.2.7.2.686 Nic as RAFAEL?BLEA [id number] Ny regine [facility] [address] MEDICAL OFFICE BUILDING 2022-07-08 2022-07-08 Out[facility] [id number] Univers 14:30:00 14:46:50 MARCI ity of [facility] 2022-07-08 2022-07-08 Office [facility] 1.2.840.114 [id number] Univers 14:30:00 14:46:50 Visit Marci Quintanilla HEALTH 350.1.13.10 i ty of [place] 4.2.7.2.686 Nic as RAFAEL?BLEA [phone] Ny regine DORMAN [address] MEDICAL OFFICE BUILDING 2022-07-01 2022-07-01 [facility] [id number] Univers 07:30:00 08:12:29 MARCI beasley of [facility] 2022-07-01 2022-07-01 Office [facility] 1.2.840.114 [id number] Univers 07:30:00 08:12:29 Visit Marci Quintanilla [facility] 350.1.13.10 i ty of [place] 4.2.7.2.686 Nic as RAFAEL?BLEA [id number] Ny dicayaz CASTRO [address] MEDICAL OFFICE [facility] 2022-05-25 2022-05-25 Outpatient [facility] [id number] Univers 08:18:58 23:59:00 KRISTY itnery Formerly [facility] 2022-05-25 2022-05-25 [facility] 1.2.840.114 [id number] Univers 08:18:58 23:59:00 Encounter Kristy [facility] 350.1.13.10 ity of [place] 4.2.7.2.686 [place] [facility] [id number] [address] 2022-05-16 2022-05-16 [facility] [id number] Univers 18:10:25 23:59:00 BRANDEE itnery Formerly [facility] 2022-05-16 2022-05-16 [facility] 1.2.840.114 [id number] Univers 18:10:25 23:59:00 Encounter Brandee HEALTH 350.1.13.10 ity of [place] 4.2.7.2.686 Nic as RAFAEL?BLEA [id number] Ny dicayaz CASTRO [address] MEDICAL OFFICE [facility] 2022-05-16 2022-05-16 Urgent Brandee Nance [facility] 1.2.840.114 [id number] Univers 18:20:00 18:20:00 Care Unknown, Attending HEALTH 350.1.13.10 ity of [place] 4.2.7.2.686 Nic as RAFAEL?BLEA [id number] Ny dical GLORIA [address] MEDICAL OFFICE [facility] 2022-05-13 2022-05-13 Nursing Education Specialist Only, Ang Db Test [facility] 1.2.8 40.114 [id number] Univers 09:30:00 09:45:00 Visit Unknown, Attending HEALTH 350.1.13.10 ity [facility] 4.2.7.2.686 Nic as RAFAEL?BLEA [id number] [address] OFFICE [facility] 2022-05-13 2022-05-13 Outpatient R ANTONETTE [facility] [id number] Univers 09:30:00 09:38:43 ELIAS [facility] 2022-05-11 2022-05-11 Outpatient R ROMULO [facility] [id number] Univers 09:15:00 10:00:08 DAMARIS [facility] 2022-05-11 2022-05-11 Nursing Education Specialist Only, Ang Db Test [facility] 1.2.8 40.114 [id number] Univers 09:15:00 09:30:00 Visit Unknown, Attending HEALTH 350.1.13.10 ity Damaris Evans 4.2.7.2.686 [place] RAFAEL?BLEA [id number] [address] 2022-05-03 2022-05-03 K[facility] 1.2.170.110 [id number] Univers 00:00:00 00:00:00 Sendbrie HURD 350.1.13.10 ity [facility] [place].2.7.2.[place] [id number] [facility] 059 [facility] 2022-04-05 2022-04-05 [facility] [id number] Univers 11:00:00 11:00:00 SENDIL itnery Formerly [facility] 2022-04-05 2022-04-05 [facility] [id number] Univers 11:00:00 11:00:00 SENDIL itnery Formerly [facility] 2022-04-04 2022-04-04 [facility] [id number] Univers 13:20:00 13:20:00 ELIAS [facility] 2022-03-31 2022-03-31 Outpatient [facility] [id number] Univers 09:45:59 23:59:00 SENDIL ity Formerly [facility] 2022-03-31 2022-03-31 Outpatient R KAREN [facility] [id number] Univers 10:00:00 10:00:00 SENDIL ity Formerly [facility] 2022-03-29 2022-03-29 Outpatient R KAREN [facility] [id number] Univers 10:00:00 10:00:00 SENDIL ity Formerly [facility] 2022-03-28 2022-03-28 Outpatient R GUSTAVO JASSO [facility] [id number] Univers 15:00:00 15:38:39 ity of [facility] 2022-03-28 2022-03-28 Nurse Nurse, Jean-Claudej Shae [facility] 1.2.840. 114 [id number] Univers 15:00:00 15:20:00 Visit Gustavo Jasso 350.1.13.10 it[place] of [place] [facility] [id number] [address] 2022-03-23 2022-03-23 Nursing Education Specialist Lab, Ang - Db [facility] 1.2.840.1 14 [id number] Univers 09:30:00 09:45:00 Visit Marci Ko [facility] 350.1.13.10 ity of [place] 4.2.7.2.686 Nic as RAFAEL?BLEA [id number] Ny regine CASTRO [address] [place] [address] MEDICAL OFFICE BUILDING 2022-03-23 2022-03-23 [facility] [id number] Univers 09:30:00 09:30:00 MARCI ity Formerly [facility] 2022-03-16 2022-03-16 Outpatient [facility] [id number] Univers 14:30:00 16:11:01 SENDIL ity Formerly [facility] 2022-03-16 2022-03-16 Office [facility] 1.2.840.114 [id number] Univers 14:30:00 16:11:01 Visit Haley HURD 350.1.13.10 ity of [place].2.7.2.[place] [phone] Ny dical NAL 059 [facility] 2022-03-16 2022-03-16 Outpatient [facility] [id number] Univers 13:30:00 15:08:26 MARCI ity of [facility] 2022-03-16 2022-03-16 Office [facility] 1.2.840.114 [id number] Univers 13:30:00 15:08:26 Visit Marci A HEALTH 350.1.13.10 i ty of [place] 4.2.7.2.686 Nic as RAFAEL?BLEA [id number] Ny dicayaz CASTRO [address] MEDICAL OFFICE [facility] 2022-03-16 2022-03-16 Orders Doctor MARCY 1.2.840.114 [id number] Univers 00:00:00 00:00:00 Only Unassigned, VASQUEZ 350.1.13.10 ity of [place] [facility] 4.2.7.2.686 Nic as [phone] [facility] [address] 2022-02-02 2022-02-02 Outpatient R GUSTAVO JASSO [facility] [id number] Univers 16:00:00 16:22:12 ity of [facility] 2022-02-02 2022-02-02 Nurse Nurse, Lkj Shae [facility] 1.2.840. 114 [id number] Univers 16:00:00 16:20:00 Visit Gustavo Jasso 350.1.13.10 it[place] [id number] [facility] [address] 2022-01-20 2022-01-20 Refnegrita Whitman [facility] 1.2.840.114 [id number] Univers 00:00:00 00:00:00 Elias HEALTH 350.1.13.10 i ty of [place] 4.2.7.2.686 Nic as RAFAEL?BLEA [id number] Ny dical GLORIA [address] MEDICAL OFFICE [facility] 2022-01-17 2022-01-17 Office [facility] 1.2.840.114 [id number] Univers 10:00:00 10:31:08 Visit Naresh HEALTH 350.1.13.10 it y of [place] 4.2.7.2.686 Nic as RAFAEL?BLEA [phone] Ny regine [facility] [address] [facility] OFFICE [facility] 2022-01-17 2022-01-17 Outpatient R DELONTE [facility] [id number] Univers 10:00:00 10:31:08 [facility] 2022-01-17 2022-01-17 Outpatient R DELONTE [facility] [id number] Univers 10:00:00 10:00:00 [facility] [place] [facility] 2022-01-17 2022-01-17 Telephone [facility] 1.2.840.114 [id number] Univers 00:00:00 00:00:00 Naresh HEALTH 350.1.13.10 it y of [place] 4.2.7.2.686 Nic as RAFAEL?BLEA [phone] [address] OFFICE [facility] 2022-01-14 2022-01-14 Telephone [facility] 1.2.840.114 [id number] Univers 00:00:00 00:00:00 [facility] MULTISPEC 350.1.13.10 ity of [facility] 4.2.7.2.686 [facility] [id number] [address] DIABETES CLINIC 2022-01-10 2022-01-10 Outpatient R MAIKEL [facility] [id number] Univers 08:15:00 08:59:03 MARCI beasley Formerly [facility] 2022-01-10 2022-01-10 Nursing Education Specialist Lab, Ang - Amado [facility] 1.2.840.1 14 [id number] Univers 08:15:00 08:30:00 Visit [facility] 350.1.13.10 ity of [place] 4.2.7.2.686 Nic as RAFAEL?BLEA [phone] Ny regine [facility] [address] MEDICAL OFFICE BUILDING 2021-12-29 2021-12-29 Urgent Antonette [facility] 1.2.840.114 [id number] Univers 09:20:00 09:40:00 Care Elias HEALTH 350.1.13.10 i ty of [place] 4.2.7.2.686 Nic as RAFAEL?BLEA [id number] Ny dicayaz [facility] [address] MEDICAL OFFICE BUILDING 2021-12-29 2021-12-29 Outpatient R ANTONETTE [facility] [id number] Univers 09:20:00 09:20:00 ELIAS tavareznery o f [facility] 2021-12-29 2021-12-29 Db Whitman [facility] 1.2.840.114 [id number] Univers 00:00:00 00:00:00 (Out) [facility] 350.1.13.10 i ty of [place] 4.2.7.2.686 Nic as RAFAEL?BLEA [id number] [facility] [address] MEDICAL OFFICE BUILDING 2021-12-28 2021-12-28 Laboratory Only, Adc Pob2 Test [facility] 1.2 .840.114 [id number] Univers 15:00:00 15:15:00 Only Zenia hTibodeaux [place] 350.1.13.10 ity of [place]2.7.2.686 [place] [facility] [phone] Ny dicayaz [facility] 225 [facility] 2021-12-28 2021-12-28 Outpatient R CARLOS EDUARDO [facility] [id number] Univers 15:00:00 15:00:00 ZENIA ity [facility] 2021-12-28 2021-12-28 Telephone MARCY Wetzel 1.2.911.402 [id number] Univers 00:00:00 00:00:00 Debora ALFREDO 350.1.13.10 i ty of HOSPITAL 4.2.7.2.686 Nic as [phone] [facility] [address] 2021-11-22 2021-11-22 Refill Delonte [facility] 1.2.840.114 [id number] Univers 00:00:00 00:00:00 Naresh DAVIS 350.1.13.10 ity of [facility] 4.2.7.2.686 [place] [id number] [facility] AND HARO [address] DIABETES CLINIC 2021-10-28 2021-10-28 Patient Delonte [facility] 1.2.840.114 [id number] Univers 00:00:00 00:00:00 Secure Msg Naresh MULTISPEC 350.1.13.10 ity [facility] 4.2.7.2.686 [place] [id number] [facility] [place] [address] DIABETES CLINIC 2021-10-14 2021-10-14 Outpatient R VANE [facility] [id number] Univers 09:00:00 09:00:00 HILARIO ity of [facility] 2021-10-06 2021-10-06 Outpatient R SANJU [facility] [id number] Univers 10:25:00 23:59:00 WONDIFUL ity o f [facility] 2021-10-06 2021-10-06 Outpatient R SANJU [facility] [id number] Univers 10:15:00 10:15:00 WONDIFUL ity o f [facility] 2021-09-29 2021-09-29 Outpatient Tay JONES [facility] [id number] Univers 13:30:00 13:53:29 SENDIL ity [facility]ly [facility] 2021-09-29 2021-09-29 Office [facility] 1.2.840.114 [id number] Univers 13:30:00 13:53:29 Visit Haley HURD 350.1.13.10 ity [facility] 4.2.7.2.686 [facility] [id number] [place] 214399 [facility] 2021-09-29 2021-09-29 Outpatient Tay JONES [facility] [id number] Univers 13:30:00 13:53:29 SENDIL ity [facility] 2021-09-29 2021-09-29 Outpatient Tay JONES [facility] [id number] Univers 13:30:00 13:53:29 SENDIL ity [facility] 2021-09-29 2021-09-29 Outpatient Tay JONES [facility] [id number] Univers 13:30:00 13:30:00 SENDIL ity [facility] 2021-09-23 2021-09-23 Patient Delonte [facility] 1.2.840.114 [id number] Univers 00:00:00 00:00:00 Secure Msg Naresh MULTISPEC 350.1.13.10 ity of IALTY 4.2.7.2.686 [facility] [place] [id number] [address] DIABETES CLINIC 2021-09-23 2021-09-23 Telephone Delonte [facility] 1.2.840.114 [id number] Univers 00:00:00 00:00:00 Naresh MULTISPEC 350.1.13.10 ity of IALTY 4.2.7.2.686 [facility] [place] [id number] [address] DIABETES CLINIC 2021-09-20 2021-09-20 Orders Doctor MARCY 1.2.840.114 [id number] Univers 00:00:00 00:00:00 Only Unassigned, VASQUEZ 350.1.13.10 ity of [place] [facility] 4.2.7.2.686 Nic [id number] [address] 2021-09-16 2021-09-16 Patient Delonte [facility] 1.2.840.114 [id number] Univers 00:00:00 00:00:00 Secure Msg Naresh MULTISPEC 350.1.13.10 ity of IAL[place] 4.2.7.2.686 [facility] [place] [id number] [address] DIABETES CLINIC 2021-09-15 2021-09-15 [facility] [id number] Univers 08:15:00 09:00:42 NARESH ity of [facility] 2021-09-15 2021-09-15 Office [facility] 1.2.840.114 [id number] Univers 08:15:00 09:00:42 Visit Naresh MULTISPEC 350.1.13.10 ity of IAL[place] 4.2.7.2.686 [facility] [place] [phone] [address] DIABETES CLINIC 2021-09-15 2021-09-15 Patient Sanju FLCASSIA 1.2.840.114 [id number] Univers 00:00:00 00:00:00 Secure Msg Wondiful A HEALTH 350.1.13.10 ity of [place] 4.2.7.2.686 Nic as RAFAEL?BLEA [id number] Ny regine CASTRO 044 [facility] OFFICE [facility] 2021-09-10 2021-09-10 Case Sanju [facility] 1.2.840.114 [id number] Univers 00:00:00 00:00:00 Management Wondiful A HEALTH 350.1.13.10 ity of [place] 4.2.7.2.686 Nic as RAFAEL?BLEA [phone] Ny regine CASTRO 044 [facility] OFFICE [facility] 2021-09-09 2021-09-09 Nursing Education Specialist Lab, Ang - Db [facility] 1.2.840.1 14 [id number] Univers 08:00:00 08:15:00 Visit Jessee Bills HEALTH 350.1.13.1 0 ity of [place] 4.2.7.2.686 Nic as RAFAEL?BLEA [phone] Ny regine CASTRO 353 [facility] OFFICE [facility] 2021-09-09 2021-09-09 Outpatient R SANJU [facility] [id number] Univers 08:00:00 08:00:00 WONDIFUL ity o f [facility] 2021-09-08 2021-09-08 Office Karla [facility] 1.2.998.432 [id number] Univers 15:00:00 15:20:00 Visit Treva Rey [place] 350.1.13.10 ity of [place] 4.2.7.2.686 [place] [id number] Ny regine [facility] 085 [facility] 2021-09-08 2021-09-08 Outpatient R TREVA ACOSTA [facility] [id number] Univers 15:00:00 15:00:00 TREVA ACOSTA [facility] 2021-09-08 2021-09-08 Outpatient R PRISCILA ACOSTAGADemetrio [facility] [id number] Univers 15:00:00 15:00:00 ATALEXY LITTLEJOHNL itnery [facility] 2021-09-08 2021-09-08 Nursing Education Specialist Lab, Ang - Db [facility] 1.2.840.1 14 [id number] Univers 09:45:00 10:00:00 Visit Treva Acosta HEALTH 350.1.13.1 0 ity of [place] 4.2.7.2.686 Nic as RAFAEL?BLEA [phone] [facility] [address] MEDICAL OFFICE [facility] 2021-09-08 2021-09-08 [facility] [id number] Univers 09:15:00 09:41:16 WONDIFUL ity o f [facility] 2021-09-08 2021-09-08 Office [facility] 1.2.840.114 [id number] Univers 09:15:00 09:41:16 Visit Wondiful A HEALTH 350.1.13.10 ity of [place] 4.2.7.2.686 Nic as RAFAEL?BLEA [id number] [facility] 044 [facility] OFFICE [facility] 2021-09-08 2021-09-08 [facility] [id number] Univers 09:15:00 09:41:16 WONDIFUL ity o f [facility] 2021-09-08 2021-09-08 Case [facility] 1.2.840.114 [id number] Univers 00:00:00 00:00:00 Management Wondiful A HEALTH 350.1.13.10 ity of [place] 4.2.7.2.686 Nic as RAFAEL?BLEA [id number] [facility] 044 [facility] OFFICE [facility] 2021-09-08 2021-09-08 Orders Doctor MARCY 1.2.840.114 [id number] Univers 00:00:00 00:00:00 Only Unassigned, VASQUEZ 350.1.13.10 ity of [place] HOSPITAL 4.2.7.2.686 Nic as [id number] [address] 2021-08-20 2021-08-20 Patient Sanju [facility] 1.2.840.114 [id number] Univers 00:00:00 00:00:00 Secure Msg Wondiful A HEALTH 350.1.13.10 ity of [place] 4.2.7.2.686 Nic as RAFAEL?BLEA [id number] Ny dicayaz KNEY 044 [facility] OFFICE [facility] 2021-08-06 2021-08-06 Outpatient R ALLEN [facility] [id number] Univers 15:30:00 15:30:00 MARTIN ity [facility]ly [facility] 2021-08-05 2021-08-05 Outpatient Tay EDWARD [facility] [id number] Univers 16:00:00 16:00:00 MARTIN beasley [facility] 2021-08-05 2021-08-05 Outpatient Tay EDWARD [facility] [id number] Univers 13:40:00 13:40:00 MARTIN nery [facility] 2021-08-05 2021-08-05 Imm/Inj Nurse, Adc Pob Immunization [facility] 1.2.840.114 [id number] Univers 13:40:00 13:40:00 Visit Martin Edward 350.1.13 .10 ity of [place].2.7.2.[place] [phone] Ny dicayaz BENITES 421 [facility] 2021-06-23 2021-06-23 [facility] 1.2.840.114 [id number] Univers 00:00:00 00:00:00 Wondiful [facility] [id number] ity of [place] [id number] Nic as RAFAEL?BLEA [phone] Ny dicayaz DORMANEY 044 [facility] OFFICE [facility] 2021-05-19 2021-05-19 [facility]if [facility] 1.2.840.114 [id number] Univers 00:00:00 00:00:00 Management Wondiful [facility] [id number] ity of [place] [id number] Nic as Rafael?Blea [phone] Ny dical kney 044 [facility] Office [facility] 2021-05-13 2021-05-13 [facility] 1.2.840.114 [id number] Univers 11:13:23 23:59:00 Encounter Kristy [facility] [id number] [place] [phone] [facility] [address] 2021-05-13 2021-05-13 Office Familia [facility] 1.2.840.114 [id number] Univers 11:31:02 13:00:12 Visit Kristy [facility] [id number] [place] [phone] [facility] [address] 2021-05-13 2021-05-13 Outpatient R FAMILIA [facility] [id number] Univers 11:40:00 11:40:00 KRISTY ity of [facility] 2021-05-13 2021-05-13 Nursing Education Specialist Lab, Ang - Db [facility] 1.2.840.1 [id number] Univers 08:25:35 08:40:35 Visit ManateeVadim ricodeandre [facility] 350.1.13.1 0 ity of [place] [id number] Nic as Rafael?Blea [phone] Ny shawayaz castro [address] [facility] 2021-05-05 2021-05-05 Urgent Brandee Nance [facility] 1.2.840.114 [id number] Univers 11:02:27 11:23:33 Care Antonette Elias [facility] [id number] ity of [place] [id number] Nic as Rafael?Blea [phone] Ny regine sara [address] [facility] Office Building 2021-05-05 2021-05-05 Outpatient Tay WHITMAN [facility] [id number] Univers 11:00:00 11:00:00 ELIAS corbyy o f [facility] 2021-04-30 2021-04-30 Outpatient [facility] [id number] Univers 00:00:00 00:00:00 ity of [facility] 2021-04-29 2021-04-29 Nurse Therapy, Clc Covid Infusion [facility] 1.2.840.114 [id number] Univers 11:02:28 12:02:28 Visit Gurpreet [facility] 350.1.13.10 [id number] [phone] [facility] [address] Office Building 2021-04-29 2021-04-29 Outpatient R ALAN [facility] [id number] Univers 11:30:00 11:30:00 GURPREET ramos [facility] 2021-04-29 2021-04-29 [facility] [id number] Univers 09:20:00 09:20:00 KRISTY beasley [facility] 2021-04-29 2021-04-29 Orders Doctor MARCY 1.2.840.114 [id number] Univers 00:00:00 00:00:00 Only Unassigned, VASQUEZ 350.1.13.10 ity of [place] [facility] 4.2.7.2.686 Nic as [phone] [address] 2021-04-28 2021-04-28 Case [facility] 1.2.840.114 [id number] Univers 00:00:00 00:00:00 Management Wondiful A Health 350.1.13.10 ity of [place] 4.2.7.2.686 Nic as Rafael?Blea [phone] Ny shawayaz dandysara [address] [facility] 2021-04-27 2021-04-27 Outpatient R ROMULO [facility] [id number] Univers 20:40:00 20:40:00 DAMARIS brambila [facility] 2021-04-27 2021-04-27 Urgent Provider, Jamey [facility] 1.2.840.114 [id number] Univers 13:40:41 13:51:41 Care Damaris [facility] 350.1.13.10 ity of [place] 4.2.7.2.686 Nic as Rafael?Blea [phone] Ny regine dormansara [address] [facility] [address] 2021-04-27 2021-04-27 Case [facility] 1.2.840.114 [id number] Univers 00:00:00 00:00:00 Management Kristy Health 350.1.13.10 [place] [phone] [facility] [address] 2021-04-27 2021-04-27 Patient Sanju [facility] 1.2.840.114 [id number] Univers 00:00:00 00:00:00 Secure Msg Wondiful A Health 350.1.13.10 ity of [place] 4.2.7.2.686 Nic as Rafael?Blea [phone] Ny regine castro [address] [facility] [facility] [address] 2021-04-21 2021-04-21 Nursing Education Specialist Lab, Ang - Db [facility] 1.2.840.1 [id number] Univers 08:00:17 08:15:17 Visit Jessee Bills Health 350.1.13.1 0 ity of [place] 4.2.7.2.686 Nic as Rafael?Blea [phone] Ny regine castro [address] [facility] Office Building 2021-04-21 2021-04-21 Outpatient R [facility] [id number] Univers 08:00:00 08:00:00 ity of [facility] 2021-04-21 2021-04-21 Orders Manatee MARCY 1.2.840.114 [id number] Univers 00:00:00 00:00:00 Only Wondiful A VASQUEZ 350.1.13.10 ity of HOSPITAL 4.2.7.2.686 Nic as [phone] [address] 2021-04-08 2021-04-08 Office [facility] 1.2.840.114 [id number] Univers 08:48:37 09:50:24 Visit Kristy Health 350.1.13.10 it y [place] [phone] [place] [address] [facility] [address] 2021-04-08 2021-04-08 Outpatient R [facility] [id number] Univers 09:00:00 09:00:00 KRISTY ity [facility] 2021-04-07 2021-04-07 Case Sanju [facility] 1.2.840.114 [id number] Univers 00:00:00 00:00:00 Management Wondiful A Health 350.1.13.10 ity of [place] 4.2.7.2.686 Nic as Rafael?Blea [phone] Ny regine dorman[address] Office [facility] 2021-03-30 2021-03-30 Office [facility] 1.2.840.114 [id number] Univers 09:11:36 09:40:16 Visit Wondiful A Health 350.1.13.10 ity of [place] 4.2.7.2.686 Nic as Rafael?Blea [phone] [address] Office [facility] 2021-03-30 2021-03-30 Out[facility] [id number] Univers 09:30:00 09:30:00 WONDIFUL ity o f [facility] 2021-03-30 2021-03-30 Orders MARCY Bills 1.2.840.114 [id number] Univers 00:00:00 00:00:00 Only Wondiful A VASQUEZ 350.1.13.10 ity of HOSPITAL 4.2.7.2.686 Nic as [phone] [address] 2021-03-30 2021-03-30 Orders MARCY Bills 1.2.840.114 [id number] Univers 00:00:00 00:00:00 Only Wondiful A VASQUEZ 350.1.13.10 ity of [facility] 4.2.7.2.686 Nic as [phone] [address] 2021-03-12 2021-03-12 Outpatient [facility] [id number] Univers 08:00:00 08:00:00 WONDIFUL ity o f [facility] 2021-03-11 2021-03-11 Office Barbosa, [facility] 1.2.840.114 [id number] Univers 08:06:50 08:46:52 Visit Kristy Health 350.1.13.10 it y of [place] 4.2.7.2.686 [place] [phone] [place] 8[address] [facility] 2021-03-11 2021-03-11 Outpatient [facility] [id number] Univers 08:00:00 08:00:00 KRISTY ity of [facility] 2021-02-23 2021-02-23 Nurse Nurse, Clc Bl[facility] Obgyn [facility] 1 .2.840.114 [id number] Univers 13:02:41 13:22:41 Visit Kristy Barbosa 350.1.13.10 [place] [phone] [address] Office Building 2021-02-23 2021-02-23 Outpatient R FAMILIA [facility] [id number] Univers 13:00:00 13:00:00 KRISTY ity of [facility] 2021-02-19 2021-02-19 Patient [facility] 1.2.840.114 [id number] Univers 00:00:00 00:00:00 Secure Msg Kristy Health 350.1.13.10 [place] [phone] [address] Office [facility] 2021-02-19 2021-02-19 Transition Marie Abreu 1.2.840.114 [id number] Univers 00:00:00 00:00:00 of Care Danielle Wills 350.1.13.10 i ty of [place].2.7.2.[place] [phone] [facility] [address] 2021-02-16 2021-02-18 Hospital Jenifer Barbosa 1.2.840.114 [id number] Univers 05:05:00 15:31:00 Encounter Kristy Alfredo 350.1.13.10 ity of [facility] 4.2.7.2.686 Nic as [phone] [facility] [address] 2021-02-16 2021-02-16 Surgery Jenifer Barbosa 1.2.840.114 [id number] Univers 07:15:00 11:55:00 Kristynery Romoy 350.1.13.10 it y of [facility] 4.2.7.2.686 Nic as [phone] [facility] [address] 2021-02-16 2021-02-16 Orders Doctor VIDAL 1.2.840.114 [id number] Univers 00:00:00 00:00:00 Only Unassigned, VASQUEZ 350.1.13.10 ity of [place] [facility]PITAL 4.2.7.2.686 Nic as [phone] [place] [address] [address] 2021-01-13 2021-01-13 Prep For [place], [facility] 1.2.840.114 [id number] Univers 00:00:00 00:00:00 Surgery Kristy Y HEALTH 350.1.13.10 i ty of CL[place] [phone] [address] 2021-01-13 2021-01-13 Telephone [facility] 1.2.840.11 [id number] Univers 00:00:00 00:00:00 Kristy Y HEALTH 350.1.13.10 i ty of [place] [phone] [address] 2021-01-12 2021-01-12 Telephone [facility] 1.2.840.11 [id number] Univers 00:00:00 00:00:00 Kristy Y HEALTH 350.1.13.10 i ty of CLIN[place] [phone] [address] 2021-01-07 2021-01-07 Office [facility] 1.2.840.114 [id number] Univers 14:40:16 16:38:30 Visit [facility] 350.1.13.10 it [place] [phone] [address] Office Building 2021-01-07 2021-01-07 Outpatient R [facility] [id number] Univers 15:40:00 15:40:00 KRISTY [facility] 2021-01-07 2021-01-07 Outpatient R [facility] [id number] Univers 09:00:00 09:00:00 KRISTY ity [facility] 2021-01-07 2021-01-07 Orders Doctor VIDAL 1.2.840.114 [id number] Univers 00:00:00 00:00:00 Only Unassigned, VASQUEZ 350.1.13.10 ity of [place] [facility] 4.2.7.2.686 Nic as [phone] [facility] [address] 2021-01-01 2021-01-01 Outpatient Tay PETERSON [facility] [id number] Univers 09:00:00 09:00:00 DAFNE beasley [facility] 2020-12-21 2020-12-21 Telephone Barbosa [facility] 1.2.840.11 [id number] Univers 00:00:00 00:00:00 Kristy Ovalle HEALTH 350.1.13.10 i ty of CL[place] [phone] [address] 2020-12-17 2020-12-17 Nursing Education Specialist Lab, [facility] 1.2.840.114 [id number] Univers 17:09:45 17:24:45 Visit Kristy Barbosa [facility] 350.1.13.10 ity [place] [phone] [place] [address] [address] ([facility]) 2020-12-17 2020-12-17 Office [facility] 1.2.840.114 [id number] Univers 15:52:48 16:55:56 Visit Kristy [facility] 350.1.13.10 it y of [place].2.[place] [phone] [address] Office Building 2020-12-17 2020-12-17 Outpatient Tay BARBOSA [facility] [id number] Univers 16:20:00 16:20:00 KRISTY beasley [facility] 2020-11-09 2020-11-09 Office Remy [facility] 1.2.840.114 [id number] [facility] Univers 10:44:16 11:26:58 Visit Kenneth Hurd 350.1.13.10 ity of [place].2.7.2.686 [place] Profess[place] [phone] [place] [address] Branch Building 2020-11-09 2020-11-09 Outpatient KENNETH DODD [facility] [id number] Univers 10:40:00 10:40:00 REMY[facility] 2020-11-09 2020-11-09 Letter Remy [facility] 1.2.840.114 [id number] Univers 00:00:00 00:00:00 (Out) Kenneth Hurd 350.1.13.10 ity of [place]2.[place].2.[place] Profess[place] [phone] [facility] [address] [facility] 2020-11-06 2020-11-06 Office [facility] 1.2.840.114 [id number] Univers 13:08:30 14:06:09 Visit Marci A Health 350.1.13.10 i ty of [place] 4.2.7.2.686 Nic as Professio [phone] [facility] [address] [facility] 2020-11-06 2020-11-06 [facility] [id number] Univers 13:30:00 13:30:00 MARCI [facility] 2020-11-03 2020-11-03 Telephone [facility] 1.2.840.114 [id number] Univers 00:00:00 00:00:00 Wondiful A Health 350.1.13.10 ity of [place] 4.2.7.2.686 Nic as Professio [phone] [facility] [address]44 [facility] 2020-10-26 2020-10-26 Transition Marie Ortega 1.2.840.114 [id number] Univers 00:00:00 00:00:00 of Care Stacey Chauhany 350.1.13.10 i ty [place].2.[place] [phone] [address] 2020-10-22 2020-10-23 Outpatient U KEYA [facility] CRYSTAL [id number] Univers 12:51:00 17:15:00 TAMARA [facility] 2020-10-22 2020-10-23 Hospital Valentín [place] 1.2.840.1 [id number] Univers 12:51:00 17:15:00 Encounter Shola Anthony 350.1.13.10 ity of [facility] 4.2.7.2.686 [place] [phone] [facility] [address] 2020-10-15 2020-10-15 Refill Sanju [facility] 1.2.840.114 [id number] Univers 00:00:00 00:00:00 Wondiful A [place] 350.1.13.10 ity of [place].2.[place] Profess[place] [phone] [address] 2020-09-23 2020-09-23 Outpatient R SANJU [facility] [id number] Univers 10:00:00 10:00:00 WONDIFUL ity o f [facility] 2020-09-23 2020-09-23 Nursing Education Specialist Lab, Adc Fam Pob I [facility] 1.2. 840.114 [id number] Univers 08:05:55 09:41:12 Visit Jessee Bills A Health 350.1.13.1 0 ity of [place] 4.2.7.2.686 Nic as Professio [phone] [address] Office [facility] One 2020-09-21 2020-09-21 Telephone Sanju [facility] 1.2.840.114 [id number] Univers 00:00:00 00:00:00 Wondiful A Health 350.1.13.10 ity of [place] 4.2.7.2.686 Nic as Professio [phone] [address] Office Building One 2020-09-17 2020-09-17 Outpatient R CHARI [facility] [id number] Univers 09:00:00 09:00:00 GHASSAN ity of [facility] 2020-09-15 2020-09-15 Case [facility] 1.2.840.114 [id number] Univers 00:00:00 00:00:00 Management Wondiful A Health 350.1.13.10 ity of [place] 4.2.7.2.686 Nic as Professio [phone] [address] Office Building One 2020-09-11 2020-09-11 Nursing Education Specialist Lab, Adc Fam Pob I [facility] 1.2. 840.114 [id number] Univers 08:48:58 09:08:58 Visit Jessee Bills Health 350.1.13.1 0 ity of [place] 4.2.7.2.686 Nic as Professio [phone] [address] One 2020-09-11 2020-09-11 Office [facility] 1.2.840.114 [id number] Univers 08:00:47 08:51:11 Visit Jessee A Health 350.1.13.10 ity of [place] 4.2.7.2.686 Nic as Professio [phone] [address] One 2020-09-11 2020-09-11 Outpatient R SANJU [facility] [id number] Univers 08:15:00 08:15:00 WONDIFUL ity o f [facility] 2020-09-11 2020-09-11 Letter Sanju [facility] 1.2.840.114 [id number] Univers 00:00:00 00:00:00 (Out) Wondiful A Health 350.1.13.10 ity of [place] 4.2.7.2.686 Nic as Professio [phone] [address] One 2020-09-02 2020-09-02 Outpatient R TREVA ACOSTA [facility] [id number] Univers 15:30:00 15:30:00 TREVA ACOSTA ity of [facility] 2020-09-02 2020-09-02 Telemedici Karla [facility] 1.2.840.114 [id number] Univers 07:37:10 08:07:10 ne Visit Treva T [place] 350.1.13.10 ity of [place].2.[place].2.[place] [phone] [facility] [address] [facility] 2020-08-21 2020-08-21 Outpatient [facility] [id number] Univers 08:15:00 08:15:00 WONDIFUL ity o f [facility] 2020-08-20 2020-08-20 Urgent Provider, [facility] 1.2.840.114 [id number] Univers 10:10:58 10:42:10 Care Marci Ko [facility] 350.1.13.10 ity of [place] 4.2.7.2.686 Nic as Professio [phone] Ny regine nal [address] One 2020-08-20 2020-08-20 Outpatient [facility] [id number] Univers 10:20:00 10:20:00 MARCI beasley [facility] 2020-08-19 2020-08-19 Orders Doctor MARCY 1.2.840.114 [id number] Univers 00:00:00 00:00:00 Only Unassigned, VASQUEZ 350.1.13.10 ity of [place] [facility] 4.2.7.2.686 Nic as [phone] [facility] [address] 2020-08-06 2020-08-06 Office [facility] 1.2.840.114 [id number] Univers 12:57:26 13:49:50 Visit Kristy [facility] 350.1.13.10 it y [place].2.[place] [phone] [facility] [address] 2020-08-06 2020-08-06 [facility] [id number] Univers 13:20:00 13:20:00 KRISTY beasley [facility] 2020-07-27 2020-07-27 Office [facility] 1.2.840.114 [id number] Univers 13:17:36 13:53:45 Visit Haley Hurd 350.1.13.10 ity of [place].7.2.[place] [phone] Ny regine benites [address] [facility] 2020-07-27 2020-07-27 Out[facility] [id number] Univers 13:30:00 13:30:00 HALEY beasley [facility] 2020-07-27 2020-07-27 Orders Doctor VIDAL 1.2.840.114 [id number] Univers 00:00:00 00:00:00 Only Unassigned, VASQUEZ 350.1.13.10 ity of [place] [facility]PITAL 4.2.7.2.686 Nic as [phone] [facility] [address] 2020-07-21 2020-07-21 [facility] Jenifer Barbosa 1.2.840.114 [id number] Univers 12:45:00 17:38:00 Encounter Kristy Alfredo 350.1.13.10 ity of [facility] 4.2.7.2.686 Nic as [phone] [facility] [address] 2020-07-21 2020-07-21 Outpatient R [facility] 811 [id number] Univers 12:45:00 17:38:00 KRISTY ity of [facility] 2020-07-17 2020-07-17 Outpatient R [facility] [id number] Univers 15:15:00 15:15:00 ity of [facility] 2020-07-17 2020-07-17 Laboratory Only, Adc Test [facility] 1.2.840. 114 [id number] Univers 14:50:03 15:05:03 Only Kristy Barbosa 350.1.13.10 ity of [place].2.[place] [phone] [facility] [address] 2020-07-17 2020-07-17 Orders Doctor MARCY 1.2.840.114 [id number] Univers 00:00:00 00:00:00 Only Unassigned, VASQUEZ 350.1.13.10 ity of [place] [facility]PITAL 4.2.7.2.686 Nic as [phone] [facility] [address] 2020-07-16 2020-07-16 [facility] 1.2.840.114 [id number] Univers 00:00:00 00:00:00 Kenneth Hurd 350.1.13.10 ity of [place] 4.2.7.2.[place] [facility] [phone] [facility] [address] [facility] 2020-07-07 2020-07-07 Office ABDELRAHMAN [place] 1.2.840.114 [id number] Univers 10:44:00 11:04:00 Visit Chaim 350.1.13.10 it y of BUILDING 4.2.7.2.686 Nic as [phone] [facility] [address] 2020-07-07 2020-07-07 Outpatient R HOANG [facility] [id number] Univers 11:00:00 11:00:00 TEJO ity of [facility] 2020-07-07 2020-07-07 Nursing Education Specialist Behzad, Adc Lab Main [facility] 1.2.8 40.114 [id number] Univers 08:05:13 08:20:13 Visit Chaim [place] 350.1.13.10 ity of [place] 4.2.7.2.[place] [phone] Ny dical nal [address] [facility] 2020-06-19 2020-06-19 Laboratory Lab, Adc Fam Pob I [facility] 1.2. 840.114 [id number] Univers 09:22:04 09:42:04 Only Willie, Berenice [employer] 350.1.13.10 ity of [place] 4.2.7.2.686 Nic as Professio [phone] Ny dical nal [address] One 2020-06-19 2020-06-19 Outpatient R [facility] [id number] Univers 09:20:00 09:20:00 ity of [facility] 2020-06-19 2020-06-19 Letter Willie [facility] 1.2.840.114 [id number] Univers 00:00:00 00:00:00 (Out) Berenice Health 350.1.13.10 it y of [place] 4.2.7.2.686 Nic as Professio [phone] Ny dical nal [address] One 2020-06-17 2020-06-17 Prep For ALBERT Barbosa 1.2.840.114 [id number] Univers 00:00:00 00:00:00 Surgery Kristy Y HEALTH 350.1.13.10 i ty of [facility] 4.2.7.2.686 [place] [phone] [facility] [address] 2020-06-16 2020-06-16 Telephone Familia [facility] 1.2.840.114 [id number] Univers 00:00:00 00:00:00 Kristy [place] 350.1.13.10 i ty of [place] 4.2.7.2.[place] [phone] [facility] nal [address] [facility] 2020-06-16 2020-06-16 Patient Familia, [facility] 1.2.840.114 [id number] Univers 00:00:00 00:00:00 Secure Msg Kristy Health 350.1.13.10 ity of [place].2.[place] [phone] [facility] 0[facility] 2020-06-10 2020-06-10 Patient Sanju [facility] 1.2.840.114 [id number] Univers 00:00:00 00:00:00 Secure Msg Wondiful A Health 350.1.13.10 ity of [place] 4.2.7.2.686 Nic as Professio [phone] [facility] One 2020-06-03 2020-06-03 Telephone Karla [facility] 1.2.840.114 [id number] Univers 00:00:00 00:00:00 Treva Hurd 350.1.13.10 ity of [place] 4.[place].2.[place] [phone] [facility] [address] [facility] 2020-05-27 2020-05-27 Outpatient R TREVA ACOSTA [facility] [id number] Univers 16:30:00 16:30:00 TREVA ACOSTA ity [facility] 2020-05-27 2020-05-27 Telemedici Karla [facility] 1.2.840.114 [id number] Univers 08:08:12 08:38:12 ne Visit Treva Hurd 350.1.13.10 ity of [place] 4.2.7.2.[place] [phone] [facility] [address] [facility] 2020-05-27 2020-05-27 Orders Doctor VIDAL 1.2.840.114 [id number] Univers 00:00:00 00:00:00 Only Unassigned, VASQUEZ 350.1.13.10 ity of [place] [facility] 4.2.7.2.686 Nic as [phone] [address] 2020-05-21 2020-05-21 Office Sanju [facility] 1.2.840.114 [id number] Univers 13:47:21 14:45:40 Visit Wonisabelful A Health 350.1.13.10 ity of [place] 4.2.7.2.686 Nic as Professio [phone] Ny dical nal [address] Building One 2020-05-21 2020-05-21 Office Barbosa, [facility] 1.2.840.114 [id number] Univers 10:44:02 11:52:54 Visit Kristy Health 350.1.13.10 it y of [place]2.[place].2.[place] [phone] [facility] [address] 2020-05-21 2020-05-21 Outpatient R BARBOSA, [facility] [id number] Univers 11:00:00 11:00:00 KRISTY ity of [facility] 2020-05-21 2020-05-21 Orders Doctor MARCY 1.2.840.114 [id number] Univers 00:00:00 00:00:00 Only Unassigned, VASQUEZ 350.1.13.10 ity of [place] [facility] 4.2.7.2.686 Nic as [phone] [address] 2020-05-20 2020-05-20 Office Sia Felipe [facility] 1.2.840. 114 [id number] Univers 13:10:53 14:10:53 Visit Caio Jeff W PRIMARY 350.1.13.10 ity of C[place]2.[place].2.[place] [facility] [phone] Ny dical [address] 2020-05-20 2020-05-20 Outpatient R CAIO JEFF [facility] [id number] Univers 13:00:00 13:00:00 ity of [facility] 2020-05-12 2020-05-12 Nursing Education Specialist [place] [facility] 1.2 .840.114 [id number] Univers 12:06:53 12:21:53 Visit Roycechad Treva Hurd 350.1.13. 10 ity of [place].2.[place] [phone] [facility] [address] 2020-05-12 2020-05-12 Outpatient R TREVA ACOSTA [facility] [id number] Univers 12:00:00 12:00:00 TREVA ACOSTA ity of [facility] 2020-05-08 2020-05-08 [facility] [id number] Univers 08:00:18 23:59:00 DAFNE ity of [facility] 2020-05-08 2020-05-08 [facility] 1.2.840.114 [id number] Univers 08:00:00 23:59:00 Encounter Dafne Vickey 350.1.13.10 ity of [place] 4.2.7.2.686 [facility] [phone] [facility] [address] 2020-05-08 2020-05-08 Office Barbosa, [facility] 1.2.840.114 [id number] Univers 14:53:09 16:52:52 [facility] 350.1.13.10 i ty of CLINICS 4.2.7.2.[place] [phone] [facility] [address] 2020-05-08 2020-05-08 Outpatient R [facility] [id number] Univers 10:45:00 10:45:00 ity of [facility] 2020-05-08 2020-05-08 Laboratory Only, Adc Test [facility] 1.2.840. 114 [id number] Univers 08:02:19 08:17:19 Only Dafne Peterson 350.1.13.10 ity of [place] 4[place].2.[place] [phone] [facility] [address] 2020-05-07 2020-05-07 Orders Doctor MARCY 1.2.840.114 [id number] Univers 00:00:00 00:00:00 Only Unassigned, VASQUEZ 350.1.13.10 ity of [place] [facility] 4.2.7.2.686 Nic as [phone] [facility] [address] 2020-05-06 2020-05-06 Office [facility] 1.2.042.474 [id number] Univers 09:25:26 09:55:26 Visit Treva Hurd 350.1.13.10 [place] [phone] [place] dical nal 085 [facility] 2020-05-06 2020-05-06 Outpatient R [facility] [id number] Univers 09:30:00 09:30:00 TREVA ACOSTA ity [facility] 2020-04-30 2020-04-30 Outpatient R [facility] [id number] Univers 16:53:19 23:59:00 KRISTY ity [facility] 2020-04-30 2020-04-30 [facility] 1.2.840.114 [id number] Univers 16:45:00 23:59:00 Encounter Kristy Hurd 350.1.13.10 [place] [phone] [facility] [address] [place] 2020-04-30 2020-04-30 Outpatient R [facility] [id number] Univers 00:00:00 00:00:00 KRISTY ity [facility] 2020-04-25 2020-04-25 [facility] 1.2.840.114 [id number] Univers 00:00:00 00:00:00 Kenneth Hurd 350.1.13.10 [place] [phone] [place]ical nal 092 [facility] 2020-04-24 2020-04-24 [facility] 1.2.840.114 [id number] Univers 10:13:44 11:21:12 Visit Kristy Ovalle [facility] 350.1.13.10 i ty of [facility] 4[place]2.7.2.[place] [phone] [facility] [address] [place] 2020-04-24 2020-04-24 [facility] [id number] Univers 10:15:00 10:15:00 KRISTY ity of [facility] 2020-04-24 2020-04-24 Refill Sanju [facility] 1.2.840.114 [id number] Univers 00:00:00 00:00:00 Wondiful Dwight [place] 350.1.13.10 [place] [phone] Ny dical nal 044 [facility] 2020-04-24 2020-04-24 Orders Doctor MARCY 1.2.840.114 [id number] Univers 00:00:00 00:00:00 Only Unassigned, VASQUEZ 350.1.13.10 ity of [place] [facility] 4.2.7.2.686 Nic as [phone] [facility] [address] [place] 2020-04-23 2020-04-23 Nurse 2, [facility] Adult Infusion Nurse DEACON WILLARD 1.2.840.114 [id number] Univers 10:43:00 13:13:00 Visit Chaim Bolton Y HEALTH 350.1.13.10 it[place] of [place] [phone] [facility] [address] 2020-04-23 2020-04-23 Outpatient R HOANG [facility] [id number] Univers 11:00:00 11:00:00 TEJO ity of [facility] 2020-04-20 2020-04-20 Office Sanju [facility] 1.2.840.114 [id number] Univers 13:11:16 13:52:56 Visit Jessee [facility] 350.1.13.10 ity of [place] 4.2.7.2.686 Nic as Professio [phone] Ny dicnd nal [address] One 2020-04-20 2020-04-20 Outpatient R SANJU [facility] [id number] Univers 13:15:00 13:15:00 WONDIFUL ity o f [facility] 2020-04-20 2020-04-20 Office Remy [facility] 1.2.840.114 [id number] Univers 09:07:37 09:50:09 Visit Kenneth Hurd 350.1.13.10 ity of [place] [phone] Ny dical nal 0[address] [facility] 2020-04-07 2020-04-07 Office ABDELRAHMAN Bolton 1.2.840.114 [id number] Univers 10:45:46 12:08:43 Visit Tejo H 350.1.13.10 it y of [facility] 4.2.7.2.686 Nic as [phone] [facility] [address] 2020-04-07 2020-04-07 Outpatient R HOANG [facility] [id number] Univers 11:00:00 11:00:00 TEJO ity of [facility] 2020-04-07 2020-04-07 Laboratory Only, [facility] Test UNIVERSIT 1.2.84 0.114 [id number] Univers 08:10:45 08:25:45 Only Chaim Bolton Y [facility] 350.1.13.10 ity [place] [phone] [facility] [address] 2020-04-07 2020-04-07 Orders Doctor MARCY 1.2.840.114 [id number] Univers 00:00:00 00:00:00 Only Unassigned, VASQUEZ 350.1.13.10 ity of [place] [facility] 4.2.7.2.686 Nic as [phone] [facility] [address] 2020-03-26 2020-03-26 [facility] [id number] Univers 16:00:00 16:00:00 WONDIFUL ity o f [facility] 2020-03-23 2020-03-23 Office [facility] 1.2.840.114 [id number] Univers 14:41:42 15:12:58 Visit Haley Hurd 350.1.13.10 ity of [place] [phone] Ny dical nal 059 [facility] 2020-03-23 2020-03-23 Outpatient [facility] [id number] Univers 15:00:00 15:00:00 SENDIL ity of [facility] 2020-03-20 2020-03-20 Outpatient R FAMILIA [facility] [id number] Univers 14:00:00 14:00:00 KRISTY ity Formerly [facility] 2020-03-15 2020-03-18 Emergency Russell Calderon [facility] 1.2.84 0.114 [id number] Univers 12:21:00 15:15:00 [facility] 350.1.13.10 ity of [place] 4.2.7.2.686 [facility] [phone] [place] [address] [address] ([facility]) 2020-03-15 2020-03-18 Outpatient X URSULA [facility] [id number] Univers 12:21:00 15:15:00 QUINN ity [facility]ly [facility] 2020-03-13 2020-03-13 Outpatient [facility] [id number] Univers 09:30:00 09:30:00 SENDIL ramos [facility] 2020-02-06 2020-02-06 Case [facility] 1.2.840.114 [id number] Univers 00:00:00 00:00:00 Management Wondiful A [place] 350.1.13.10 ity of [place] Profess[place] [phone] Ny dical nal [address] [place] [address] 2020-02-06 2020-02-06 Case [facility] 1.2.840.114 [id number] Univers 00:00:00 00:00:00 Management Wondiful A [place] 350.1.13.10 ity of [place] Profess[place] [phone] Ny dical nal [address] [place] [address] 2020-01-31 2020-01-31 Outpatient [facility] [id number] Univers 08:00:00 08:00:00 WONDIFUL ity o f [facility] 2020-01-30 2020-01-30 Office [facility] 1.2.840.114 [id number] Univers 14:26:45 16:28:35 Visit Wondiful A [place] 350.1.13.10 ity of [place]2.[place] Profess[place] [phone] Ny dical nal 044 [facility] 2020-01-30 2020-01-30 Nursing Education Specialist 2, Adc Lab [facility] 1.2.840.114 [id number] Univers 15:39:37 15:54:37 Visit ManateeVadim ricodeandre Hurd 350.1.13. 10 ity of [place] Profess[place] [phone] [facility] [address] [facility] 2020-01-30 2020-01-30 Outpatient R SANJU, [facility] [id number] Univers 14:30:00 14:30:00 WONDIFUL ity o f [facility] 2020-01-08 2020-01-08 Telephone Annabel Santana 1..840.114 7 [id number] Univers 00:00:00 00:00:00 VASQUEZ 350.1.13.10 it y of [facility] 4.2.7.2.686 Nic as [phone] [address] 2020-01-06 2020-01-06 Urgent Pob1, Acute Care Clinic [facility] 1. .840.114 [id number] Univers 11:43:34 13:30:33 Care Unknown, Attending Health 350.1.13.10 ity of Brenna Qu[place] 4.2.7.2.686 [place] Profbelaio [phone] [facility] [address] Office [facility] One 2020-01-06 2020-01-06 Outpatient R [facility] [id number] Univers 11:40:00 11:40:00 ity of [facility] 2020-01-02 2020-01-02 Office Nicholas [facility] 1..743.779 [id number] Univers 09:38:26 10:14:09 Visit Dafne Hurd 350.1.13.10 i ty of [place] Profess[place] [phone] [facility] [address] [facility] 2020-01-02 2020-01-02 Outpatient R NICHOLAS [facility] [id number] Univers 09:30:00 09:30:00 DAFNE ity of [facility] 2020-01-02 2020-01-02 Letter Nicholas [facility] 1.2.291.523 [id number] Univers 00:00:00 00:00:00 (Out) Dafne Vickey 350.1.13.10 i ty of [place] Profess[place] [phone] Ny dical nal 134 [facility] 2019-04-19 2019-04-19 Telephone [facility] 1.2.840.114 [id number] Univers 00:00:00 00:00:00 Kenneth Hurd 350.1.13.10 ity of [place] Profess[place] [phone] Ny dicnd nal 092 [facility] 2019-04-19 2019-04-19 Letter [facility] 1.2.840.114 [id number] Univers 00:00:00 00:00:00 (Out) Kenneht Hurd 350.1.13.10 ity of [place] [phone] Ny dical nal 0[address] [facility] 2019-03-27 2019-03-27 Refnegrita BillsPRESBYTER[facility] 1.2.840.114 [id number] Univers 00:00:00 00:00:00 Wondiful A Health 350.1.13.10 ity of [place] 4.2.7.2.686 Nic as Professio [phone] [facility] nal [address] [place] Office [facility] One 2019-03-07 2019-03-07 Office [facility] 1.2.840.114 [id number] Univers 11:39:34 12:07:05 Visit Haley Hurd 350.1.13.10 ity of [place] [phone] Ny dical nal 059 [facility] 2019-03-07 2019-03-07 Orders Doctor MARCY 1.2.840.114 [id number] Univers 00:00:00 00:00:00 Only Unassigned, VASQUEZ 350.1.13.10 ity of [place] [facility] 4.2.7.2.686 Nic as [phone] [address] 2019-03-05 2019-03-05 Patient Hermelindo [facility] 1.2.840.114 [id number] Univers 00:00:00 00:00:00 Secure [facility] 350.1.13.10 [facility] 4.2.7.2.686 Nic as Tanja [phone] Ny dical nal [address] Building One 2019-01-01 2019-01-01 [facility] [id number] Univers 15:00:00 16:16:34 DAFNE [facility] 2018-04-25 2018-04-25 Appointmen CHLOE QUIGLEY [id number] [place] 10:00:00 10:00:00 t; NURSE Tim QUIGLEY [facility] sici NURSE [facility] Results Test Description Test Time Test Comments Results Result Comments Source POCT URINALYSIS W SPECIFIC GRAVITY 2022-07-01 14:01:00 Test Item Value Reference Range Interpretation Comme nts POCT U SP GRAV (test code = 3255) 1.005 mg/dl 1.005-1.025 POCT PH U (test code = 3254) 9 mg/dl 5-8 A POCT U LEUK EST (test code = 3263) + Negative - Negative A POCT U NIT (test code = 3262) negative Negative - Negative POCT U PROT (test code = 3259) trace Negative - Negative A POCT U GLU (test code = 3256) normal Negative - Negative POCT U KETONE (test code = 3258) negative Negative - Negative POCT U UROBILI (test code = 3260) normal 0.2-1 POCT U BILI (test code = 3261) negative Negative - Negative POCT U BLD (test code = 3257) negative Negative - Negative POCT U COLOR (test code = 3266) dark yellow POCT U APPEAR (test code = 3267) cloudy Lab Interpretation (test code = 35639-9) Abnormal [facility] SPECIFIC [id number] 14:01:00 Test Item Value Reference Range Interpretation Comments POCT U SP GRAV (test code = 1.005 mg/dl 1.005-1.025 3255) POCT PH U (test code = 3254) 9 mg/dl 5-8 A POCT U LEUK EST (test code = + Negative - Negative A 3263) POCT U NIT (test code = 3262) negative Negative - Negative POCT U PROT (test code = trace Negative - Negative A 3259) POCT U GLU (test code = 3256) normal Negative - Negative POCT U KETONE (test code = negative Negative - Negative 3258) POCT U UROBILI (test code = normal 0.2-1 3260) POCT U BILI (test code = negative Negative - Negative 3261) POCT U BLD (test code = 3257) negative Negative - Negative POCT U COLOR (test code = dark yellow 3266) POCT U APPEAR (test code = cloudy 3267) Lab Interpretation (test code Abnormal = 80097-7) [facility] URINALYSIS W SPECIFIC [id number] 14:01:00 Test Item Value Reference Range Interpretation Comments POCT U SP GRAV (test code = 1.005 mg/dl 1.005-1.025 3255) POCT PH U (test code = 3254) 9 mg/dl 5-8 A POCT U LEUK EST (test code = + Negative - Negative A 3263) POCT U NIT (test code = 3262) negative Negative - Negative POCT U PROT (test code = trace Negative - Negative A 3259) POCT U GLU (test code = 3256) normal Negative - Negative POCT U KETONE (test code = negative Negative - Negative 3258) POCT U UROBILI (test code = normal 0.2-1 3260) POCT U BILI (test code = negative Negative - Negative 3261) POCT U BLD (test code = 3257) negative Negative - Negative POCT U COLOR (test code = dark yellow 3266) POCT U APPEAR (test code = cloudy 3267) Lab Interpretation (test code Abnormal = 71280-5) [facility] SARS-COV-2 ANTIGEN (BINAX NOW)2022-05-13 14:32:00 Test Item Value Reference Range Interpretation Comments POCT SARS-COV-2 ANTIGEN (test code = Positive Not Detected A 84392-9) On board controls acceptable with C Yes Line (test code = 3574) Lab Interpretation (test code = Abnormal 58126-1) [facility] GRP A STREP (MOLECULAR)2020-08-20 16:35:00 Test Item Value Reference Range Interpretation Comments POCT GP A STREP (test code = Negative Negative - Negative 63093-1) Lab Interpretation (test code = Normal 47955-2) [facility] and Screen - ONCE [id number] 20:22:23 Test Item Value Reference Range Interpretation Comments ABO & RH (test code O POSITIVE Performe d at [facility] = 20) Laboratory Serv [facility] Blood Bank3 [facility] s [id number] Free: [phone] A No. [id number] IAT (test code = Negative Performed a t [facility] 1185) Laboratory Serv [facility] Blood Bank3 [facility] s [address]Dmuf Free: [phone] A No. [id number] [facility]COMP. METABOLIC PANEL (22409)2020-07-21 20:16:00 Test Item Value Reference Range Interpretation Comments NA (test code = 138 mmol/L 135-145 9010871377) K (test code = 3.8 mmol/L 3.5-5 1708121119) CL (test code = 103 mmol/L 98-108 7126323830) CO2 TOTAL (test code = 28 mmol/L 23-31 1599173995) AGAP (test code = 2-16 9982929701) BUN (test code = 8 mg/dL 7-23 5560600917) GLUCOSE (test code = 77 mg/dL 70-110 0233683672) CREATININE (test code 0.51 mg/dL 0.5-1.04 = 9187418266) TOTAL BILI (test code 0.8 mg/dL 0.1-1.1 = 4663006618) CALCIUM (test code = 8.9 mg/dL 8.6-10.6 2949091102) T PROTEIN (test code = 7.3 g/dL 6.3-8.2 8845712373) ALBUMIN (test code = 4.0 g/dL 3.5-5 0530998431) ALK PHOS (test code = 104 U/L 34-122 3840440840) ALTv (test code = 27 U/L 5-35 1742-6) AST(SGOT) (test code = 40 U/L 13-40 1906392420) eGFR Calculation mL/min/1.73m2 (Non-) (test code = 5704046257) eGFR Calculation mL/min/1.73m2 () (test code = 0625616573) ZULY (test code = ZULY) Association of Glomerular Filtration Rate (GFR) and Staging of Kidney Disease* + -+ + ---+| GFR (mL/min/1.73 m2) ?| With Kidney Damage ?| ?Without Kidney Damage+ -------+ ------+ ---------+| ?>90 ?| ?Stage one ?| ? Normal ?+ --+ -+ ----+| ?60-89 ?| ?Stage two ?| ? Decreased GFR ? + -+ + ---+| ?30-59 ?| ?Stage three ?| ? Stage three ? + -+ + ---+| ?15-29 ?| ?Stage four ? | ? Stage four ?+ --+ -+ ----+| ?<15 (or dialysis) ? ?| ?Stage five ? | ? Stage five ?+ --+ -+ ----+ *Each stage assumes the associated GFR level has been in effect for at least three months. ?Stages 1 to 5, with or without kidney disease, indicate chronic kidney disease. Notes: Determination of stages one and two (with eGFR >59mL/min/1.73 m2) requires estimation of kidney damage for at least three months as defined by structural or functional abnormalities of the kidney, manifested by either:Pathological abnormalities or Markers of kidney damage (including abnormalities in the composition of the blood or urine or abnormalities in imaging tests). [facility] WITH [id number] 20:02:00 Test Item Value Reference Range Interpretation Comments WBC (test code = See_Comment [Automated message] 6690-2) The system FIZZA generated this result transmitted ref erence range: 4.30 - 1 1.10 10*3/?L. The re ference range was not u sed to interpret this result as normal/abnor mal. RBC (test code = See_Comment [Automated message] 789-8) The system whic h generated this result transmitted ref erence range: 3.93 - 5 .25 10*6/?L. The re ference range was not u sed to interpret this result as normal/abnor mal. HGB (test code = 13.2 g/dL 11.6-15 718-7) HCT (test code = 40.0 % 35.7-45.2 4544-3) MCV (test code = 92.0 fL 80.6-95.5 787-2) MCH (test code = 30.3 pg 25.9-32.8 785-6) MCHC (test code = 33.0 g/dL 31.6-35.1 786-4) RDW-SD (test code 44.5 fL 39-49.9 = 53458-5) RDW-CV (test code 13.1 % 12-15.5 = 788-0) PLT (test code = See_Comment [Automated message] 777-3) The system FIZZA generated this result transmitted ref erence range: 166 - 35 8 10*3/?L. The re ference range was not u sed to interpret this result as normal/abnor mal. MPV (test code = 11.3 fL 9.5-12.9 28568-0) NRBC/100 WBC (test See_Comment [Automat ed message] code = 0935241116) The syste m which generated this result transmitted ref erence range: 0.0 - 10 .0 /100 WBCs. The refer ence range was not u sed to interpret this result as normal/abnor mal. NRBC x10^3 (test <0.01 See_Comment [Automated message] code = 0893983970) The syste m which generated this result transmitted ref erence range: 10*3/?L. The reference range was not used to interpr et this result as normal/abnormal . GRAN MAT (NEUT) % 63.8 % (test code = 770-8) IMM GRAN % (test 0.30 % code = 6587195761) LYMPH % (test code 26.9 % = 736-9) MONO % (test code 6.3 % = 5905-5) EOS % (test code = 2.4 % 713-8) BASO % (test code 0.3 % = 706-2) GRAN MAT 4.43 10*3/uL 1.88-7.09 x10^3(ANC) (test code = 2695778976) IMM GRAN x10^3 <0.03 0-0.06 (test code = 6188679169) LYMPH x10^3 (test 1.87 10*3/uL 1.32-3.29 code = 731-0) MONO x10^3 (test 0.44 10*3/uL 0.33-0.92 code = 742-7) EOS x10^3 (test 0.17 10*3/uL 0.03-0.39 code = 711-2) BASO x10^3 (test <0.03 0.01-0.07 code = 704-7) [facility]kinPROTHROMBIN TIME / [id number] 14:29:00 Test Item Value Reference Range Interpretation Comments PROTIME PATIENT (test See_Comment [Auto mated message] code = 5964-2) The system wh ich generated this result transmitted ref erence range: 12.0 - 1 4.7 Seconds. The re ference range was not u sed to interpret this result as normal/abnor mal. INR (test code = 6301-6) Nor mal INR <1.1; Warfarin Therap eutic range 2.0 to 3. 0 or 2.5 to 3.5, dep ending upon the indica tions. Lab Interpretation (test Normal code = 45659-8) [facility] WITH [id number] 14:23:00 Test Item Value Reference Range Interpretation Comments WBC (test code = See_Comment [Automated 7790-2) message] The sy stem which generated this result transmitted reference range : 4.30 - 11.10 10*3/?L. The reference range was not used to interpret this result as normal/abnormal . RBC (test code = See_Comment [Automated 509-8) message] The sy stem which generated this result transmitted reference range : 3.93 - 5.25 10*6/?L. The reference range was not used to interpret this result as normal/abnormal . HGB (test code = 13.4 g/dL 11.6-15 718-7) HCT (test code = 40.8 % 35.7-45.2 4544-3) MCV (test code = 91.5 fL 80.6-95.5 787-2) MCH (test code = 30.0 pg 25.9-32.8 785-6) MCHC (test code = 32.8 g/dL 31.6-35.1 786-4) RDW-SD (test code = 46.8 fL 39-49.9 72790-4) RDW-CV (test code = 13.7 % 12-15.5 788-0) PLT (test code = See_Comment [Automated 777-3) message] The sy stem which generated this result transmitted reference range : 166 - 358 10*3/ ?L. The reference r sharmaine was not used to interpret this result as normal/abnormal . MPV (test code = 11.4 fL 9.5-12.9 88478-6) NRBC/100 WBC (test See_Comment [Automat ed code = 9337394608) message] The system which generated this result transmitted reference range : 0.0 - 10.0 /100 WBCs. The refer ence range was not u sed to interpret th is result as normal/abnormal . NRBC x10^3 (test code <0.01 See_Comment [Auto mated = 8366882274) message] The s ystem which generated this result transmitted reference range : 10*3/?L. The reference range was not used to interpret this result as normal/abnormal . GRAN MAT (NEUT) % 71.0 % (test code = 770-8) IMM GRAN % (test code 0.30 % = 7248728357) LYMPH % (test code = 21.6 % 736-9) MONO % (test code = 4.5 % 5905-5) EOS % (test code = 2.3 % 713-8) BASO % (test code = 0.3 % 706-2) GRAN MAT x10^3(ANC) 4.84 10*3/uL 1.88-7.09 (test code = 4086134847) IMM GRAN x10^3 (test <0.03 0-0.06 code = 7252023358) LYMPH x10^3 (test code 1.47 10*3/uL 1.32-3.29 = 731-0) MONO x10^3 (test code 0.31 10*3/uL 0.33-0.92 L = 742-7) EOS x10^3 (test code = 0.16 10*3/uL 0.03-0.39 711-2) BASO x10^3 (test code <0.03 0.01-0.07 = 704-7) Lab Interpretation Abnormal (test code = 11084-0) [facility]kinRETICULOCYTES [id number] 14:23:00 Test Item Value Reference Range Interpretation Comments RETIC Count Automated 1.85 % 0.51-1.9 (test code = 3711943261) RETIC Absolute Count See_Comment [Autom ated message] (test code = 0043679564) The system which generated this result transmitted ref erence range: 0.0230 - 0.0950 10*6/?L. The reference range was not used to int erpret this result as normal/abnormal . IRF % (test code = 7.30 % 2.1-12.6 8307604064) RETIC-HE (test code = 36.1 pg 28.1-35.8 H 6257826014) Lab Interpretation (test Abnormal code = 55384-0) [facility]OVID-[facility] (ID NOW RAPID TESTING)2020-05-08 14:15:00 Test Item Value Reference Range Interpretation Comments SARS-CoV-2 Rapid ID NOW Not Detected Not Detected (test code = 34282-1) ZULY (test code = ZULY) ID NOW COVID-19 Assay is an isothermal nucleic acid amplification test intended for the qualitative detection of nucleic acid from SARS-CoV-2 viral RNA in nasopharyngeal (CLIENT SERVICE ADMINISTRATOR) specimens. It is used under Emergency Use Authorization (EUA) by FDA. The limit of detection (LOD) of the assay is 125 Genome Equivalents/mL. A positive result is indicative of the presence of SARS-CoV-2 RNA. ?Clinical correlation with patient history and other diagnostic information is necessary to determine patient infection status. A negative (Not Detected) result does not preclude SARS-CoV-2 infection. In patients with clinical symptoms and other tests that are consistent with SARS-CoV-2 infection, negative results should be treated as presumptive negative and a new specimen should be tested with alternative PCR molecular test. Invalid: Please collect a new specimen for repeat patient testing if clinically indicated. Lab Interpretation Normal (test code = 35492-1) [facility] PELVIS COMPLETE WITH [id number] 23:12:19 1. ?Cystic changes are seen in the endometrium with the largest cystmeasuring 2 cm. This may be related to drug effect (tamoxifen) or cysticendometrial hyperplasia. 2. ?Nonvisualization of the ovaries. Preliminary Report Dictated by Resident: Deo Johnson MD., have reviewedthis study and agree with theabove report.EXAM: PELVIC ULTRASOUND, TRANSABDOMINAL AND TRANSVAGINAL HISTORY: 39-year-old female, LMP 04/27/2020, presenting with "abnormaluterine bleeding" TECHNIQUE: Survey transabdominal and transvaginal ultrasound imaging of thepelvis was performed including color Doppler evaluation with representativeimages obtained. COMPARISON: None FINDINGS: UTERUS: The uterus measures 7.9 x 3.3 x 5.2 cm. The endometrium isheterogeneously thickened with multicystic spaces, measuring yteazonsavhpq10 mm in thickness (best appreciated on cine clip #61). Limitedvisualization ofthe uterine fundus noted from shadowing of thickenedendometrium. A circumscribed, thin-walled, anechoic structure without colorDoppler flow in the lower uterine segment superiorly is seen, measuringapproximately 2 x 1.7 x 2.3 cm. OVARIES: The ovaries were not identified on transabdominal or transvaginalimaging. No ?free fluid. [facility], Radiant Results Inft User - 04/30/2020 6:13 PM CDTEXAM: PELVIC ULTRASOUND, TRANSABDOMINAL AND TRANSVAGINALHISTORY: 39-year-old female, LMP 04/27/2020, presenting with "abnormaluterine bleeding"TECHNIQUE: Survey transabdominal and transvaginal ultrasound imaging of thepelvis was performed including color Doppler evaluation with representativeimages obtained.COMPARIS ON: NoneFINDINGS: UTERUS: The uterus measures 7.9 x 3.3 x 5.2 cm. The endometrium isheterogeneously thickened with multicystic spaces, measuring vyemiruugnefg50 mm in thickness (best appreciated on cine clip #61). Limitedvisualization of the uterine fundus noted from shadowing of thickenedendometrium.A circumscribed, thin-walled, anechoic structure without colorDoppler flow in the lower uterine segment superiorly is seen, measuringapproximately 2 x 1.7 x 2.3 cm.OVARIES: The ovaries were not identified on transabdominal or transvaginalimaging.No free fluid.IMPRESSION1. Cystic changes are seen in the endometrium with the largest cystmeasuring 2 cm. This may be related to drug effect (tamoxifen) or cysticendometrial hyperplasia.2. Nonvisualization of the ovaries.Preliminary Report Dictated by Resident: Deo Vicente MD., have reviewed this study and agree with theabove report.[facility] [id number] 15:40:00 Test Item Value Reference Range Interpretation Comments POCT PREG (test code = 1605) Negative On board controls acceptable with C Yes Line (test code = 3574) POCT PREG LOT # (test code = 3575) POCT PREG TEST DATE (test code = 3576) [facility] [id number] 15:40:00 Test Item Value Reference Range Interpretation Comments POCT PREG (test code = 1605) Negative On board controls acceptable with C Yes Line (test code = 3574) POCT PREG LOT # (test code = 3575) POCT PREG TEST DATE (test code = 3576) [facility] [id number] 15:40:00 Test Item Value Reference Range Interpretation Comments POCT PREG (test code = 1605) Negative On board controls acceptable with C Yes Line (test code = 3574) POCT PREG LOT # (test code = 3575) POCT PREG TEST DATE (test code = 3576) [facility] WITH [id number] 14:59:00 Test Item Value Reference Range Interpretation Comments WBC (test code = See_Comment [Automated 6590-2) message] The sy stem which generated this result transmitted reference range : 4.30 - 11.10 10*3/?L. The reference range was not used to interpret this result as normal/abnormal . RBC (test code = See_Comment [Automated 169-8) message] The sy stem which generated this result transmitted reference range : 3.93 - 5.25 10*6/?L. The reference range was not used to interpret this result as normal/abnormal . HGB (test code = 11.4 g/dL 11.6-15 L 718-7) HCT (test code = 37.0 % 35.7-45.2 4544-3) MCV (test code = 80.1 fL 80.6-95.5 L 787-2) MCH (test code = 24.7 pg 25.9-32.8 L 785-6) MCHC (test code = 30.8 g/dL 31.6-35.1 L 786-4) RDW-SD (test code = Not Naomi ured 67333-2) RDW-CV (test code = Not Naomi ured 788-0) PLT (test code = See_Comment [Automated 777-3) message] The sy stem which generated this result transmitted reference range : 166 - 358 10*3/ ?L. The reference r sharmaine was not used to interpret this result as normal/abnormal . MPV (test code = 11.2 fL 9.5-12.9 46738-1) IPF % (test code = 8.1 % 1.3-7.7 H Platelet count 7152107291) measured by fluorescence method. NRBC/100 WBC (test See_Comment [Automat ed code = 2348754096) message] The system which generated this result transmitted reference range : 0.0 - 10.0 /100 WBCs. The refer ence range was not u sed to interpret th is result as normal/abnormal . NRBC x10^3 (test code <0.01 See_Comment [Auto mated = 7521344632) message] The s ystem which generated this result transmitted reference range : 10*3/?L. The reference range was not used to interpret this result as normal/abnormal . GRAN MAT (NEUT) % 69.0 % (test code = 770-8) IMM GRAN % (test code 0.30 % = 6981622076) LYMPH % (test code = 22.6 % 736-9) MONO % (test code = 6.6 % 5905-5) EOS % (test code = 1.4 % 713-8) BASO % (test code = 0.1 % 706-2) GRAN MAT x10^3(ANC) 5.00 10*3/uL 1.88-7.09 (test code = 0936185237) IMM GRAN x10^3 (test <0.03 0-0.06 code = 9943255088) LYMPH x10^3 (test code 1.64 10*3/uL 1.32-3.29 = 731-0) MONO x10^3 (test code 0.48 10*3/uL 0.33-0.92 = 742-7) EOS x10^3 (test code = 0.10 10*3/uL 0.03-0.39 711-2) BASO x10^3 (test code <0.03 0.01-0.07 = 704-7) ELLIPTO/OVAL (test 2+ See_Comment A [Automat ed code = 00316-3) message] The system which generated this result transmitted reference range : (none). The reference range was not used to interpret this result as normal/abnormal . Lab Interpretation Abnormal (test code = 17439-3) [facility] METABOLIC PANEL (NA, K, CL, CO2, GLUCOSE, BUN, CREATININE, CA)2020-03-18 14:46:00 Test Item Value Reference Range Interpretation Comments NA (test code = 138 mmol/L 135-145 2317378849) K (test code = 3.5 mmol/L 3.5-5 7183399007) CL (test code = 104 mmol/L 98-108 7484536250) CO2 TOTAL (test code = 24 mmol/L 23-31 3732229505) AGAP (test code = 2-16 3386374957) BUN (test code = 9 mg/dL 7-23 1043317458) GLUCOSE (test code = 89 mg/dL 70-110 9123835477) CREATININE (test code 0.58 mg/dL 0.5-1.04 = 9847200454) CALCIUM (test code = 8.9 mg/dL 8.6-10.6 3273052488) eGFR Calculation mL/min/1.73m2 (Non-) (test code = 7923327716) eGFR Calculation mL/min/1.73m2 () (test code = 4193412141) ZULY (test code = ZULY) Association of Glomerular Filtration Rate (GFR) and Staging of Kidney Disease* + -+ + ---+| GFR (mL/min/1.73 m2) ?| With Kidney Damage ?| ?Without Kidney Damage+ -------+ ------+ ---------+| ?>90 ?| ?Stage one ?| ? Normal ?+ --+ -+ ----+| ?60-89 ?| ?Stage two ?| ? Decreased GFR ? + -+ + ---+| ?30-59 ?| ?Stage three ?| ? Stage three ? + -+ + ---+| ?15-29 ?| ?Stage four ? | ? Stage four ?+ --+ -+ ----+| ?<15 (or dialysis) ? ?| ?Stage five ? | ? Stage five ?+ --+ -+ ----+ *Each stage assumes the associated GFR level has been in effect for at least three months. ?Stages 1 to 5, with or without kidney disease, indicate chronic kidney disease. Notes: Determination of stages one and two (with eGFR >59mL/min/1.73 m2) requires estimation of kidney damage for at least three months as defined by structural or functional abnormalities of the kidney, manifested by either:Pathological abnormalities or Markers of kidney damage (including abnormalities in the composition of the blood or urine or abnormalities in imaging tests). [facility], (EVELIN)2020-03-17 20:00:301. No evidence of laryngeal penetration or tracheal aspiration2. For other details please see reportfrom speech pathologist EXAM: Modified barium swallow HISTORY: Dysphagia TECHNIQUE:Video fluoroscopic evaluation of the swallowing mechanism iscarried out in the presence of speech pathologist. Patientwas given toswallow thin barium, nectar thick barium, barium pudding and cracker coatedwith barium. FINDINGS:The oral and pharyngeal phase of the swallowing is normal. Thereis no evidence of laryngeal penetration or aspiration with any consistencyof tested food during the examination. [facility], Radiant Results Inft User - 03/17/2020 3:01 PM CDTEXAM: Modified barium swallowHISTORY: DysphagiaTECHNIQUE:Video fluoroscopic evaluation of the swallowing mechanism iscarried out in the presence of speech pathologist. Patient was given toswallow thin barium, nectar thick barium, barium pudding and cracker coatedwith barium.FINDINGS:The oral and pharyngeal phase of the swallowing is normal. Thereis no evidence of laryngeal penetration or aspiration with any consistencyof tested food during the examination.IMPRESSION1. No evidence of laryngeal penetration or tracheal aspiration2. For other details please see rep ort from speech pathologistUnBaylor University Medical CenterTHYROID STIMULATING [id number] 08:50:00 Test Item Value Reference Range Interpretation Comments TSH (test code = See_Comment [Automated message] 2990454507) The system FIZZA generated this result transmitted ref erence range: 0.45 - 4 .70 mIU/L. The refe rence range was not u sed to interpret this result as normal/abnor mal. Lab Interpretation (test Normal code = 58798-2) [facility]kinTROPONIN [id number] 08:31:00 Test Item Value Reference Range Interpretation Comments TROPONIN I (test 0.002 ng/mL See_Comment [Automated code = 7253025502) message] The system which generated this result transmitted reference range : <=0.034. The reference range was not used to interpret this result as normal/abnormal . ZULY (test code = Equal or Less than ZULY) 0.034 ng/ml---Normal ?Note: Cardiac troponin begins to rise 3-4 hours after the onset of ischemia. Repeat in 4-6 hours if the sample was drawn within 3-4 hours of the onset of the symptom and found normal. Between 0.035 and 0.120 ng/mL--- Borderline. Questionable myocardial injury or necrosis ? ?Note: Serial measurement may be necessary to confirm or exclude the diagnosis of myocardial injury or necrosis; Clinical correlation (symptoms, EKGs, imaging studies, and others) required; Repeat in 4-6 hours if clinically indicated. ? Equal or Higher than 0.121 ng/mL---Abnormal. Myocardial Injury or Necrosis Likely ? Biotin has been reported to cause a negative bias, interpret results relative to patient's use of biotin. ? Lab Interpretation Normal (test code = 17455-6) [facility]kinLIPID PANEL (10283)(TOTAL CHOLESTEROL, TRIGLYCERIDES, HDL)2020-03-16 08:19:00 Test Item Value Reference Range Interpretation Comments CHOL (test code = 171 mg/dL 120-200 2493308019) HDL (test code = 56 mg/dL >50 2414200226) HDLC RATIO (test code = See_Comment [Au tomated message] 0752950229) The system FIZZA generated this result transmit alla reference range : <=4.5. The refe rence range was not u sed to interpret th is result as normal/abnormal . TRIG (test code = 39 mg/dL 30-170 2690370026) LDL CHOL (test code = 107 mg/dL See_Comment [Auto mated message] 79220-1) The system FIZZA generated this result transmit alla reference range : <=160. The refe rence range was not u sed to interpret th is result as normal/abnormal . VLDL (test code = 8 mg/dL 5-60 5695889901) Lab Interpretation (test Normal code = 10193-0) [facility] LufkinaPTT2020-08-17 08:17:00 Test Item Value Reference Range Interpretation Comments APTT Patient (test code = See_Comment [ Automated message] 3173-2) The system FIZZA generated this result transmitted ref erence range: 26 - 36 Seconds. The re ference range was not u sed to interpret this result as normal/abnor mal. Lab Interpretation (test Normal code = 54210-3) [facility]ufkinCB WITH [id number] 04:10:00 Test Item Value Reference Range Interpretation Comments WBC (test code = See_Comment [Automated 2990-2) message] The sy stem which generated this result transmitted reference range : 4.30 - 11.10 10*3/?L. The reference range was not used to interpret this result as normal/abnormal . RBC (test code = See_Comment [Automated 379-8) message] The sy stem which generated this result transmitted reference range : 3.93 - 5.25 10*6/?L. The reference range was not used to interpret this result as normal/abnormal . HGB (test code = 12.1 g/dL 11.6-15 718-7) HCT (test code = 39.0 % 35.7-45.2 4544-3) MCV (test code = 77.7 fL 80.6-95.5 L 787-2) MCH (test code = 24.1 pg 25.9-32.8 L 785-6) MCHC (test code = 31.0 g/dL 31.6-35.1 L 786-4) RDW-SD (test code = Not Naomi ured 77135-0) RDW-CV (test code = Not Naomi ured 788-0) PLT (test code = See_Comment [Automated 777-3) message] The sy stem which generated this result transmitted reference range : 166 - 358 10*3/ ?L. The reference r sharmaine was not used to interpret this result as normal/abnormal . MPV (test code = 10.7 fL 9.5-12.9 50477-0) IPF % (test code = 8.7 % 1.3-7.7 H Platelet count 3114662459) measured by fluorescence method. NRBC/100 WBC (test See_Comment [Automat ed code = 9022927622) message] The system which generated this result transmitted reference range : 0.0 - 10.0 /100 WBCs. The refer ence range was not u sed to interpret th is result as normal/abnormal . NRBC x10^3 (test code <0.01 See_Comment [Auto mated = 1267941032) message] The s ystem which generated this result transmitted reference range : 10*3/?L. The reference range was not used to interpret this result as normal/abnormal . GRAN MAT (NEUT) % 89.7 % (test code = 770-8) IMM GRAN % (test code 0.30 % = 8277440621) LYMPH % (test code = 9.6 % 736-9) MONO % (test code = 0.3 % 5905-5) EOS % (test code = 0.0 % 713-8) BASO % (test code = 0.1 % 706-2) GRAN MAT x10^3(ANC) 6.01 10*3/uL 1.88-7.09 (test code = 8158557046) IMM GRAN x10^3 (test <0.03 0-0.06 code = 9736903555) LYMPH x10^3 (test code 0.64 10*3/uL 1.32-3.29 L = 731-0) MONO x10^3 (test code <0.03 0.33-0.92 L = 742-7) EOS x10^3 (test code = <0.03 0.03-0.39 L 711-2) BASO x10^3 (test code <0.03 0.01-0.07 = 704-7) ELLIPTO/OVAL (test 2+ See_Comment A [Automat ed code = 41368-7) message] The system which generated this result transmitted reference range : (none). The reference range was not used to interpret this result as normal/abnormal . Lab Interpretation Abnormal (test code = 81328-3) [facility] METABOLIC PANEL (NA, K, CL, CO2, GLUCOSE, BUN, CREATININE, CA)2020-03-16 04:01:00 Test Item Value Reference Range Interpretation Comments NA (test code = 138 mmol/L 135-145 8366237609) K (test code = 4.0 mmol/L 3.5-5 7445729744) CL (test code = 107 mmol/L 98-108 6294121163) CO2 TOTAL (test code = 23 mmol/L 23-31 5738008370) AGAP (test code = 2-16 6648358986) BUN (test code = 7 mg/dL 7-23 7138366687) GLUCOSE (test code = 161 mg/dL 70-110 H 0969689637) CREATININE (test code = 0.47 mg/dL 0.5-1.04 L 8424752879) CALCIUM (test code = 8.9 mg/dL 8.6-10.6 8250184133) eGFR Calculation mL/min/1.73m2 (Non-) (test code = 4562462312) eGFR Calculation mL/min/1.73m2 () (test code = 4770736597) ZULY (test code = ZULY) Association of Glomerular Filtration Rate (GFR) and Staging of Kidney Disease* + --+ --+ ------+| GFR (mL/min/1.73 m2) ?| With Kidney Damage ?| ?Without Kidney Damage+ --------+ --------+ +| ?>90 ?| ?Stage one ?| ? Normal ?+ ---+ ---+ -------+| ?60-89 ?| ?Stage two ?| ? Decreased GFR ? + --+ --+ ------+| ?30-59 ?| ?Stage three ?| ? Stage three ? + --+ --+ ------+| ?15-29 ?| ?Stage four ? | ? Stage four ?+ ---+ ---+ -------+| ?<15 (or dialysis) ? ?| ?Stage five ? | ? Stage five ?+ ---+ ---+ -------+ *Each stage assumes the associated GFR level has been in effect for at least three months. ?Stages 1 to 5, with or without kidney disease, indicate chronic kidney disease. Notes: Determination of stages one and two (with eGFR >59mL/min/1.73 m2) requires estimation of kidney damage for at least three months as defined by structural or functional abnormalities of the kidney, manifested by either:Pathological abnormalities or Markers of kidney damage (including abnormalities in the composition of the blood or urine or abnormalities in imaging tests). Lab Interpretation Abnormal (test code = 64867-6) [facility]kinMAGNESIUM2020-08-17 04:01:00 Test Item Value Reference Range Interpretation Comments MAGNESIUM (test code = 3040702158) 1.9 mg/dL 1.7-2.4 Lab Interpretation (test code = Normal 14767-4) [facility]kinCT HEAD WO [id number] 04:00:12 Impression:No intracranial hemorrhage or midline shift. RL: 2824AFC: 69212 End of Report Exam: CT Head Without Contrast, 03/15/2020 10:15 PM.Ordering Physician: NICOLETTE DIEGO. History: Altered level of awareness. Slurred speech. Technique: CThead was obtained without intravenous contrast. ?CT wasperformed according to ALARA (As Low As Reasonably Achievable). Comparison: None. Findings:There is no parenchymal hemorrhage, mass effect, or midline shift. Thereare no extra-axial fluid collections. Verdin-white matter differentiation ispreserved.There is no acute major vascular territory infarct. Ventricles, basal cisterns, and cortical sulci are normal in caliber. Osseous structures are unremarkable. Visualized orbits, paranasal sinuses,and mastoid complexes are normal. [facility], Radiant Results Inft User - 03/15/2020 11:01 PM CDTExam: CT Head Without Contrast, 03/15/2020 10:15 PM.Ordering Physician: NICOLETTE DIEGO.History: Altered level of awareness. Slurred speech.Technique: CT head was obtained without intravenous contrast. CT wasperformed according to ALARA (As Low As Reasonably Achievable).Comparison: None.Findings:There is no parenchymal hemorrhage, mass effect, or midline shift. Thereare no extra-axial fluid collections. Verdin-white matter differentiation ispreserved. There is no acute major vascular territory infarct.Ventricles, basal cisterns, and cortical sulci are normal in caliber.Osseous structures are unremarkable. Visualized orbits, paranasal sinuses,and mastoid complexes are normal. IMPRESSIONImpression:No intracranial hemorrhage or midline shift. RL: 2824AFC: 49250Mdn of Report [facility] PROTHROMBIN TIME / [id number] 03:57:00 Test Item Value Reference Range Interpretation Comments PROTIME PATIENT (test See_Comment [Auto mated message] code = 5964-2) The system Wami generated this result transmitted ref erence range: 10.1 - 1 2.6 Seconds. The re ference range was not u sed to interpret this result as normal/abnor mal. INR (test code = 6301-6) Nor mal INR <1.1; Warfarin Therap eutic range 2.0 to 3. 0 or 2.5 to 3.5, dep ending upon the indica tions. Lab Interpretation (test Normal code = 21520-3) [facility]CT STROKE ANGIOGRAM [id number] 19:02:37 No intracranial proximal large vessel occlusion. No significant extracranial stenosis. EXAMINATION:?CT STROKE ANGIOGRAM HEAD, CT STROKE ANGIOGRAM NECK HISTORY: Acute Stroke Rad: please obtain POCT creatinine prior to CTAhead/neck TECHNIQUE: CT angiography of the brain was performed and reviewed in multiple planes.Two dimensional multiplanar reformatted images were generated and submittedto PACS. ?CT angiography of the neck was performed using 1 mm thick axial slices andreviewed in multiple planes.Two dimensional multiplanar reformatted imageswere generated and submitted to PACS.A total of 105 mL Omnipaque ?was injected intravenously. ? COMPARISON: 12/01/18. FINDINGS: CTA of the [place] reveals no intracranial proximal large vesselocclusion or significant stenosis. Hypoplastic versus aplastic right A1. NoCT-identifiable aneurysm is present. ?Conventional angiography is moresensitive forthe detection of small aneurysms. CTA of the neck demonstrates that the origins of the great vesselsarewidely ?patent. Common origin of the brachiocephalic and left commoncarotid arteries, anatomic variant. ?There is no significant extracranialstenosis. ?0% stenosis of the cervical internal carotid arteries by NASCETcriteria. ?No aneurysm is seen. Mildly dominant left vertebral artery. [facility], RadiantResults Inft User - 03/15/2020 2:03 PM CDTEXAMINATION: CT STROKE ANGIOGRAM HEAD, CT STROKE ANGIOGRAMNECKHISTORY: Acute Stroke Rad: please obtain POCT creatinine prior to CTAhead/neckTECHNIQUE:CT angiography of the brain was performed and reviewed in multiple planes.Two dimensional multiplanar reformat alla images were generated and submittedto PACS. CT angiography of the neck was performed using 1 mm thick axial slices andreviewed in multiple planes. Two dimensional multiplanar reformatted imagesweregenerated and submitted to PACS.A total of 105 mL Omnipaque was injected intravenously. COMPARISON: .FINDINGS: CTA of the [place] reveals no intracranial proximal large vesselocclusion or significant stenosis. Hypoplastic versus aplastic right A1. NoCT-identifiable aneurysm is present. Conventional angiography is moresensitive for the detection of small aneurysms.CTA of the neck demonstrates that the origins of the great vessels arewidely patent. Common origin of the brachiocephalic and left commoncarotid arteries, anatomic variant. There is no significant extracranialstenosis. 0% stenosis of the cervical internal carotid arteries by NASCETcriteria. No aneurysm is seen. Mildly dominant left vertebral artery.IMPRESSIONNo intracranial proximal large vessel occlusion.No significant extracranial stenosis.[facility]CT [facility]KE [facility] NECK 2020-03-15 19:02:37 No intracranial proximal large vessel occlusion. No significant extracranial stenosis. EXAMINATION:?CT STROKE ANGIOGRAM HEAD, CT STROKE ANGIOGRAM NECK HISTORY: Acute Stroke Rad: please obtain POCT creatinine prior to CTAhead/neck TECHNIQUE: CT angiography of the brain was performed and reviewed in multiple planes.Two dimensional multiplanar reformatted images were generated and submittedto PACS. ?CT angiography of the neck was performed using 1 mm thick axial slices andreviewed in multiple planes.Two dimensional multiplanar reformatted imageswere generated and submitted to PACS.A total of 105 mLOmnipaque ?was injected intravenously. ? COMPARISON: 12/01/18. FINDINGS: CTA of the [place] reveals no intracranial proximal large vesselocclusion or significant stenosis. Hypoplastic versus aplastic right A1. NoCT-identifiable aneurysm is present. ?Conventional angiography is moresensitive forthe detection of small aneurysms. CTA of the neck demonstrates that the origins of the great vesselsarewidely ?patent. Common origin of the brachiocephalic and left commoncarotid arteries, anatomic variant. ?There is no significant extracranialstenosis. ?0% stenosis of the cervical internal carotid arteries by NASCETcriteria. ?No aneurysm is seen. Mildly dominant left vertebral artery. [facility], RadiantResults Inft User - 03/15/2020 2:03 PM CDTEXAMINATION: CT STROKE ANGIOGRAM HEAD, CT STROKE ANGIOGRAMNECKHISTORY: Acute Stroke Rad: please obtain POCT creatinine prior to CTAhead/neckTECHNIQUE:CT angiography of the brain was performed and reviewed in multiple planes.Two dimensional multiplanar reformat alla images were generated and submittedto PACS. CT angiography of the neck was performed using 1 mm thick axial slices andreviewed in multiple planes. Two dimensional multiplanar reformatted imagesweregenerated and submitted to PACS.A total of 105 mL Omnipaque was injected intravenously. COMPARISON: .FINDINGS: CTA of the [place] reveals no intracranial proximal large vesselocclusion or significant stenosis. Hypoplastic versus aplastic right A1. NoCT-identifiable aneurysm is present. Conventional angiography is moresensitive for the detection of small aneurysms.CTA of the neck demonstrates that the origins of the great vessels arewidely patent. Common origin of the brachiocephalic and left commoncarotid arteries, anatomic variant. There is no significant extracranialstenosis. 0% stenosis of the cervical internal carotid arteries by NASCETcriteria. No aneurysm is seen. Mildly dominant left vertebral artery.IMPRESSIONNo intracranial proximal large vessel occlusion.No significant extracranial stenosis.[facility]kinCT STR[facility]KE HEAD WO [id number] 18:43:[address] examination of the brain. 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 Servando Brand ?MD. Autumn, have reviewed this study and agree with theabove report.CT STROKE HEAD WO CONTRAST HISTORY: 39-year-old female with lethargyand migraines. COMPARISON: 12/01/2018 TECHNIQUE: Contiguous axial imaging to the base of skull was obtained with2.5 mm slices without intravenous contrast. 5 mm axial, coronal, andsagittal reformats wereobtained. FINDINGS: The ventricles and cerebral sulci are normal in caliber and configuration.No hydrocephalus, midline shift or pathological extra-axial fluidcollection is present. The basal cisterns are unremarkable. There is no acute intracranial hemorrhage or significant mass effect. Deepwhite matter and periventricular hypoattenuating foci are present, likelyrepresent small vessel ischemic changes. The verdin-white matterdifferentiation is preserved. The mastoid air cells and paranasal air sinuses are clear. The calvariumand central skull base are unremarkable. The ASPECTS score is 10. [facility], Radiant Results Inft User - 03/15/2020 1:46 PM CDTCT STROKE HEAD WO CONTRASTHISTORY: 39-year-old female with lethargy and migraines.COMPARISON: 12/01/2018TECHNIQUE: Contiguous axial imaging to the base of skull was obtained with2.5 mm slices without intravenous contrast. 5 mm axial, coronal, andsagittal reformats were obtained.FINDINGS:The ventricles and cerebral sulci are normal in caliber and configuration.No hydrocephalus, midline shift or pathological extra- axial fluidcollection is present. The basal cisterns are unremarkable.There is no acute intracranial hemorrhage or significant mass effect. Deepwhite matter and periventricular hypoattenuating foci are present, likelyrepresent small vessel ischemic changes. The verdin-white matterdifferentiation is preserved.The mastoid air cells and paranasal airsinuses are clear. 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 [facility]kinACETAMINOPHEN2020-08-16 18:24:00 Test Item Value Reference Range Interpretation Comments ACETAMINOP (test code = <10.0 10-30 L 6124112192) ZULY (test code = ZULY) Toxic: Greater than 200 ug/mL @ 4 hour post ingestion or greater than 50 ug/mL @ 12 hour post ingestion Lab Interpretation (test Abnormal code = 16469-9) [facility]kinSALICYLATE2020-08-16 18:24:00 Test Item Value Reference Range Interpretation Comments SALICYLATE (test code <10 mg/L = 0512582945) ZULY (test code = ZULY) Therapeutic Range: ? Analgesic and Antipyretic Use ? 20-100 mg/L ? ? Anti-Inflammatory Use ? 100-250 mg/L Toxic Range: ? Greater than 300 mg/L [facility] LufkinEthanol [id number] 18:24:00 Test Item Value Reference Range Interpretation Comments ALCOHOL (test code = <10 mg/dL 7203014371) ZULY (test code = ZULY) <10 [place]ufifwhp48-078 Toxic>100 Depression of LICENSED PRACTICAL NURSE>[address] [facility] (ID NOW RAPID TESTING)2020-03-15 18:21:00 Test Item Value Reference Range Interpretation Comments SARS-CoV-2 Rapid ID NOW Not Detected Not Detected (test code = 72026-8) ZULY (test code = ZULY) ID NOW COVID-19 Assay is an isothermal nucleic acid amplification test intended for the qualitative detection of nucleic acid from SARS-CoV-2 viral RNA in nasopharyngeal (CLIENT SERVICE ADMINISTRATOR) specimens. It is used under Emergency Use Authorization (EUA) by FDA. The limit of detection (LOD) of the assay is 125 Genome Equivalents/mL. A positive result is indicative of the presence of SARS-CoV-2 RNA. ?Clinical correlation with patient history and other diagnostic information is necessary to determine patient infection status. A negative (Not Detected) result does not preclude SARS-CoV-2 infection. In patients with clinical symptoms and other tests that are consistent with SARS-CoV-2 infection, negative results should be treated as presumptive negative and a new specimen should be tested with alternative PCR molecular test. Invalid: Please collect a new specimen for repeat patient testing if clinically indicated. Lab Interpretation Normal (test code = 97317-9) [facility] - Code [id number] 17:50:00 Test Item Value Reference Range Interpretation Comments TROPONIN I (test <0.012 See_Comment [Automated code = 5835230089) message] The system which generated this result transmitted reference range : <=0.034 ng/mL. The reference range was not used to interpr et this result as normal/abnormal . ZULY (test code = Equal or Less than ZULY) 0.034 ng/ml---Normal ?Note: Cardiac troponin begins to rise 3-4 hours after the onset of ischemia. Repeat in 4-6 hours if the sample was drawn within 3-4 hours of the onset of the symptom and found normal. Between 0.035 and 0.120 ng/mL--- Borderline. Questionable myocardial injury or necrosis ? ?Note: Serial measurement may be necessary to confirm or exclude the diagnosis of myocardial injury or necrosis; Clinical correlation (symptoms, EKGs, imaging studies, and others) required; Repeat in 4-6 hours if clinically indicated. ? Equal or Higher than 0.121 ng/mL---Abnormal. Myocardial Injury or Necrosis Likely ? Biotin has been reported to cause a negative bias, interpret results relative to patient's use of biotin. ? Lab Interpretation Normal (test code = 37065-0) [facility] Time / INR - Code [id number] 17:47:00 Test Item Value Reference Range Interpretation Comments PROTIME PATIENT (test See_Comment [Auto mated message] code = 5964-2) The system wh ich generated this result transmitted ref erence range: 12.0 - 1 4.7 Seconds. The re ference range was not u sed to interpret this result as normal/abnor mal. INR (test code = 6301-6) Nor mal INR <1.1; Warfarin Therap eutic range 2.0 to 3. 0 or 2.5 to 3.5, dep ending upon the indica tions. Lab Interpretation (test Normal code = 77969-5) [facility]PTT2020-08-16 17:45:00 Test Item Value Reference Range Interpretation Comments APTT Patient (test See_Comment [Automat ed code = 3173-2) message] The system which generated this result transmitted reference range : 23 - 38 Seconds . The reference range was not used to interpr et this result as normal/abnormal . ZULY (test code = ZULY) The [facility] patient population mean normal value for aPTT is 30 seconds. Lab Interpretation Normal (test code = 15187-8) [facility] [id number] 17:42:00 Test Item Value Reference Range Interpretation Comments BENZO U (test code = Negative Negative 7036459723) MICHAEL U (test code = Negative Negative 9678207975) AMPHET (test code = Negative Negative 1805754582) THC (test code = Negative Negative 2612284590) METHADONE (test code = Negative Negative 8904175729) Meth U (test code = Negative Negative 7365065277) OPIATES (test code = Negative Negative 3996770175) Cocaine Metabolite (test Negative Negative code = 0150542223) PROPOXY (test code = Negative Negative 9248392483) Tric U (test code = Negative Negative 0366715887) PCP (test code = Negative Negative 5758893755) OXYCOD (test code = Negative Negative 2589438328) ZULY (test code = ZULY) Urine Drug Cutoff Ranges Benzodiazepines: ? ? 150 ng/mLBarbiturates: ?200 ng/mLAmphetamine: ? 500 ng/mLCannabinoids: ?50 ?ng/mLMethadone: ? 200 ng/mLMethamphetamine: ? ? 500 ng/mL Opiates: ? 100 ng/mL or 2000 ng/mLCocaine: ? 150 ng/mLPropoxyphene: ?300 ng/mLTricyclics: ?300 ng/mLOxycodone: ? 100 ng/mLPCP: ? 25 ?ng/mL The results are to be used only for medical (i.e., treatment) purposes. Unconfirmed screening results must not be used for non-medical purposes (e.g., employment testing, legal testing). Lab Interpretation (test Normal code = 46082-6) [facility] Metabolic Panel (NA, K, CL, CO2, Glucose, BUN, Creatinine, CA) - Code [id number] 17:38:00 Test Item Value Reference Range Interpretation Comments NA (test code = 137 mmol/L 135-145 1976080273) K (test code = 4.5 mmol/L 3.5-5 9044000146) CL (test code = 106 mmol/L 98-108 2497215120) CO2 TOTAL (test code = 23 mmol/L 23-31 6778953906) AGAP (test code = 2-16 6974392317) BUN (test code = 6 mg/dL 7-23 L 2380286817) GLUCOSE (test code = 93 mg/dL 70-110 1621499075) CREATININE (test code = 0.52 mg/dL 0.5-1.04 8291377833) CALCIUM (test code = 9.1 mg/dL 8.6-10.6 7783204255) eGFR Calculation mL/min/1.73m2 (Non-) (test code = 4788731436) eGFR Calculation mL/min/1.73m2 () (test code = 8670337682) ZULY (test code = ZULY) Association of Glomerular Filtration Rate (GFR) and Staging of Kidney Disease* + --+ --+ ------+| GFR (mL/min/1.73 m2) ?| With Kidney Damage ?| ?Without Kidney Damage+ --------+ --------+ +| ?>90 ?| ?Stage one ?| ? Normal ?+ ---+ ---+ -------+| ?60-89 ?| ?Stage two ?| ? Decreased GFR ? + --+ --+ ------+| ?30-59 ?| ?Stage three ?| ? Stage three ? + --+ --+ ------+| ?15-29 ?| ?Stage four ? | ? Stage four ?+ ---+ ---+ -------+| ?<15 (or dialysis) ? ?| ?Stage five ? | ? Stage five ?+ ---+ ---+ -------+ *Each stage assumes the associated GFR level has been in effect for at least three months. ?Stages 1 to 5, with or without kidney disease, indicate chronic kidney disease. Notes: Determination of stages one and two (with eGFR >59mL/min/1.73 m2) requires estimation of kidney damage for at least three months as defined by structural or functional abnormalities of the kidney, manifested by either:Pathological abnormalities or Markers of kidney damage (including abnormalities in the composition of the blood or urine or abnormalities in imaging tests). Lab Interpretation Abnormal (test code = 12832-2) [facility]kinUrinalysis2020-08-16 17:38:00 Test Item Value Reference Range Interpretation Comments APPEARANCE (test code = Clear Clear 2648702856) COLOR (test code = Yellow Yellow 4822813571) PH (test code = 4.8-8.0 1242577545) SP GRAVITY (test code = 1.003-1.030 9416846607) GLU U QUAL (test code = Normal Normal 5385769308) BLOOD (test code = 1+ Negative A 4661948648) KETONES (test code = Negative Negative 5202028454) PROTEIN (test code = Negative Negative 2887-8) UROBILIN (test code = Normal Normal 7419193228) BILIRUBIN (test code = Negative Negative 2241048220) NITRITE (test code = Negative Negative 1380509780) LEUK MYA (test code = Negative Negative 9267271937) RBC/HPF (test code = See_Comment H [Autom ated message] 9856865188) The system FIZZA generated this result transmitted ref erence range: 0 - 3 HP F. The reference range was not used to int erpret this result as normal/abnormal . WBC/HPF (test code = See_Comment [Autom ated message] 9769514971) The system FIZZA generated this result transmitted ref erence range: 0 - 5 HP F. The reference range was not used to int erpret this result as normal/abnormal . BACTERIA (test code = Negative Negative 5973942095) MUCOUS (test code = Slight Negative LPF A 3468089587) SQ EPITH (test code = <1 HPF 7259714015) Lab Interpretation (test Abnormal code = 02899-6) [facility] Hem[facility] - Code [id number] 17:37:00 Test Item Value Reference Range Interpretation Comments WBC (test code = 6690-2) See_Comment [A utomated message] The system FIZZA generated this result transmit alla reference range : 4.30 - 11.10 10*3/?L. The reference range was not used to interpret this result as normal/abnormal . RBC (test code = 789-8) See_Comment [Au tomated message] The system FIZZA generated this result transmit alla reference range : 3.93 - 5.25 10* 6/?L. The reference r sharmaine was not used to interpret this result as normal/abnormal . HGB (test code = 718-7) 12.4 g/dL 11.6-15 HCT (test code = 4544-3) 39.8 % 35.7-45.2 MCH (test code = 785-6) 24.5 pg 25.9-32.8 L MCV (test code = 787-2) 78.5 fL 80.6-95.5 L MCHC (test code = 786-4) 31.2 g/dL 31.6-35.1 L PLT (test code = 777-3) See_Comment [Au tomated message] The system FIZZA generated this result transmit alla reference range : 166 - 358 10*3/?L. The reference range was not used to interpret this result as normal/abnormal . MPV (test code = 11.5 fL 9.5-12.9 93181-6) RDW-CV (test code = Not Naomi ured 788-0) RDW-SD (test code = Not Naomi ured 26866-8) NRBC x10^3 (test code = <0.01 See_Comment [Au tomated message] 5039501270) The system FIZZA generated this result transmit alla reference range : 10*3/?L. The reference range was not used to interpret this result as normal/abnormal . NRBC/100 WBC (test code See_Comment [Au tomated message] = 5965887775) The system [employer] generated this result transmit alla reference range : 0.0 - 10.0 /100 WBC s. The reference r sharmaine was not used to interpret this result as normal/abnormal . IPF % (test code = 9769546733) Lab Interpretation (test Abnormal code = 27829-1) [facility] [id number] 17:24:00 Test Item Value Reference Range Interpretation Comments POCT PREG (test code = 1605) Negative On board controls acceptable with Yes C Line (test code = 3574) POCT PREG LOT # (test code = 3575) [id number] POCT PREG TEST DATE (test 02/27/2021 code = 3576) Lab Interpretation (test code = Normal 63626-9) [facility] GLUCOSE (AUTOMATED)2020-03-15 17:23:00 Test Item Value Reference Range Interpretation Comments POCT GLU (test code = 7604504965) 88 mg/dL 70-110 Lab Interpretation (test code = Normal 18803-8) [facility]
--- NOTE | 2022-12-30 19:18 | RAD REPORT ---
EXAM DESCRIPTION: CT - Ct Stroke Brain Wo Cont - 12/30/2022 7:10 pm CLINICAL HISTORY: STROKE ALERT COMPARISON: Head Brain Wo Cont dated 09/05/2021; Head angio dated 09/05/2021 TECHNIQUE: Noncontrast head CT images ad were obtained without IV contrast. Multiplanar reformats we re generated and reviewed. All CT scans are performed using dose optimization technique as appropriate and may include automated exposure control or mA/KV adjustment according to patient size. FINDINGS: No intracranial hemorrhage, mass, or edema. Midline structures are unremarkable. Normal ventricular caliber for age. Verdin-white matter differentiation is preserved, without evidence of acute infarct. No abnormal extra- axial fluid collections. Mastoid air cells and visualized portions of the paranasal sinuses are clear. No acute bony findings. Small lucent region along the left greater wing of sphenoid, may represent a small pericranial sinus or arachnoid granulation. IMPRESSION: No evidence of an acute intracranial process. The findings were communicated to Tremaine Winn on 12/30/2022 at 19:14 hours.
[2022-12-30 19:32] LABS: Absolute Lymphocytes (CBC) 2.4 K/uL (0.7-4.9); Hematocrit 40.3 % (36.0-45.0); MCV 88.5 fL (80-100); MPV 9.7 fL (7.6-11.3); RBC Red Blood Cell Count 4.55 M/uL (3.86-4.86)
[2022-12-30 19:35] LABS: Protime INR 0.88
[2022-12-30] MEDS ORDERED: METOCLOPRAMIDE 10 MG/2mL INJ ONE (19:38)
[2022-12-30] MEDS ORDERED: KETOROLAC 30 MG/ML INJ ONE (19:39)
[2022-12-30] MEDS ORDERED: NA CHLORIDE 0.9% 500 ML ONE (19:39)
[2022-12-30] MEDS ORDERED: DIPHENHYDRAMINE 50 MG/ML VIAL ONE (19:39)
[2022-12-30 19:48] LABS: Potassium 3.8 mEq/L (3.5-5.1); Troponin High Sensitivity 4.1 pg/mL (<58.9)
--- NOTE | 2022-12-30 19:50 | RAD REPORT ---
[facility] CLINICAL HISTORY: COUGH COMPARISON: Chest Single View dated 03/16/2022 TECHNIQUE: Portable AP view of the chest. FINDINGS: Patchy opacities and interstitial thickening throughout the right lung. No pneumothorax o r effusion. The cardiomediastinal contours are unremarkable. IMPRESSION: New patchy opacities and interstitial thickening throughout the right lung. Findings may relate to asymmetric mild pulmonary edema, early, or interstitial pneumonitis.
--- NOTE | 2022-12-30 19:55 | RAD REPORT ---
EXAM DESCRIPTION: CT - Neck Angio - 12/30/2022 7:17 pm CLINICAL HISTORY: weakness Code stroke COMPARISON: Head angio dated 12/30/2022 TECHNIQUE: Axial CT angiography images of the head was performed with multiplanar and maximum intens ity projection reconstructions. Images performed following intravenous administration of 100mL Isovue 370. All CT scans are performed using dose optimization technique as appropriate and may include automated exposure control or mA/KV adjustment according to patient size. Quantification of carotid stenosis, if any, is performed according to NASCET criteria. FINDINGS: A left aortic arch is identified with normal three vessel configuration of the great vesse ls. No significant flow abnormality is seen of the common carotid bilaterally. No significant stenosis is identified involving the cervical segments of both internal carotid arteri es. Normal flow is seen within both vertebral arteries. Evaluation of the included upper lungs demonstrates central ground-glass opacities and interlobular s eptal thickening. IMPRESSION: No significant flow abnormality of the neck vessels is identified. Central interstitial and airspace abnormalities in the included upper lungs as above, could relate to central congestion or edema.
--- NOTE | 2022-12-30 20:00 | RAD REPORT ---
EXAM DESCRIPTION: CT - Head angio - 12/30/2022 7:17 pm CLINICAL HISTORY: slurred speech left weaknes COMPARISON: Ct Stroke Brain Wo Cont dated 12/30/2022; Head Brain Wo Cont dated 09/05/2021 TECHNIQUE: Axial CT angiography images of the head was performed with multiplanar and maximum intens ity projection reconstructions. Images performed following intravenous administration of 100mL Isovue 370. All CT scans are performed using dose optimization technique as appropriate and may include automated exposure control or mA/KV adjustment according to patient size. FINDINGS: No evidence of large vessel occlusion. No evidence of aneurysm or dissection flap is detec alla. No flow-limiting stenosis or vascular malformation identified. Antegrade flow is seen in the vertebral arteries. The vertebral arteries are codominant. The visualized dural venous sinuses are grossly patent. IMPRESSION: No evidence of large vessel occlusion or flow-limiting stenosis.
--- NOTE | 2022-12-30 21:23 | EDPHYS ---
Physician Documentation [facility] Name: Ele Mckeon Age: 42 yrs Sex: Female : 1980 Arrival Date: 12/30/2022 Time: 18:50 Bed 20 Private MD: ED Physician Tremaine Winn HPI: 12/30 19:26 This 42 yrs old Female presents to ER via EMS with complaints of S/S of bs3 migraine headache. 19:26 42-year-old female history of complex migraine versus other headache disorder with bs3 left-sided weakness presents with recurrent headache. The patient's she was complaining of a headache yesterday however approximate hour and a half prior to arrival the headache got worse and she developed left-sided leg weakness with slurred speech and left arm weakness the notes that this is happened multiple times before they have been seen at [facility] and multiple other hospitals and have had negative work-ups for strokes multiple times before. Historical: - Allergies: 19:01 No Known Allergies; hb - PMHx: 19:01 Anxiety; depressive disorder; Hypertensive disorder; hb - PSHx: 19:01 section; Cholecystectomy; hysterectomy; hb - Immunization history:: Adult Immunizations up to date. - Social history:: Smoking status: Patient denies any tobacco usage or history of. ROS: 19:26 Constitutional: Negative for fever, chills bs3 Exam: 19:46 Constitutional: This is a well developed, well nourished patient who is awake, alert, bs3 and in no acute distress. Head/Face: Normocephalic, atraumatic. Eyes: Pupils equal round and reactive to light, extra-ocular motions intact. Lids and lashes normal. ENT: mmm, no posterior phyarngeal erythema Neck: Trachea midline, no thyromegaly, no neck stiffness Chest/axilla: Normal chest wall appearance and motion. Nontender with no deformity. No lesions are appreciated. Cardiovascular: Regular rate and rhythm with a normal S1 and S2. symmetric pulses in upper extremities Respiratory: Lungs have equal breath sounds bilaterally, clear to auscultation, no respiratory distress Abdomen/GI: Soft, non-tender, no rebound or guarding Skin: Warm, dry with normal turgor. Normal color with no rashes, no lesions, and no evidence of cellulitis. MS/ Extremity: Pulses equal, no cyanosis. Neurovascular intact. Full, normal range of motion. Neuro: awake, alert, slurred speech, left facial droop, left arm slight weakness but able to hold against gravity without drift, left leg slight weakness, with drift but does not touch bed. Psych: Awake, alert, with orientation to person, place and time. Behavior, mood, and affect are within normal limits. 21:23 Radiologist reports: Negative for acute pathology bs3 Vital Signs: 18:58 BP 172 / 107; Pulse 78; Resp 16; Temp 98.3; Pulse Ox 98% on R/A; Weight 83.91 kg; hb Height 4 ft. 11 in. ; Pain 9/10; 19:20 BP 138 / 82; Pulse 88; Resp 16 S; Pulse Ox 100% on R/A; ha1 20:00 BP 122 / 77; Pulse 75; Resp 18 S; Pulse Ox 100% on R/A; ha1 21:00 BP 121 / 70; Pulse 85; Resp 16 S; Pulse Ox 100% on R/A; ha1 18:58 Body Mass Index 37.37 (83.91 kg, 149.86 cm) hb 18:58 Pain Scale: Adult hb NIH Stroke Scale Scores: 19:10 NIHSS Score: 7 ha1 19:46 NIHSS Score: 6 bs3 MDM: 19:00 Patient medically screened. bs3 19:46 Differential diagnosis: Patient with possible CVA versus migraine possible RCVS or bs3 dissection I discussed clot busting medications with the at bedside who did not want these he stated this is happened multiple times and could take days to resolve we will treat symptoms and reassess. Data reviewed: vital signs, nurses notes. 20:51 ED course: CT CTA negative notable for possible pneumonitis versus atypical pulmonary bs3 edema patient not with symptoms consistent of pulmonary edema advised outpatient follow-up she had significant improvement in her symptoms after headache cocktail. 21:20 ED course: pt reassessed, feeling much better, still not 100% but comfortable going bs3 home. 12/30 19:02 Order name: Basic Metabolic Panel; Complete Time: 19:52 bs3 12/30 19:02 Order name: CBC with Diff; Complete Time: 19:52 bs3 12/30 19:02 Order name: High Sensitivity Troponin; Complete Time: 19:52 bs3 12/30 19:02 Order name: Protime (+inr); Complete Time: 19:52 bs3 /02 19:02 Order name: Ptt, Activated; Complete Time: 19:52 bs3 /02 19:34 Order name: Glucose, Ancillary Testing; Complete Time: 19:52 EDMS /02 19:02 Order name: CT Stroke Brain w/o Contrast; Complete Time: 19:52 bs3 /02 19:02 Order name: Stroke CXR 1 View; Complete Time: 19:52 bs3 /02 19:02 Order name: CT Head Angio; Complete Time: 20:51 bs3 /02 19:02 Order name: CT Neck Angio; Complete Time: 20:51 bs3 /02 19:02 Order name: EKG; Complete Time: 19:03 bs3 /02 19:02 Order name: Accucheck; Complete Time: 19:27 bs3 02 19:02 Order name: Cardiac monitoring; Complete Time: 19:27 bs3 02 19:02 Order name: EKG - Nurse/Tech; Complete Time: 19:27 bs3 02 19:02 Order name: IV Saline Lock; Complete Time: 19:27 bs3 /02 19:02 Order name: Labs collected and sent; Complete Time: 19:27 bs3 /02 19:02 Order name: NPO; Complete Time: 19:27 bs3 /02 19:02 Order name: O2 Per Protocol; Complete Time: 19:27 bs3 /02 19:02 Order name: O2 Sat Monitoring; Complete Time: 19:28 bs3 /02 19:02 Order name: Stroke Swallow Screen; Complete Time: 21:03 bs3 Administered Medications: 19:35 Drug: Ketorolac IVP 15 mg Route: IVP; Site: right antecubital; ha1 20:00 Follow up: Response: No adverse reaction ha1 19:35 Drug: NS 0.9% IV 500 ml Route: IV; Rate: bolus; Site: right antecubital; ha1 21:00 Follow up: Response: No adverse reaction; IV Status: Completed infusion; IV Intake: ha1 500ml 19:38 Drug: diphenhydrAMINE IVP 25 mg Route: IVP; Site: right antecubital; ha1 20:00 Follow up: Response: No adverse reaction ha1 19:42 Drug: metoCLOPramide IVP 10 mg Route: IVP; Site: right antecubital; ha1 20:00 Follow up: Response: No adverse reaction ha1 Point of Care Testing: Blood Glucose: 19:32 Blood Glucose: 92 mg/dL; ha1 Ranges: Critical Glucose Levels:Adult <50 mg/dl or >400 mg/dl <40 mg/dl or >180 mg/dl Disposition Summary: 12/30/22 21:22 Discharge Ordered Location: Home bs3 Problem: new bs3 Symptoms: have improved bs3 Condition: Stable bs3 Diagnosis - Migraine with aura, intractable bs3 Followup: bs3 - With: Private Physician - When: 1 week - Reason: Re-evaluation by your physician Discharge Instructions: - Discharge Summary Sheet bs3 - Migraine Headache, [id number] bs3 Forms: - Medication Reconciliation Form bs3 - Thank You Letter bs3 - Antibiotic Education bs3 - Prescription Opioid Use bs3 NIH Stroke Scale - NIH Stroke Score Date: 12/30/2022 Time: 19:10 Total Score = 7 10. Dysarthria (speech clarity - read or repeat words) - 1(Mild to Moderate) 11. Extinction and Inattention (visual/tactile/auditory/spatial/personal) - 0(No abnormality) 1a. Level of Consciousness (LOC) - 0(Alert) 1b. Level of Consciousness (LOC) (Month \T\ Age) - 0(Both) 1c. LOC Commands (Open \T\ Closes Eyes/Joint Supervisor) - 0(Both) 2. Best Gaze (Lateral Gaze Paresis) - 1(Partial gaze palsy) 3. Visual Field Loss - 0(No visual loss) 4. Facial Palsy - 0(Normal) 5a. Left Arm: Motor (10-second hold) - 2(Drift, some effort against gravity) 5b. Right Arm: Motor (10-second hold) - 1(Drift) 6a. Left Leg: Motor (5-second hold - always test supine) - 1(Drift) 6b. Right Leg: Motor (5-second hold - always test supine) - 1(Drift) 7. Limb Ataxia (finger/nose \T\ heel/waite - test with eyes open) - 0(Absent) 8. Sensory Loss (pinprick arms/legs/face) - 0(Normal) 9. Best Language: Aphasia (description/naming/reading) - 0(No aphasia) Initials: ha1 NIH Stroke Scale - NIH Stroke Score Date: 12/30/2022 Time: 19:46 Total Score = 6 10. Dysarthria (speech clarity - read or repeat words) - 1(Mild to Moderate) 11. Extinction and Inattention (visual/tactile/auditory/spatial/personal) - 0(No abnormality) 1a. Level of Consciousness (LOC) - 0(Alert) 1b. Level of Consciousness (LOC) (Month \T\ Age) - 0(Both) 1c. LOC Commands (Open \T\ Closes Eyes/Joint Supervisor) - 0(Both) 2. Best Gaze (Lateral Gaze Paresis) - 0(Normal) 3. Visual Field Loss - 0(No visual loss) 4. Facial Palsy - 2(Partial paralysis) 5a. Left Arm: Motor (10-second hold) - 1(Drift) 5b. Right Arm: Motor (10-second hold) - 0(No drift) 6a. Left Leg: Motor (5-second hold - always test supine) - 1(Drift) 6b. Right Leg: Motor (5-second hold - always test supine) - 0(No drift) 7. Limb Ataxia (finger/nose \T\ heel/waite - test with eyes open) - 0(Absent) 8. Sensory Loss (pinprick arms/legs/face) - 1(Mild to moderate loss) 9. Best Language: Aphasia (description/naming/reading) - 0(No aphasia) Initials: bs3 Signatures: Dispatcher [employer] Chio Fournier RN RN Antonia Brito RN RN ha1 Tremaine Winn MD MD bs3
--- NOTE | 2022-12-30 21:23 | ER ---
Nurse's Notes [facility] [place] Name: Ele Mckeon Age: 42 yrs Sex: Female : 1980 Arrival Date: 12/30/2022 Time: 18:50 Bed 20 Private MD: Diagnosis: Migraine with aura, intractable Presentation: 12/30 18:58 Chief complaint: EMS states: Left sided headache, slurred speech, and left sided hb weakness x 1 hour. Hx of migraines with left sided weakness and slurred speech, last episode was a year ago per . Coronavirus screen: At this time, the client does not indicate any symptoms associated with coronavirus-19. Ebola Screen: No symptoms or risks identified at this time. 18:58 Method Of Arrival: EMS: [facility] hb 19:00 An acute neurological deficit is present. Initial Sepsis Screen: Does the patient meet hb any 2 criteria? No. Patient's initial sepsis screen is negative. Does the patient have a suspected source of infection? No. Patient's initial sepsis screen is negative. Risk Assessment: Do you want to hurt yourself or someone else? Patient reports no desire to harm self or others. Onset of symptoms. 19:00 Acuity: LETICIA 2 hb 20:10 The patients blood glucose was checked before arriving to the hospital and was found to ha1 be normal. Triage Assessment: 19:10 Neuro: Reports headache. ha1 12/31 01:29 The onset of the patients symptoms was December 30, 2022 at 19:05. ha1 Stroke Activation: Symptom onset < 3 hours Physician: Stroke Attending; Name: ; Notified At: ; Arrived At: Physician: Chief Stroke Resident; Name: ; Notified At: ; Arrived At: Physician: Stroke Resident; Name: ; Notified At: ; Arrived At: Physician: ED Attending; Name: ; Notified At: ; Arrived At: Physician: ED Resident; Name: ; Notified At: ; Arrived At: Historical: - Allergies: 12/30 19:01 No Known Allergies; hb - PMHx: 19:01 Anxiety; depressive disorder; Hypertensive disorder; hb - PSHx: 19:01 section; Cholecystectomy; hysterectomy; hb - Immunization history:: Adult Immunizations up to date. - Social history:: Smoking status: Patient denies any tobacco usage or history of. Screenin:10 Abuse screen: Denies threats or abuse. Denies injuries from another. ha1 19:10 [facility] ED Fall Risk Assessment (Adult) History of falling in the last 3 months, ha1 including since admission No falls in past 3 months (0 pts) Confusion or Disorientation No (0 pts) Intoxicated or Sedated No (0 pts) Impaired Gait Yes (1 pt) Mobility Assist Device Used No (0 pt) Altered Elimination Yes (1 pt) Score/Fall Risk Level 3 or more points = High Risk Oriented to surroundings, Maintained a safe environment, Educated pt \T\ family on fall prevention, incl call for assistance when getting out of bed, Hourly rounding (assess needs \T\ fall precautionary measures) done. Nutritional screening: No deficits noted. Tuberculosis screening: No symptoms or risk factors identified. Assessment: 12/29 19:10 VAN Scoring: Arm Drift: Minor drift. General: Appears uncomfortable, Behavior is ha1 cooperative. Pain: Complains of pain in head Pain does not radiate. Pain currently is 9 out of 10 on a pain scale. Quality of pain is described as throbbing, Pain began suddenly. Neuro: Level of Consciousness is awake, alert, obeys commands, Oriented to person, place, time, situation, Hearing Instrument Specialist are weak on left Weakness in left Speech is slurred, Pupils are Pupil Size: 1 Reports headache in entire weakness. Cardiovascular: Patient's skin is warm and dry. Rhythm is sinus rhythm. Respiratory: Airway is patent Respiratory effort is even, unlabored, Respiratory pattern is regular, symmetrical. GI: No signs and/or symptoms were reported involving the gastrointestinal system. Abdomen is flat, non-distended. 12/30 19:00 Reassessment: CODE STROKE CALLED, PT TO CT. hb 19:00 Reassessment: Report given to kendrick. db 19:02 Reassessment: Patient appears in no apparent distress at this time. Patient and/or db family updated on plan of care and expected duration. Pain level reassessed. Neuro: Level of Consciousness is awake, alert, obeys commands, Oriented to person, place, time, situation, Speech is slurred. 20:10 Reassessment: Patient and/or family updated on plan of care and expected duration. Pain ha1 level reassessed. Patient is alert, oriented x 3, equal unlabored respirations, skin warm/dry/pink. Vital Signs: 18:58 BP 172 / 107; Pulse 78; Resp 16; Temp 98.3; Pulse Ox 98% on R/A; Weight 83.91 kg; hb Height 4 ft. 11 in. ; Pain 9/10; 19:20 BP 138 / 82; Pulse 88; Resp 16 S; Pulse Ox 100% on R/A; ha1 20:00 BP 122 / 77; Pulse 75; Resp 18 S; Pulse Ox 100% on R/A; ha1 21:00 BP 121 / 70; Pulse 85; Resp 16 S; Pulse Ox 100% on R/A; ha1 18:58 Body Mass Index 37.37 (83.91 kg, 149.86 cm) hb 18:58 Pain Scale: Adult hb NIH Stroke Scale Scores: 19:10 NIHSS Score: 7 ha1 19:46 NIHSS Score: 6 bs3 ED Course: 18:53 Patient arrived in ED. hb 19:00 Tremaine Winn MD is Attending Physician. bs3 19:01 Triage completed. hb 19:01 Arm band placed on. hb 19:02 Krysta Gonzales, RINA is Primary Nurse. db 19:10 Patient has correct armband on for positive identification. Placed in gown. Bed in low ha1 position. Call light in reach. Side rails up X 1. 19:10 Maintain EMS IV. Dressing intact. Good blood return noted. Site clean \T\ dry. Gauge \T\ graves 1 site: 20 at right AC. 19:12 CT Stroke Brain w/o Contrast In Process Unspecified. EDMS 19:19 CT Head Angio In Process Unspecified. EDMS 19:19 CT Neck Angio In Process Unspecified. EDMS 19:35 Stroke CXR 1 View In Process Unspecified. EDMS 21:51 No provider procedures requiring assistance completed. ha1 21:51 IV discontinued, intact, bleeding controlled, No redness/swelling at site. Pressure ha1 dressing applied. Administered Medications: 19:35 Drug: Ketorolac IVP 15 mg Route: IVP; Site: right antecubital; ha1 20:00 Follow up: Response: No adverse reaction ha1 19:35 Drug: NS 0.9% IV 500 ml Route: IV; Rate: bolus; Site: right antecubital; ha1 21:00 Follow up: Response: No adverse reaction; IV Status: Completed infusion; IV Intake: ha1 500ml 19:38 Drug: diphenhydrAMINE IVP 25 mg Route: IVP; Site: right antecubital; ha1 20:00 Follow up: Response: No adverse reaction ha1 19:42 Drug: metoCLOPramide IVP 10 mg Route: IVP; Site: right antecubital; ha1 20:00 Follow up: Response: No adverse reaction ha1 Medication: 21:51 VIS not applicable for this client. ha1 Point of Care Testing: Blood Glucose: 19:32 Blood Glucose: 92 mg/dL; ha1 Ranges: Intake: 21:00 IV: 500ml; Total: 500ml. ha1 Outcome: 21:22 Discharge ordered by . bs3 21:51 Patient left the ED. ha1 21:51 Discharged to home via wheelchair, with family. ha1 21:51 Condition: stable 21:51 Discharge instructions given to patient, family, Instructed on discharge instructions, follow up and referral plans. Demonstrated understanding of instructions, follow-up care. NIH Stroke Scale - NIH Stroke Score Date: 12/30/2022 Time: 19:10 Total Score = 7 10. Dysarthria (speech clarity - read or repeat words) - 1(Mild to Moderate) 11. Extinction and Inattention (visual/tactile/auditory/spatial/personal) - 0(No abnormality) 1a. Level of Consciousness (LOC) - 0(Alert) 1b. Level of Consciousness (LOC) (Month \T\ Age) - 0(Both) 1c. LOC Commands (Open \T\ Closes Eyes/Fly Fishing Guide) - 0(Both) 2. Best Gaze (Lateral Gaze Paresis) - 1(Partial gaze palsy) 3. Visual Field Loss - 0(No visual loss) 4. Facial Palsy - 0(Normal) 5a. Left Arm: Motor (10-second hold) - 2(Drift, some effort against gravity) 5b. Right Arm: Motor (10-second hold) - 1(Drift) 6a. Left Leg: Motor (5-second hold - always test supine) - 1(Drift) 6b. Right Leg: Motor (5-second hold - always test supine) - 1(Drift) 7. Limb Ataxia (finger/nose \T\ heel/waite - test with eyes open) - 0(Absent) 8. Sensory Loss (pinprick arms/legs/face) - 0(Normal) 9. Best Language: Aphasia (description/naming/reading) - 0(No aphasia) Initials: ha1 NIH Stroke Scale - NIH Stroke Score Date: 12/30/2022 Time: 19:46 Total Score = 6 10. Dysarthria (speech clarity - read or repeat words) - 1(Mild to Moderate) 11. Extinction and Inattention (visual/tactile/auditory/spatial/personal) - 0(No abnormality) 1a. Level of Consciousness (LOC) - 0(Alert) 1b. Level of Consciousness (LOC) (Month \T\ Age) - 0(Both) 1c. LOC Commands (Open \T\ Closes Eyes/Fly Fishing Guide) - 0(Both) 2. Best Gaze (Lateral Gaze Paresis) - 0(Normal) 3. Visual Field Loss - 0(No visual loss) 4. Facial Palsy - 2(Partial paralysis) 5a. Left Arm: Motor (10-second hold) - 1(Drift) 5b. Right Arm: Motor (10-second hold) - 0(No drift) 6a. Left Leg: Motor (5-second hold - always test supine) - 1(Drift) 6b. Right Leg: Motor (5-second hold - always test supine) - 0(No drift) 7. Limb Ataxia (finger/nose \T\ heel/waite - test with eyes open) - 0(Absent) 8. Sensory Loss (pinprick arms/legs/face) - 1(Mild to moderate loss) 9. Best Language: Aphasia (description/naming/reading) - 0(No aphasia) Initials: bs3 Signatures: Dispatcher [employer] EDPA Chio Barber RN RN Antonia Brito RN RN 1 Tremaine Winn MD MD bs3 Krysta Gonzales RN RN db Corrections: (The following items were deleted from the chart) 12/31 01:31 12/29 19:10 VAN Scoring: Arm Drift: Minor drift ha1 1 12/31 01:32 12/29 19:10 Neuro: Level of Consciousness is awake, alert, obeys commands, ha1 Oriented to person, place, time, situation, Hearing Instrument Specialist are weak on right Weakness Speech is slurred, Pupils are Pupil Size: 1 Reports headache in entire ha1
[2022-12-30 22:30] VITALS: TEMP 98.3
[2022-12-30 22:32] VITALS: O2SAT 100
[2022-12-30 22:34] VITALS: BP 122/77
--- NOTE | 2023-01-01 14:21 | EKG ---
Test Date: 2022-12-30 Test Time: 19:25:36 Grommet Machine Operator: JING MEASUREMENT RESULTS: Intervals: Rate: 77 [place]: 138 QRSD: 96 QT: 398 QTc: 450 [place]: P: 5 [place]: 138 QRS: 81 T: 52 INTERPRETIVE STATEMENTS: Normal sinus rhythm Normal ECG Compared to ECG 03/16/2022 08:14:48 T-wave abnormality no longer present Electronically Signed On 01-01-23 14:17:36 CDT by Martínez Arreguin
== END 2022-12-30 21:51 | disposition home or self-care (01) ==
LOC: ER 18:50
DX: G43.119 Migraine with aura, intractable, without status migrainosus (principal); I10 Essential (primary) hypertension; R29.707 NIHSS score 7
CPT/HCPCS: 96361; 93005; 85025; 80048; 36415; 85610; 82565; 82947; 85730; 84484; 70496; 70498; 70450; 71045; 96375; 96374; 99285; Q9967; J2765; J1200; J7040